=== PATIENT | male | born 1930 | race African-American/Black ===

== ENCOUNTER 2016-10-30 10:04 | Day surgery (SDC) | payer MEDICARE ==
[~2016-10-30 10:04] MED LIST: BISA5TAB64 PO; CALC500T19 PO; COLA100C PO; CORE25TA PO; DIPY75TA PO; DORZSOL EACH EYE; ERGO50000 PO; LATA0.00 EACH EYE; LOVA20TA PO; MINO2.5 PO; NEPHCAP PO; NIFE1TAB85 PO; PROT40TA PO; ST JTAB PO; ULTR50TA PO; [UNRECOGNIZED DRUG - CODE] PO
[2016-10-30 11:55] VITALS: BP 154/69; PULSE 72; RESP 18; RESP 20; TEMP 97.8; O2SAT 100
--- NOTE | 2016-10-30 12:04 | RADRPT ---
EXAM DATE/TIME: 10/30/2016 11:30 [facility] COMPARISON: CHEST SINGLE AP, January 24, 2015, 23:42. INDICATIONS : Right side thoracentesis. MEDICAL HISTORY : blood transfusion SURGICAL HISTORY : None. ENCOUNTER: Initial ACUITY: 1 day PAIN SCORE: 0/10 LOCATION: n/a FINDINGS: A single portable frontal view the chest following right thoracentesis shows residual fluid involving the inferior hemithorax. No pneumothorax. A hydropneumothorax is seen on the left. The pneumothorax component is tiny involving the lateral chest. The effusion is relatively small. Heart is mildly enla rged. Advanced osteoarthritis of the shoulders bilaterally. CONCLUSION: 1. No pneumothorax following right thoracentesis. 2. Hydropneumothorax on the left. 3. Residual right effusion. 4. Cardiomegaly. Nic Brown Jr., MD on October 30, 2016 at 11:59 Board Certified Radiologist. This report was verified electronically.
[2016-10-30 12:15] VITALS: BP 105/64; PULSE 72; RESP 20; O2SAT 100
--- NOTE | 2016-10-30 13:10 | RADRPT ---
EXAM DATE/TIME: 10/30/2016 11:01 [facility] COMPARISON: No previous studies available for comparison. INDICATIONS : Right pleural effusion. Patient reports prior thoracentesis at [facility] that resulted in a pn eumothorax and need for chest tube placement. MEDICAL HISTORY : Hypercholesterolemia. Hypertension. Stroke, Left sided weakness. Dyspnea. GERD. SURGICAL HISTORY : Thoracentesis. Paracentesis. Carotid endarterectomy. Renal stents. Double hernia repair. ENCOUNTER: Initial ACUITY: 1 day PAIN SCORE: 0/10 LOCATION: Right chest FLUID: Total volume of 700 cc of dark yellow fluid was removed. Fluid was discarded. Thoracentesis was therapeutic only. TECHNIQUE: 1. Ultrasound guidance for thoracentesis. 2. Thoracentesis. The risks, benefits, and alternatives to ultrasound guided thoracentesis were explained to the patien t in lay simple terms, including the risk of bleeding and infection. Written and verbal informed con sent was obtained. Appropriate area for thoracentesis was marked under ultrasound guidance with the patient in the uprig ht position. Overlying skin was prepped and draped in the usual sterile fashion and with local anest hetic, a dermatotomy was made with an 11 blade scalpel. A 6 Slovak thoracentesis catheter was placed in the pleural space and fluid was removed. Catheter was then removed and a sterile dressing applie d. There were no immediate complications. The patient tolerated the procedure well and the left the ultrasound suite in stable condition. Chest radiograph is to be obtained. CONCLUSION: Uncomplicated ultrasound guided right thoracentesis. Nic Brown Jr., MD on October 30, 2016 at 13:07 Board Certified Radiologist. This report was verified electronically.
[2016-12-19] MEDS ORDERED: CORE25TA PO (20:22)
[2016-12-19] MEDS ORDERED: MINO2.5T PO (20:22)
[2016-12-19] MEDS ORDERED: ASPI1CAP PO (20:22)
[2016-12-19] MEDS ORDERED: COLA100C PO (20:27)
[2016-12-19] MEDS ORDERED: PROT40TA PO (20:27)
[2016-12-19] MEDS ORDERED: NIFE30TA61 PO (20:27)
[2016-12-19] MEDS ORDERED: BRIM0.2S4 EACH EYE (20:27)
[2016-12-19] MEDS ORDERED: LATA.005%O EACH EYE (20:27)
[2016-12-19] MEDS ORDERED: LACTCAP8 PO (20:27)
[2016-12-19] MEDS ORDERED: B-CO1CAP9 PO (20:27)
[2016-12-19] MEDS ORDERED: TRAM50TA PO (20:27)
[2016-12-19] MEDS ORDERED: LOVA20TA PO (20:27)
== END 2016-10-30 12:25 | disposition home or self-care (01) ==
LOC: HRAD 10:04 → HRIP 10:08 → HRAD 12:25
PROVIDERS: ATTEND Internal Medicine
DX: J90 Pleural effusion, not elsewhere classified (principal); I51.7 Cardiomegaly; I11.9 Hypertensive heart disease without heart failure; N18.6 End stage renal disease; K21.9 Gastro-esophageal reflux disease without esophagitis; Z99.2 Dependence on renal dialysis; Z86.73 Personal history of transient ischemic attack (TIA), and cerebral infarction without residual deficits
CPT/HCPCS: 32555; 71010; C1729

== ENCOUNTER 2016-12-19 18:35 | Inpatient (IN) | payer MEDICARE ==
[~2016-12-19] VITALS: Ht 170.2 cm; Wt 55.5 kg
[2016-12-19 18:35] VITALS: BP 150/88; PULSE 89; RESP 30; TEMP 98.8; O2SAT 95
--- NOTE | 2016-12-19 19:06 | PD ---
HPI Chief Complaint: Respiratory Distress Time Seen by Provider: 18:48 Travel History International Travel<30 days: No Contact w/Intl Traveler<30days: No Traveled to known affect area: No History of Present Illness HPI 86-year-old male complains of trouble breathing. Patient states that the symptoms started last night. Patient has history recurrent pleural effusion status post thoracentesis in the past. Patient is scheduled to have bilateral thoracentesis done by interventional radiologist. Patient denies any headache. Patient denies any chest pain. Patient denies abdominal pain. Patient denies any focal weakness or numbness of extremity. EMS was called. Patient was given nonrebreathing mask on the way to the ED. Patient has history of end- stage renal disease on dialysis Thursday and Thursday. 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 Patient also has history of hypertension, hyperlipidemia, CVA and anemia. PFSH Past Medical History Anemia: Yes Arthritis: Yes Heart Rhythm Problems: No Cancer: No Cardiovascular Problems: No High Cholesterol: Yes Chest Pain: No Congestive Heart Failure: No Cerebrovascular Accident: Yes (X2 CVA, LEFT SIDED WEAKNESS) Diabetes: No Dialysis: Yes (THU,THU,THU) Diminished Hearing: No Endocrine: No Gastrointestinal Disorders: Yes (GERD) GERD: Yes Glaucoma: Yes (only an hour level but not read the second-ANGLE, BOTH EYES) Genitourinary: Yes (HX OF ENLARGED PROSTATE ) Hepatitis: No Hiatal Hernia: No Hypertension: Yes Immune Disorder: No Musculoskeletal: Yes (ARTHRITIS, BACK PROBLEMS) Neurologic: Yes (STROKE X 2, L SIDE HEMIPLEGIA) Psychiatric: No Reproductive: No Respiratory: No Immunizations Current: Yes Renal Failure: Yes Thyroid Disease: No Past Surgical History Abdominal Surgery: Yes (DOUBLE HERNIA REPAIR) AICD: No Body Medical Devices: ISSAC URETERAL STENTS, AV FISTULA L ARM, DIALYSIS CATHETER R CHEST Cardiac Surgery: Yes (CAROTID ENDARTERECTOMY) Ear Surgery: Yes (CATARACT RIGHT EYE) Eye Surgery: Yes (CATARACT RIGHT EYE) Genitourinary Surgery: Yes (BILAT STENTS KIDNEY, TURP) Joint Replacement: No Neurologic Surgery: Yes Pacemaker: No Other Surgery: Yes (PROSTATE TURP, HEMO DIALYSIS PORT TO RU, FISTULA L ARM) Social History Alcohol Use: No (QUIT 2002) Tobacco Use: No (QUIT 40 YEARS AGO) Substance Use: No Allergies-Medications (Allergen,Severity, Reaction): Coded Allergies: *MDRO Multi-Drug Resistant Organism (Verified Adverse Reaction, Unknown, 01/29/15) MRSA PCR Screen positive 01/25/15. Reported Meds & Prescriptions Reported Meds & Active Scripts Active Calcium 500 Mg Tab 1,000 Mg PO DAILY 5 Days Ultram (Tramadol HCl) 50 Mg Tab 50 Mg PO Q4H PRN Aspirin Ec Low Dose (Aspirin) 81 Mg Tab 81 Mg PO DAILY resume 02/05 Coreg 25 mg (Carvedilol) 25 Mg Tab 12.5 Mg PO BID 30 Days Protonix (Pantoprazole Sodium) 40 Mg Tab 40 Mg PO DAILY Reported Novasource Renal (Nutritional Supplements) Renal Liq 1 Can PO BID Procardia Xl (Nifedipine) 30 Mg Tabcr 30 Mg PO BID PRN Colace (Docusate Sodium) 100 Mg Cap 100 Mg PO BID Dipyridamole 75 mg (Dipyridamole) 75 Mg Tab 75 Mg PO BID Bisacodyl 5 Mg Tab 10 Mg PO DAILY PRN Vitamin D / Drisdol 50,000 Units (Ergocalciferol) 50,000 Units Cap 1 Cap PO Q7D TAKES ON THURSDAY Nephrocaps (B-Complex W/ C & Folic Acid) Cap 1 Cap PO DAILY Loniten 2.5 Mg Tab (Minoxidil) 2.5 Mg Tab 2.5 Mg PO DAILY Lovastatin 20 Mg Tab 20 Mg PO HS Latanoprost 0.005 % Jolie 1 Drop EACH EYE HS Cosopt Pf (Dorzolamide Hcl-Timolol Maleat) Jolie 1 Drop EACH EYE BID Review of Systems General / Constitutional: No: Fever Eyes: No: Visual changes HENT: No: Headaches Cardiovascular: No: Chest Pain or Discomfort Respiratory: Positive: Shortness of Breath Gastrointestinal: No: Abdominal Pain Genitourinary: No: Dysuria Musculoskeletal: No: Pain Skin: No Rash Neurologic: No: Weakness Psychiatric: No: Depression Endocrine: No: Polydipsia Hematologic/Lymphatic: No: Easy Bruising Physical Exam Narrative GENERAL: Well-nourished, well-developed patient. SKIN: Focused skin assessment warm/dry. HEAD: Normocephalic. EYES: No scleral icterus. No injection or drainage. NECK: Supple, trachea midline. No JVD or lymphadenopathy. CARDIOVASCULAR: Regular rate and rhythm without murmurs, gallops, or rubs. RESPIRATORY: Patient had decreased breath sound bilaterally especially at the right lung. Few rhonchi at the bases. GASTROINTESTINAL: Abdomen soft, non-tender, nondistended. MUSCULOSKELETAL: No cyanosis, or edema. BACK: Nontender without obvious deformity. No CVA tenderness. Neurologic exam normal. Data Data Last Documented VS Vital Signs Date Time Temp Pulse Resp B/P (MAP) Pulse Ox O2 Delivery O2 Flow Rate FiO2 12/19/16 18:48 30 99 Non-Rebreather 15.00 12/19/16 18:35 98.8 89 150/88 (108) Orders Orders Electrocardiogram (12/19/16 18:50) Complete Blood Count With Diff (12/19/16 18:50) Comprehensive Metabolic Panel (12/19/16 18:50) Creatine Kinase (Cpk) (12/19/16 18:50) Troponin I (12/19/16 18:50) Prothrombin Time / Inr (Pt) (12/19/16 18:50) Act Partial Throm Time (Ptt) (12/19/16 18:50) Blood Culture (12/19/16 18:50) Urinalysis - C+S If Indicated (12/19/16 18:50) Chest, Single Ap (12/19/16 18:50) Iv Access Insert/Monitor (12/19/16 18:50) Ecg Monitoring (12/19/16 18:50) Oximetry (12/19/16 18:50) Lactic Acid (12/19/16 18:50) MDM Medical Decision Making Medical Screen Exam Complete: Yes Emergency Medical Condition: Yes Differential Diagnosis Differential diagnosis including pleural effusion, bronchitis, pneumonia, PE, pneumothorax, CHF. Narrative Course 86-year-old male with shortness of breath. History of pleural effusion. Chun Galvan MD Dec 19, 2016 19:06
--- NOTE | 2016-12-19 19:16 | RADRPT ---
EXAM DATE/TIME: 12/19/2016 19:00 [facility] COMPARISON: CHEST EXPIRATION ONLY, October 30, 2016, 11:30. INDICATIONS : Short of breath. MEDICAL HISTORY : None. SURGICAL HISTORY : None. ENCOUNTER: Initial ACUITY: 1 day PAIN SCORE: 7/10 LOCATION: Bilateral chest FINDINGS: Bilateral pleural effusions are again appreciated minimally increased on the right and stable on the left. On the left the minimal lateral pneumothorax prior study 6 mm in width is now somewhat larger b eing lateral and a long the base CONCLUSION: Slightly enlarged right pleural effusion. Left pleural effusion persists with left lateral and subple ural basilar pneumothorax 2.5 cm in width which is increased in size relative to 30 October 2016. Frank Alonso MD on December 19, 2016 at 19:12 Board Certified Radiologist. This report was verified electronically. maximum width 2.5 cm.
[2016-12-19 19:26] VITALS: BP 119/69; PULSE 78; RESP 20; O2SAT 100
--- NOTE | 2016-12-19 19:32 | PD ---
Data Data Last Documented VS Vital Signs Date Time Temp Pulse Resp B/P (MAP) Pulse Ox O2 Delivery O2 Flow Rate FiO2 12/19/16 19:26 78 20 119/69 (86) 100 Nasal Cannula 5.00 12/19/16 18:35 98.8 Orders Orders Electrocardiogram (12/19/16 18:50) Complete Blood Count With Diff (12/19/16 18:50) Comprehensive Metabolic Panel (12/19/16 18:50) Creatine Kinase (Cpk) (12/19/16 18:50) Troponin I (12/19/16 18:50) Prothrombin Time / Inr (Pt) (12/19/16 18:50) Act Partial Throm Time (Ptt) (12/19/16 18:50) Blood Culture (12/19/16 18:50) Urinalysis - C+S If Indicated (12/19/16 18:50) Chest, Single Ap (12/19/16 18:50) Iv Access Insert/Monitor (12/19/16 18:50) Ecg Monitoring (12/19/16 18:50) Oximetry (12/19/16 18:50) Lactic Acid (12/19/16 18:50) Lidocai-Epi 2%-1:100,000 Inj (Xylocaine- (12/19/16 19:45) Admit Order (Ed Use Only) (12/19/16 ) Chest, Single Ap (12/19/16 ) Labs Laboratory Tests Test 12/19/16 19:10 White Blood Count 5.1 TH/MM3 Red Blood Count 3.36 MIL/MM3 Hemoglobin 11.6 GM/DL Hematocrit 36.1 % Mean Corpuscular Volume 107.5 FL Mean Corpuscular Hemoglobin 34.6 PG Mean Corpuscular Hemoglobin Concent 32.2 % Red Cell Distribution Width 15.2 % Platelet Count 189 TH/MM3 Mean Platelet Volume 9.3 FL Neutrophils (%) (Auto) 51.4 % Lymphocytes (%) (Auto) 35.7 % Monocytes (%) (Auto) 11.1 % Eosinophils (%) (Auto) 1.2 % Basophils (%) (Auto) 0.6 % Neutrophils # (Auto) 2.6 TH/MM3 Lymphocytes # (Auto) 1.8 TH/MM3 Monocytes # (Auto) 0.6 TH/MM3 Eosinophils # (Auto) 0.1 TH/MM3 Basophils # (Auto) 0.0 TH/MM3 CBC Comment DIFF FINAL Differential Comment Prothrombin Time 11.7 SEC Prothromb Time International Ratio 1.1 RATIO Activated Partial Thromboplast Time 28.1 SEC Blood Urea Nitrogen 62 MG/DL Creatinine 7.68 MG/DL Random Glucose 118 MG/DL Total Protein 7.7 GM/DL Albumin 2.8 GM/DL Calcium Level 8.5 MG/DL Alkaline Phosphatase 83 U/L Aspartate Amino Transf (AST/SGOT) 13 U/L Alanine Aminotransferase (ALT/SGPT) 14 U/L Total Bilirubin 0.3 MG/DL Sodium Level 138 MEQ/L Potassium Level 5.4 MEQ/L Chloride Level 103 MEQ/L Carbon Dioxide Level 27.5 MEQ/L Anion Gap 8 MEQ/L Estimat Glomerular Filtration Rate 8 ML/MIN Lactic Acid Level 1.2 mmol/L Total Creatine Kinase 89 U/L Troponin I 0.03 NG/ML MDM Supervised Visit with LANCE: No Narrative Course Patient care assumed from Dr. Galvan at 1900. This is a 86-year-old male with a history of end-stage renal disease and recurrent pneumothorax and pleural effusion. Apparently in September of this year or thereabouts the patient had a pleural effusion and had chest tube placed which was complicated by pneumothorax , patient's states he was scheduled to have an repeat drainage of pleural effusion as an outpatient but because he didn't have a labs they couldn't do it as an outpatient they were told if he got worse to come into the emergency department. He was gradually getting worse and they called 911 today, on scene the patient was satting in the 80s. Dr. Galvan and I have explored the possibility of interventional radiology drainage tonight however there is no availability. I think the patient does need evacuation of pneumothorax which is new on the left. The patient was also discussed with Dr. Oliveira who would like to assist did not perform procedures. He has medicine at bedside, I assisted him with the first pigtail catheter on the left side which did reveal some yellowish fluid as well. Dr. Oliveira would like also drain the pleural effusion on the right side, he drained approximately 600 cc in the emergency department which is complicated by pneumothorax and the pigtail catheter was placed on the right as well. Patient is satting much better after drainage bilaterally. He will go to the intensive care unit for tonight. Discussed with Dr. Oliveira need for pathology on fluid drainage and he agrees. I reviewed the patient's labs and does have some mild hyperkalemia and mild uremia, he is due for dialysis today. He has no EKG changes consistent with hyperkalemia, there is an isolated T-wave enlargement and V3 but probably not related to hyperkalemia. Dr. Oliveira will assume care at this time. Patient to the ICU. Diagnosis Primary Impression: Pneumothorax Qualified Codes: J95.811 - Postprocedural pneumothorax Additional Impression: Pleural effusion Disposition: 01 DISCHARGE HOME Condition: Stable Eliecer Orlando MD Dec 19, 2016 19:32
[2016-12-19 19:38] LABS: AUTOMATED NEUTROPHIL # 2.6 TH/MM3 (1.8-7.7); BASOPHIL % 0.6 % (0.0-2.0); EOSINOPHIL # 0.1 TH/MM3 (0-0.4); EOSINOPHIL % 1.2 % (0.0-4.0); HEMATOCRIT 36.1 % (39.0-51.0); HEMOGLOBIN 11.6 GM/DL (13.0-17.0); LYMPH % 35.7 % (9.0-44.0); LYMPHOCYTE # 1.8 TH/MM3 (1.0-4.8); MEAN CELL VOLUME 107.5 FL (80.0-100.0); MEAN CORPUSCULAR HEMOGLOBIN 34.6 PG (27.0-34.0); MEAN CORPUSCULAR HGB CONC 32.2 % (32.0-36.0); MEAN PLATELET VOLUME 9.3 FL (7.0-11.0); MONO % 11.1 % (0.0-8.0); MONOCYTE # 0.6 TH/MM3 (0-0.9); NEUT % 51.4 % (16.0-70.0); PLATELET COUNT 189 TH/MM3 (150-450); RED BLOOD COUNT 3.36 MIL/MM3 (4.50-5.90); RED CELL DISTRIBUTION WIDTH 15.2 % (11.6-17.2); WHITE BLOOD COUNT 5.1 TH/MM3 (4.0-11.0)
[2016-12-19] MEDS ORDERED: LIDOCAINE 2%/EPINEPHrine 1:100,000 20ML MDV NERV BLOCK ONE ×2 (19:45)
[2016-12-19 19:49] LABS: INTERNATIONAL NORMALIZED RATIO 1.1 RATIO; PROTHROMBIN TIME - PATIENT 11.7 SEC (9.8-11.6)
[2016-12-19] MEDS ORDERED: BISACODYL EC 5 MG TABEC PO PRN ×2 (20:00)
[2016-12-19] MEDS ORDERED: NIFEdipine 30 MG SUSTAINED RELEASE TAB PO PRN ×2 (20:00)
[2016-12-19 20:04] VITALS: BP 129/74; PULSE 81; RESP 18; O2SAT 100
[2016-12-19] MEDS ORDERED: BISACODYL 10 MG SUPP RECTAL PRN ×2 (20:15)
[2016-12-19] MEDS ORDERED: ZOLPIDEM TARTRATE 5 MG TAB PO PRN ×2 (20:15)
[2016-12-19] MEDS ORDERED: LACTULOSE SYRUP 20 GM/30 ML CUP PO PRN ×2 (20:15)
[2016-12-19] MEDS ORDERED: MAGNESIUM HYDROXIDE SUSP 30 ML CUP PO PRN ×2 (20:15)
[2016-12-19] MEDS ORDERED: SENNOSIDES 8.6 MG TAB PO PRN ×2 (20:15)
[2016-12-19] MEDS ORDERED: RESP: ALBUTEROL 2.5 MG/IPRATROPIUM 0.5 MG NEB (PRN) INH ×2 (20:15)
[2016-12-19] MEDS ORDERED: CHLORHEXIDINE GLUCONATE 2 % 1 PACK (2 CLOTHS) TOP PRN ×2 (20:15)
[2016-12-19] MEDS ORDERED: ONDANSETRON HCL 4 MG/2 ML VIAL IV PUSH PRN ×2 (20:15)
[2016-12-19] MEDS ORDERED: MISCELLANEOUS NURSING INFORMATION XX SCH ×2 (20:15)
[2016-12-19] MEDS ORDERED: CORE25TA PO ×2 (20:22)
[2016-12-19] MEDS ORDERED: ASPI1CAP PO ×2 (20:22)
[2016-12-19] MEDS ORDERED: MINO2.5T PO ×2 (20:22)
[2016-12-19] MEDS ORDERED: TRAM50TA PO ×2 (20:27)
[2016-12-19] MEDS ORDERED: COLA100C PO ×2 (20:27)
[2016-12-19] MEDS ORDERED: LACTCAP8 PO ×2 (20:27)
[2016-12-19] MEDS ORDERED: PROT40TA PO ×2 (20:27)
[2016-12-19] MEDS ORDERED: B-CO1CAP9 PO ×2 (20:27)
[2016-12-19] MEDS ORDERED: BRIM0.2S4 EACH EYE ×2 (20:27)
[2016-12-19] MEDS ORDERED: LATA.005%O EACH EYE ×2 (20:27)
[2016-12-19] MEDS ORDERED: LOVA20TA PO ×2 (20:27)
[2016-12-19] MEDS ORDERED: NIFE30TA61 PO ×2 (20:27)
[2016-12-19 20:30] VITALS: BP 141/94; PULSE 78; RESP 20; O2SAT 100
[2016-12-19 20:47] LABS: ALBUMIN 2.8 GM/DL (3.4-5.0); ALKALINE PHOSPHATASE 83 U/L (45-117); ALT (GPT) 14 U/L (12-78); AST (GOT) 13 U/L (15-37); BICARBONATE 27.5 MEQ/L (21.0-32.0); BLOOD UREA NITROGEN 62 MG/DL (7-18); CALCIUM 8.5 MG/DL (8.5-10.1); CHLORIDE 103 MEQ/L (98-107); CREATININE 7.68 MG/DL (0.60-1.30); GLOMERULAR FILTRATION RATE 8 ML/MIN (>89); GLUCOSE,RANDOM 118 MG/DL (74-106); SODIUM (NA) 138 MEQ/L (136-145); TOTAL BILIRUBIN ADULT 0.3 MG/DL (0.2-1.0); TOTAL PROTEIN 7.7 GM/DL (6.4-8.2); TROPONIN I 0.03 NG/ML (0.02-0.05)
--- NOTE | 2016-12-19 20:47 | RADRPT ---
EXAM DATE/TIME: 12/19/2016 20:09 [facility] COMPARISON: CHEST SINGLE AP, December 19, 2016, 19:00. INDICATIONS : Chest tube insertion. MEDICAL HISTORY : None. SURGICAL HISTORY : None. ENCOUNTER: Subsequent ACUITY: 1 day PAIN SCORE: Non-responsive. LOCATION: Left chest FINDINGS: There is placement of a smallbore left chest tube laterally with the left pneumothorax diminished in volume laterally from 2.5 now 3 mm in width and there persists be a subpulmonic component. CONCLUSION: Place a left chest tube with marked diminished volume of left pneumothorax decreased laterally from 2 .5 cm to 3 mm with a persistent subpulmonic component. Remainder chest is stable Frank Alonos MD on December 19, 2016 at 20:44 Board Certified Radiologist. This report was verified electronically.
[2016-12-19 21:00] VITALS: BP 148/69; PULSE 76; RESP 20; O2SAT 100
[2016-12-19] MEDS: DORZOLAMIDE/TIMOLOL OPTH SOLN 10 ML BTL EACH EYE SCH ×2 (21:00)
[2016-12-19] MEDS: PRAVASTATIN SOD 20 MG TAB PO SCH ×2 (21:00)
[2016-12-19] MEDS: DIPYRIDAMOLE 75 MG PO SCH ×2 (21:00)
[2016-12-19] MEDS: LATANOPROST 0.005% OPHT SOLN 2.5 ML BTL EACH EYE SCH ×2 (21:00)
[2016-12-19] MEDS: HEPARIN SODIUM - SQ 10,000 UNITS/ML VIAL SQ SCH ×2 (21:00)
[2016-12-19] MEDS: CARVEDILOL 12.5 MG TAB PO SCH ×2 (21:00)
[2016-12-19] MEDS ORDERED: DOCUSATE SODIUM 100 MG CAP PO SCH ×2 (21:00)
[2016-12-19] MEDS: DOCUSATE SODIUM 50 MG/SENNA 8.6 MG TAB PO SCH ×2 (21:00)
[2016-12-19] MEDS ORDERED: NUTRITIONAL SUPPLEMENTS PO SCH ×2 (21:00)
[2016-12-19] MEDS: SODIUM CHLORIDE 0.9% FLUSH 10 ML FLUSH IV FLUSH SCH ×2 (21:00)
--- NOTE | 2016-12-19 21:21 | RADRPT ---
EXAM DATE/TIME: 12/19/2016 20:49 [facility] COMPARISON: CHEST SINGLE AP, December 19, 2016, 20:09. INDICATIONS : Status post right sided chest tube placement for pleural effusion. MEDICAL HISTORY : None. SURGICAL HISTORY : None. ENCOUNTER: Subsequent ACUITY: 1 day PAIN SCORE: Non-responsive. LOCATION: chest FINDINGS: Left chest tube remains in place with persistent subpulmonic basilar pneumothorax. There apparently h as been a right thoracentesis chest tube is not noted on the right however there is loculated pneumot horax occupying the area of the prior infusion CONCLUSION: Right thoracentesis evacuation of right effusion which now is contain s loculated pneumothorax without tension . Left chest tube remains in place and the lateral component pneumothorax has cleared however there is persistent left basilar subpulmonic pneumothorax unchanged Frank Alonso MD on December 19, 2016 at 21:17 Board Certified Radiologist. This report was verified electronically.
--- NOTE | 2016-12-19 22:05 | RADRPT ---
EXAM DATE/TIME: 12/19/2016 21:30 [facility] COMPARISON: CHEST SINGLE AP, December 19, 2016, 20:49. INDICATIONS : Chest tube insertion right side. MEDICAL HISTORY : None. SURGICAL HISTORY : None. ENCOUNTER: Subsequent ACUITY: 2 days PAIN SCORE: Non-responsive. LOCATION: Right chest FINDINGS: There is a small bore pigtail chest tube in place in the right lung base with a persistent unchanged loculated pneumothorax. Left chest tube remains in place laterally with persistent unchanged loculate d left basilar subpulmonic pneumothorax. CONCLUSION: Placement right basilar small bore pigtail chest tube. Left small bore chest tube remains in place. B ibasilar loculated pneumothoraces are stable and unchanged Frank Alonso MD on December 19, 2016 at 22:02 Board Certified Radiologist. This report was verified electronically.
[2016-12-20] VITALS (14 sets, daily range): BP systolic 126–186; BP diastolic 60–80; PULSE 66–87; RESP 18–28; TEMP 97.2–98.4; O2SAT 99–100
[2016-12-20] MEDS: hydrALAZINE HCL 20 MG/ML VIAL IV PRN ×2 (00:22)
[2016-12-20] MEDS: traMADol HCL 50 MG TAB PO PRN ×4 (01:13→15:50)
--- NOTE | 2016-12-20 01:14 | HHI.HP ---
[facility] Service Critical Care Medicine - service provided December 19, 2016 Primary Care Physician Shobha Gomez MD Admission Diagnosis Pleural Effusion, Pneumothorax, Hypoxic respiratory failure. Diagnosis: Travel History International Travel<30 Days: No Contact w/Intl Traveler <30 Da: No Traveled to Known Affected Are: No History of Present Illness 86-year-old very pleasant male presents complaining of shortness of breath. Patient states that the symptoms started last night. He has history recurrent pleural effusion status post thoracentesis in the past. Patient is scheduled to have bilateral thoracentesis done by interventional radiologist. Patient denies any headache. Patient denies any chest pain. Patient denies abdominal pain. Patient denies any focal weakness or numbness of extremity. 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 Patient also has history of hypertension, hyperlipidemia, CVA and anemia. In the emergency department the chest x-ray revealed large pleural effusion on the right and a large pneumothorax on the left. Emergent chest tubes were placed bilaterally with partial resolution of pneumothorax on the left and drainage of 700 cc of hemorrhagic fluid from the right side however bilateral residual bibasal pneumothoraces. After procedures patient's respiration is significantly improved as well as his oxygenation. Review of Systems Constitutional: COMPLAINS OF: Diaphoretic episodes, DENIES: Fatigue, Fever, Weight gain, Weight loss, Chills, Dizziness, Change in appetite, Night Sweats Endocrine: DENIES: Heat/cold intolerance, Polydipsia, Polyuria, Polyphagia Eyes: DENIES: Blurred vision, Diplopia, Eye inflammation, Eye pain, Vision loss , Photosensitivity, Double Vision Ears, nose, mouth, throat: DENIES: Tinnitus, Hearing loss, Vertigo, Nasal discharge, Oral lesions, Throat pain, Hoarseness, Ear Pain, Running Nose, Epistaxis, Sinus Pain, Toothache, Odynophagia Respiratory: COMPLAINS OF: Shortness of breath, DENIES: Apneas, Cough, Snoring , Wheezing, Hemoptysis, Sputum production Cardiovascular: DENIES: Chest pain, Palpitations, Syncope, Dyspnea on Exertion , PND, Lower Extremity Edema, Orthopnea, Claudication Gastrointestinal: DENIES: Abdominal pain, Black stools, Bloody stools, Constipation, Diarrhea, Nausea, Vomiting, Difficulty Swallowing, Anorexia Genitourinary: DENIES: Sexual dysfunction, Urinary frequency, Urinary incontinence, Urgency, Hematuria, Dysuria, Nocturia, Penile Discharge, Testicular Pain, Testicular Swelling Musculoskeletal: DENIES: Joint pain, Muscle aches, Stiffness, Joint Swelling, Back pain, Neck pain Integumentary: DENIES: Abnormal pigmentation, Nail changes, Pruritus, Rash Hematologic/lymphatic: DENIES: Bruising, Lymphadenopathy Immunologic/allergic: DENIES: Eczema, Urticaria Neurologic: DENIES: Abnormal gait, Headache, Localized weakness, Paresthesias, Seizures, Speech Problems, Tremor, Poor Balance Psychiatric: DENIES: Anxiety, Confusion, Mood changes, Depression, Hallucinations, Agitation, Suicidal Ideation, Homicidal Ideation, Delusions Past Family Social History Allergies: Coded Allergies: *MDRO Multi-Drug Resistant Organism (Verified Adverse Reaction, Unknown, 01/29/15) MRSA PCR Screen positive 01/25/15. Past Medical History ascites,hypertension,hemodiaylsis,crf,old cva,duodenitis Past Surgical History left carotid endarectomy,fistula left arm Reported Medications Reported Meds & Active Scripts Active Reported Probiotic (Lactobacillus Acidophilus) 10 Billion Cell Cap 1 Cap PO DAILY Colace (Docusate Sodium) 100 Mg Capsule 1 Tab PO BID Tramadol (Tramadol HCl) 50 Mg Tab 50 Mg PO Q8H PRN Protonix (Pantoprazole Sodium) 40 Mg Tab 40 Mg PO DAILY PRN Nifedipine ER 24 HR (Nifedipine) 30 Mg Tab 30 Mg PO DAILY PRN Nephrocaps (B-Complex W/ C & Folic Acid) 1 Cap 1 Cap PO DAILY If on dialysis, take after treatment. Xalatan Opth Drops (Latanoprost) 0.005% Drops 1 Drop EACH EYE HS Brimonidine Opth Drops (Brimonidine Tartrate) 0.2% Soln 1 Drop EACH EYE BID Lovastatin 20 Mg Tab 20 Mg PO HS Minoxidil 2.5 Mg Tab 2.5 Mg PO BID PRN Coreg (Carvedilol) 25 Mg Tab 25 Mg PO BID Dipyridamole-Aspirin 200-25 Mg Cap 1 Cap PO BID Active Ordered Medications Current Medications Medications (Trade) Dose Ordered Sig/Bill Route PRN Reason Start Time Stop Time Status Last Admin Dose Admin Bisacodyl (Dulcolax Ec) 10 mg DAILY PRN PO SEVERE CONSTIPATION 12/19/16 20:00 Dipyridamole (Persantine) 75 mg BID PO 12/19/16 21:00 Ergocalciferol (Drisdol) 50,000 units Q7D PO 12/20/16 09:00 Latanoprost (Xalatan 0.005% Opth Soln) 1 drop HS EACH EYE 12/19/16 21:00 Pravastatin Sodium (Pravachol) 20 mg HS PO 12/19/16 21:00 12/19/16 21:00 Minoxidil (Loniten) 2.5 mg DAILY PO 12/20/16 09:00 Nifedipine (Procardia Xl) 30 mg BID PRN PO SBP> OR = 180, DBP> OR = 100 12/19/16 20:00 12/20/16 00:23 Pantoprazole Sodium (Protonix) 40 mg DAILY PO 12/20/16 09:00 Tramadol HCl (Ultram) 50 mg Q4H PRN PO PAIN SCALE 1 TO 10 12/19/16 20:00 Aspirin (Ecotrin Ec) 81 mg DAILY PO 12/20/16 09:00 Vitamin B Complex/ Vit C/Folic Acid (Nephrocaps) 1 cap DAILY PO 12/20/16 09:00 Calcium Carbonate (Oscal) 1,000 mg DAILY PO 12/20/16 09:00 Carvedilol (Coreg) 12.5 mg BID PO 12/19/16 21:00 12/19/16 21:00 Dorzolamide/ Timolol (Cosopt 2-0.5% Opth Soln) 1 drop BID EACH EYE 12/19/16 21:00 Sodium Chloride (NS Flush) 2 ml UNSCH PRN IV FLUSH FLUSH AFTER USING IV ACCESS 12/19/16 20:15 Sodium Chloride (NS Flush) 2 ml BID IV FLUSH 12/19/16 21:00 12/19/16 21:00 Acetaminophen (Tylenol) 650 mg Q6H PRN PO FEVER >101F 12/19/16 20:15 Ondansetron HCl (Zofran Inj) 4 mg Q6H PRN IV PUSH NAUSEA OR VOMITING 12/19/16 20:15 Zolpidem Tartrate (Ambien) 5 mg HS PRN PO INSOMNIA 12/19/16 20:15 Albuterol/ Ipratropium (Duoneb Neb) 1 ampule Q2HR NEB PRN INH WHEEZING 12/19/16 20:15 Heparin Sodium (Porcine) (Heparin Inj) 5,000 units Q12H SQ 12/19/16 21:00 12/19/16 21:00 Miscellaneous Information 1 [id number] XX 12/19/16 20:15 Chlorhexidine Gluconate (Chlorhexidine 2% Cloth) 3 pack Taper DAILY@04 TOP 12/20/16 04:00 12/16/17 03:59 Chlorhexidine Gluconate (Chlorhexidine 2% Cloth) 3 pack UNSCH PRN TOP HYGIENIC CARE 12/19/16 20:15 Senna/Docusate Sodium (Shelby-Colace) 1 tab BID PO 12/19/16 21:00 Magnesium Hydroxide (Milk Of Magnesia Liq) 30 ml Q12H PRN PO Mild constipation 12/19/16 20:15 Sennosides (Senokot) 17.2 mg Q12H PRN PO Moderate constipation 12/19/16 20:15 Bisacodyl (Dulcolax Supp) 10 mg DAILY PRN RECTAL SEVERE CONSITIPATION 12/19/16 20:15 Lactulose (Lactulose Liq) 30 ml DAILY PRN PO SEVERE CONSITIPATION 12/19/16 20:15 Dipyridamole (Persantine) 75 mg BID PO 12/20/16 09:00 Hydralazine HCl (Apresoline Inj) 20 mg Q4H PRN IV SYS BP GREATER THAN 160 MMHG 12/20/16 00:15 12/20/16 00:22 Family History No family history for coronary artery disease or malignancy Social History No alcohol or illicit drug abuse Physical Exam Vital Signs Vital Signs Date Time Temp Pulse Resp B/P (MAP) Pulse Ox O2 Delivery O2 Flow Rate FiO2 12/19/16 22:01 12/19/16 21:00 76 20 148/69 (95) 100 Nasal Cannula 5.00 12/19/16 20:30 78 20 141/94 (110) 100 Nasal Cannula 5.00 12/19/16 20:04 81 18 129/74 (92) 100 Nasal Cannula 5.00 12/19/16 19:26 78 20 119/69 (86) 100 Nasal Cannula 5.00 12/19/16 18:48 30 99 Non-Rebreather 15.00 12/19/16 18:35 98.8 89 30 150/88 (108) 95 Physical Exam GENERAL: Malnourished, cachectic sick but very pleasant gentleman SKIN: Warm and dry. HEAD: Normocephalic. EYES: No scleral icterus. No injection or drainage. NECK: Supple, trachea midline. No JVD or lymphadenopathy. CARDIOVASCULAR: Regular rate and rhythm without murmurs, gallops, or rubs. RESPIRATORY: Breath sounds equal bilaterally. No accessory muscle use. GASTROINTESTINAL: Abdomen soft, non-tender, nondistended. MUSCULOSKELETAL: No cyanosis, or edema. BACK: Nontender without obvious deformity. NEURO EXAM: GCS: M 6 V 5 E 3 Mental Status: The patient is alert and oriented to person, place, and time with normal speech. Reflexes: Biceps, patellar, and Achilles are 2/4 bilaterally. No clonus. Laboratory Laboratory Tests Test 12/19/16 19:10 White Blood Count 5.1 Red Blood Count 3.36 Hemoglobin 11.6 Hematocrit 36.1 Mean Corpuscular Volume 107.5 Mean Corpuscular Hemoglobin 34.6 Mean Corpuscular Hemoglobin Concent 32.2 Red Cell Distribution Width 15.2 Platelet Count 189 Mean Platelet Volume 9.3 Neutrophils (%) (Auto) 51.4 Lymphocytes (%) (Auto) 35.7 Monocytes (%) (Auto) 11.1 Eosinophils (%) (Auto) 1.2 Basophils (%) (Auto) 0.6 Neutrophils # (Auto) 2.6 Lymphocytes # (Auto) 1.8 Monocytes # (Auto) 0.6 Eosinophils # (Auto) 0.1 Basophils # (Auto) 0.0 CBC Comment DIFF FINAL Differential Comment Prothrombin Time 11.7 Prothromb Time International Ratio 1.1 Activated Partial Thromboplast Time 28.1 Blood Urea Nitrogen 62 Creatinine 7.68 Random Glucose 118 Total Protein 7.7 Albumin 2.8 Calcium Level 8.5 Alkaline Phosphatase 83 Aspartate Amino Transf (AST/SGOT) 13 Alanine Aminotransferase (ALT/SGPT) 14 Total Bilirubin 0.3 Sodium Level 138 Potassium Level 5.4 Chloride Level 103 Carbon Dioxide Level 27.5 Anion Gap 8 Estimat Glomerular Filtration Rate 8 Lactic Acid Level 1.2 Total Creatine Kinase 89 Troponin I 0.03 Date/Time Source Procedure Growth Status 12/19/16 19:10 Blood Peripheral Aerobic Blood Culture Pending Received 12/19/16 19:10 Blood Peripheral Anaerobic Blood Culture Pending Received Result Diagram: 12/19/16190912/19/161909 Imaging Last 24 hours Impressions Chest X-Ray 12/19/16 0822 Signed Impressions: Service Date/Time: Monday, December 19, 2016 19:00 - CONCLUSION: Slightly enlarged right pleural effusion. Left pleural effusion persists with left lateral and subpleural basilar pneumothorax 2.5 cm in width which is increased in size relative to 30 October 2016. MD Mercedes Lal VTE Risk Assessment Caprini VTE Risk Assessment: Mod/High Risk (score >= 2) Caprini Risk Assessment Model Point Value = 1 Point Value = 2 Point Value = 3 Point Value = 5 Age 41-60 Minor surgery BMI > 25 kg/m2 Swollen legs Varicose veins or History of unexplained or recurrent spontaneous Oral contraceptives or hormone replacement Sepsis (< 1 month) Serious lung disease, including pneumonia (< 1 month) Abnormal pulmonary function Acute myocardial infarction Congestive heart failure (< 1 month) History of inflammatory bowel disease Medical patient at bed rest Age 61-74 Arthroscopic surgery Major open surgery (> 45 min) Laparoscopic surgery (> 45 min) Malignancy Confined to bed (> 72 hours) Immobilizing plaster cast Central venous access Age >= 75 History of VTE Family history of VTE Factor V Leiden Prothrombin [id number] Lupus anticoagulant Anticardiolipin antibodies Elevated serum homocysteine Heparin-induced thrombocytopenia Other congenital or acquired thrombophilia Stroke (< 1 month) Elective arthroplasty Hip, pelvis, or leg fracture Acute spinal cord injury (< 1 month) Prophylaxis Regimen Total Risk Factor Score Risk Level Prophylaxis Regimen 0-1 Low Early ambulation 2 Moderate Order ONE of the following: *Sequential Compression Device (SCD) *Heparin 5000 units SQ BID 3-4 Higher Order ONE of the following medications: *Heparin 5000 units SQ TID *Enoxaparin/Lovenox 40 mg SQ daily (WT < 150 kg, CrCl > 30 mL/min) *Enoxaparin/Lovenox 30 mg SQ daily (WT < 150 kg, CrCl > 10-29 mL/min) *Enoxaparin/Lovenox 30 mg SQ BID (WT < 150 kg, CrCl > 30 mL/min) AND/OR *Sequential Compression Device (SCD) 5 or more Highest Order ONE of the following medications: *Heparin 5000 units SQ TID (Preferred with Epidurals) *Enoxaparin/Lovenox 40 mg SQ daily (WT < 150 kg, CrCl > 30 mL/min) *Enoxaparin/Lovenox 30 mg SQ daily (WT < 150 kg, CrCl > 10-29 mL/min) *Enoxaparin/Lovenox 30 mg SQ BID (WT < 150 kg, CrCl > 30 mL/min) AND *Sequential Compression Device (SCD) Assessment and Plan Assessment and Plan Assessment: Respiratory failure Pneumothorax Pleural effusion ESRD HTN Macrocytic Anemia Plan - Bilateral chest tube - IR consult for decompression of loculated pneumothorax on the right - Follow-up fluid tenolysis - Pulmonary consult for further management of chest tubes - Nephrology consult for EGD - B12 and folate levels for evaluation of anemia Critical Care: The total critical care time was 35 minutes. Time to perform other separately billable procedures was not included in the critical care time. Noman Oliveira MD Dec 20, 2016 1:14 am
[2016-12-20] MEDS: SODIUM BICARBONATE 8.4% INJ 100 MEQ in DEXTROSE 5% IN WATE 1000ML INJ 1,000 ML IV SCH ×4 (02:09)
[2016-12-20] MEDS ORDERED: SODIUM CHLOR 0.9% 1000 ML INJ 1,000 ML IV ONE ×2 (02:15)
--- NOTE | 2016-12-20 03:50 | PD.PROCEDR ---
Procedure Note Procedure Procedure: CHEST TUBE Indication: Large pneumothorax on the left Performed by: Noman Oliveira A time out procedure was performed Initials Consent obtained JV Correct patient JV Correct procedure JV Correct site JV Correct positioning JV Correct supplies JV Patient was positioned, prepped and draped in usual sterile fashion. ccs 1% Lidocaine was used to anesthetize the area. An incision was made and blunt dissection was performed and curved forceps were used to enter the pleural space. A 10 fr chest tube was placed to 15cm. The tube was secured and taped. A chest xray was ordered to evaluate for placement of the chest tube. A pigtail catheter was placed using the seldinger technique. Initial Fluid Removed: 250 Patient tolerated the procedure well and there were no complications. Noman Oliveira MD Dec 20, 2016 3:50 am
--- NOTE | 2016-12-20 03:51 | PD.PROCEDR ---
Procedure Note Procedure Procedure: CHEST TUBE Indication: Large pleural effusion on the right Performed by: Noman Oliveira A time out procedure was performed Initials Consent obtained JV Correct patient JV Correct procedure JV Correct site JV Correct positioning JV Correct supplies JV Patient was positioned, prepped and draped in usual sterile fashion. ccs 1% Lidocaine was used to anesthetize the area. An incision was made and blunt dissection was performed and curved forceps were used to enter the pleural space. A 10 fr chest tube was placed to 15cm. The tube was secured and taped. A chest xray was ordered to evaluate for placement of the chest tube. A pigtail catheter was placed using the seldinger technique. Initial Fluid Removed: 50 Patient tolerated the procedure well and there were no complications. There is loculated residual basilar right-sided pneumothorax Noman Oliveira MD Dec 20, 2016 3:51 am
[2016-12-20] MEDS: CHLORHEXIDINE GLUCONATE 2 % 1 PACK (2 CLOTHS) TOP SCH ×2 (04:00)
[2016-12-20 04:38] LABS: AUTOMATED NEUTROPHIL # 3.6 TH/MM3 (1.8-7.7); BASOPHIL % 0.3 % (0.0-2.0); EOSINOPHIL % 0.3 % (0.0-4.0); HEMATOCRIT 35.9 % (39.0-51.0); HEMOGLOBIN 11.7 GM/DL (13.0-17.0); LYMPH % 21.4 % (9.0-44.0); LYMPHOCYTE # 1.1 TH/MM3 (1.0-4.8); MEAN CELL VOLUME 107.5 FL (80.0-100.0); MEAN CORPUSCULAR HGB CONC 32.5 % (32.0-36.0); MEAN PLATELET VOLUME 9.7 FL (7.0-11.0); MONO % 8.1 % (0.0-8.0); MONOCYTE # 0.4 TH/MM3 (0-0.9); NEUT % 69.9 % (16.0-70.0); PLATELET COUNT 163 TH/MM3 (150-450); RED BLOOD COUNT 3.34 MIL/MM3 (4.50-5.90); RED CELL DISTRIBUTION WIDTH 15.2 % (11.6-17.2); WHITE BLOOD COUNT 5.1 TH/MM3 (4.0-11.0)
[2016-12-20 05:11] LABS: ALKALINE PHOSPHATASE 88 U/L (45-117); ALT (GPT) 17 U/L (12-78); PHOSPHORUS 3.8 MG/DL (2.5-4.9); TOTAL BILIRUBIN ADULT 0.3 MG/DL (0.2-1.0); TOTAL PROTEIN 7.7 GM/DL (6.4-8.2)
[2016-12-20 05:34] LABS: FOLATE GREATER THAN 20.0 NG/ML (3.1-17.5)
[2016-12-20 05:49] LABS: PLEURAL FLUID LYMPHS 97 %; PLEURAL FLUID MONOS 3 %
[2016-12-20 05:50] LABS: PLEURAL FLUID RBC 8995 /MM3 (0-0); PLEURAL FLUID WBC 281 /MM3 (0-10)
[2016-12-20 05:50] LABS: ALBUMIN 2.7 GM/DL (3.4-5.0); AST (GOT) 15 U/L (15-37); BLOOD UREA NITROGEN 67 MG/DL (7-18); CALCIUM 8.4 MG/DL (8.5-10.1); CHLORIDE 105 MEQ/L (98-107); CREATININE 7.91 MG/DL (0.60-1.30); GLOMERULAR FILTRATION RATE 8 ML/MIN (>89); GLUCOSE,RANDOM 116 MG/DL (74-106); MAGNESIUM 2.4 MG/DL (1.5-2.5); SODIUM (NA) 139 MEQ/L (136-145)
--- NOTE | 2016-12-20 05:58 | RADRPT ---
EXAM DATE/TIME: 12/20/2016 04:48 [facility] COMPARISON: CHEST SINGLE AP, December 19, 2016, 21:30. INDICATIONS : Shortness of breath, followup loculated pneumothoraces.. MEDICAL HISTORY : None. SURGICAL HISTORY : None. ENCOUNTER: Subsequent ACUITY: 2 days PAIN SCORE: Non-responsive. LOCATION: Bilateral chest FINDINGS: A single AP semierect view of the chest was obtained and again demonstrates a small bore right-sided chest tube projected over the right lung base with stable small to moderate loculated thorax. There i s a left-sided chest tube in place as well with the tip projected over the lateral left upper lobe. T here is a sightly smaller loculated left basilar pneumothorax without significant change. The heart s ize is at the upper limits of normal. There is consolidative opacity in the right lung base. The bony thorax is intact with degenerative changes in both shoulders. CONCLUSION: No significant change in the bilateral pneumothoraces. Daniel Cowan MD on December 20, 2016 at 5:55 Board Certified Radiologist. This report was verified electronically.
[2016-12-20 06:56] LABS: TOTAL PROTEIN,PLEURAL FLUID 2.5 GM/DL
--- NOTE | 2016-12-20 08:59 | HHI.PR ---
Subjective Remarks more comfortable. present Objective Vitals nad oriented heart reg lung course bs miguel chest tubes. bloody fluid right ext no edema Vital Signs Date Time Temp Pulse Resp B/P (MAP) Pulse Ox O2 Delivery O2 Flow Rate FiO2 12/20/16 06:00 76 12/20/16 04:00 76 12/20/16 04:00 98.0 76 28 126/60 (82) 100 12/20/16 02:00 66 12/20/16 00:20 100 Nasal Cannula 2.00 12/20/16 00:00 97.8 71 27 186/79 (114) 100 12/20/16 00:00 71 12/19/16 22:01 12/19/16 21:00 76 20 148/69 (95) 100 Nasal Cannula 5.00 12/19/16 20:30 78 20 141/94 (110) 100 Nasal Cannula 5.00 12/19/16 20:04 81 18 129/74 (92) 100 Nasal Cannula 5.00 12/19/16 19:26 78 20 119/69 (86) 100 Nasal Cannula 5.00 12/19/16 18:48 30 99 Non-Rebreather 15.00 12/19/16 18:35 98.8 89 30 150/88 (108) 95 Result Diagram: 12/20/16 0400 12/20/16 0400 A/P Problem List: (1) Pleural effusion ICD Codes: J90 - Pleural effusion, not elsewhere classified Status: Acute Plan: 1. respiratory distress 2. bilateral pleural effusions/bilateral ptx 3. esrd on HD 4. htn 5. hyperkalemmia 6. hx cva. plan chest tubes per pulmonary IR consulted to eval loculated effusion right consulted renal for HD. he missed 12/19 cont home bp medications dvt prophylaxis supportive care. monitor in ICU (2) Pneumothorax ICD Codes: J93.9 - Pneumothorax, unspecified Status: Acute (3) ESRD (end stage renal disease) on dialysis ICD Codes: N18.6 - End stage renal failure on dialysis; Z99.2 - Dependence on renal dialysis Status: Chronic (4) HTN (hypertension) ICD Codes: I10 - Hypertension Status: Chronic (5) CVA (cerebral vascular accident) ICD Codes: I63.9 - Cerebrovascular accident Status: Chronic Problem Qualifiers (1) Pneumothorax: Qualified Codes: J95.811 - Postprocedural pneumothorax Gregg Beck MD Dec 20, 2016 08:59
[2016-12-20] MEDS: HEPARIN SODIUM - SQ 10,000 UNITS/ML VIAL SQ SCH ×4 (09:00→20:56)
[2016-12-20] MEDS: MINOXIDIL 2.5 MG TAB PO SCH ×2 (09:00)
[2016-12-20] MEDS: ASPIRIN EC 81 MG TABEC PO SCH ×2 (09:00)
[2016-12-20] MEDS: ERGOCALCIFEROL (VIT D2) 50,000 UNIT CAP PO SCH ×2 (09:00)
[2016-12-20] MEDS: CARVEDILOL 12.5 MG TAB PO SCH ×4 (09:00→20:56)
[2016-12-20] MEDS: SODIUM CHLORIDE 0.9% FLUSH 10 ML FLUSH IV FLUSH SCH ×4 (09:00→20:58)
[2016-12-20] MEDS ORDERED: PANTOPRAZOLE SOD 40 MG DELAYED RELEASE TAB PO SCH ×2 (09:00)
[2016-12-20] MEDS: CALCIUM CARBONATE 1.25 GM (CA 500 MG) TAB PO SCH ×2 (09:00)
[2016-12-20] MEDS: DIPYRIDAMOLE 75 MG PO SCH ×2 (09:00)
[2016-12-20] MEDS: VITAMIN B CMPLX/VITC/FOLIC AC CAP PO SCH ×2 (09:15)
[2016-12-20] MEDS: DOCUSATE SODIUM 50 MG/SENNA 8.6 MG TAB PO SCH ×4 (09:15→20:57)
[2016-12-20] MEDS ORDERED: SODIUM CHLOR 0.9% 1000 ML INJ 1,000 ML IV PRN ×2 (10:04)
[2016-12-20] MEDS ORDERED: SODIUM CHLOR 0.9% 1000 ML INJ 1,000 ML OTHER PRN ×2 (10:04)
[2016-12-20] MEDS ORDERED: MANNITOL 12.5 GM/50 ML VIAL IV PRN ×2 (10:15)
[2016-12-20] MEDS ORDERED: GELATIN 12 MM/7 MM FOAM TOP PRN ×2 (10:15)
[2016-12-20] MEDS ORDERED: SODIUM CHLORIDE 0.9% FLUSH 10 ML FLUSH IV FLUSH PRN ×2 (10:15)
[2016-12-20] MEDS ORDERED: diphenhydrAMINE HCL 25 MG CAP PO PRN ×2 (10:15)
[2016-12-20] MEDS ORDERED: ACETAMINOPHEN 325 MG TAB PO PRN ×2 (10:15)
[2016-12-20] MEDS ORDERED: GENTAMICIN SULFATE (DIALYSIS USE ONLY) 20 MG/2 ML VIAL OTHER PRN ×2 (10:15)
[2016-12-20] MEDS ORDERED: ONDANSETRON HCL 4 MG/2 ML VIAL IV PUSH PRN ×2 (10:15)
[2016-12-20] MEDS ORDERED: cloNIDine HCL 0.1 MG TAB PO PRN ×2 (10:15)
[2016-12-20] MEDS ORDERED: NITROGLYCERIN 0.4 MG SL 25 TABS/BTL SL PRN ×2 (10:15)
[2016-12-20] MEDS ORDERED: HEPARIN SODIUM - IV 10,000 UNITS/10 ML VIAL PRN ×2 (10:15)
--- NOTE | 2016-12-20 12:28 | PD.CONS ---
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 Patient now presents with increasing shortness of breath noted to have bilateral pleural effusions which appear to be loculated. Patient missed his dialysis session yesterday. Moderate hyperkalemia on presentation. Now status post bilateral pigtail catheter placement left and right pleural cavity. Pneumothorax bilaterally postprocedure. Patient seen during his dialysis session. Appears to be lethargic and nonverbal at this time. Review of Systems ROS Limitations: Clinical Condition, Altered Mental Status Past Family Social History Allergies: Coded Allergies: *MDRO Multi-Drug Resistant Organism (Verified Adverse Reaction, Unknown, 01/29/15) MRSA PCR Screen positive 01/25/15. Past Medical History End-stage renal disease Severe cerebrovascular disease Ischemic heart disease Recurrent ascites Bilateral pleural effusions, loculated. Failure to thrive. Noncompliance with hemodialysis at times despite repeated education and counseling concerning benefits of compliance with dialysis and consequences associated with noncompliance including premature ... Physical Exam Vital Signs Vital Signs Date Time Temp Pulse Resp B/P (MAP) Pulse Ox O2 Delivery O2 Flow Rate FiO2 12/20/16 07:25 99 Nasal Cannula 2.00 12/20/16 06:00 76 12/20/16 04:00 76 12/20/16 04:00 98.0 76 28 126/60 (82) 100 12/20/16 02:00 66 12/20/16 00:20 100 Nasal Cannula 2.00 12/20/16 00:00 97.8 71 27 186/79 (114) 100 12/20/16 00:00 71 12/19/16 22:01 12/19/16 21:00 76 20 148/69 (95) 100 Nasal Cannula 5.00 12/19/16 20:30 78 20 141/94 (110) 100 Nasal Cannula 5.00 12/19/16 20:04 81 18 129/74 (92) 100 Nasal Cannula 5.00 12/19/16 19:26 78 20 119/69 (86) 100 Nasal Cannula 5.00 12/19/16 18:48 30 99 Non-Rebreather 15.00 12/19/16 18:35 98.8 89 30 150/88 (108) 95 Physical Exam GENERAL: Elderly somewhat amazed CTA dated male lying in bed appears to have mild dyspnea. SKIN: Warm and dry. HEAD: Normocephalic. EYES: No scleral icterus. No injection or drainage. NECK: Supple, trachea midline. No JVD or lymphadenopathy. CARDIOVASCULAR: Regular rate and rhythm without murmurs, gallops, or rubs. RESPIRATORY: Breath sounds equal bilaterally. No accessory muscle use. GASTROINTESTINAL: Abdomen soft, non-tender, nondistended. MUSCULOSKELETAL: No cyanosis, 1+ pitting edema of dependent thighs and hips. Wasting of the musculature of all limbs. BACK: Nontender without obvious deformity. No CVA tenderness. Laboratory Laboratory Tests Test 12/19/16 19:10 12/19/16 20:35 12/19/16 22:20 12/20/16 04:00 White Blood Count 5.1 5.1 Red Blood Count 3.36 3.34 Hemoglobin 11.6 11.7 Hematocrit 36.1 35.9 Mean Corpuscular Volume 107.5 107.5 Mean Corpuscular Hemoglobin 34.6 35.0 Mean Corpuscular Hemoglobin Concent 32.2 32.5 Red Cell Distribution Width 15.2 15.2 Platelet Count 189 163 Mean Platelet Volume 9.3 9.7 Neutrophils (%) (Auto) 51.4 69.9 Lymphocytes (%) (Auto) 35.7 21.4 Monocytes (%) (Auto) 11.1 8.1 Eosinophils (%) (Auto) 1.2 0.3 Basophils (%) (Auto) 0.6 0.3 Neutrophils # (Auto) 2.6 3.6 Lymphocytes # (Auto) 1.8 1.1 Monocytes # (Auto) 0.6 0.4 Eosinophils # (Auto) 0.1 0.0 Basophils # (Auto) 0.0 0.0 CBC Comment DIFF FINAL DIFF FINAL Differential Comment Prothrombin Time 11.7 Prothromb Time International Ratio 1.1 Activated Partial Thromboplast Time 28.1 Blood Urea Nitrogen 62 67 Creatinine 7.68 7.91 Random Glucose 118 116 Total Protein 7.7 7.7 Albumin 2.8 2.7 Calcium Level 8.5 8.4 Alkaline Phosphatase 83 88 Aspartate Amino Transf (AST/SGOT) 13 15 Alanine Aminotransferase (ALT/SGPT) 14 17 Total Bilirubin 0.3 0.3 Sodium Level 138 139 Potassium Level 5.4 5.8 Chloride Level 103 105 Carbon Dioxide Level 27.5 27.0 Anion Gap 8 7 Estimat Glomerular Filtration Rate 8 8 Lactic Acid Level 1.2 Total Creatine Kinase 89 Troponin I 0.03 Pleural Fluid pH 8.0 Pleural Fluid WBC 281 Pleural Fluid RBC 8995 Pleural Fluid Lymphocytes 97 Pleural Fluid Monocytes 3 Pleural Fluid Comment Pleural Fluid Total Protein 2.5 Pleural Fluid LDH 118 Pleural Fluid Glucose 75 Nasal Screen MRSA (PCR) MRSA NOT DETECTED Phosphorus Level 3.8 Magnesium Level 2.4 Vitamin B12 Level GREATER THAN 2000 Folate GREATER THAN 20.0 Date/Time Source Procedure Growth Status 12/19/16 19:10 Blood Peripheral Aerobic Blood Culture - Preliminary NO GROWTH IN 1 DAY Resulted 12/19/16 19:10 Blood Peripheral Anaerobic Blood Culture - Preliminary NO GROWTH IN 1 DAY Resulted 12/19/16 20:35 Fluid Pleural Fluid Gram Stain - Final Resulted 12/19/16 20:35 Fluid Pleural Fluid Body Fluid Culture Pending Resulted Result Diagram: 12/20/1639912/20/16399 Assessment and Plan Problem List: (1) ESRD (end stage renal disease) on dialysis ICD Codes: N18.6 - End stage renal failure on dialysis; Z99.2 - Dependence on renal dialysis Status: Chronic Plan: Patient tolerating dialysis presently. AV dialysis fistula appears to be working well. As indicated above unfortunately patient has been occasionally noncompliant with dialysis treatments despite being counseled regarding potential consequences of noncompliance including increased morbidity as well as premature . This has been discussed with his when indicated that her is ill and would like the patient to do more or less what he wishes. Medications should be adjusted for the patient's estimated end stage renal disease if clinically indicated. Gadolinium contraindicated. (2) Hyperkalemia ICD Codes: E87.5 - Hyperkalemia Plan: Will improve with dialysis today. Related to missing dialysis. (3) Failure to thrive in adult ICD Codes: R62.7 - Adult failure to thrive Plan: The patient has severe diffuse atherosclerotic disease as well as as indicated above some noncompliance with dialysis sessions. 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 Patient's quality of life appears to be deteriorating. Palliative care consultation likely appropriate as well as a DNR CODE STATUS. We'll defer to family in this regard however. (4) Non-compliance with renal dialysis ICD Codes: Z91.15 - Patient's noncompliance with renal dialysis Plan: I do not believe that we can improve patient's compliance given previous attempts but will continue education. (5) HTN (hypertension) ICD Codes: I10 - Hypertension Status: Chronic (6) Anemia of renal disease ICD Codes: D63.1 - Anemia in chronic kidney disease Izabela Thompson MD Dec 20, 2016 12:28
--- NOTE | 2016-12-20 15:19 | MB ---
cc: Yaneth MOREL M.D. DATE OF CONSULTATION 12/20/16 HISTORY Mr. Lerner is an 86-year-old black male on chronic hemodialysis who presented to the hospital with shortness of breath and pleural effusions. Looking through his computerized record he has had pleural effusions and ascites for sometime. He has had paracentesis repeatedly and in September of this year had a thoracentesis on the right. Etiology seems to have been felt to be due to chronic fluid retention. On presentation yesterday, however, chest x-rays revealed significant reaccumulation of fluid particularly on the right and a pneumothorax on the left. Chest tubes were placed on both sides and subsequent films reveal inadequate reexpansion with trapped lungs both on the right and the left, greater on the right. On the plain film it does appear there is a significant pleural thickening. The patient has had substantial improvement in his breathing but is obviously left with a complex problem with failure to re-expand the lungs. The patient the patient is currently comfortable. Breathing is improved considerably. No chest pain. Nothing leading up to this to suggest pneumonia such as cough or purulent sputum. There was just gradual progressive increase in dyspnea. 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 He has had an old stroke and history of GI bleeding 2 years ago due to gastritis and duodenitis. He has also had a left carotid endarterectomy. ALLERGIES None listed. CURRENT MEDICATIONS Reviewed in the EMR. PHYSICAL EXAMINATION GENERAL: Elderly, frail-appearing black gentleman. VITAL SIGNS: Afebrile. Blood pressure 140/60, pulse 70, respirations 16-18, currently O2 sat on 2 liters 99%. NECK: Neck veins are flat. Sclerae anicteric. CHEST: Somewhat diminished but otherwise clear. HEART: Soft systolic murmur. ABDOMEN: Distended, probably with ascitic fluid. EXTREMITIES: No significant ankle edema. LABORATORY DATA White count is normal at 5100, BUN is 67, creatinine 7.9. Initial fluid reports very few white cells 281, also very few red cells, predominately lymphocytic white cells and pleural fluid protein is rather low at 2.5. LDH is 118. No available serum LDH for comparison. DISCUSSION Mr. Lerner presents with recurrent pleural effusion and now what appears to be trapped lungs bilaterally. As I said he has had paracentesis over the last year or two and I suspect he has been filtering fluid into the pleural spaces for some time which may have resulted in a chronic inflammatory pleural response and now what appears to be trapped lungs. I will order a CT noncontrast of his chest for better evaluation of the pleural spaces. Further diagnostic and/or therapeutic intervention will depend on results of these studies and his ongoing clinical course. R. MD GIAN Dawkins/DARWIN /2:31 PM /3:05 PM
[2016-12-20] MEDS: DIPYRIDAMOLE 25 MG TAB PO SCH ×4 (15:50→20:57)
[2016-12-20] MEDS: DORZOLAMIDE/TIMOLOL OPTH SOLN 10 ML BTL EACH EYE SCH ×4 (15:50→20:57)
--- NOTE | 2016-12-20 16:46 | RADRPT ---
EXAM DATE/TIME: 12/20/2016 16:26 [facility] COMPARISON: CHEST SINGLE AP, December 20, 2016, 4:48. INDICATIONS : Bilateral pneumothorax. RADIATION DOSE: 3.52 CTDIvol (mGy) MEDICAL HISTORY : Pleural effusion. SURGICAL HISTORY : None. ENCOUNTER: Initial ACUITY: 1 day PAIN SCALE: 5/10 LOCATION: Bilateral chest TECHNIQUE: Volumetric scanning of the chest was performed. Using automated exposure control and adjustment of t he mA and/or kV according to patient size, radiation dose was kept as low as reasonably achievable to obtain optimal diagnostic quality images. DICOM format image data is available electronically for r eview and comparison. Follow-up recommendations for detected pulmonary nodules are based at a minimum on nodule size and pa tient risk factors according to Fleischner Society Guidelines. FINDINGS: Comparison is made with chest x-ray from earlier today. There is a small caliber right chest tube wit h a moderate size right hydropneumothorax. Small caliber left chest tube present with a small left hy dropneumothorax similar to radiograph from earlier today. There is some dependent and basilar consoli dation and atelectasis in both lungs. There is some mucoid material near the agnes. No pneumomediast inum or subcutaneous air identified. Aorta is atherosclerotic without significant aneurysm. No definite adenopathy. No pericardial effusio n. Upper abdomen reveals mild ascites. CONCLUSION: 1. Moderate right and small left hydropneumothorax with small caliber chest tubes present bilaterally , not significant changed from prior chest radiograph. Dependent consolidation and atelectasis of bot h lungs. No pneumomediastinum or subcutaneous air. Germán Vences MD on December 20, 2016 at 16:35 Board Certified Radiologist. This report was verified electronically.
--- NOTE | 2016-12-20 17:21 | EKG ---
Date Performed: 12/19/2016 Time Performed: 18:46:20 PTAGE: 86 years EKG: Sinus rhythm POSSIBLE LEFT ATRIAL ENLARGEMENT BORDERLINE ECG PREVIOUS TRACING : 01/24/2015 23.44 Compared to prior tracing no significant change DOCTOR: Abraham Baugh Interpretating Date/Time 12/20/2016 17:19:44
[2016-12-20] MEDS: PRAVASTATIN SOD 20 MG TAB PO SCH ×2 (20:56)
[2016-12-20] MEDS: LATANOPROST 0.005% OPHT SOLN 2.5 ML BTL EACH EYE SCH ×2 (22:46)
[2016-12-21] VITALS (19 sets, daily range): BP systolic 92–182; BP diastolic 43–81; PULSE 73–102; RESP 18–32; TEMP 96.3–98.7; O2SAT 88–100
[2016-12-21] MEDS: SODIUM BICARBONATE 8.4% INJ 100 MEQ in DEXTROSE 5% IN WATE 1000ML INJ 1,000 ML IV SCH ×4 (03:37)
[2016-12-21] MEDS: CHLORHEXIDINE GLUCONATE 2 % 1 PACK (2 CLOTHS) TOP SCH ×2 (04:00)
--- NOTE | 2016-12-21 04:51 | RADRPT ---
EXAM DATE/TIME: 12/21/2016 04:38 [facility] COMPARISON: CHEST SINGLE AP, December 20, 2016, 4:48. INDICATIONS : Shortness of breath. Followup bilateral pneumothoraces. MEDICAL HISTORY : None. SURGICAL HISTORY : None. ENCOUNTER: Subsequent ACUITY: 3 days PAIN SCORE: 0/10 LOCATION: Bilateral chest FINDINGS: A single AP erect view of the chest was obtained and demonstrates new consolidative opacity in the ri ght upper lobe and right perihilar region. The bilateral chest tubes remain in place with stable biba silar pneumothoraces right greater than left. The heart size remains within normal limits with no med iastinal shift. Degenerative changes again noted in the left glenohumeral joint. CONCLUSION: 1. New consolidative opacity in the right lung most characteristic of pneumonia. 2. Stable appearance of the bibasilar pneumothoraces. Daniel Cowan MD on December 21, 2016 at 4:49 Board Certified Radiologist. This report was verified electronically.
[2016-12-21 05:35] LABS: BICARBONATE 31.2 MEQ/L (21.0-32.0); CREATININE 6.24 MG/DL (0.60-1.30)
[2016-12-21] MEDS ORDERED: ETOMIDATE 40 MG/20 ML VIAL ONE ×2 (07:48)
[2016-12-21] MEDS ORDERED: PROPOFOL 500 MG/50 ML INJ 50 ML ONE ×2 (07:49)
[2016-12-21] MEDS ORDERED: PROPOFOL 1000 MG/100 ML INJ 100 ML IV PRN ×2 (08:00)
[2016-12-21] MEDS ORDERED: GLUCAGON 1 MG/ML VIAL OTHER PRN ×2 (08:15)
[2016-12-21] MEDS ORDERED: Vancomycin Consult Pharmacy 1 EA OTHER SCH ×2 (08:15)
--- NOTE | 2016-12-21 08:38 | HHI.CCPN ---
Subjective Remarks/Hospital Course 86-year-old very pleasant male presents complaining of shortness of breath. Patient states that the symptoms started last night. He has history recurrent pleural effusion status post thoracentesis in the past. Patient is scheduled to have bilateral thoracentesis done by interventional radiologist. Patient denies any headache. Patient denies any chest pain. Patient denies abdominal pain. Patient denies any focal weakness or numbness of extremity. 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 Thompson. Patient also has history of hypertension, hyperlipidemia, CVA and anemia. In the emergency department the chest x-ray revealed large pleural effusion on the right and a large pneumothorax on the left. Emergent chest tubes were placed bilaterally with partial resolution of pneumothorax on the left and drainage of 700 cc of hemorrhagic fluid from the right side however bilateral residual bibasal pneumothoraces. After procedures patient's respiration is significantly improved as well as his oxygenation. 12/21 Patient required increase O2 overnight wa son BIPAP with 100% FIO2. CXR this morning showed consolidative opacity right lung and stable bibasilar pneumothoraces. Due to resp distress and patient was intubated and placed on mechanical ventilation. Objective Vital Signs Date Time Temp Pulse Resp B/P (MAP) Pulse Ox O2 Delivery O2 Flow Rate FiO2 12/21/16 07:29 100 100 12/21/16 03:57 Nasal Cannula 4.00 12/21/16 02:00 81 12/21/16 00:00 98.0 32 140/64 (89) Intake and Output 12/21/16 12/21/16 12/22/16 08:00 16:00 00:00 Intake Total 1000 ml Balance 1000 ml Result Diagram: 12/20/16 0400 12/21/16 0455 Other Results Laboratory Tests Test 12/21/16 04:55 Blood Urea Nitrogen 43 MG/DL Creatinine 6.24 MG/DL Random Glucose 150 MG/DL Calcium Level 9.0 MG/DL Sodium Level 137 MEQ/L Potassium Level 4.8 MEQ/L Chloride Level 99 MEQ/L Carbon Dioxide Level 31.2 MEQ/L Anion Gap 7 MEQ/L Estimat Glomerular Filtration Rate 10 ML/MIN Imaging Last Impressions Chest X-Ray 12/21/16 5076 Signed Impressions: Service Date/Time: Wednesday, December 21, 2016 04:38 - CONCLUSION: 1. New consolidative opacity in the right lung most characteristic of pneumonia. 2. Stable appearance of the bibasilar pneumothoraces. Daniel Cowan MD Chest CT 12/20/16 0000 Signed Impressions: Service Date/Time: Tuesday, December 20, 2016 16:26 - CONCLUSION: 1. Moderate right and small left hydropneumothorax with small caliber chest tubes present bilaterally, not significant changed from prior chest radiograph. Dependent consolidation and atelectasis of both lungs. No pneumomediastinum or subcutaneous air. Germán Vences MD Objective Remarks GENERAL: Patient is 86 yo intubated for resp failure. SKIN: Warm and dry. HEAD: Normocephalic. EYES: No scleral icterus. No injection or drainage. NECK: Supple, trachea midline. No JVD or lymphadenopathy. Orally intubated CARDIOVASCULAR: Regular rate and rhythm without murmurs, gallops, or rubs. + b/ p pig tail catheters in place. RESPIRATORY: Breath sounds equal bilaterally. No accessory muscle use. GASTROINTESTINAL: Abdomen soft, non-tender, nondistended. MUSCULOSKELETAL: No cyanosis, or edema. Neuro: sedated A/P Assessment and Plan 1)VDRF 2)Right sided pneumonia 3)Bibasilar hydroPTX 5)ESRD 6)HTN 7)Macrocytic Anemia Plan Neuro: Place on fentanyl infusion for sedation. Monitor neuro status. Pulm: Continue with vent support keep sat >92% Bronchodilators, ICU vent bundle. Check CXR and ABG post intubation Monitor CT drainage. Consult CTS CV: Monitor HR and BP keep MAP>65mmHg Hold Coreg 12.5 mg BID, on Persantine, Pravachol : Monitor renal function, avoid nephrotoxins HD per renal-Dr. Thompson GI: Place on Protonix 40mg daily for GI prophylaxis Tube feeds- Nepro with goal rate 40ml/hr ID: Start abx ( Vanco, Zosyn, Azithromycin)monitor for signs of infections ( Fever, WBC) Check sputum cx, strep pneumonia and Legionella urinary Ag, Influenza screening r/o influenza Follow up on BC from 12/20. ID eval. Heme: Monitor CBC Endo: Place on SSI with accuchecks GI prophylaxis- Protonix 40mg daily DVT prophylaxis- SCD. Hold Heparin SQ for now CCT 35 mins Aurea Lovell MD Dec 21, 2016 08:38
[2016-12-21] MEDS: ASPIRIN EC 81 MG TABEC PO SCH ×2 (09:00)
[2016-12-21] MEDS: CALCIUM CARBONATE 1.25 GM (CA 500 MG) TAB PO SCH ×2 (09:00)
[2016-12-21] MEDS: INSULIN NovoLIN REGULAR SUPPLEMENTAL SCALE SQ SCH ×8 (09:00→21:00)
[2016-12-21] MEDS: MINOXIDIL 2.5 MG TAB PO SCH ×2 (09:00)
[2016-12-21] MEDS: CARVEDILOL 12.5 MG TAB PO SCH ×2 (09:00)
--- NOTE | 2016-12-21 09:23 | RADRPT ---
EXAM DATE/TIME: 12/21/2016 08:29 [facility] COMPARISON: CHEST SINGLE AP, December 19, 2016, 20:09. CHEST SINGLE AP, December 19, 2016, 20:49. CHEST SINGLE AP , December 19, 2016, 21:30. CT THORAX W/O CONTRAST, December 20, 2016, 16:26. CHEST SINGLE AP, Octobe r 2016, 4:38. INDICATIONS : Intubation. MEDICAL HISTORY : None. SURGICAL HISTORY : None. ENCOUNTER: Initial ACUITY: 1 day PAIN SCORE: Non-responsive. LOCATION: Bilateral chest FINDINGS: There are bilateral pigtail catheters in place. There or moderate pneumothoraces seen at the inferior aspects of the chest bilaterally. These are unchanged from the prior chest x-rays. There is continue d consolidation throughout much of the right lung. The left lung is grossly clear. The heart size is normal. The patient is intubated with the tip of the ET tube 3 cm from the agnes. There is an NG tub e in place with tip directed into the stomach. There is degenerative change of the glenohumeral joint s bilaterally. CONCLUSION: 1. Persistent unchanged bilateral moderate pneumothoraces seen at the bases. Bilateral pigtail cathet ers are in place. 2. Consolidation throughout much of the right lung which appear appears unchanged when compared to th e most recent chest x-ray. Beto Dominique MD on December 21, 2016 at 9:16 Board Certified Radiologist. This report was verified electronically.
[2016-12-21] MEDS: CHLORHEXIDINE 0.12% (ORAL KIT) 15 ML CUP MT SCH ×4 (09:37→21:31)
[2016-12-21] MEDS: fentaNYL DRIP 250 ML IV PRN ×2 (09:38)
[2016-12-21] MEDS: DORZOLAMIDE/TIMOLOL OPTH SOLN 10 ML BTL EACH EYE SCH ×4 (09:43→21:31)
[2016-12-21] MEDS: SODIUM CHLORIDE 0.9% FLUSH 10 ML FLUSH IV FLUSH SCH ×4 (09:44→21:32)
[2016-12-21] MEDS: PANTOPRAZOLE SODIUM 40 MG VIAL IV PUSH SCH ×2 (09:44)
[2016-12-21] MEDS: RESP: ALBUTEROL 2.5 MG/IPRATROPIUM 0.5 MG NEB (SCH) NEB ×6 (09:45→20:28)
[2016-12-21] MEDS: DOCUSATE SODIUM 50 MG/SENNA 8.6 MG TAB PO SCH ×4 (09:46→21:30)
[2016-12-21] MEDS: DIPYRIDAMOLE 25 MG TAB PO SCH ×4 (09:47→21:30)
[2016-12-21] MEDS: VITAMIN B CMPLX/VITC/FOLIC AC CAP PO SCH ×2 (09:47)
[2016-12-21] MEDS: HEPARIN SODIUM - SQ 10,000 UNITS/ML VIAL SQ SCH ×4 (09:48→21:30)
[2016-12-21] MEDS: AZITHROMYCIN INJ 500 MG in SODIUM CHLOR 0.9% 250 ML INJ 250 ML IV SCH ×4 (09:49)
[2016-12-21] MEDS: PIPERACIL-TAZO 2.25 GM PREMIX 50 ML IV SCH ×4 (09:57→16:55)
--- NOTE | 2016-12-21 11:34 | PD.CONS ---
History of Present Illness Service CT Surgery Consult Requested By Dr. Lovell Reason for Consult Bilateral hydropneumothoraces Primary Care Physician Shobha Gomez MD Diagnoses: History of Present Illness 86 y/o male with multiple medical problems including end stage renal disease on hemodialysis presents with a complicated history of ascites and bilateral pleural effusions. He apparently underwent multiple drainage procedures in the past to drain both the ascites and effusions. His last thoracentesis was this past September with 700ml of fluid removed on the right. He was scheduled for repeat bilateral thoracentesis, but developed dyspnea leading to his presentation. He was found to have a new left pneumothorax and was treated with bilateral chest catheter placement resulting in partial left lung re- expansion and drainage of both effusions. Unfortunately, the patient has a small persistent left basilar pneumothorax and a larger right basilar pneumothorax secondary to the lack of lung re-expansion. He further decompensated recently requiring intubation with the development of a new right lung infiltrate. Review of Systems ROS Limitations: Clinical Condition, Intubated Constitutional: COMPLAINS OF: Fatigue, DENIES: Diaphoretic episodes, Fever, Weight gain, Weight loss, Chills, Dizziness, Change in appetite, Night Sweats Endocrine: DENIES: Heat/cold intolerance, Polydipsia, Polyuria, Polyphagia Eyes: DENIES: Blurred vision, Diplopia, Eye inflammation, Eye pain, Vision loss , Photosensitivity, Double Vision Ears, nose, mouth, throat: DENIES: Tinnitus, Hearing loss, Vertigo, Nasal discharge, Oral lesions, Throat pain, Hoarseness, Ear Pain, Running Nose, Epistaxis, Sinus Pain, Toothache, Odynophagia Respiratory: COMPLAINS OF: Cough, Shortness of breath, DENIES: Apneas, Snoring , Wheezing, Hemoptysis, Sputum production Cardiovascular: DENIES: Chest pain, Palpitations, Syncope, Dyspnea on Exertion , PND, Lower Extremity Edema, Orthopnea, Claudication Gastrointestinal: DENIES: Abdominal pain, Black stools, Bloody stools, Constipation, Diarrhea, Nausea, Vomiting, Difficulty Swallowing, Anorexia Musculoskeletal: DENIES: Joint pain, Muscle aches, Stiffness, Joint Swelling, Back pain, Neck pain Integumentary: DENIES: Abnormal pigmentation, Nail changes, Pruritus, Rash Hematologic/lymphatic: DENIES: Bruising, Lymphadenopathy Immunologic/allergic: DENIES: Eczema, Urticaria Neurologic: DENIES: Abnormal gait, Headache, Localized weakness, Paresthesias, Seizures, Speech Problems, Tremor, Poor Balance Psychiatric: DENIES: Anxiety, Confusion, Mood changes, Depression, Hallucinations, Agitation, Suicidal Ideation, Homicidal Ideation, Delusions Past Family Social History Allergies: Coded Allergies: *MDRO Multi-Drug Resistant Organism (Verified Adverse Reaction, Unknown, 01/29/15) MRSA PCR Screen positive 01/25/15. Past Medical History ascites,hypertension,hemodiaylsis,crf,old cva,duodenitis, hyperlipidemia Past Surgical History left carotid endarectomy,fistula left arm Reported Medications Reported Meds & Active Scripts Active Reported Probiotic (Lactobacillus Acidophilus) 10 Billion Cell Cap 1 Cap PO DAILY Colace (Docusate Sodium) 100 Mg Capsule 1 Tab PO BID Tramadol (Tramadol HCl) 50 Mg Tab 50 Mg PO Q8H PRN Protonix (Pantoprazole Sodium) 40 Mg Tab 40 Mg PO DAILY PRN Nifedipine ER 24 HR (Nifedipine) 30 Mg Tab 30 Mg PO DAILY PRN Nephrocaps (B-Complex W/ C & Folic Acid) 1 Cap 1 Cap PO DAILY If on dialysis, take after treatment. Xalatan Opth Drops (Latanoprost) 0.005% Drops 1 Drop EACH EYE HS Brimonidine Opth Drops (Brimonidine Tartrate) 0.2% Soln 1 Drop EACH EYE BID Lovastatin 20 Mg Tab 20 Mg PO HS Minoxidil 2.5 Mg Tab 2.5 Mg PO BID PRN Coreg (Carvedilol) 25 Mg Tab 25 Mg PO BID Dipyridamole-Aspirin 200-25 Mg Cap 1 Cap PO BID Active Ordered Medications Current Medications Medications (Trade) Dose Ordered Sig/Bill Route Start Time Stop Time Status Last Admin (Dulcolax Ec) 10 mg DAILY PRN PO 12/19/16 20:00 (Drisdol) 50,000 units Q7D PO 12/20/16 09:00 (Xalatan 0.005% Opth Soln) 1 drop HS EACH EYE 12/19/16 21:00 12/20/16 22:46 (Pravachol) 20 mg HS PO 12/19/16 21:00 12/20/16 20:56 (Loniten) 2.5 mg DAILY PO 12/20/16 09:00 (Procardia Xl) 30 mg BID PRN PO 12/19/16 20:00 12/20/16 00:23 (Ultram) 50 mg Q4H PRN PO 12/19/16 20:00 12/20/16 15:50 (Ecotrin Ec) 81 mg DAILY PO 12/20/16 09:00 (Nephrocaps) 1 cap DAILY PO 12/20/16 09:00 12/21/16 09:47 (Oscal) 1,000 mg DAILY PO 12/20/16 09:00 12/21/16 09:00 (Coreg) 12.5 mg BID PO 12/19/16 21:00 Future Hold 12/20/16 20:56 (Cosopt 2-0.5% Opth Soln) 1 drop BID EACH EYE 12/19/16 21:00 12/21/16 09:43 (NS Flush) 2 ml UNSCH PRN IV FLUSH 12/19/16 20:15 (NS Flush) 2 ml BID IV FLUSH 12/19/16 21:00 12/21/16 09:44 (Tylenol) 650 mg Q6H PRN PO 12/19/16 20:15 (Zofran Inj) 4 mg Q6H PRN IV PUSH 12/19/16 20:15 (Ambien) 5 mg HS PRN PO 12/19/16 20:15 (Heparin Inj) 5,000 units Q12H SQ 12/19/16 21:00 12/21/16 09:48 Miscellaneous Information 1 Q361D XX 12/19/16 20:15 (Chlorhexidine 2% Cloth) 3 pack Taper DAILY@04 TOP 12/20/16 04:00 12/16/17 03:59 12/20/16 04:00 (Chlorhexidine 2% Cloth) 3 pack UNSCH PRN TOP 12/19/16 20:15 (Shelby-Colace) 1 tab BID PO 12/19/16 21:00 12/21/16 09:46 (Milk Of Magnesia Liq) 30 ml Q12H PRN PO 12/19/16 20:15 (Senokot) 17.2 mg Q12H PRN PO 12/19/16 20:15 (Dulcolax Supp) 10 mg DAILY PRN RECTAL 12/19/16 20:15 (Lactulose Liq) 30 ml DAILY PRN PO 12/19/16 20:15 (Persantine) 75 mg BID PO 12/20/16 09:00 12/21/16 09:47 (Apresoline Inj) 20 mg Q4H PRN IV 12/20/16 00:15 12/20/16 00:22 Sodium Bicarbonate 100 meq/Dextrose 1,100 ml @ 42 mls/hr Q24H IV 12/20/16 01:15 12/21/16 03:37 Sodium Chloride 1,000 ml @ 0 mls/hr Q0M PRN OTHER 12/20/16 10:04 Sodium Chloride 1,000 ml @ 200 mls/hr Q5H PRN IV 12/20/16 10:04 Sodium Chloride 1,000 ml @ 0 mls/hr Q0M PRN OTHER 12/20/16 10:04 (Mannitol Inj) 12.5 gm UNSCH PRN IV 12/20/16 10:15 Albumin Human 100 ml @ 60 mls/hr UNSCH PRN IV 12/20/16 10:15 (NS Flush) 5 ml UNSCH PRN IV FLUSH 12/20/16 10:15 (Heparin Inj) UNSCH PRN .XX 12/20/16 10:15 (Gentamicin (Dialysis) Inj) 20 mg UNSCH PRN OTHER 12/20/16 10:15 (Zofran Inj) 4 mg UNSCH PRN IV PUSH 12/20/16 10:15 (Tylenol) 650 mg UNSCH PRN PO 12/20/16 10:15 (Benadryl) 25 mg UNSCH PRN PO 12/20/16 10:15 (Nitrostat Sl) 0.4 mg UNSCH PRN SL 12/20/16 10:15 (Catapres) 0.1 mg UNSCH PRN PO 12/20/16 10:15 (Epogen Inj) 5,000 units UNSCH PRN IV PUSH 12/20/16 10:15 (Gelfoam 12 Mm/7 Mm Top) 1 foam UNSCH PRN TOP 12/20/16 10:15 (Peridex 0.12% Liq) 15 ml BID@08,20 MT 12/21/16 08:00 12/21/16 09:37 Propofol 100 ml @ 1.62 mls/hr TITRATE PRN IV 12/21/16 08:00 (Duoneb Neb) 1 ampule Q6HR NEB PRN NEB 12/21/16 08:00 (Duoneb Neb) 1 ampule Q6HR NEB NEB 12/21/16 10:00 12/21/16 09:45 (Protonix Inj) 40 mg Q24H IV PUSH 12/21/16 09:00 12/21/16 09:44 (D50w (Vial) Inj) 50 ml UNSCH PRN IV PUSH 12/21/16 08:15 (Glucagon Inj) 1 mg UNSCH PRN OTHER 12/21/16 08:15 (NovoLIN R SUPPLEMENTAL SCALE) 1 Q4H SQ 12/21/16 09:00 Pharmacy Profile Note 0 ml @ 0 mls/hr UNSCH OTHER 12/21/16 08:15 Piperacillin Sod/ Tazobactam Sod 50 ml @ 100 mls/hr Q8H IV 12/21/16 10:00 12/21/16 09:57 Azithromycin 500 mg/Sodium Chloride 250 ml @ 250 mls/hr Q24H IV 12/21/16 09:00 12/21/16 09:49 Fentanyl Citrate 250 ml @ 5 mls/hr TITRATE PRN IV 12/21/16 10:00 12/21/16 09:38 Family History Unremarkable Social History Denies ETOH, tobacco abuse Physical Exam Vital Signs Vital Signs Date Time Temp Pulse Resp B/P (MAP) Pulse Ox O2 Delivery O2 Flow Rate FiO2 12/21/16 10:19 100 80 12/21/16 08:00 99 100 12/21/16 07:29 100 100 12/21/16 06:00 97 100 12/21/16 06:00 93 12/21/16 04:00 97.9 90 32 182/81 (114) 96 12/21/16 04:00 90 12/21/16 03:57 96 Nasal Cannula 4.00 12/21/16 02:00 81 12/21/16 00:00 73 12/21/16 00:00 98.0 73 32 140/64 (89) 99 12/20/16 22:00 74 12/20/16 20:00 80 12/20/16 20:00 97.9 80 24 180/80 (113) 100 12/20/16 18:00 80 12/20/16 16:00 87 12/20/16 16:00 98.4 87 22 157/70 (99) 100 12/20/16 14:00 81 12/20/16 12:00 70 12/20/16 12:00 97.8 70 19 139/64 (89) 100 Physical Exam GENERAL: This is a thin patient, intubated on the ventilator. SKIN: No rashes, ecchymoses or lesions. Cool and dry. HEAD: Atraumatic. Normocephalic. No temporal or scalp tenderness. EYES: Pupils equal round and reactive. Extraocular motions intact. No scleral icterus. No injection or drainage. ENT: Nose without bleeding, purulent drainage or septal hematoma. Throat without erythema, tonsillar hypertrophy or exudate. Uvula midline. Airway patent. NECK: Trachea midline. No JVD or lymphadenopathy. Supple, nontender, no meningeal signs. CARDIOVASCULAR: Regular rate and rhythm without murmurs, gallops, or rubs. RESPIRATORY: Decreased breath sounds bilaterally with crackles on the right. GASTROINTESTINAL: Abdomen soft, non-tender, nondistended. No hepato-splenomegaly , or palpable masses. No guarding. MUSCULOSKELETAL: Extremities without clubbing, cyanosis, or edema. No joint tenderness, effusion, or edema noted. No calf tenderness. Negative Homans sign bilaterally. NEUROLOGICAL: sedated. Cranial nerves II through XII grossly intact. . Laboratory Laboratory Tests Test 12/21/16 04:55 12/21/16 10:33 Blood Urea Nitrogen 43 Creatinine 6.24 Random Glucose 150 Calcium Level 9.0 Sodium Level 137 Potassium Level 4.8 Chloride Level 99 Carbon Dioxide Level 31.2 Anion Gap 7 Estimat Glomerular Filtration Rate 10 Blood Gas Puncture Site RT BRACHIAL Blood Gas Patient Temperature 98.6 Blood Gas HCO3 30 Blood Gas Base Excess 4.2 Blood Gas Oxygen Saturation 97 Arterial Blood pH 7.32 Arterial Blood Partial Pressure CO2 60 Arterial Blood Partial Pressure O2 227 Arterial Blood Oxygen Content 13.7 Arterial Blood Carboxyhemoglobin 1.2 Arterial Blood Methemoglobin 1.4 Blood Gas Hemoglobin 9.7 Oxygen Delivery Device VENTILATOR Blood Gas Ventilator Setting Blood Gas Inspired Oxygen 80 Date/Time Source Procedure Growth Status 12/19/16 19:10 Blood Peripheral Aerobic Blood Culture - Preliminary NO GROWTH IN 2 DAYS Resulted 12/19/16 19:10 Blood Peripheral Anaerobic Blood Culture - Preliminary NO GROWTH IN 2 DAYS Resulted 12/19/16 20:35 Fluid Pleural Fluid Gram Stain - Final Resulted 12/19/16 20:35 Fluid Pleural Fluid Body Fluid Culture Pending Resulted 12/21/16 10:24 Sputum Endotracheal Gram Stain Pending Received 12/21/16 10:24 Sputum Endotracheal Sputum Culture Pending Received Result Diagram: 12/20/16 0400 12/21/16 0455 Imaging Last Impressions Chest X-Ray 12/21/16 0432 Signed Impressions: Service Date/Time: Wednesday, December 21, 2016 04:38 - CONCLUSION: 1. New consolidative opacity in the right lung most characteristic of pneumonia. 2. Stable appearance of the bibasilar pneumothoraces. Daniel Cowan MD Chest CT 12/20/16 0000 Signed Impressions: Service Date/Time: Tuesday, December 20, 2016 16:26 - CONCLUSION: 1. Moderate right and small left hydropneumothorax with small caliber chest tubes present bilaterally, not significant changed from prior chest radiograph. Dependent consolidation and atelectasis of both lungs. No pneumomediastinum or subcutaneous air. Germán Vences MD Course As above, patient has decompensated and is now intubated. Assessment and Plan Problem List: (1) Loculated pleural effusion ICD Codes: J90 - Pleural effusion, not elsewhere classified Status: Chronic (2) Pneumonia ICD Codes: J18.9 - Pneumonia, unspecified organism Status: Acute (3) Pneumothorax ICD Codes: J93.9 - Pneumothorax, unspecified Status: Chronic Assessment and Plan Unfortunate 86y/o male presents with chronic loculated pleural effusions with the right being worse, left spontaneous pneumothorax which responded to chest catheter insertion, and pneumonia on the right. He is currently intubated. The patient is a poor operative candidate and would require thoracotomy and formal decortication with no assurance that the right lower lobe would re- expand due to the chronicity of this process. I discussed this with his and she also has concerns as to whether or not he should undergo this procedure. Prior to admission, he was tolerating the effusions with exertional dyspnea and decompensated with the left PTX and right sided pneumonia. Will follow. Discussed Condition With spouse Problem Qualifiers (1) Pneumonia: Qualified Codes: J18.9 - Pneumonia, unspecified organism (2) Pneumothorax: Qualified Codes: J93.81 - Chronic pneumothorax Elmira Jara MD Dec 21, 2016 11:34
[2016-12-21] MEDS ORDERED: VANCOMYCIN 1,000 MG/NS 250 ML IV ONE ×4 (12:00)
[2016-12-21] MEDS ORDERED: TERBUTALINE INJ 1 MG/ML AMP SQ PRN ×2 (12:45)
[2016-12-21] MEDS ORDERED: SODIUM CHLORID 0.9% 500 ML INJ 500 ML IV ONE ×2 (12:45)
[2016-12-21] MEDS: PHENYLEPHRINE INJ 40 MG in DEXTROSE 5% IN WATE 500 ML INJ 496 ML IV PRN ×12 (13:00→23:47)
[2016-12-21] MEDS: VASOPRESSIN 40 U/D5W 100 ML Shock/septic shock, do NOT titrate until taper off IV SCH ×4 (13:00)
[2016-12-21] MEDS: NOREPINEPHRINE 4 MG/D5W 250 ML IV PRN ×2 (13:00)
[2016-12-21] MEDS ORDERED: VASOPRESSIN INJ 40 UNITS in DEXTROSE 5% IN WATER 100ML INJ 98 ML IV SCH ×4 (13:00)
[2016-12-21] MEDS: HYDROCORTISONE SOD SUCCINATE 100 MG VIAL IV PUSH SCH ×4 (13:00→21:30)
--- NOTE | 2016-12-21 13:00 | RADRPT ---
EXAM DATE/TIME: 12/21/2016 12:26 [place] COMPARISON: CHEST SINGLE AP, December 21, 2016, 8:29. INDICATIONS : Respiratory failure. MEDICAL HISTORY : None. SURGICAL HISTORY : None. ENCOUNTER: Subsequent ACUITY: 2 days PAIN SCORE: Non-responsive. LOCATION: Bilateral chest FINDINGS: A single portable frontal view of the chest performed. The only interval change from the prior study earlier today has been no retraction of the right thoracostomy tube. A small caliber chest tube has p ulled back but still is just within the hemithorax. The left thoracostomy tube remains in the lateral left hemithorax. Subpulmonic pneumothoraces persist. Diffuse consolidation of the right lung is agai n seen and unchanged. No effusions. Mild cardiomegaly. Tip of the endotracheal tube 5 cm cephalad to the agnes. Nasogastric tube noted. CONCLUSION: 1. The only interval change has been retraction of the right thoracostomy tube which is just now bare ly within the hemithorax. 2. Bilateral subpulmonic pneumothoraces despite chest tubes. This would suggest lack of elasticity of the lungs. 3. Persistent consolidation of the right lung. 4. Cardiomegaly. Nic Brown Jr., MD on December 21, 2016 at 12:55 Board Certified Radiologist. This report was verified electronically.
--- NOTE | 2016-12-21 14:21 | PD.CONS ---
History of Present Illness Service Infectious Disease Consult Requested By Dr Lovell Reason for Consult Evaluate patient with [facility]NA Primary Care Physician Shobha Gomez MD Diagnoses: History of Present Illness Patient seen and examined. Records reviewed. Patient is an 86-year-old male, initially presented to the hospital on December 19, for a scheduled bilateral thoracenteses. He has had problem with recurrent pleural effusion, as well as ascites, and has had multiple procedures done to drain the fluid. He was scheduled to have thoracentesis on October 19, but he went into respiratory distress, and ended up getting admitted. He was found to have a pneumothorax on the left and a large pleural effusion on the right. He had placement of bilateral chest tube, but there was only partial reexpansion of the lungs. There was no mention that he was having any cough or congestion, or fever or chills. This morning he had progressive respiratory distress, and required intubation. He is afebrile. He is on the vent. He is also hypotensive, and requiring 3 pressors. He is on levo fed, Forrest-Synephrine, and vasopressin. Cardiothoracic surgery has been consulted to evaluate the patient due to nonreactive expansion of the lung. Patient has end-stage renal disease, and gets hemodialysis. He had hemodialysis yesterday. Infectious disease consultation has been requested to evaluate the patient for possible pneumonia and shock. Review of Systems ROS Limitations: Clinical Condition, Intubated Past Family Social History Allergies: Coded Allergies: *MDRO Multi-Drug Resistant Organism (Verified Adverse Reaction, Unknown, 01/29/15) MRSA PCR Screen positive 01/25/15. Past Medical History ESRD on HD Ascites Hypertension CVA Duodenitis Past Surgical History Left carotid endarectomy Fistula left arm Multiple thoracentesis and paracentesis Reported Medications I attest that I obtained, updated or reviewed the home and current medications. Reported Meds & Active Scripts Active Reported Probiotic (Lactobacillus Acidophilus) 10 Billion Cell Cap 1 Cap PO DAILY Colace (Docusate Sodium) 100 Mg Capsule 1 Tab PO BID Tramadol (Tramadol HCl) 50 Mg Tab 50 Mg PO Q8H PRN Protonix (Pantoprazole Sodium) 40 Mg Tab 40 Mg PO DAILY PRN Nifedipine ER 24 HR (Nifedipine) 30 Mg Tab 30 Mg PO DAILY PRN Nephrocaps (B-Complex W/ C & Folic Acid) 1 Cap 1 Cap PO DAILY If on dialysis, take after treatment. Xalatan Opth Drops (Latanoprost) 0.005% Drops 1 Drop EACH EYE HS Brimonidine Opth Drops (Brimonidine Tartrate) 0.2% Soln 1 Drop EACH EYE BID Lovastatin 20 Mg Tab 20 Mg PO HS Minoxidil 2.5 Mg Tab 2.5 Mg PO BID PRN Coreg (Carvedilol) 25 Mg Tab 25 Mg PO BID Dipyridamole-Aspirin 200-25 Mg Cap 1 Cap PO BID Active Ordered Medications Current Medications Medications (Trade) Dose Ordered Sig/Bill Route Start Time Stop Time Status Last Admin (Dulcolax Ec) 10 mg DAILY PRN PO 12/19/16 20:00 (Drisdol) 50,000 units Q7D PO 12/20/16 09:00 (Xalatan 0.005% Opth Soln) 1 drop HS EACH EYE 12/19/16 21:00 12/20/16 22:46 (Pravachol) 20 mg HS PO 12/19/16 21:00 12/20/16 20:56 (Loniten) 2.5 mg DAILY PO 12/20/16 09:00 (Procardia Xl) 30 mg BID PRN PO 12/19/16 20:00 12/20/16 00:23 (Ultram) 50 mg Q4H PRN PO 12/19/16 20:00 12/20/16 15:50 (Ecotrin Ec) 81 mg DAILY PO 12/20/16 09:00 (Nephrocaps) 1 cap DAILY PO 12/20/16 09:00 12/21/16 09:47 (Oscal) 1,000 mg DAILY PO 12/20/16 09:00 12/21/16 09:00 (Coreg) 12.5 mg BID PO 12/19/16 21:00 Future Hold 12/20/16 20:56 (Cosopt 2-0.5% Opth Soln) 1 drop BID EACH EYE 12/19/16 21:00 12/21/16 09:43 (NS Flush) 2 ml UNSCH PRN IV FLUSH 12/19/16 20:15 (NS Flush) 2 ml BID IV FLUSH 12/19/16 21:00 12/21/16 09:44 (Tylenol) 650 mg Q6H PRN PO 12/19/16 20:15 (Zofran Inj) 4 mg Q6H PRN IV PUSH 12/19/16 20:15 (Ambien) 5 mg HS PRN PO 12/19/16 20:15 (Heparin Inj) 5,000 units Q12H SQ 12/19/16 21:00 12/21/16 09:48 Miscellaneous Information 1 Q361D XX 12/19/16 20:15 (Chlorhexidine 2% Cloth) 3 pack Taper DAILY@04 TOP 12/20/16 04:00 12/16/17 03:59 12/20/16 04:00 (Chlorhexidine 2% Cloth) 3 pack UNSCH PRN TOP 12/19/16 20:15 (Shelby-Colace) 1 tab BID PO 12/19/16 21:00 12/21/16 09:46 (Milk Of Magnesia Liq) 30 ml Q12H PRN PO 12/19/16 20:15 (Senokot) 17.2 mg Q12H PRN PO 12/19/16 20:15 (Dulcolax Supp) 10 mg DAILY PRN RECTAL 12/19/16 20:15 (Lactulose Liq) 30 ml DAILY PRN PO 12/19/16 20:15 (Persantine) 75 mg BID PO 12/20/16 09:00 12/21/16 09:47 (Apresoline Inj) 20 mg Q4H PRN IV 12/20/16 00:15 12/20/16 00:22 Sodium Bicarbonate 100 meq/Dextrose 1,100 ml @ 42 mls/hr Q24H IV 12/20/16 01:15 12/21/16 03:37 Sodium Chloride 1,000 ml @ 0 mls/hr Q0M PRN OTHER 12/20/16 10:04 Sodium Chloride 1,000 ml @ 200 mls/hr Q5H PRN IV 12/20/16 10:04 Sodium Chloride 1,000 ml @ 0 mls/hr Q0M PRN OTHER 12/20/16 10:04 (Mannitol Inj) 12.5 gm UNSCH PRN IV 12/20/16 10:15 Albumin Human 100 ml @ 60 mls/hr UNSCH PRN IV 12/20/16 10:15 (NS Flush) 5 ml UNSCH PRN IV FLUSH 12/20/16 10:15 (Heparin Inj) UNSCH PRN .XX 12/20/16 10:15 (Gentamicin (Dialysis) Inj) 20 mg UNSCH PRN OTHER 12/20/16 10:15 (Zofran Inj) 4 mg UNSCH PRN IV PUSH 12/20/16 10:15 (Tylenol) 650 mg UNSCH PRN PO 12/20/16 10:15 (Benadryl) 25 mg UNSCH PRN PO 12/20/16 10:15 (Nitrostat Sl) 0.4 mg UNSCH PRN SL 12/20/16 10:15 (Catapres) 0.1 mg UNSCH PRN PO 12/20/16 10:15 (Epogen Inj) 5,000 units UNSCH PRN IV PUSH 12/20/16 10:15 (Gelfoam 12 Mm/7 Mm Top) 1 foam UNSCH PRN TOP 12/20/16 10:15 (Peridex 0.12% Liq) 15 ml BID@08,20 MT 12/21/16 08:00 12/21/16 09:37 Propofol 100 ml @ 1.62 mls/hr TITRATE PRN IV 12/21/16 08:00 (Duoneb Neb) 1 ampule Q6HR NEB PRN NEB 12/21/16 08:00 (Duoneb Neb) 1 ampule Q6HR NEB NEB 12/21/16 10:00 12/21/16 09:45 (Protonix Inj) 40 mg Q24H IV PUSH 12/21/16 09:00 12/21/16 09:44 (D50w (Vial) Inj) 50 ml UNSCH PRN IV PUSH 12/21/16 08:15 (Glucagon Inj) 1 mg UNSCH PRN OTHER 12/21/16 08:15 (NovoLIN R SUPPLEMENTAL SCALE) 1 Q4H SQ 12/21/16 09:00 Pharmacy Profile Note 0 ml @ 0 mls/hr UNSCH OTHER 12/21/16 08:15 Piperacillin Sod/ Tazobactam Sod 50 ml @ 100 mls/hr Q8H IV 12/21/16 10:00 12/21/16 09:57 Azithromycin 500 mg/Sodium Chloride 250 ml @ 250 mls/hr Q24H IV 12/21/16 09:00 12/21/16 09:49 Fentanyl Citrate 250 ml @ 5 mls/hr TITRATE PRN IV 12/21/16 10:00 12/21/16 09:38 (SoluCORTEF INJ) 100 mg Q8H IV PUSH 12/21/16 13:00 Vasopressin 40 units/Dextrose 100 ml @ 1.5 mls/hr Q24H IV 12/21/16 13:00 Sodium Chloride 500 ml @ 500 mls/hr BOLUS ONCE IV 12/21/16 12:45 12/21/16 13:44 Phenylephrine HCl 40 mg/Dextrose 500 ml @ 30 mls/hr TITRATE PRN IV 12/21/16 12:45 (Brethine Inj) 1 mg UNSCH PRN SQ 12/21/16 12:45 Family History Noncontributory Social History No smoking No alcohol abuse No illicit drug Physical Exam Vital Signs Vital Signs Date Time Temp Pulse Resp B/P (MAP) Pulse Ox O2 Delivery O2 Flow Rate FiO2 12/21/16 12:59 90 50 12/21/16 10:19 100 80 12/21/16 08:00 99 100 12/21/16 07:29 100 100 12/21/16 06:00 97 100 12/21/16 06:00 93 12/21/16 04:00 97.9 90 32 182/81 (114) 96 12/21/16 04:00 90 12/21/16 03:57 96 Nasal Cannula 4.00 12/21/16 02:00 81 12/21/16 00:00 73 12/21/16 00:00 98.0 73 32 140/64 (89) 99 12/20/16 22:00 74 12/20/16 20:00 80 12/20/16 20:00 97.9 80 24 180/80 (113) 100 12/20/16 18:00 80 12/20/16 16:00 87 12/20/16 16:00 98.4 87 22 157/70 (99) 100 12/20/16 14:00 81 Physical Exam GENERAL: Patient is a thin, well-developed male, intubated, not in respiratory distress. Not on sedation, received sedation for intubation SKIN: Warm and dry. No generalized rash, no ecchymoses and no evidence of embolic lesions. HEAD: Atraumatic. Normocephalic. No temporal wasting, or tenderness. EYES: Pale conjunctiva. No petechia or hemorrhage. Pupils equal, round and reactive to light. No scleral icterus. No injection or drainage. EARS, NOSE AND THROAT: Nose without bleeding or purulent nasal discharge. ET in mouth NECK: Trachea midline. Supple and not tender, no meningeal signs CARDIOVASCULAR: Regular rate and rhythm. No murmurs, rubs or gallops heard RESPIRATORY: Decreased BS on R, R CT in place with serosanguineous fluid. Has pleural rub on L, L CT with more of serous fluid. ABDOMEN: Distended abdomen, bowel sounds present and hypoactive. No reaction to deep palpation. EXTREMITIES: No clubbing, cyanosis, or edema. No joint effusion. Warm. HD access L arm looks ok NEUROLOGICAL: Got sedation for intubation. No Babinski. PSYCHIATRIC: Unable to assess LINE: Has PIV. Jailene R radial just placed. Lines with no evidence of infection Laboratory Laboratory Tests Test 12/21/16 04:55 12/21/16 10:33 12/21/16 12:33 12/21/16 13:38 Blood Urea Nitrogen 43 Creatinine 6.24 Random Glucose 150 Calcium Level 9.0 Sodium Level 137 Potassium Level 4.8 Chloride Level 99 Carbon Dioxide Level 31.2 Anion Gap 7 Estimat Glomerular Filtration Rate 10 Blood Gas Puncture Site RT BRACHIAL JAILENE Blood Gas Patient Temperature 98.6 98.6 Blood Gas HCO3 30 27 Blood Gas Base Excess 4.2 -0.4 Blood Gas Oxygen Saturation 97 81 Arterial Blood pH 7.32 7.20 Arterial Blood Partial Pressure CO2 60 71 Arterial Blood Partial Pressure O2 227 60 Arterial Blood Oxygen Content 13.7 10.4 Arterial Blood Carboxyhemoglobin 1.2 1.0 Arterial Blood Methemoglobin 1.4 1.3 Blood Gas Hemoglobin 9.7 9.1 Oxygen Delivery Device VENTILATOR VENTILATOR Blood Gas Ventilator Setting SEE COMMENTS Blood Gas Inspired Oxygen 80 50 Date/Time Source Procedure Growth Status 12/19/16 19:10 Blood Peripheral Aerobic Blood Culture - Preliminary NO GROWTH IN 2 DAYS Resulted 12/19/16 19:10 Blood Peripheral Anaerobic Blood Culture - Preliminary NO GROWTH IN 2 DAYS Resulted 12/19/16 20:35 Fluid Pleural Fluid Gram Stain - Final Resulted 12/19/16 20:35 Fluid Pleural Fluid Body Fluid Culture Pending Resulted 12/21/16 10:24 Sputum Endotracheal Gram Stain - Final Resulted 12/21/16 10:24 Sputum Endotracheal Sputum Culture Pending Resulted Result Diagram: 12/20/16 0400 12/21/16 0455 Imaging RADIOLOGY STUDIES/FILMS REVIEWED Chest X-Ray 12/21/16 0432 Signed Impressions: Service Date/Time: Wednesday, December 21, 2016 04:38 - CONCLUSION: 1. New consolidative opacity in the right lung most characteristic of pneumonia. 2. Stable appearance of the bibasilar pneumothoraces. Daniel Cowan MD Chest CT 12/20/16 0000 Signed Impressions: Service Date/Time: Tuesday, December 20, 2016 16:26 - CONCLUSION: 1. Moderate right and small left hydropneumothorax with small caliber chest tubes present bilaterally, not significant changed from prior chest radiograph. Dependent consolidation and atelectasis of both lungs. No pneumomediastinum or subcutaneous air. Germán Vences MD Assessment and Plan Assessment and Plan IMPRESSION Recurrent pleural effusion, and ascites Respiratory failure, ?PNA Shock, on pressors ESRD on HD RECOMMENDATION Follow C/S Agree with current empiric Abx: Vanco and Vikramn CTS evaluating patient for options on Rx of his recurrent effusions On pressors for hypotension Monitor progress I will make further recommendation on Abx once work-up completed and depending on his course I will follow along with you Thank you for this consultation Discussed Condition With D/W RN Paula Mayes MD Dec 21, 2016 14:21
[2016-12-21] MEDS ORDERED: LIDOCAINE HCL 1% 50 ML VIAL ONE ×2 (14:29)
--- NOTE | 2016-12-21 15:30 | PD.PROCEDR ---
Central Line Procedure REASON FOR PROCEDURE Central venous access PROCEDURE PERFORMED Central line placement: Right femoral central line CONSENT Informed consent for procedure was obtained. The risks and benefits of the procedure were discussed to include but limited to bleeding, clot formation, infection, and even . ANESTHESIA Local injection of 1% Lidocaine DESCRIPTION OF THE PROCEDURE The patient was placed in supine, mild Trendelenburg position. The area was exposed and cleansed with ChloraPrep, times two. Large sterile drape was used to cover the patient, with the site exposed, under sterile conditions including cap, face mask, sterile gown, and sterile gloves. On single attempt, the introducer needle was inserted with negative pressure in syringe and venous flash was obtained. The guide wire was then advanced without any restriction and the needle was removed. The dilator was used without any complications. Using Seldinger technique the catheter was advanced over the guide wire to a depth of 20 centimeters. The guide wire was removed. All ports were aspirated with dark venous blood return and flushed easily with sterile saline. All ports were capped. Antibiotic disc was placed around central line at puncture site. The central line was secured to the skin with two interrupted 2.0 silk sutures. The area was bandaged with sterile see-through central line bandage. COMPLICATIONS: No apparent complications ESTIMATED BLOOD LOSS: Less than 1 cc. Aurea Lovell MD Dec 21, 2016 15:30
[2016-12-21 16:12] LABS: HEMATOCRIT 27.8 % (39.0-51.0); HEMOGLOBIN 8.8 GM/DL (13.0-17.0); MEAN CELL VOLUME 109.7 FL (80.0-100.0); MEAN CORPUSCULAR HEMOGLOBIN 34.6 PG (27.0-34.0); MEAN CORPUSCULAR HGB CONC 31.5 % (32.0-36.0); PLATELET COUNT 137 TH/MM3 (150-450); RED BLOOD COUNT 2.54 MIL/MM3 (4.50-5.90); RED CELL DISTRIBUTION WIDTH 15.2 % (11.6-17.2); WHITE BLOOD COUNT 1.6 TH/MM3 (4.0-11.0)
[2016-12-21 17:25] LABS: BANDS 2 % (0-6); LYMPHOCYTES 57 % (9-44); METAMYELOCYTES 4 % (0-1); MONOCYTES 4 % (0-8); NEUTROPHIL # MANUAL DIFF 0.6 TH/MM3 (1.8-7.7); POLYS (SEG NEUTROPHILS) 33 % (16-70)
[2016-12-21] MEDS: PRAVASTATIN SOD 20 MG TAB PO SCH ×2 (21:31)
[2016-12-21] MEDS: LATANOPROST 0.005% OPHT SOLN 2.5 ML BTL EACH EYE SCH ×2 (21:31)
[2016-12-21] MEDS ORDERED: NOREPINEPHRINE 4 MG/4 ML AMP IV ONE ×2 (21:33)
[2016-12-21] MEDS ORDERED: CALCIUM CHLORIDE 10% SOLN 1 GRAM/10 ML SYR IV ONE ×2 (21:33)
[2016-12-21] MEDS ORDERED: EPINEPHrine HCL (1:10,000) 1 MG/10 ML SYRINGE IV ONE ×2 (21:33)
[2016-12-21] MEDS ORDERED: SODIUM BICARBONATE 8.4% INJ 50 MEQ/50 ML SYR IV ONE ×2 (21:33)
[2016-12-21] MEDS ORDERED: EPINEPHrine HCL (1:1000) 30 MG/30 ML VIAL IV ONE ×2 (21:33)
[2016-12-22] VITALS (22 sets, daily range): BP systolic 120–162; BP diastolic 36–76; PULSE 68–83; RESP 7–26; TEMP 97.7–98.6; O2SAT 93–100
[2016-12-22] MEDS: INSULIN NovoLIN REGULAR SUPPLEMENTAL SCALE SQ SCH ×12 (01:00→21:00)
[2016-12-22] MEDS: NOREPINEPHRINE 4 MG/D5W 250 ML IV PRN ×6 (03:00→22:10)
[2016-12-22] MEDS: PIPERACIL-TAZO 2.25 GM PREMIX 50 ML IV SCH ×6 (03:34→17:39)
[2016-12-22] MEDS: VASOPRESSIN 40 U/D5W 100 ML Shock/septic shock, do NOT titrate until taper off IV SCH ×8 (03:36→22:11)
[2016-12-22] MEDS: RESP: ALBUTEROL 2.5 MG/IPRATROPIUM 0.5 MG NEB (SCH) NEB ×8 (03:44→21:33)
[2016-12-22] MEDS: CHLORHEXIDINE GLUCONATE 2 % 1 PACK (2 CLOTHS) TOP SCH ×2 (04:00)
[2016-12-22] MEDS: HYDROCORTISONE SOD SUCCINATE 100 MG VIAL IV PUSH SCH ×6 (05:39→21:24)
[2016-12-22 06:08] LABS: AUTOMATED NEUTROPHIL # 2.7 TH/MM3 (1.8-7.7); BASOPHIL % 0.1 % (0.0-2.0); EOSINOPHIL % 0.2 % (0.0-4.0); HEMATOCRIT 25.4 % (39.0-51.0); HEMOGLOBIN 8.2 GM/DL (13.0-17.0); LYMPH % 23.2 % (9.0-44.0); LYMPHOCYTE # 0.9 TH/MM3 (1.0-4.8); MEAN CELL VOLUME 108.7 FL (80.0-100.0); MEAN CORPUSCULAR HGB CONC 32.2 % (32.0-36.0); MEAN PLATELET VOLUME 9.8 FL (7.0-11.0); MONOCYTE # 0.3 TH/MM3 (0-0.9); NEUT % 68.5 % (16.0-70.0); PLATELET COUNT 112 TH/MM3 (150-450); RED BLOOD COUNT 2.34 MIL/MM3 (4.50-5.90); RED CELL DISTRIBUTION WIDTH 15.1 % (11.6-17.2); WHITE BLOOD COUNT 3.9 TH/MM3 (4.0-11.0)
[2016-12-22 06:38] LABS: BICARBONATE 23.9 MEQ/L (21.0-32.0); CALCIUM 8.3 MG/DL (8.5-10.1); CREATININE 6.97 MG/DL (0.60-1.30)
[2016-12-22 06:41] LABS: RANDOM VANCOMYCIN 11.8 COMMENT
[2016-12-22] MEDS: PHENYLEPHRINE INJ 40 MG in DEXTROSE 5% IN WATE 500 ML INJ 496 ML IV PRN ×12 (06:59→19:46)
[2016-12-22 07:44] LABS: BANDS 42 % (0-6); LYMPHOCYTES 23 % (9-44); METAMYELOCYTES 3 % (0-1); MONOCYTES 4 % (0-8); MYELOCYTES 1 % (0-0); NEUTROPHIL # MANUAL DIFF 2.8 TH/MM3 (1.8-7.7); POLYS (SEG NEUTROPHILS) 27 % (16-70)
--- NOTE | 2016-12-22 08:51 | HHI.IDPN ---
Subjective Subjective Remarks Patient is an 86-year-old male, initially presented to the hospital on December 19, for a scheduled bilateral thoracenteses. He has had problem with recurrent pleural effusion, as well as ascites, and has had multiple procedures done to drain the fluid. He was scheduled to have thoracentesis on October 19, but he went into respiratory distress, and ended up getting admitted. He was found to have a pneumothorax on the left and a large pleural effusion on the right. He had placement of bilateral chest tube, but there was only partial reexpansion of the lungs. There was no mention that he was having any cough or congestion, or fever or chills. This morning he had progressive respiratory distress, and required intubation. He is afebrile. He is on the vent. He is also hypotensive, and requiring 3 pressors. He is on levo fed, Forrest-Synephrine, and vasopressin. Cardiothoracic surgery has been consulted to evaluate the patient due to nonreactive expansion of the lung. Patient has end-stage renal disease, and gets hemodialysis. He had hemodialysis yesterday. Infectious disease consultation has been requested to evaluate the patient for possible pneumonia and shock. Notes reviewed Temps ok On pressors Sedated on the vent Looks dyspneic Antibiotics Vancomycin IV Zithromax IV Zosyn IV I attest that I obtained, updated or reviewed the home and current medications. Current Medications Medications (Trade) Dose Ordered Sig/Bill Route Start Time Stop Time Status Last Admin (Dulcolax Ec) 10 mg DAILY PRN PO 12/19/16 20:00 (Drisdol) 50,000 units Q7D PO 12/20/16 09:00 (Xalatan 0.005% Opth Soln) 1 drop HS EACH EYE 12/19/16 21:00 12/21/16 21:31 (Pravachol) 20 mg HS PO 12/19/16 21:00 12/21/16 21:31 (Loniten) 2.5 mg DAILY PO 12/20/16 09:00 (Procardia Xl) 30 mg BID PRN PO 12/19/16 20:00 12/20/16 00:23 (Ultram) 50 mg Q4H PRN PO 12/19/16 20:00 12/20/16 15:50 (Ecotrin Ec) 81 mg DAILY PO 12/20/16 09:00 (Nephrocaps) 1 cap DAILY PO 12/20/16 09:00 12/21/16 09:47 (Oscal) 1,000 mg DAILY PO 12/20/16 09:00 12/21/16 09:00 (Coreg) 12.5 mg BID PO 12/19/16 21:00 Future Hold 12/20/16 20:56 (Cosopt 2-0.5% Opth Soln) 1 drop BID EACH EYE 12/19/16 21:00 12/21/16 21:31 (NS Flush) 2 ml UNSCH PRN IV FLUSH 12/19/16 20:15 (NS Flush) 2 ml BID IV FLUSH 12/19/16 21:00 12/21/16 21:32 (Tylenol) 650 mg Q6H PRN PO 12/19/16 20:15 (Zofran Inj) 4 mg Q6H PRN IV PUSH 12/19/16 20:15 (Ambien) 5 mg HS PRN PO 12/19/16 20:15 (Heparin Inj) 5,000 units Q12H SQ 12/19/16 21:00 12/21/16 21:30 Miscellaneous Information 1 Q361D XX 12/19/16 20:15 (Chlorhexidine 2% Cloth) 3 pack Taper DAILY@04 TOP 12/20/16 04:00 12/16/17 03:59 12/22/16 04:00 (Chlorhexidine 2% Cloth) 3 pack UNSCH PRN TOP 12/19/16 20:15 (Shelby-Colace) 1 tab BID PO 12/19/16 21:00 12/21/16 21:30 (Milk Of Magnesia Liq) 30 ml Q12H PRN PO 12/19/16 20:15 (Senokot) 17.2 mg Q12H PRN PO 12/19/16 20:15 (Dulcolax Supp) 10 mg DAILY PRN RECTAL 12/19/16 20:15 (Lactulose Liq) 30 ml DAILY PRN PO 12/19/16 20:15 (Persantine) 75 mg BID PO 12/20/16 09:00 12/21/16 21:30 (Apresoline Inj) 20 mg Q4H PRN IV 12/20/16 00:15 12/20/16 00:22 Sodium Chloride 1,000 ml @ 0 mls/hr Q0M PRN OTHER 12/20/16 10:04 Sodium Chloride 1,000 ml @ 200 mls/hr Q5H PRN IV 12/20/16 10:04 Sodium Chloride 1,000 ml @ 0 mls/hr Q0M PRN OTHER 12/20/16 10:04 (Mannitol Inj) 12.5 gm UNSCH PRN IV 12/20/16 10:15 Albumin Human 100 ml @ 60 mls/hr UNSCH PRN IV 12/20/16 10:15 (NS Flush) 5 ml UNSCH PRN IV FLUSH 12/20/16 10:15 (Heparin Inj) UNSCH PRN .XX 12/20/16 10:15 (Gentamicin (Dialysis) Inj) 20 mg UNSCH PRN OTHER 12/20/16 10:15 (Zofran Inj) 4 mg UNSCH PRN IV PUSH 12/20/16 10:15 (Tylenol) 650 mg UNSCH PRN PO 12/20/16 10:15 (Benadryl) 25 mg UNSCH PRN PO 12/20/16 10:15 (Nitrostat Sl) 0.4 mg UNSCH PRN SL 12/20/16 10:15 (Catapres) 0.1 mg UNSCH PRN PO 12/20/16 10:15 (Epogen Inj) 5,000 units UNSCH PRN IV PUSH 12/20/16 10:15 (Gelfoam 12 Mm/7 Mm Top) 1 foam UNSCH PRN TOP 12/20/16 10:15 (Peridex 0.12% Liq) 15 ml BID@08,20 MT 12/21/16 08:00 12/21/16 21:31 Propofol 100 ml @ 1.62 mls/hr TITRATE PRN IV 12/21/16 08:00 (Duoneb Neb) 1 ampule Q6HR NEB PRN NEB 12/21/16 08:00 (Duoneb Neb) 1 ampule Q6HR NEB NEB 12/21/16 10:00 12/22/16 07:40 (Protonix Inj) 40 mg Q24H IV PUSH 12/21/16 09:00 12/21/16 09:44 (D50w (Vial) Inj) 50 ml UNSCH PRN IV PUSH 12/21/16 08:15 (Glucagon Inj) 1 mg UNSCH PRN OTHER 12/21/16 08:15 (NovoLIN R SUPPLEMENTAL SCALE) 1 Q4H SQ 12/21/16 09:00 Pharmacy Profile Note 0 ml @ 0 mls/hr UNSCH OTHER 12/21/16 08:15 Piperacillin Sod/ Tazobactam Sod 50 ml @ 100 mls/hr Q8H IV 12/21/16 10:00 12/22/16 03:34 Azithromycin 500 mg/Sodium Chloride 250 ml @ 250 mls/hr Q24H IV 12/21/16 09:00 12/21/16 09:49 Fentanyl Citrate 250 ml @ 5 mls/hr TITRATE PRN IV 12/21/16 10:00 12/21/16 09:38 (SoluCORTEF INJ) 100 mg Q8H IV PUSH 12/21/16 13:00 12/22/16 05:39 Phenylephrine HCl 40 mg/Dextrose 500 ml @ 30 mls/hr TITRATE PRN IV 12/21/16 12:45 12/22/16 06:59 (Brethine Inj) 1 mg UNSCH PRN SQ 12/21/16 12:45 Norepinephrine Bitartrate 250 ml @ 7.5 mls/hr TITRATE PRN IV 12/21/16 18:30 12/22/16 03:00 Vasopressin 40 units/Dextrose 100 ml @ 6 mls/hr [id number] IV 12/21/16 18:30 12/22/16 03:36 Lines A line Past Medical History ESRD on HD Ascites Hypertension CVA Duodenitis Past Surgical History Left carotid endarectomy Fistula left arm Multiple thoracentesis and paracentesis Allergies: Coded Allergies: *MDRO Multi-Drug Resistant Organism (Verified Adverse Reaction, Unknown, 01/29/15) MRSA PCR Screen positive 01/25/15. Objective . Vital Signs Date Time Temp Pulse Resp B/P (MAP) Pulse Ox O2 Delivery O2 Flow Rate FiO2 12/22/16 07:41 99 50 12/22/16 06:59 72 148/51 12/22/16 06:00 72 12/22/16 04:00 50 12/22/16 04:00 98.4 75 24 151/52 (85) 93 12/22/16 04:00 75 12/22/16 03:46 99 50 12/22/16 03:36 76 150/48 12/22/16 03:35 74 145/53 12/22/16 03:22 74 143/55 12/22/16 03:00 74 154/52 12/22/16 02:21 75 164/52 12/22/16 02:00 76 12/22/16 00:36 77 165/54 12/22/16 00:22 100 50 12/22/16 00:00 98.1 76 24 120/76 (91) 100 130/47 (74) 12/22/16 00:00 76 12/22/16 00:00 50 12/21/16 23:47 76 134/53 12/21/16 23:46 75 144/49 12/21/16 22:58 80 155/50 12/21/16 22:00 80 12/21/16 20:31 96 50 12/21/16 20:00 50 12/21/16 20:00 96.3 79 24 144/48 (80) 97 12/21/16 20:00 79 12/21/16 19:00 79 120/43 12/21/16 19:00 79 120/43 12/21/16 19:00 79 120/43 12/21/16 19:00 79 120/43 12/21/16 19:00 79 120/43 12/21/16 19:00 79 120/43 12/21/16 18:00 50 12/21/16 18:00 76 12/21/16 17:52 78 137/45 12/21/16 16:17 97 50 12/21/16 16:00 97.3 74 24 112/43 (66) 97 12/21/16 16:00 74 12/21/16 14:00 85 12/21/16 13:56 88 60 12/21/16 13:00 92 77/46 12/21/16 13:00 93 77/46 12/21/16 13:00 93 77/46 12/21/16 13:00 92 77/46 12/21/16 12:59 90 50 12/21/16 12:00 97 12/21/16 12:00 98.7 97 18 92/48 (63) 97 12/21/16 10:19 100 80 12/21/16 10:00 102 . Laboratory Tests Test 12/21/16 15:38 12/22/16 05:54 White Blood Count 1.6 TH/MM3 3.9 TH/MM3 Red Blood Count 2.54 MIL/MM3 2.34 MIL/MM3 Hemoglobin 8.8 GM/DL 8.2 GM/DL Hematocrit 27.8 % 25.4 % Mean Corpuscular Volume 109.7 FL 108.7 FL Mean Corpuscular Hemoglobin 34.6 PG 35.0 PG Mean Corpuscular Hemoglobin Concent 31.5 % 32.2 % Red Cell Distribution Width 15.2 % 15.1 % Platelet Count 137 TH/MM3 112 TH/MM3 Mean Platelet Volume 9.0 FL 9.8 FL CBC Comment AUTO DIFF AUTO DIFF Differential Total Cells Counted 100 100 Neutrophils % (Manual) 33 % 27 % Band Neutrophils % 2 % 42 % Lymphocytes % 57 % 23 % Monocytes % 4 % 4 % Neutrophils # (Manual) 0.6 TH/MM3 2.8 TH/MM3 Metamyelocytes 4 % 3 % Differential Comment FINAL DIFF MANUAL FINAL DIFF MANUAL Neutrophils (%) (Auto) 68.5 % Lymphocytes (%) (Auto) 23.2 % Monocytes (%) (Auto) 8.0 % Eosinophils (%) (Auto) 0.2 % Basophils (%) (Auto) 0.1 % Neutrophils # (Auto) 2.7 TH/MM3 Lymphocytes # (Auto) 0.9 TH/MM3 Monocytes # (Auto) 0.3 TH/MM3 Eosinophils # (Auto) 0.0 TH/MM3 Basophils # (Auto) 0.0 TH/MM3 Myelocytes 1 % Platelet Estimate LOW Platelet Morphology Comment NORMAL Laboratory Tests Test 12/21/16 04:55 12/22/16 05:54 Blood Urea Nitrogen 43 MG/DL 53 MG/DL Creatinine 6.24 MG/DL 6.97 MG/DL Random Glucose 150 MG/DL 114 MG/DL Calcium Level 9.0 MG/DL 8.3 MG/DL Sodium Level 137 MEQ/L 131 MEQ/L Potassium Level 4.8 MEQ/L 5.6 MEQ/L Chloride Level 99 MEQ/L 92 MEQ/L Carbon Dioxide Level 31.2 MEQ/L 23.9 MEQ/L Anion Gap 7 MEQ/L 15 MEQ/L Estimat Glomerular Filtration Rate 10 ML/MIN 9 ML/MIN Microbiology Date/Time Source Procedure Growth Status 12/19/16 19:10 Blood Peripheral Aerobic Blood Culture - Preliminary NO GROWTH IN 2 DAYS Resulted 12/19/16 19:10 Blood Peripheral Anaerobic Blood Culture - Preliminary NO GROWTH IN 2 DAYS Resulted 12/19/16 19:10 Blood Peripheral Aerobic Blood Culture - Preliminary NO GROWTH IN 2 DAYS Resulted 12/19/16 19:10 Blood Peripheral Anaerobic Blood Culture - Preliminary NO GROWTH IN 2 DAYS Resulted 12/19/16 20:35 Fluid Pleural Fluid Gram Stain - Final Resulted 12/19/16 20:35 Fluid Pleural Fluid Body Fluid Culture - Preliminary NO GROWTH IN 24 HOURS. Resulted 12/21/16 10:24 Sputum Endotracheal Gram Stain - Final Resulted 12/21/16 10:24 Sputum Endotracheal Sputum Culture Pending Resulted Imaging Last Impressions Chest X-Ray 12/21/16 0432 Signed Impressions: Service Date/Time: Wednesday, December 21, 2016 04:38 - CONCLUSION: 1. New consolidative opacity in the right lung most characteristic of pneumonia. 2. Stable appearance of the bibasilar pneumothoraces. Daniel Cowan MD Chest CT 12/20/16 0000 Signed Impressions: Service Date/Time: Tuesday, December 20, 2016 16:26 - CONCLUSION: 1. Moderate right and small left hydropneumothorax with small caliber chest tubes present bilaterally, not significant changed from prior chest radiograph. Dependent consolidation and atelectasis of both lungs. No pneumomediastinum or subcutaneous air. Germán Vences MD Physical Exam GENERAL: Patient is a thin, well-developed male, intubated, looks dyspneic on the vent SKIN: Warm and dry. No generalized rash, no ecchymoses and no evidence of embolic lesions. HEAD: Atraumatic. Normocephalic. No temporal wasting, or tenderness. EYES: Pale conjunctiva. No petechia or hemorrhage. Pupils equal, round and reactive to light. No scleral icterus. No injection or drainage. EARS, NOSE AND THROAT: Nose without bleeding or purulent nasal discharge. ET in mouth NECK: Trachea midline. Supple and not tender, no meningeal signs CARDIOVASCULAR: Regular rate and rhythm. No murmurs, rubs or gallops heard RESPIRATORY: Decreased BS on R, R CT in place with serosanguineous fluid. Better aeration on L, CT in place. ABDOMEN: Distended abdomen, bowel sounds present and hypoactive. No reaction to deep palpation. EXTREMITIES: No clubbing, cyanosis, or edema. No joint effusion. Warm. HD access L arm looks ok NEUROLOGICAL: Not responding PSYCHIATRIC: Unable to assess LINE: Has groin central line and [place] R radial. Lines with no evidence of infection Assessment & Plan Remarks IMPRESSION Recurrent pleural effusion, and ascites Respiratory failure, ?PNA Shock, on pressors ESRD on HD RECOMMENDATION Follow C/S and adjust Abx Agree with current empiric Abx: Terrence and Reinaldo CTS evaluating patient for options on Rx of his recurrent effusions On pressors for hypotension Monitor progress Paula Mayes MD Dec 22, 2016 08:51
[2016-12-22] MEDS: DIPYRIDAMOLE 25 MG TAB PO SCH ×4 (09:00→21:23)
[2016-12-22] MEDS: ASPIRIN EC 81 MG TABEC PO SCH ×2 (09:00)
[2016-12-22] MEDS: CALCIUM CARBONATE 1.25 GM (CA 500 MG) TAB PO SCH ×2 (09:00)
[2016-12-22] MEDS: MINOXIDIL 2.5 MG TAB PO SCH ×2 (09:00)
[2016-12-22] MEDS: AZITHROMYCIN INJ 500 MG in SODIUM CHLOR 0.9% 250 ML INJ 250 ML IV SCH ×4 (09:00)
[2016-12-22] MEDS: VITAMIN B CMPLX/VITC/FOLIC AC CAP PO SCH ×2 (09:00)
--- NOTE | 2016-12-22 09:31 | HHI.CCPN ---
Subjective Remarks/Hospital Course 86-year-old very pleasant male presents complaining of shortness of breath. Patient states that the symptoms started last night. He has history recurrent pleural effusion status post thoracentesis in the past. Patient is scheduled to have bilateral thoracentesis done by interventional radiologist. Patient denies any headache. Patient denies any chest pain. Patient denies abdominal pain. Patient denies any focal weakness or numbness of extremity. 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 Patient also has history of hypertension, hyperlipidemia, CVA and anemia. In the emergency department the chest x-ray revealed large pleural effusion on the right and a large pneumothorax on the left. Emergent chest tubes were placed bilaterally with partial resolution of pneumothorax on the left and drainage of 700 cc of hemorrhagic fluid from the right side however bilateral residual bibasal pneumothoraces. After procedures patient's respiration is significantly improved as well as his oxygenation. 12/21 Patient required increase O2 overnight wa son BIPAP with 100% FIO2. CXR this morning showed consolidative opacity right lung and stable bibasilar pneumothoraces. Due to resp distress and patient was intubated and placed on mechanical ventilation. 12/22 Patient is intubated and sedated with Fentanyl drip. On Neosyn 100 mics, Levophed 9 mics and vasopressin. Afebrile. Objective Vital Signs Date Time Temp Pulse Resp B/P (MAP) Pulse Ox O2 Delivery O2 Flow Rate FiO2 12/22/16 07:41 99 50 12/22/16 06:59 72 148/51 12/22/16 04:00 98.4 24 12/21/16 03:57 Nasal Cannula 4.00 Intake and Output 12/22/16 12/22/16 12/23/16 08:00 16:00 00:00 Intake Total 700 ml Output Total 160 ml Balance 540 ml Result Diagram: 12/22/16 0554 12/22/16 0554 Other Results Laboratory Tests Test 12/21/16 10:33 12/21/16 13:38 12/21/16 15:38 12/21/16 16:07 Blood Gas Puncture Site RT BRACHIAL JAILENE ART LINE Blood Gas Patient Temperature 98.6 98.6 98.6 Blood Gas HCO3 30 mmol/L 27 mmol/L 21 mmol/L Blood Gas Base Excess 4.2 mmol/L -0.4 mmol/L -4.5 mmol/L Blood Gas Oxygen Saturation 97 % 81 % 93 % Arterial Blood pH 7.32 7.20 7.31 Arterial Blood Partial Pressure CO2 60 mmHg 71 mmHg 42 mmHg Arterial Blood Partial Pressure O2 227 mmHg 60 mmHg 84 mmHg Arterial Blood Oxygen Content 13.7 Vol % 10.4 Vol % 10.7 Vol % Arterial Blood Carboxyhemoglobin 1.2 % 1.0 % 1.1 % Arterial Blood Methemoglobin 1.4 % 1.3 % 1.2 % Blood Gas Hemoglobin 9.7 G/DL 9.1 G/DL 8.1 G/DL Oxygen Delivery Device VENTILATOR VENTILATOR VENTILATOR Blood Gas Ventilator Setting SEE COMMENTS Blood Gas Inspired Oxygen 80 % 50 % 50 % White Blood Count 1.6 TH/MM3 Red Blood Count 2.54 MIL/MM3 Hemoglobin 8.8 GM/DL Hematocrit 27.8 % Mean Corpuscular Volume 109.7 FL Mean Corpuscular Hemoglobin 34.6 PG Mean Corpuscular Hemoglobin Concent 31.5 % Red Cell Distribution Width 15.2 % Platelet Count 137 TH/MM3 Mean Platelet Volume 9.0 FL CBC Comment AUTO DIFF Differential Total Cells Counted 100 Neutrophils % (Manual) 33 % Band Neutrophils % 2 % Lymphocytes % 57 % Monocytes % 4 % Neutrophils # (Manual) 0.6 TH/MM3 Metamyelocytes 4 % Differential Comment FINAL DIFF MANUAL Test 12/22/16 05:54 White Blood Count 3.9 TH/MM3 Red Blood Count 2.34 MIL/MM3 Hemoglobin 8.2 GM/DL Hematocrit 25.4 % Mean Corpuscular Volume 108.7 FL Mean Corpuscular Hemoglobin 35.0 PG Mean Corpuscular Hemoglobin Concent 32.2 % Red Cell Distribution Width 15.1 % Platelet Count 112 TH/MM3 Mean Platelet Volume 9.8 FL Neutrophils (%) (Auto) 68.5 % Lymphocytes (%) (Auto) 23.2 % Monocytes (%) (Auto) 8.0 % Eosinophils (%) (Auto) 0.2 % Basophils (%) (Auto) 0.1 % Neutrophils # (Auto) 2.7 TH/MM3 Lymphocytes # (Auto) 0.9 TH/MM3 Monocytes # (Auto) 0.3 TH/MM3 Eosinophils # (Auto) 0.0 TH/MM3 Basophils # (Auto) 0.0 TH/MM3 CBC Comment AUTO DIFF Differential Total Cells Counted 100 Neutrophils % (Manual) 27 % Band Neutrophils % 42 % Lymphocytes % 23 % Monocytes % 4 % Neutrophils # (Manual) 2.8 TH/MM3 Metamyelocytes 3 % Myelocytes 1 % Differential Comment FINAL DIFF MANUAL Platelet Estimate LOW Platelet Morphology Comment NORMAL Blood Urea Nitrogen 53 MG/DL Creatinine 6.97 MG/DL Random Glucose 114 MG/DL Calcium Level 8.3 MG/DL Sodium Level 131 MEQ/L Potassium Level 5.6 MEQ/L Chloride Level 92 MEQ/L Carbon Dioxide Level 23.9 MEQ/L Anion Gap 15 MEQ/L Estimat Glomerular Filtration Rate 9 ML/MIN Random Vancomycin Level 11.8 COMMENT Imaging Last Impressions Chest X-Ray 12/21/16 0432 Signed Impressions: Service Date/Time: Wednesday, December 21, 2016 04:38 - CONCLUSION: 1. New consolidative opacity in the right lung most characteristic of pneumonia. 2. Stable appearance of the bibasilar pneumothoraces. Daniel Cowan MD Chest CT 12/20/16 0000 Signed Impressions: Service Date/Time: Tuesday, December 20, 2016 16:26 - CONCLUSION: 1. Moderate right and small left hydropneumothorax with small caliber chest tubes present bilaterally, not significant changed from prior chest radiograph. Dependent consolidation and atelectasis of both lungs. No pneumomediastinum or subcutaneous air. Germán Vences MD Objective Remarks GENERAL: Patient is 86 yo intubated and sedated SKIN: Warm and dry. HEAD: Normocephalic. EYES: No scleral icterus. No injection or drainage. NECK: Supple, trachea midline. No JVD or lymphadenopathy. Orally intubated CARDIOVASCULAR: Regular rate and rhythm without murmurs, gallops, or rubs. + b/ p pig tail catheters in place. RESPIRATORY: Breath sounds equal bilaterally. No accessory muscle use. GASTROINTESTINAL: Abdomen soft, non-tender, nondistended. MUSCULOSKELETAL: No cyanosis, or edema. Neuro: sedated A/P Assessment and Plan 1)VDRF 2)Right sided pneumonia 3)Bibasilar hydroPTX 5)ESRD 6)HTN 7)Macrocytic Anemia Plan Neuro: On fentanyl infusion for sedation. Monitor neuro status. Daily sedation vacation when appropriate Pulm: Continue with vent support keep sat >92% Bronchodilators, ICU vent bundle. Check ABG Monitor CT drainage. CTS is following- Dr. Jara, patient is poor operative candidate. CV: Monitor HR and BP keep MAP>65mmHg Wean off pressors ( On Levophed, Neosyn, Vasopressin) On stress dose steroids- HC 100mg Q8 Check Lactic aid. : Monitor renal function, avoid nephrotoxins HD per renal-Dr. Thompson. For HD today. GI: On Protonix 40mg daily for GI prophylaxis Tube feeds- Nepro with goal rate 40ml/hr. Place on bowel regimen Colace, Senna Check KUB abdomen. ID: Continue abx per ID ( Vanco, Zosyn, Azithromycin)monitor for signs of infections ( Fever, WBC) Follow up on sputum cx, BC, fluid cx from 12/19:NGTD Heme: Monitor CBC Endo: SSI with accuchecks GI prophylaxis- Protonix 40mg daily DVT prophylaxis- SCD. Heparin SQ Palliative care eval CCT 35 mins Aurea Lovell MD Dec 22, 2016 09:31
[2016-12-22] MEDS: PANTOPRAZOLE SODIUM 40 MG VIAL IV PUSH SCH ×2 (09:36)
[2016-12-22] MEDS: HEPARIN SODIUM - SQ 10,000 UNITS/ML VIAL SQ SCH ×4 (09:37→21:24)
[2016-12-22] MEDS: DOCUSATE SODIUM 50 MG/SENNA 8.6 MG TAB PO SCH ×4 (09:39→21:23)
[2016-12-22] MEDS: CHLORHEXIDINE 0.12% (ORAL KIT) 15 ML CUP MT SCH ×4 (09:54→21:25)
[2016-12-22] MEDS: DORZOLAMIDE/TIMOLOL OPTH SOLN 10 ML BTL EACH EYE SCH ×4 (09:56→21:00)
[2016-12-22] MEDS: SODIUM CHLORIDE 0.9% FLUSH 10 ML FLUSH IV FLUSH SCH ×4 (09:57→21:25)
[2016-12-22] MEDS ORDERED: VANCOMYCIN INJ 1,000 MG in SODIUM CHLOR 0.9% 250 ML INJ 250 ML IV ONE ×4 (10:00)
--- NOTE | 2016-12-22 10:19 | RADRPT ---
EXAM DATE/TIME: 12/22/2016 09:42 [facility] COMPARISON: CHEST SINGLE AP, December 21, 2016, 12:26. ABDOMEN KUB ONLY, February 01, 2015, 4:15. INDICATIONS : Evaluate for ileus. MEDICAL HISTORY : None. SURGICAL HISTORY : None. ENCOUNTER: Initial ACUITY: 1 day PAIN SCORE: Non-responsive. LOCATION: Abdomen. FINDINGS: There is gas seen in loops of small and large bowel. There is one loop of small bowel in the low hyp ogastric region which measures up to 5.6 cm; this is disproportionately dilated with respect to the o ther loops of small bowel. Moderate amount of stool seen in the rectum. Right femoral catheter tip projects at the L5 level. Gastric tube tip projects within the stomach. Bilateral lower chest pneum othoraces partially included in the upper [id number] exam, similar to prior chest x-ray.. CONCLUSION: There is one loop of small bowel in the midline hypogastric region which is dilated out of proportion to the other loops of small bowel and the colon. This is nonspecific and could represent a localize d ileus or an early small bowel obstruction. Nic Cha MD on December 22, 2016 at 10:14 Board Certified Radiologist. This report was verified electronically.
--- NOTE | 2016-12-22 10:25 | PD.CONS ---
Consult Service Palliative Care . Consult Requested By Dr. Oliveira . Primary Care Physician Shobha Gomez MD . Reason for Consultation a. To assist with evaluation and management of symptoms including: pain; dyspnea; encephalopathy b. To assist medical decision maker(s) with: better understanding of current medical conditions; weighing benefits/burdens of medical treatment options; making medical treatment decisions. . HPI History of Present Illness Mr. Lerner is an 86-year-old male well-known to the palliative care service from prior admissions in April and in July 2014. Patient has a known history of stroke with left-sided hemiparesis; peripheral vascular disease; hyperlipidemia; end-stage renal disease on hemodialysis; hypertension; recurrent pleural effusions; and ascites requiring multiple paracenteses; who presented to the emergency department on 12/19/2016 complaining of shortness of breath which had begun the previous night. The patient has required thoracentesis in the past. Around September of this year he had a pleural effusion requiring chest tube placement; this was complicated by pneumothorax. The patient was apparently already scheduled to have repeat drainage of the pleural effusion as an outpatient but apparently it was delayed because he did not have laboratory work done ahead of time. Patient and his were instructed to present to the emergency department if he began getting worse. Apparently, he was saturating in the 80s when EMS arrived. He denied chest pain , abdominal pain, headache, focal weakness or numbness of extremity. The patient was placed on a nonrebreathing mask on the way to the emergency department. Initial vital signs in the emergency department were as follows: Temperature 98.8; pulse 89; respiratory rate 30; blood pressure 150/88; pulse oximetry 95% on a nonrebreather mask. Physical examination by the emergency astronomy department chair noted the following: Patient appeared well-nourished and well-developed. There were decreased breath sounds bilaterally especially at the right lung. There were a few rhonchi audible at the bases. Remainder of the physical examination was unremarkable. Initial diagnostic studies revealed the following: * CBC showed WBC 5.1; hemoglobin 11.6; platelet count 189 * Coagulation profile showed PT 11.7; INR 1.1; PTT 28.1 * Chemistry profile showed sodium 138; potassium 5.4; chloride 103; CO2 27.5; BUN 62; creatinine 7.68; glucose 118; calcium 8.5; GFR 8 * Cardiac serology showed total CK 89; troponin 0.03 * Liver function testing showed total bilirubin 0.3; AST 13; ALT 14; phosphatase 83; total protein 7.7; albumin 2.8 * Chest x-ray showed slightly enlarged right pleural effusion; left pleural effusion persists with left lateral and subpleural basilar pneumothorax which is increased in size relative to 10/30/16 * Electrocardiogram showed a sinus rhythm. There is possible left atrial enlargement. The patient had pleural catheters placed bilaterally in the emergency department to address both the left sided pneumothorax and the right sided pleural effusion. A small amount of yellowish fluid was removed on the left side. Proximally 600 cc was removed from the right side. The patient's breathing improved significantly after the procedure. Critical care was consulted. The patient was admitted to the medical intensive care unit. Pulmonology was consulted to help manage the chest tubes. Nephrology was consulted for the patient's end-stage renal disease. Unfortunately, in spite of the bilateral chest tubes the patient continued to have a small persistent left basilar pneumothorax and a larger right basilar pneumothorax secondary to the lack of lung reexpansion. He decompensated further while in the ICU and required intubation with mechanical ventilation and developed into right lung infiltrate. He became hemodynamically unstable and has required pressor support. Infectious disease and cardiothoracic surgery were both consulted. Dr. Jara, with cardio thoracic surgery indicated, "The patient is a poor operative candidate and would require thoracotomy and formal decortication with no assurance that the right lower lobe would re-expand due to the chronicity of this process. I discussed this with his and she also has concerns as to whether or not he should undergo this procedure." Cultures to date have been negative -- the patient is on IV antibioitcs under the direction of ID. At time of my visit, patient remains on mechanical ventilation. He is sedated with fentanyl. He is requiring [address] is under way. Spoke in person with both Dr. Scar Rodriguez and Dr. ARPIT Sheehan. Both feel the patient is on a progressive downhill course and will unlikely survive the hospitalization. Dr. Rodriguez describes the pulmonary problem alone as being one that cannot be improved. Both feel that compassionate withdrawal of life support would make sense at this time. . Function/Cognitive Trajectory reports that the patient would be quite fatigued after his Thu/Thu/Thursday dialysis. However, he would go to physical therapy on and . At home he was able to walk small distances with a walker. Over the past months, he became too weak to make it to the bathroom every time to move his bowels and was often using adult briefs for this purpose. He had lost about 60 lbs since his strokes in 2012, but weight recently had been stable other than the weight shifts from dialysis. The patient has needed help with dressing since the time of his strokes. An home health aide comes in a few times a week to assist him with bathing. He normally feeds himself. denies any cognitive changes. . . Review of Systems ROS Limitations: Clinical Condition (Pt is currently intubated/sedated and on mechanical venitilation. He is unable to provide his own ROS. ROS taken as well as possible from medical records and available family. ) Constitutional: COMPLAINS OF: Fatigue, DENIES: Diaphoretic episodes, Fever, Weight gain, Weight loss, Generalized weakness Endocrine: DENIES: Heat/cold intolerance, Polydipsia, Polyuria, Polyphagia Eyes: DENIES: Diplopia, Eye pain, Vision loss, Double Vision Ears, nose, mouth, throat: DENIES: Tinnitus, Hearing loss, Vertigo, Throat pain , Hoarseness Respiratory: COMPLAINS OF: Cough, Shortness of breath, DENIES: Apneas, Snoring , Wheezing, Hemoptysis Cardiovascular: DENIES: Chest pain, Palpitations, Syncope Gastrointestinal: COMPLAINS OF: Dyspepsia or heartburn, DENIES: Black stools, Bloody stools, Constipation, Diarrhea, Nausea, Vomiting Genitourinary: DENIES: Urinary frequency, Urinary incontinence, Hematuria, Dysuria Musculoskeletal: COMPLAINS OF: Joint pain, Back pain, DENIES: Neck pain Hematologic/Lymphatics: DENIES: Lymphadenopathy Neurologic: COMPLAINS OF: Localized weakness (Left sided weakness from prior strokes), DENIES: Headache, Paresthesias, Seizures, Tremor Psychiatric: DENIES: Anxiety, Depression, Hallucinations Past Family Social History Coded Allergies: *MDRO Multi-Drug Resistant Organism (Verified Adverse Reaction, Unknown, 01/29/15) MRSA PCR Screen positive 01/25/15. Past Medical History Severe hypertension Renal artery stenosis status post bilateral angioplasty/stenting End-stage renal disease on hemodialysis (now on a Thursday/Thursday/Thursday/ schedule) Hyperlipidemia History of CVA 2 with residual left hemiparesis History of H pylori GERD History of GI bleeding due to gastritis and duodenitis History of ascites with abnormally appearing liver on recent imaging studies Osteoarthritis particularly impacting the back BPH status post TURP . Past Surgical History Right carotid endarterectomy Cataracts TURP Bilateral renal artery angioplasty/stenting Hemodialysis port to right upper chest Left arm av fistula placement Double hernia repair Multiple Paracenteses since April 2014 . Reported Medications Prehospitalization medications included the following: Ultram (Tramadol HCl) 50 Mg Tab 50 Mg PO Q4H PRN Aspirin Ec Low Dose (Aspirin) 81 Mg Tab 81 Mg PO DAILY Coreg 25 mg (Carvedilol) 25 Mg Tab 12.5 Mg PO BID 30 Days Protonix (Pantoprazole Sodium) 40 Mg Tab 40 Mg PO DAILY Novasource Renal (Nutritional Supplements) Renal Liq 1 Can PO BID Procardia Xl (Nifedipine) 30 Mg Tabcr 30 Mg PO BID PRN Colace (Docusate Sodium) 100 Mg Cap 100 Mg PO BID Dipyridamole 75 mg (Dipyridamole) 75 Mg Tab 75 Mg PO BID Bisacodyl 5 Mg Tab 10 Mg PO DAILY PRN Vitamin D / Drisdol 50,000 Units (Ergocalciferol) 50,000 Units Cap 1 Cap PO Q7D TAKES ON THURSDAY Nephrocaps (B-Complex W/ C & Folic Acid) Cap 1 Cap PO DAILY Loniten 2.5 Mg Tab (Minoxidil) 2.5 Mg Tab 2.5 Mg PO DAILY Lovastatin 20 Mg Tab 20 Mg PO HS Latanoprost 0.005 % Jolie 1 Drop EACH EYE HS Cosopt Pf (Dorzolamide Hcl-Timolol Maleat) Jolie 1 Drop EACH EYE BID . Current Medications Medications (Trade) Dose Ordered Sig/Bill Route Start Time Stop Time Status Last Admin (Dulcolax Ec) 10 mg DAILY PRN PO 12/19/16 20:00 (Drisdol) 50,000 units Q7D PO 12/20/16 09:00 (Xalatan 0.005% Opth Soln) 1 drop HS EACH EYE 12/19/16 21:00 12/21/16 21:31 (Pravachol) 20 mg HS PO 12/19/16 21:00 12/21/16 21:31 (Loniten) 2.5 mg DAILY PO 12/20/16 09:00 (Procardia Xl) 30 mg BID PRN PO 12/19/16 20:00 12/20/16 00:23 (Ultram) 50 mg Q4H PRN PO 12/19/16 20:00 12/20/16 15:50 (Ecotrin Ec) 81 mg DAILY PO 12/20/16 09:00 (Nephrocaps) 1 cap DAILY PO 12/20/16 09:00 12/21/16 09:47 (Oscal) 1,000 mg DAILY PO 12/20/16 09:00 12/21/16 09:00 (Coreg) 12.5 mg BID PO 12/19/16 21:00 Future Hold 12/20/16 20:56 (Cosopt 2-0.5% Opth Soln) 1 drop BID EACH EYE 12/19/16 21:00 12/21/16 21:31 (NS Flush) 2 ml UNSCH PRN IV FLUSH 12/19/16 20:15 (NS Flush) 2 ml BID IV FLUSH 12/19/16 21:00 12/21/16 21:32 (Tylenol) 650 mg Q6H PRN PO 12/19/16 20:15 (Zofran Inj) 4 mg Q6H PRN IV PUSH 12/19/16 20:15 (Ambien) 5 mg HS PRN PO 12/19/16 20:15 (Heparin Inj) 5,000 units Q12H SQ 12/19/16 21:00 12/21/16 21:30 Miscellaneous Information 1 Q361D XX 12/19/16 20:15 (Chlorhexidine 2% Cloth) 3 pack Taper DAILY@04 TOP 12/20/16 04:00 12/16/17 03:59 12/22/16 04:00 (Chlorhexidine 2% Cloth) 3 pack UNSCH PRN TOP 12/19/16 20:15 (Shelby-Colace) 1 tab BID PO 12/19/16 21:00 12/21/16 21:30 (Milk Of Magnesia Liq) 30 ml Q12H PRN PO 12/19/16 20:15 (Senokot) 17.2 mg Q12H PRN PO 12/19/16 20:15 (Dulcolax Supp) 10 mg DAILY PRN RECTAL 12/19/16 20:15 (Lactulose Liq) 30 ml DAILY PRN PO 12/19/16 20:15 (Persantine) 75 mg BID PO 12/20/16 09:00 12/21/16 21:30 (Apresoline Inj) 20 mg Q4H PRN IV 12/20/16 00:15 12/20/16 00:22 Sodium Chloride 1,000 ml @ 0 mls/hr Q0M PRN OTHER 12/20/16 10:04 Sodium Chloride 1,000 ml @ 200 mls/hr Q5H PRN IV 12/20/16 10:04 Sodium Chloride 1,000 ml @ 0 mls/hr Q0M PRN OTHER 12/20/16 10:04 (Mannitol Inj) 12.5 gm UNSCH PRN IV 12/20/16 10:15 Albumin Human 100 ml @ 60 mls/hr UNSCH PRN IV 12/20/16 10:15 (NS Flush) 5 ml UNSCH PRN IV FLUSH 12/20/16 10:15 (Heparin Inj) UNSCH PRN .XX 12/20/16 10:15 (Gentamicin (Dialysis) Inj) 20 mg UNSCH PRN OTHER 12/20/16 10:15 (Zofran Inj) 4 mg UNSCH PRN IV PUSH 12/20/16 10:15 (Tylenol) 650 mg UNSCH PRN PO 12/20/16 10:15 (Benadryl) 25 mg UNSCH PRN PO 12/20/16 10:15 (Nitrostat Sl) 0.4 mg UNSCH PRN SL 12/20/16 10:15 (Catapres) 0.1 mg UNSCH PRN PO 12/20/16 10:15 (Epogen Inj) 5,000 units UNSCH PRN IV PUSH 12/20/16 10:15 (Gelfoam 12 Mm/7 Mm Top) 1 foam UNSCH PRN TOP 12/20/16 10:15 (Peridex 0.12% Liq) 15 ml BID@08,20 MT 12/21/16 08:00 12/21/16 21:31 Propofol 100 ml @ 1.62 mls/hr TITRATE PRN IV 12/21/16 08:00 (Duoneb Neb) 1 ampule Q6HR NEB PRN NEB 12/21/16 08:00 (Duoneb Neb) 1 ampule Q6HR NEB NEB 12/21/16 10:00 12/22/16 07:40 (Protonix Inj) 40 mg Q24H IV PUSH 12/21/16 09:00 12/21/16 09:44 (D50w (Vial) Inj) 50 ml UNSCH PRN IV PUSH 12/21/16 08:15 (Glucagon Inj) 1 mg UNSCH PRN OTHER 12/21/16 08:15 (NovoLIN R SUPPLEMENTAL SCALE) 1 Q4H SQ 12/21/16 09:00 Pharmacy Profile Note 0 ml @ 0 mls/hr UNSCH OTHER 12/21/16 08:15 Piperacillin Sod/ Tazobactam Sod 50 ml @ 100 mls/hr Q8H IV 12/21/16 10:00 12/22/16 03:34 Azithromycin 500 mg/Sodium Chloride 250 ml @ 250 mls/hr Q24H IV 12/21/16 09:00 12/21/16 09:49 Fentanyl Citrate 250 ml @ 5 mls/hr TITRATE PRN IV 12/21/16 10:00 12/21/16 09:38 (SoluCORTEF INJ) 100 mg Q8H IV PUSH 12/21/16 13:00 12/22/16 05:39 Phenylephrine HCl 40 mg/Dextrose 500 ml @ 30 mls/hr TITRATE PRN IV 12/21/16 12:45 12/22/16 06:59 (Brethine Inj) 1 mg UNSCH PRN SQ 12/21/16 12:45 Norepinephrine Bitartrate 250 ml @ 7.5 mls/hr TITRATE PRN IV 12/21/16 18:30 12/22/16 03:00 Vasopressin 40 units/Dextrose 100 ml @ 6 mls/hr [id number] IV 12/21/16 18:30 12/22/16 03:36 Vancomycin HCl 1000 mg/Sodium Chloride 250 ml @ 250 mls/hr ONCE ONCE IV 12/22/16 10:00 12/22/16 10:59 (Colace Liq) 100 mg Q12HR PO 12/22/16 09:15 UNV (Senna Liq) 8.8 mg DAILY PO 12/22/16 09:15 UNV Family History Family history of liver disease, mother from unknown cancer possibly, Father had problems with his stomach though he is uncertain as to what his diagnosis was . Substance Use Tobacco: Quit over 40 years ago Alcohol: Quit 2002 Prescription med abuse: No Illicit Drugs: No known history of abuse . Psychosocial History [employer] . He is retired from the [employer]. He has been 3 times and has been to current for 30+ years. He has a total of 13 children: 8 biological children and 5 stepchildren. One of his sons is mentally challenged. That son had been living with patient and until the , herself, had back surgery and a stroke. This son has been in a long-term locally since 2014. is primary caregiver but pt goes to dialysis 3 x/week and goes to PT/OT 2 X / week. A home health aide comes to the house twice a week to help with bathing him. . Spiritual/Cultural Factors Hindu -- per patient has "made peace with God." . Durable Power of Digital Press Operator: Copy in medical record Date completed: DPOA for health care completed 10/05/2012 . Health Care Surrogate(s): Pio Lerner is designated as the health care DPOA. . Documented care wishes: No written documentation of health care preferences/wishes/goals. . Today's verbally stated goals: Patient is sedated, intubated, mechanically ventilated and is unable to express is own health care goals/wishes/preferences. . Family/friends goals: tells me that the patient has "made peace with God." However, she feels he is the one who asked to be placed on life support. She feels in fairness to him, she owes him one more resuscitation attempt before changing code status to NO CODE. . Ethical and Legal Issues Patient is incapacitated to make his own health care decisions. There is no reasonable probability at this point that he will be able to recover such capacity. . Physical Exam Vital Signs Date Time Temp Pulse Resp B/P (MAP) Pulse Ox O2 Delivery O2 Flow Rate FiO2 12/22/16 09:18 73 106/39 12/22/16 07:41 99 50 12/22/16 06:59 72 148/51 12/22/16 06:00 72 12/22/16 04:00 50 12/22/16 04:00 98.4 75 24 151/52 (85) 93 12/22/16 04:00 75 12/22/16 03:46 99 50 12/22/16 03:36 76 150/48 12/22/16 03:35 74 145/53 12/22/16 03:22 74 143/55 12/22/16 03:00 74 154/52 12/22/16 02:21 75 164/52 12/22/16 02:00 76 12/22/16 00:36 77 165/54 12/22/16 00:22 100 50 12/22/16 00:00 98.1 76 24 120/76 (91) 100 130/47 (74) 12/22/16 00:00 76 12/22/16 00:00 50 12/21/16 23:47 76 134/53 12/21/16 23:46 75 144/49 12/21/16 22:58 80 155/50 12/21/16 22:00 80 12/21/16 20:31 96 50 12/21/16 20:00 50 12/21/16 20:00 96.3 79 24 144/48 (80) 97 12/21/16 20:00 79 12/21/16 19:00 79 120/43 12/21/16 19:00 79 120/43 12/21/16 19:00 79 120/43 12/21/16 19:00 79 120/43 12/21/16 19:00 79 120/43 12/21/16 19:00 79 120/43 12/21/16 18:00 50 12/21/16 18:00 76 12/21/16 17:52 78 137/45 12/21/16 16:17 97 50 12/21/16 16:00 97.3 74 24 112/43 (66) 97 12/21/16 16:00 74 12/21/16 14:00 85 12/21/16 13:56 88 60 12/21/16 13:00 92 77/46 12/21/16 13:00 93 77/46 12/21/16 13:00 93 77/46 12/21/16 13:00 92 77/46 12/21/16 12:59 90 50 12/21/16 12:00 97 12/21/16 12:00 98.7 97 18 92/48 (63) 97 12/21/16 10:19 100 80 12/21/16 10:00 102 . Exam CONSTITUTIONAL/GENERAL: This is a thin, frail appearing male, sedated, intubated , mechanically ventilated in the MICU. TUBES/LINES/DRAINS: ET tube ; OG tube; dialysis fistula LUE; bilateral soft wrist restraints; bilateral chest catheters; peripheral IV; arterial line right radial artery; right femoral central line. SKIN: No jaundice, rashes. No wounds seen anteriorly. Right buttock skin tear. Skin temperature appropriate. Not diaphoretic. HEAD: Atraumatic. Normocephalic. EYES: Pupils equal and round and reactive. Unable to evaluate EOMs. No scleral icterus. No injection or drainage. Fundi not examined. ENT: Unable to evaluate hearing. Nose without bleeding or purulent drainage. Throat without visible erythema, exudates, masses, or lesions though difficult to assess due to intubations. NECK: Trachea midline. Supple, nontender. No palpable thyroid enlargement or nodularity. CARDIOVASCULAR: Regular rate and rhythm without murmurs, gallops, or rubs. No JVD. Peripheral pulses symmetric. RESPIRATORY/CHEST: Symmetric, unlabored respirations. Breath sounds diminished at both bases. Slightly better air movement on left. No wheezes. GASTROINTESTINAL: Abdomen distended, moderately firm. No hepato-splenomegaly, or palpable masses. No guarding. Bowel sounds hypoactive. GENITOURINARY: Without palpable bladder distension. NL circumcised penis. No scrotal edema noted. MUSCULOSKELETAL: Extremities without clubbing, cyanosis, or edema. No joint tenderness or effusion noted. No mottling. LYMPHATICS: No palpable cervical or supraclavicular adenopathy. NEUROLOGICAL: Sedated. Does not withdraw to noxious stimuli. PSYCHIATRIC: Unable to assess due to level of responsiveness . Diagnostic Tests Laboratory Laboratory Tests Test 12/19/16 19:10 12/19/16 20:35 12/19/16 22:20 12/20/16 04:00 White Blood Count 5.1 TH/MM3 (4.0-11.0) 5.1 TH/MM3 (4.0-11.0) Red Blood Count 3.36 MIL/MM3 (4.50-5.90) 3.34 MIL/MM3 (4.50-5.90) Hemoglobin 11.6 GM/DL (13.0-17.0) 11.7 GM/DL (13.0-17.0) Hematocrit 36.1 % (39.0-51.0) 35.9 % (39.0-51.0) Mean Corpuscular Volume 107.5 FL (80.0-100.0) 107.5 FL (80.0-100.0) Mean Corpuscular Hemoglobin 34.6 PG (27.0-34.0) 35.0 PG (27.0-34.0) Mean Corpuscular Hemoglobin Concent 32.2 % (32.0-36.0) 32.5 % (32.0-36.0) Red Cell Distribution Width 15.2 % (11.6-17.2) 15.2 % (11.6-17.2) Platelet Count 189 TH/MM3 (150-450) 163 TH/MM3 (150-450) Mean Platelet Volume 9.3 FL (7.0-11.0) 9.7 FL (7.0-11.0) Neutrophils (%) (Auto) 51.4 % (16.0-70.0) 69.9 % (16.0-70.0) Lymphocytes (%) (Auto) 35.7 % (9.0-44.0) 21.4 % (9.0-44.0) Monocytes (%) (Auto) 11.1 % (0.0-8.0) 8.1 % (0.0-8.0) Eosinophils (%) (Auto) 1.2 % (0.0-4.0) 0.3 % (0.0-4.0) Basophils (%) (Auto) 0.6 % (0.0-2.0) 0.3 % (0.0-2.0) Neutrophils # (Auto) 2.6 TH/MM3 (1.8-7.7) 3.6 TH/MM3 (1.8-7.7) Lymphocytes # (Auto) 1.8 TH/MM3 (1.0-4.8) 1.1 TH/MM3 (1.0-4.8) Monocytes # (Auto) 0.6 TH/MM3 (0-0.9) 0.4 TH/MM3 (0-0.9) Eosinophils # (Auto) 0.1 TH/MM3 (0-0.4) 0.0 TH/MM3 (0-0.4) Basophils # (Auto) 0.0 TH/MM3 (0-0.2) 0.0 TH/MM3 (0-0.2) CBC Comment DIFF FINAL DIFF FINAL Differential Comment Prothrombin Time 11.7 SEC (9.8-11.6) Prothromb Time International Ratio 1.1 RATIO Activated Partial Thromboplast Time 28.1 SEC (24.3-30.1) Blood Urea Nitrogen 62 MG/DL (7-18) 67 MG/DL (7-18) Creatinine 7.68 MG/DL (0.60-1.30) 7.91 MG/DL (0.60-1.30) Random Glucose 118 MG/DL (74-106) 116 MG/DL (74-106) Total Protein 7.7 GM/DL (6.4-8.2) 7.7 GM/DL (6.4-8.2) Albumin 2.8 GM/DL (3.4-5.0) 2.7 GM/DL (3.4-5.0) Calcium Level 8.5 MG/DL (8.5-10.1) 8.4 MG/DL (8.5-10.1) Alkaline Phosphatase 83 U/L (45-117) 88 U/L (45-117) Aspartate Amino Transf (AST/SGOT) 13 U/L (15-37) 15 U/L (15-37) Alanine Aminotransferase (ALT/SGPT) 14 U/L (12-78) 17 U/L (12-78) Total Bilirubin 0.3 MG/DL (0.2-1.0) 0.3 MG/DL (0.2-1.0) Sodium Level 138 MEQ/L (136-145) 139 MEQ/L (136-145) Potassium Level 5.4 MEQ/L (3.5-5.1) 5.8 MEQ/L (3.5-5.1) Chloride Level 103 MEQ/L (98-107) 105 MEQ/L (98-107) Carbon Dioxide Level 27.5 MEQ/L (21.0-32.0) 27.0 MEQ/L (21.0-32.0) Anion Gap 8 MEQ/L (5-15) 7 MEQ/L (5-15) Estimat Glomerular Filtration Rate 8 ML/MIN (>89) 8 ML/MIN (>89) Lactic Acid Level 1.2 mmol/L (0.4-2.0) Total Creatine Kinase 89 U/L (39-308) Troponin I 0.03 NG/ML (0.02-0.05) Pleural Fluid pH 8.0 Pleural Fluid WBC 281 /MM3 (0-10) Pleural Fluid RBC 8995 /MM3 (0-0) Pleural Fluid Lymphocytes 97 % Pleural Fluid Monocytes 3 % Pleural Fluid Comment Pleural Fluid Total Protein 2.5 GM/DL Pleural Fluid LDH 118 U/L Pleural Fluid Glucose 75 MG/DL Nasal Screen MRSA (PCR) MRSA NOT DETECTED (NOT Phosphorus Level 3.8 MG/DL (2.5-4.9) Magnesium Level 2.4 MG/DL (1.5-2.5) Vitamin B12 Level GREATER THAN 2000 PG/ML Folate GREATER THAN 20.0 NG/ML Test 12/21/16 04:55 12/21/16 10:33 12/21/16 13:38 12/21/16 15:38 Blood Urea Nitrogen 43 MG/DL (7-18) Creatinine 6.24 MG/DL (0.60-1.30) Random Glucose 150 MG/DL (74-106) Calcium Level 9.0 MG/DL (8.5-10.1) Sodium Level 137 MEQ/L (136-145) Potassium Level 4.8 MEQ/L (3.5-5.1) Chloride Level 99 MEQ/L (98-107) Carbon Dioxide Level 31.2 MEQ/L (21.0-32.0) Anion Gap 7 MEQ/L (5-15) Estimat Glomerular Filtration Rate 10 ML/MIN (>89) Blood Gas Puncture Site RT BRACHIAL JAILENE Blood Gas Patient Temperature 98.6 98.6 Blood Gas HCO3 30 mmol/L (22-26) 27 mmol/L (22-26) Blood Gas Base Excess 4.2 mmol/L (-2-2) -0.4 mmol/L (-2-2) Blood Gas Oxygen Saturation 97 % (90-100) 81 % (90-100) Arterial Blood pH 7.32 (7.380-7.420) 7.20 (7.380-7.420) Arterial Blood Partial Pressure CO2 60 mmHg (38-42) 71 mmHg (38-42) Arterial Blood Partial Pressure O2 227 mmHg (61-120) 60 mmHg (61-120) Arterial Blood Oxygen Content 13.7 Vol % (12.0-20.0) 10.4 Vol % (12.0-20.0) Arterial Blood Carboxyhemoglobin 1.2 % (0-4) 1.0 % (0-4) Arterial Blood Methemoglobin 1.4 % (0-2) 1.3 % (0-2) Blood Gas Hemoglobin 9.7 G/DL (12.0-16.0) 9.1 G/DL (12.0-16.0) Oxygen Delivery Device VENTILATOR VENTILATOR Blood Gas Ventilator Setting SEE COMMENTS Blood Gas Inspired Oxygen 80 % 50 % White Blood Count 1.6 TH/MM3 (4.0-11.0) Red Blood Count 2.54 MIL/MM3 (4.50-5.90) Hemoglobin 8.8 GM/DL (13.0-17.0) Hematocrit 27.8 % (39.0-51.0) Mean Corpuscular Volume 109.7 FL (80.0-100.0) Mean Corpuscular Hemoglobin 34.6 PG (27.0-34.0) Mean Corpuscular Hemoglobin Concent 31.5 % (32.0-36.0) Red Cell Distribution Width 15.2 % (11.6-17.2) Platelet Count 137 TH/MM3 (150-450) Mean Platelet Volume 9.0 FL (7.0-11.0) CBC Comment AUTO DIFF Differential Total Cells Counted 100 Neutrophils % (Manual) 33 % (16-70) Band Neutrophils % 2 % (0-6) Lymphocytes % 57 % (9-44) Monocytes % 4 % (0-8) Neutrophils # (Manual) 0.6 TH/MM3 (1.8-7.7) Metamyelocytes 4 % (0-1) Differential Comment FINAL DIFF MANUAL Test 12/21/16 16:07 12/22/16 05:54 12/22/16 09:26 12/22/16 09:30 Blood Gas Puncture Site ART LINE ART LINE Blood Gas Patient Temperature 98.6 98.6 Blood Gas HCO3 21 mmol/L (22-26) 20 mmol/L (22-26) Blood Gas Base Excess -4.5 mmol/L (-2-2) -6.6 mmol/L (-2-2) Blood Gas Oxygen Saturation 93 % (90-100) 96 % (90-100) Arterial Blood pH 7.31 (7.380-7.420) 7.24 (7.380-7.420) Arterial Blood Partial Pressure CO2 42 mmHg (38-42) 48 mmHg (38-42) Arterial Blood Partial Pressure O2 84 mmHg (61-120) 153 mmHg (61-120) Arterial Blood Oxygen Content 10.7 Vol % (12.0-20.0) 10.8 Vol % (12.0-20.0) Arterial Blood Carboxyhemoglobin 1.1 % (0-4) 1.2 % (0-4) Arterial Blood Methemoglobin 1.2 % (0-2) 1.5 % (0-2) Blood Gas Hemoglobin 8.1 G/DL (12.0-16.0) 7.8 G/DL (12.0-16.0) Oxygen Delivery Device VENTILATOR VENTILATOR Blood Gas Ventilator Setting 24/450/1.0/+10 Blood Gas Inspired Oxygen 50 % 50 % White Blood Count 3.9 TH/MM3 (4.0-11.0) Red Blood Count 2.34 MIL/MM3 (4.50-5.90) Hemoglobin 8.2 GM/DL (13.0-17.0) Hematocrit 25.4 % (39.0-51.0) Mean Corpuscular Volume 108.7 FL (80.0-100.0) Mean Corpuscular Hemoglobin 35.0 PG (27.0-34.0) Mean Corpuscular Hemoglobin Concent 32.2 % (32.0-36.0) Red Cell Distribution Width 15.1 % (11.6-17.2) Platelet Count 112 TH/MM3 (150-450) Mean Platelet Volume 9.8 FL (7.0-11.0) Neutrophils (%) (Auto) 68.5 % (16.0-70.0) Lymphocytes (%) (Auto) 23.2 % (9.0-44.0) Monocytes (%) (Auto) 8.0 % (0.0-8.0) Eosinophils (%) (Auto) 0.2 % (0.0-4.0) Basophils (%) (Auto) 0.1 % (0.0-2.0) Neutrophils # (Auto) 2.7 TH/MM3 (1.8-7.7) Lymphocytes # (Auto) 0.9 TH/MM3 (1.0-4.8) Monocytes # (Auto) 0.3 TH/MM3 (0-0.9) Eosinophils # (Auto) 0.0 TH/MM3 (0-0.4) Basophils # (Auto) 0.0 TH/MM3 (0-0.2) CBC Comment AUTO DIFF Differential Total Cells Counted 100 Neutrophils % (Manual) 27 % (16-70) Band Neutrophils % 42 % (0-6) Lymphocytes % 23 % (9-44) Monocytes % 4 % (0-8) Neutrophils # (Manual) 2.8 TH/MM3 (1.8-7.7) Metamyelocytes 3 % (0-1) Myelocytes 1 % (0-0) Differential Comment FINAL DIFF MANUAL Platelet Estimate LOW (NORMAL) Platelet Morphology Comment NORMAL (NORMAL) Blood Urea Nitrogen 53 MG/DL (7-18) Creatinine 6.97 MG/DL (0.60-1.30) Random Glucose 114 MG/DL (74-106) Calcium Level 8.3 MG/DL (8.5-10.1) Sodium Level 131 MEQ/L (136-145) Potassium Level 5.6 MEQ/L (3.5-5.1) Chloride Level 92 MEQ/L (98-107) Carbon Dioxide Level 23.9 MEQ/L (21.0-32.0) Anion Gap 15 MEQ/L (5-15) Estimat Glomerular Filtration Rate 9 ML/MIN (>89) Random Vancomycin Level 11.8 COMMENT . Result Diagram: 12/22/16 0554 12/22/16 0554 Microbiology Microbiology Date/Time Source Procedure Growth Status 12/19/16 19:10 Blood Peripheral Aerobic Blood Culture - Preliminary NO GROWTH IN 2 DAYS Resulted 12/19/16 19:10 Blood Peripheral Anaerobic Blood Culture - Preliminary NO GROWTH IN 2 DAYS Resulted 12/19/16 19:10 Blood Peripheral Aerobic Blood Culture - Preliminary NO GROWTH IN 2 DAYS Resulted 12/19/16 19:10 Blood Peripheral Anaerobic Blood Culture - Preliminary NO GROWTH IN 2 DAYS Resulted 12/19/16 20:35 Fluid Pleural Fluid Gram Stain - Final Resulted 12/19/16 20:35 Fluid Pleural Fluid Body Fluid Culture - Preliminary NO GROWTH IN 48 HOURS. Resulted 12/21/16 10:24 Sputum Endotracheal Gram Stain - Final Resulted 12/21/16 10:24 Sputum Endotracheal Sputum Culture Pending Resulted . Imaging Last Impressions Abdomen X-Ray 12/22/16 0000 Signed Impressions: Service Date/Time: Thursday, December 22, 2016 09:42 - CONCLUSION: There is one loop of small bowel in the midline hypogastric region which is dilated out of proportion to the other loops of small bowel and the colon. This is nonspecific and could represent a localized ileus or an early small bowel obstruction. Nic Cha MD Chest X-Ray 12/21/16 0432 Signed Impressions: Service Date/Time: Wednesday, December 21, 2016 04:38 - CONCLUSION: 1. New consolidative opacity in the right lung most characteristic of pneumonia. 2. Stable appearance of the bibasilar pneumothoraces. Daniel Cowan MD Chest CT 12/20/16 0000 Signed Impressions: Service Date/Time: Tuesday, December 20, 2016 16:26 - CONCLUSION: 1. Moderate right and small left hydropneumothorax with small caliber chest tubes present bilaterally, not significant changed from prior chest radiograph. Dependent consolidation and atelectasis of both lungs. No pneumomediastinum or subcutaneous air. Germán Vences MD . Procedures * Biltateral chest tube placement * Intubation/mechanical ventilation . Patient/Family Conference Present at Family Conference: Pio Lerner (spouse and DPOA for health care) . Family Conference Time (mins): 35 Family Conference Location: [facility] Issues Discussed: * Palliative care role, purpose, approach * Additional medical, psychosocial, and spiritual history * Patients general health, functional status, and cognitive changes in the months leading up to the current hospitalization * Famly understanding of the current medical problems * Family understanding of prognosis * Patients goals of care as best understood from conversations and/or values * Current medical treatment options and benefits/burdens of those options * Likely scenarios comparing ongoing aggressive care with a transition to comfort measures only * Questions answered to the best of my ability * Palliative care contact information provided . Assessment and Plan Disease Oriented Problem List: (1) Loculated pleural effusion Comment: Pulmonology and cardi-thoracic surgery do not feel there is a workable solution to this problem given the patient's overall functional capacity. . (2) Pneumothorax (3) ESRD (end stage renal disease) on dialysis Comment: Normally on dialysis M, W, F. . (4) Peripheral vascular disease (5) Anemia (6) Stroke Comment: Had two strokes in 2013. Now with significant left sided weakness. . (7) Osteoarthritis (8) Hypertension (9) Glaucoma Symptom Scale: (1) Pain 0-10 Scale: Unable to quantify (2) Dyspnea 0-10 Scale: Unable to quantify Comment: Dyspnea due to pneumothorax and recurrent pleural effusions. Now being managed on vent. . (3) Encephalopathy 0-10 Scale: Unable to quantify Comment: Patient continues on sedation. Will need to evaluate clinically off sedation to see if there is any significant cognitive loss. . Pertinent Non-Medical Issues Psychosocial: Supported by of over 30 years. Patient has 8 biological childern and 5 step-children. Spiritual: Hindu Legal: DPOA for health care scanned into EMR. Ethical issues impacting care: Patient is incapacitated and is not likely to regain capacity. . Important Contacts * Pio Lerner (spouse; DPOA for [facility]) [phone] . 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 Cardiothoracic surgery does not believe patient could tolerate the procedure necessary to repair this. In addition to his kidney disease and incurable lung disease, patient now has hemodynamic instability requiring pressors. Critical care and pulmonology feel he has an end stage condition. In my clinical opinion, patient has an overall end stage condition. I don't believe there is a reasonable probability of patient regaining capacity. Patient would be an appropriate hospice candidate at such time that his health care surrogate decides to forego further aggressive care and treansition to comfort care. . Code Status: Full Code Plan == Code Status: FULL CODE. (who is the DPOA for [facility]) feels obligated to allow one more attempted resuscitation. She feels the patient opted to go on life support on his own. She understands his dire circumstances and poor prognosis and risks of preforming CPR on him in his fragile position. == Decision making: Patient is incapacitated to make his own health care decisions. At this point, probability of the patient being able to regain capacity to make his own health care decisions is remote. While incapacitated, his Pio Lerner, is the [facility] DPOA. == Goals of medical treatment: knows he may be dying now and doesn't want to prolong suffering.. However, she also knows that the patient opted on his own to get ventilatory support and she wants to know that she is following his wishes. For that reason, she feels she owes him one more resuscitation attempt if needed. Therefore, we will continue with aggressive care. == Symptoms * Pain: Has history of back pain and arthritis pain with use of PRN tramadol at home. Other sources of pain now include prolonged bedbound status; orotracheal and orogastric intubations; restraints; vascular access lines; etc. Currently has orders for a fentanyl drip and for tramadol. No further recommendations at this time. * Dyspnea: Dyspnea is secondary to his chronic / recurrent pleural effusions and pneumothoraces. Currently managed by chest tubes and ventilator. Opiates would help for treating dyspnea if needed. Currently has orders for a fentanyl drip and for tramadol. No further recommendations at this time. * Encephalopathy: Unclear at this time to what extent patient is minimally responsive due to sedation vs to underlying illness. Can re-evaluate when stable enough for a "sedation vacation." == Palliative care contact information provided to spouse == Palliative care will continue to follow to assist with symptom management and to further clarify goals of medical treatment as the clinical course evolves. . Time Spent Total Floor Time (mins): 80 (Total floor time included chart review, patient exam, discussion with Dr. Scar Rodriguez and [facility], collaboration with primary nurse, above referenced conference with ; and documentation. ) Face to Face Time (mins): 10 >50% Counseling/Coord of Care: Yes Thank you for the opportunity to participate in the care of Mr. Lerner. . . Attestation To help prompt me to consider important information that might be impacting today's encounter and assessment, information from prior notes written by myself or my colleagues may have been "brought forward" into today's note. My signature on this note, however, is an attestation that I personally performed the exam, history, and/or decision-making noted today, and, unless otherwise indicated, the interactions with patient, family, and staff as well as the review of records all occurred today. I also attest that the listed assessment and stated plan reflect my best clinical judgment today based on the combination of historical information, prior notes, and today's exam/ interactions. When time spent is documented, it refers only to time spent today by the signer, or if indicated, combined time spent today by collaborating physician/nurse practitioner. . . Jesus Freitas MD Dec 22, 2016 10:25
--- NOTE | 2016-12-22 11:19 | HHI.NPPN ---
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 Patient now presents with increasing shortness of breath noted to have bilateral pleural effusions which appear to be loculated. Patient missed his dialysis session yesterday. Moderate hyperkalemia on presentation. Now status post bilateral pigtail catheter placement left and right pleural cavity. Pneumothorax bilaterally postprocedure. Patient seen during his dialysis session. Appears to be lethargic and nonverbal at this time. Interval History Pt currently on ventilator support. Now also on pressors being tapered up unfortunately. (Emily Lunsford) Review of Systems General General Remarks Unable to obtain d/t clinical status (Emily Lunsford) Objective Data Data 12/22/16 12/23/16 19:00 07:00 Intake Total 624 ml Balance 624 ml IV Total 624 ml Vital Signs Date Time Temp Pulse Resp B/P (MAP) Pulse Ox O2 Delivery O2 Flow Rate FiO2 12/22/16 11:03 98 40 12/22/16 10:39 113/40 12/22/16 10:39 113/40 12/22/16 10:30 40 12/22/16 10:27 75 116/43 12/22/16 10:00 71 12/22/16 09:18 73 106/39 12/22/16 08:00 50 12/22/16 08:00 97.8 71 24 139/48 (78) 96 12/22/16 08:00 71 12/22/16 07:41 99 50 12/22/16 06:59 72 148/51 12/22/16 06:00 72 12/22/16 04:00 50 12/22/16 04:00 98.4 75 24 151/52 (85) 93 12/22/16 04:00 75 12/22/16 03:46 99 50 12/22/16 03:36 76 150/48 12/22/16 03:35 74 145/53 12/22/16 03:22 74 143/55 12/22/16 03:00 74 154/52 12/22/16 02:21 75 164/52 12/22/16 02:00 76 12/22/16 00:36 77 165/54 10/23/17 00:22 100 50 12/22/16 00:00 98.1 76 24 120/76 (91) 100 130/47 (74) 12/22/16 00:00 76 12/22/16 00:00 50 12/21/16 23:47 76 134/53 12/21/16 23:46 75 144/49 12/21/16 22:58 80 155/50 12/21/16 22:00 80 12/21/16 20:31 96 50 12/21/16 20:00 50 12/21/16 20:00 96.3 79 24 144/48 (80) 97 12/21/16 20:00 79 12/21/16 19:00 79 120/43 12/21/16 19:00 79 120/43 12/21/16 19:00 79 120/43 12/21/16 19:00 79 120/43 12/21/16 19:00 79 120/43 12/21/16 19:00 79 120/43 12/21/16 18:00 50 12/21/16 18:00 76 12/21/16 17:52 78 137/45 12/21/16 16:17 97 50 12/21/16 16:00 97.3 74 24 112/43 (66) 97 12/21/16 16:00 74 12/21/16 14:00 85 12/21/16 13:56 88 60 12/21/16 13:00 92 77/46 12/21/16 13:00 93 77/46 12/21/16 13:00 93 77/46 12/21/16 13:00 92 77/46 12/21/16 12:59 90 50 12/21/16 12:00 97 12/21/16 12:00 98.7 97 18 92/48 (63) 97 (Emily Lunsford) -: 12/22/16 0554 12/22/16 0554 Imaging Last Impressions Abdomen X-Ray 12/22/16 0000 Signed Impressions: Service Date/Time: Thursday, December 22, 2016 09:42 - CONCLUSION: There is one loop of small bowel in the midline hypogastric region which is dilated out of proportion to the other loops of small bowel and the colon. This is nonspecific and could represent a localized ileus or an early small bowel obstruction. Nic Cha MD Chest X-Ray 12/21/16 0432 Signed Impressions: Service Date/Time: Wednesday, December 21, 2016 04:38 - CONCLUSION: 1. New consolidative opacity in the right lung most characteristic of pneumonia. 2. Stable appearance of the bibasilar pneumothoraces. Daniel Cowan MD Chest CT 12/20/16 0000 Signed Impressions: Service Date/Time: Tuesday, December 20, 2016 16:26 - CONCLUSION: 1. Moderate right and small left hydropneumothorax with small caliber chest tubes present bilaterally, not significant changed from prior chest radiograph. Dependent consolidation and atelectasis of both lungs. No pneumomediastinum or subcutaneous air. Germán Vences MD Medication Review Current Medications Medications (Trade) Dose Ordered Sig/Bill Route Start Time Stop Time Status Last Admin (Dulcolax Ec) 10 mg DAILY PRN PO 12/19/16 20:00 (Drisdol) 50,000 units Q7D PO 12/20/16 09:00 (Xalatan 0.005% Opth Soln) 1 drop HS EACH EYE 12/19/16 21:00 12/21/16 21:31 (Pravachol) 20 mg HS PO 12/19/16 21:00 12/21/16 21:31 (Loniten) 2.5 mg DAILY PO 12/20/16 09:00 (Procardia Xl) 30 mg BID PRN PO 12/19/16 20:00 12/20/16 00:23 (Ultram) 50 mg Q4H PRN PO 12/19/16 20:00 12/20/16 15:50 (Ecotrin Ec) 81 mg DAILY PO 12/20/16 09:00 (Nephrocaps) 1 cap DAILY PO 12/20/16 09:00 12/21/16 09:47 (Oscal) 1,000 mg DAILY PO 12/20/16 09:00 12/21/16 09:00 (Coreg) 12.5 mg BID PO 12/19/16 21:00 Future Hold 12/20/16 20:56 (Cosopt 2-0.5% Opth Soln) 1 drop BID EACH EYE 12/19/16 21:00 12/22/16 09:56 (NS Flush) 2 ml UNSCH PRN IV FLUSH 12/19/16 20:15 (NS Flush) 2 ml BID IV FLUSH 12/19/16 21:00 12/22/16 09:57 (Tylenol) 650 mg Q6H PRN PO 12/19/16 20:15 (Zofran Inj) 4 mg Q6H PRN IV PUSH 12/19/16 20:15 (Ambien) 5 mg HS PRN PO 12/19/16 20:15 (Heparin Inj) 5,000 units Q12H SQ 12/19/16 21:00 12/22/16 09:37 Miscellaneous Information 1 Q361D XX 12/19/16 20:15 (Chlorhexidine 2% Cloth) 3 pack Taper DAILY@04 TOP 12/20/16 04:00 12/16/17 03:59 12/22/16 04:00 (Chlorhexidine 2% Cloth) 3 pack UNSCH PRN TOP 12/19/16 20:15 (Shelby-Colace) 1 tab BID PO 12/19/16 21:00 12/22/16 09:39 (Milk Of Magnesia Liq) 30 ml Q12H PRN PO 12/19/16 20:15 (Senokot) 17.2 mg Q12H PRN PO 12/19/16 20:15 12/22/16 09:39 (Dulcolax Supp) 10 mg DAILY PRN RECTAL 12/19/16 20:15 (Lactulose Liq) 30 ml DAILY PRN PO 12/19/16 20:15 12/22/16 09:37 (Persantine) 75 mg BID PO 12/20/16 09:00 12/21/16 21:30 (Apresoline Inj) 20 mg Q4H PRN IV 12/20/16 00:15 12/20/16 00:22 Sodium Chloride 1,000 ml @ 0 mls/hr Q0M PRN OTHER 12/20/16 10:04 Sodium Chloride 1,000 ml @ 200 mls/hr Q5H PRN IV 12/20/16 10:04 Sodium Chloride 1,000 ml @ 0 mls/hr Q0M PRN OTHER 12/20/16 10:04 (Mannitol Inj) 12.5 gm UNSCH PRN IV 12/20/16 10:15 Albumin Human 100 ml @ 60 mls/hr UNSCH PRN IV 12/20/16 10:15 (NS Flush) 5 ml UNSCH PRN IV FLUSH 12/20/16 10:15 (Heparin Inj) UNSCH PRN .XX 12/20/16 10:15 (Gentamicin (Dialysis) Inj) 20 mg UNSCH PRN OTHER 12/20/16 10:15 (Zofran Inj) 4 mg UNSCH PRN IV PUSH 12/20/16 10:15 (Tylenol) 650 mg UNSCH PRN PO 12/20/16 10:15 (Benadryl) 25 mg UNSCH PRN PO 12/20/16 10:15 (Nitrostat Sl) 0.4 mg UNSCH PRN SL 12/20/16 10:15 (Catapres) 0.1 mg UNSCH PRN PO 12/20/16 10:15 (Epogen Inj) 5,000 units UNSCH PRN IV PUSH 12/20/16 10:15 (Gelfoam 12 Mm/7 Mm Top) 1 foam UNSCH PRN TOP 12/20/16 10:15 (Peridex 0.12% Liq) 15 ml BID@08,20 MT 12/21/16 08:00 12/22/16 09:54 Propofol 100 ml @ 1.62 mls/hr TITRATE PRN IV 12/21/16 08:00 (Duoneb Neb) 1 ampule Q6HR NEB PRN NEB 12/21/16 08:00 (Duoneb Neb) 1 ampule Q6HR NEB NEB 12/21/16 10:00 12/22/16 07:40 (Protonix Inj) 40 mg Q24H IV PUSH 12/21/16 09:00 12/22/16 09:36 (D50w (Vial) Inj) 50 ml UNSCH PRN IV PUSH 12/21/16 08:15 (Glucagon Inj) 1 mg UNSCH PRN OTHER 12/21/16 08:15 (NovoLIN R SUPPLEMENTAL SCALE) 1 Q4H SQ 12/21/16 09:00 Pharmacy Profile Note 0 ml @ 0 mls/hr UNSCH OTHER 12/21/16 08:15 Piperacillin Sod/ Tazobactam Sod 50 ml @ 100 mls/hr Q8H IV 12/21/16 10:00 12/22/16 09:59 Azithromycin 500 mg/Sodium Chloride 250 ml @ 250 mls/hr Q24H IV 12/21/16 09:00 12/22/16 09:00 Fentanyl Citrate 250 ml @ 5 mls/hr TITRATE PRN IV 12/21/16 10:00 12/21/16 09:38 (SoluCORTEF INJ) 100 mg Q8H IV PUSH 12/21/16 13:00 12/22/16 05:39 Phenylephrine HCl 40 mg/Dextrose 500 ml @ 30 mls/hr TITRATE PRN IV 12/21/16 12:45 12/22/16 06:59 (Brethine Inj) 1 mg UNSCH PRN SQ 12/21/16 12:45 Norepinephrine Bitartrate 250 ml @ 7.5 mls/hr TITRATE PRN IV 12/21/16 18:30 12/22/16 10:27 Vasopressin 40 units/Dextrose 100 ml @ 6 mls/hr [id number] IV 12/21/16 18:30 12/22/16 03:36 (Colace Liq) 100 mg Q12HR PO 12/22/16 09:15 (Senna Liq) 8.8 mg DAILY PO 12/22/16 09:15 (Emily Lunsford) Physical Exam General Appearance: Malnourished (Emily Lunsford) Pulmonary Resp Exam: No Distress, Diminished Breath Sounds Resp Remarks bilat chest tubes present draining serosanguineous fluid (Emily Lunsford) Cardiology CV Exam: Regular, Normal Sinus Rhythm (Emily Lunsford) Gastrointestinal/Abdomen GI Exam: Soft (Emily Lunsford) Integumentary Skin Exam: Warm (Emily Lunsford) Extremeties Extremities Exam: No Edema (Emily Lunsford) Neurologic Neuro Exam: Sedated (Emily Lunsford) VTE Prophylaxis Device: SCDs (Emily Lunsford) Assessment/Plan Problem List: (1) ESRD (end stage renal disease) on dialysis ICD Codes: N18.6 - End stage renal failure on dialysis; Z99.2 - Dependence on renal dialysis Status: Chronic Plan: Pt seen during HD UF at 1L Will keep on MWF schedule As indicated above unfortunately patient has been occasionally noncompliant with dialysis treatments despite being counseled regarding potential consequences of noncompliance including increased morbidity as well as premature . This has been discussed with his when indicated that her is ill and would like the patient to do more or less what he wishes. Medications should be adjusted for the patient's estimated end stage renal disease if clinically indicated. Gadolinium contraindicated. (2) Hyperkalemia ICD Codes: E87.5 - Hyperkalemia Plan: Will improve with dialysis today. (3) Failure to thrive in adult ICD Codes: R62.7 - Adult failure to thrive Plan: Palliative has been consulted Unfortunately appears to be deteriorating and is now on multiple pressors with intubation. (4) Non-compliance with renal dialysis ICD Codes: Z91.15 - Patient's noncompliance with renal dialysis Plan: I do not believe that we can improve patient's compliance given previous attempts but will continue education. (5) HTN (hypertension) ICD Codes: I10 - Hypertension Status: Chronic Plan: By hx. Hypotensive currently on inotropic support (6) Anemia of renal disease ICD Codes: D63.1 - Anemia in chronic kidney disease (Emily Lunsford) Plan The exam, history, and the medical decision-making described in the above note were completed with the assistance of the LEON. I reviewed and agree with the findings presented. (Izabela Thompson MD) Eimly Lunsford Dec 22, 2016 11:19 Izabela Thompson MD Dec 24, 2016 15:45
[2016-12-22] MEDS ORDERED: VANCOMYCIN 1,000 MG/NS 250 ML IV ONE ×4 (13:00)
[2016-12-22] MEDS: EPOETIN ALFA 10,000 UNITS/ML VIAL IV PUSH PRN ×2 (13:24)
[2016-12-22] MEDS: LATANOPROST 0.005% OPHT SOLN 2.5 ML BTL EACH EYE SCH ×2 (21:23)
[2016-12-22] MEDS: PRAVASTATIN SOD 20 MG TAB PO SCH ×2 (21:24)
[2016-12-22] MEDS: DOCUSATE SODIUM 100 MG/10 ML UDC PO SCH ×2 (21:24)
[2016-12-23] VITALS (21 sets, daily range): BP systolic 121–177; BP diastolic 33–49; PULSE 64–76; RESP 22–29; TEMP 97.7–99.4; O2SAT 96–100
[2016-12-23] MEDS: INSULIN NovoLIN REGULAR SUPPLEMENTAL SCALE SQ SCH ×12 (01:00→22:55)
[2016-12-23] MEDS: PIPERACIL-TAZO 2.25 GM PREMIX 50 ML IV SCH ×6 (01:47→17:20)
[2016-12-23] MEDS: PHENYLEPHRINE INJ 40 MG in DEXTROSE 5% IN WATE 500 ML INJ 496 ML IV PRN ×12 (02:40→17:27)
[2016-12-23] MEDS: RESP: ALBUTEROL 2.5 MG/IPRATROPIUM 0.5 MG NEB (SCH) NEB ×8 (03:55→21:12)
[2016-12-23] MEDS: CHLORHEXIDINE GLUCONATE 2 % 1 PACK (2 CLOTHS) TOP SCH ×2 (04:00)
[2016-12-23] MEDS: HYDROCORTISONE SOD SUCCINATE 100 MG VIAL IV PUSH SCH ×6 (04:05→22:30)
[2016-12-23 04:36] LABS: AUTOMATED NEUTROPHIL # 3.5 TH/MM3 (1.8-7.7); BASOPHIL % 0.1 % (0.0-2.0); EOSINOPHIL # 0.1 TH/MM3 (0-0.4); EOSINOPHIL % 1.9 % (0.0-4.0); HEMATOCRIT 22.1 % (39.0-51.0); HEMOGLOBIN 7.4 GM/DL (13.0-17.0); LYMPH % 12.7 % (9.0-44.0); LYMPHOCYTE # 0.5 TH/MM3 (1.0-4.8); MEAN CELL VOLUME 105.5 FL (80.0-100.0); MEAN CORPUSCULAR HEMOGLOBIN 35.2 PG (27.0-34.0); MEAN CORPUSCULAR HGB CONC 33.4 % (32.0-36.0); MEAN PLATELET VOLUME 10.6 FL (7.0-11.0); MONO % 4.9 % (0.0-8.0); MONOCYTE # 0.2 TH/MM3 (0-0.9); NEUT % 80.4 % (16.0-70.0); PLATELET COUNT 90 TH/MM3 (150-450); RED BLOOD COUNT 2.09 MIL/MM3 (4.50-5.90); RED CELL DISTRIBUTION WIDTH 14.8 % (11.6-17.2); WHITE BLOOD COUNT 4.3 TH/MM3 (4.0-11.0)
[2016-12-23 05:10] LABS: BICARBONATE 25.2 MEQ/L (21.0-32.0); CALCIUM 7.1 MG/DL (8.5-10.1); CREATININE 4.79 MG/DL (0.60-1.30)
[2016-12-23 05:26] LABS: CALCIUM-PROTEIN CORRECTED 7.8 MG/DL (8.5-10.1); TOTAL PROTEIN 5.7 GM/DL (6.4-8.2)
[2016-12-23] MEDS: CHLORHEXIDINE 0.12% (ORAL KIT) 15 ML CUP MT SCH ×4 (08:00→22:30)
[2016-12-23] MEDS: DOCUSATE SODIUM 50 MG/SENNA 8.6 MG TAB PO SCH ×4 (09:00→21:00)
[2016-12-23] MEDS: DORZOLAMIDE/TIMOLOL OPTH SOLN 10 ML BTL EACH EYE SCH ×4 (09:00→22:31)
[2016-12-23] MEDS: CALCIUM CARBONATE 1.25 GM (CA 500 MG) TAB PO SCH ×2 (09:00)
[2016-12-23] MEDS: AZITHROMYCIN INJ 500 MG in SODIUM CHLOR 0.9% 250 ML INJ 250 ML IV SCH ×4 (09:00)
[2016-12-23] MEDS: SENNOSIDES SYRUP 8.8 MG/5 ML CUP PO SCH ×2 (09:27)
[2016-12-23] MEDS: DOCUSATE SODIUM 100 MG/10 ML UDC PO SCH ×4 (09:27→21:00)
[2016-12-23] MEDS: ASPIRIN EC 81 MG TABEC PO SCH ×2 (09:28)
[2016-12-23] MEDS: MINOXIDIL 2.5 MG TAB PO SCH ×2 (09:28)
[2016-12-23] MEDS: VITAMIN B CMPLX/VITC/FOLIC AC CAP PO SCH ×2 (09:28)
[2016-12-23] MEDS: SODIUM CHLORIDE 0.9% FLUSH 10 ML FLUSH IV FLUSH SCH ×4 (09:29→22:30)
[2016-12-23] MEDS: DIPYRIDAMOLE 25 MG TAB PO SCH ×4 (09:29→22:30)
[2016-12-23] MEDS: HEPARIN SODIUM - SQ 10,000 UNITS/ML VIAL SQ SCH ×4 (09:30→22:32)
[2016-12-23] MEDS: PANTOPRAZOLE SODIUM 40 MG VIAL IV PUSH SCH ×2 (09:31)
[2016-12-23] MEDS: fentaNYL DRIP 250 ML IV PRN ×2 (09:35)
--- NOTE | 2016-12-23 10:16 | HHI.CCPN ---
Subjective Remarks/Hospital Course 86-year-old very pleasant male presents complaining of shortness of breath. Patient states that the symptoms started last night. He has history recurrent pleural effusion status post thoracentesis in the past. Patient is scheduled to have bilateral thoracentesis done by interventional radiologist. Patient denies any headache. Patient denies any chest pain. Patient denies abdominal pain. Patient denies any focal weakness or numbness of extremity. 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 Patient also has history of hypertension, hyperlipidemia, CVA and anemia. In the emergency department the chest x-ray revealed large pleural effusion on the right and a large pneumothorax on the left. Emergent chest tubes were placed bilaterally with partial resolution of pneumothorax on the left and drainage of 700 cc of hemorrhagic fluid from the right side however bilateral residual bibasal pneumothoraces. After procedures patient's respiration is significantly improved as well as his oxygenation. 12/21 Patient required increase O2 overnight wa son BIPAP with 100% FIO2. CXR this morning showed consolidative opacity right lung and stable bibasilar pneumothoraces. Due to resp distress and patient was intubated and placed on mechanical ventilation. 12/22 Patient is intubated and sedated with Fentanyl drip. On Neosyn 100 mics, Levophed 9 mics and vasopressin. Afebrile. 12/23 Patient remains intubated and sedated. On multiple pressors ( Levophed 4 mics, Neosyn 106 mics, Vasopressin).s/p HD yesterday with removal 700ml. Objective Vital Signs Date Time Temp Pulse Resp B/P (MAP) Pulse Ox O2 Delivery O2 Flow Rate FiO2 12/23/16 09:42 161/43 12/23/16 09:34 67 12/23/16 08:51 99 35 12/23/16 04:00 99.4 29 12/21/16 03:57 Nasal Cannula 4.00 Intake and Output 12/23/16 12/23/16 12/24/16 08:00 16:00 00:00 Intake Total 650 ml 717 ml Output Total 310 ml Balance 340 ml 717 ml Result Diagram: 12/23/168 12/23/16407 Other Results Laboratory Tests Test 12/22/16 18:05 12/23/16 04:08 Lactic Acid Level 5.9 mmol/L White Blood Count 4.3 TH/MM3 Red Blood Count 2.09 MIL/MM3 Hemoglobin 7.4 GM/DL Hematocrit 22.1 % Mean Corpuscular Volume 105.5 FL Mean Corpuscular Hemoglobin 35.2 PG Mean Corpuscular Hemoglobin Concent 33.4 % Red Cell Distribution Width 14.8 % Platelet Count 90 TH/MM3 Mean Platelet Volume 10.6 FL Neutrophils (%) (Auto) 80.4 % Lymphocytes (%) (Auto) 12.7 % Monocytes (%) (Auto) 4.9 % Eosinophils (%) (Auto) 1.9 % Basophils (%) (Auto) 0.1 % Neutrophils # (Auto) 3.5 TH/MM3 Lymphocytes # (Auto) 0.5 TH/MM3 Monocytes # (Auto) 0.2 TH/MM3 Eosinophils # (Auto) 0.1 TH/MM3 Basophils # (Auto) 0.0 TH/MM3 CBC Comment AUTO DIFF Differential Comment AUTO DIFF CONFIRMED Platelet Estimate LOW Platelet Morphology Comment ENLARGED Blood Urea Nitrogen 39 MG/DL Creatinine 4.79 MG/DL Random Glucose 116 MG/DL Total Protein 5.7 GM/DL Calcium Level 7.1 MG/DL Sodium Level 130 MEQ/L Potassium Level 4.7 MEQ/L Chloride Level 93 MEQ/L Carbon Dioxide Level 25.2 MEQ/L Anion Gap 12 MEQ/L Estimat Glomerular Filtration Rate 14 ML/MIN Protein Corrected Calcium 7.8 MG/DL Imaging Last Impressions Abdomen X-Ray 12/22/16 0000 Signed Impressions: Service Date/Time: Thursday, December 22, 2016 09:42 - CONCLUSION: There is one loop of small bowel in the midline hypogastric region which is dilated out of proportion to the other loops of small bowel and the colon. This is nonspecific and could represent a localized ileus or an early small bowel obstruction. Nic Cha MD Chest X-Ray 12/21/16 0432 Signed Impressions: Service Date/Time: Wednesday, December 21, 2016 04:38 - CONCLUSION: 1. New consolidative opacity in the right lung most characteristic of pneumonia. 2. Stable appearance of the bibasilar pneumothoraces. Daniel Cowan MD Chest CT 12/20/16 0000 Signed Impressions: Service Date/Time: Tuesday, December 20, 2016 16:26 - CONCLUSION: 1. Moderate right and small left hydropneumothorax with small caliber chest tubes present bilaterally, not significant changed from prior chest radiograph. Dependent consolidation and atelectasis of both lungs. No pneumomediastinum or subcutaneous air. Germán Vences MD Objective Remarks GENERAL: Patient is 86 yo intubated and sedated SKIN: Warm and dry. HEAD: Normocephalic. EYES: No scleral icterus. No injection or drainage. NECK: Supple, trachea midline. No JVD or lymphadenopathy. Orally intubated CARDIOVASCULAR: Regular rate and rhythm without murmurs, gallops, or rubs. + b/ p pig tail catheters in place. RESPIRATORY: Breath sounds equal bilaterally. No accessory muscle use. GASTROINTESTINAL: Abdomen soft, non-tender, nondistended. MUSCULOSKELETAL: No cyanosis, or edema. Neuro: sedated A/P Assessment and Plan 1)VDRF 2)Right sided pneumonia 3)Bibasilar hydroPTX 5)ESRD 6)HTN 7)Macrocytic Anemia Plan Neuro: On fentanyl infusion for sedation. Monitor neuro status. Daily sedation vacation when appropriate Pulm: Continue with vent support keep sat >92% Bronchodilators, ICU vent bundle. Check ABG/ CXR today Monitor CT drainage. CTS is following- Dr. Jara, patient is poor operative candidate. CV: Monitor HR and BP keep MAP>65mmHg Wean off pressors ( On Levophed, Neosyn, Vasopressin) On stress dose steroids- HC 100mg Q8 Check Lactic aid. : Monitor renal function, avoid nephrotoxins HD per renal-Dr. Thompson. s/p HD 12/22 with removal 700ml GI: On Protonix 40mg daily for GI prophylaxis on bowel regimen Colace, Senna KUB abdomen: 12/22: Localized ileus vs early SBO. Will repeat KUB today. OGT to LIWS ID: Continue abx per ID ( Vanco, Zosyn, Azithromycin)monitor for signs of infections ( Fever, WBC) sputum cx 12/21: GNR, BC, fluid cx from 12/19:NGTD Heme: Monitor CBC Endo: SSI with accuchecks GI prophylaxis- Protonix 40mg daily DVT prophylaxis- SCD. Heparin SQ Palliative care is following Patient is critcally ill with resp failure, pneumonia, septic shock on multiple pressors, ESRD on HD. Discussed with patient's and updated her on his condition. CCT 35 mins Aurea Lovell MD Dec 23, 2016 10:16
--- NOTE | 2016-12-23 11:29 | RADRPT ---
EXAM DATE/TIME: 12/23/2016 10:22 [facility] COMPARISON: CHEST SINGLE AP, December 21, 2016, 12:26. INDICATIONS : Respiratory distress. MEDICAL HISTORY : Hypertension. Stroke. Renal insufficiency. SURGICAL HISTORY : None. ENCOUNTER: Subsequent ACUITY: 3 days PAIN SCORE: Non-responsive. LOCATION: Bilateral chest FINDINGS: A single portable frontal view the chest shows some change. Bilateral subpulmonic pneumothoraces dorie in despite bilateral chest tubes. The right chest tube is just within the hemithorax. Consolidation w ithin the right lung has shown some improvement. Left lung is clear. Heart is normal in size. No effu sions. Endotracheal tube tip is 4 cm cephalad to the agnes. Nasogastric tube tip just past the GE ju nction. CONCLUSION: 1. Some improvement in the consolidation of the right lung particularly involving the upper lobe. 2. Bilateral subpulmonic pneumothoraces are stable. Nic Brown Jr., MD on December 23, 2016 at 11:23 Board Certified Radiologist. This report was verified electronically.
--- NOTE | 2016-12-23 11:32 | RADRPT ---
EXAM DATE/TIME: 12/23/2016 10:28 [facility] COMPARISON: ABDOMEN KUB ONLY, December 22, 2016, 9:42. INDICATIONS : Evaluate for Ileus. MEDICAL HISTORY : Hypertension. Renal insufficiency. Stroke. SURGICAL HISTORY : None. ENCOUNTER: Subsequent ACUITY: 3 days PAIN SCORE: Non-responsive. LOCATION: Abdomen. FINDINGS: 2 portable supine views of the abdomen shows some reduction in the gas distention of the small bowel relative to the prior study. Gas and stool is noted within the colon which is normal in caliber. Naso gastric tube tip is just past the GE junction. Right sided groin central line. CONCLUSION: Some improvement in the distention of the small bowel compared to the prior study. Nic Brown Jr., MD on December 23, 2016 at 11:28 Board Certified Radiologist. This report was verified electronically.
--- NOTE | 2016-12-23 11:32 | RADRPT ---
EXAM DATE/TIME: 12/23/2016 10:28 [facility] COMPARISON: ABDOMEN KUB ONLY, December 22, 2016, 9:42. INDICATIONS : Evaluate for Ileus. MEDICAL HISTORY : Hypertension. Renal insufficiency. Stroke. SURGICAL HISTORY : None. ENCOUNTER: Subsequent ACUITY: 3 days PAIN SCORE: Non-responsive. LOCATION: Abdomen. FINDINGS: 2 portable supine views of the abdomen shows some reduction in the gas distention of the small bowel relative to the prior study. Gas and stool is noted within the colon which is normal in caliber. Naso gastric tube tip is just past the GE junction. Right sided groin central line. CONCLUSION: Some improvement in the distention of the small bowel compared to the prior study. Nic rBown Jr., MD on December 23, 2016 at 11:28 Board Certified Radiologist. This report was verified electronically.
--- NOTE | 2016-12-23 11:44 | HHI.NPPN ---
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 Patient now presents with increasing shortness of breath noted to have bilateral pleural effusions which appear to be loculated. Patient missed his dialysis session yesterday. Moderate hyperkalemia on presentation. Now status post bilateral pigtail catheter placement left and right pleural cavity. Pneumothorax bilaterally postprocedure. Patient seen during his dialysis session. Appears to be lethargic and nonverbal at this time. Interval History Patient intubated on 3 pressors unresponsive to questions. Review of Systems General General Remarks Unable to obtain d/t clinical status Objective Data Data 12/23/16 12/24/16 19:00 07:00 Intake Total 717 ml Balance 717 ml IV Total 717 ml Vital Signs Date Time Temp Pulse Resp B/P (MAP) Pulse Ox O2 Delivery O2 Flow Rate FiO2 12/23/16 10:00 76 12/23/16 10:00 76 26 138/42 (74) 98 12/23/16 09:42 161/43 12/23/16 09:34 67 162/44 12/23/16 09:00 65 26 177/49 (91) 100 12/23/16 08:51 99 35 12/23/16 08:00 73 26 135/41 (72) 100 12/23/16 08:00 65 12/23/16 08:00 35 12/23/16 07:00 69 26 137/41 (73) 100 12/23/16 06:00 35 12/23/16 06:00 71 12/23/16 06:00 71 138/41 12/23/16 04:14 100 35 12/23/16 04:00 99.4 69 29 135/38 (70) 100 12/23/16 04:00 40 12/23/16 04:00 69 12/23/16 02:40 69 109/34 12/23/16 02:40 69 111/34 12/23/16 02:00 69 12/23/16 00:00 40 12/23/16 00:00 97.7 71 22 139/38 (71) 100 12/23/16 00:00 71 12/22/16 23:46 99 40 12/22/16 22:11 74 148/42 12/22/16 22:10 75 144/39 12/22/16 22:00 72 12/22/16 21:27 97 40 12/22/16 20:00 98.6 68 26 132/36 (68) 100 Automatic Cuff 12/22/16 20:00 40 12/22/16 20:00 68 12/22/16 19:46 76 146/40 12/22/16 18:00 69 12/22/16 16:19 75 131/36 12/22/16 16:19 75 131/36 12/22/16 16:04 98 40 12/22/16 16:00 40 12/22/16 16:00 98.0 76 7 140/39 (72) 97 12/22/16 16:00 76 12/22/16 15:00 76 11 130/38 (68) 98 12/22/16 14:00 83 17 158/50 (86) 94 12/22/16 14:00 83 12/22/16 13:40 78 158/43 12/22/16 13:40 78 158/43 12/22/16 13:00 76 24 162/42 (82) 98 12/22/16 13:00 76 162/42 12/22/16 13:00 162/42 12/22/16 12:51 160/40 12/22/16 12:00 79 12/22/16 12:00 97.7 79 26 150/41 (77) 99 12/22/16 12:00 40 -: 12/23/16 0408 12/23/16 0408 Physical Exam General Appearance: Malnourished Pulmonary Resp Exam: No Distress, Diminished Breath Sounds Cardiology CV Exam: Regular, Normal Sinus Rhythm Gastrointestinal/Abdomen GI Exam: Soft Integumentary Skin Exam: Warm Extremeties Extremities Exam: No Edema Neurologic Neuro Exam: Sedated VTE Prophylaxis Device: SCDs Assessment/Plan Problem List: (1) ESRD (end stage renal disease) on dialysis ICD Codes: N18.6 - End stage renal failure on dialysis; Z99.2 - Dependence on renal dialysis Status: Chronic Plan: Patient still with shock syndrome. History of failure to thrive. I believe that even if the patient were to survive this acute illnesses quality- of-life and life expectancy would be poor. DNR CODE STATUS and hospice consideration would be appropriate. I discussed the patient's condition with his in the hallway. I will continue dialytic support as long as family wishes and the patient is able to tolerate same. Medications should be adjusted for the patient's estimated end stage renal disease if clinically indicated. Gadolinium contraindicated. (2) Hyperkalemia ICD Codes: E87.5 - Hyperkalemia Plan: Will improve with dialysis today. (3) Failure to thrive in adult ICD Codes: R62.7 - Adult failure to thrive Plan: Palliative has been consulted Unfortunately appears to be deteriorating and is now on multiple pressors with intubation. (4) Non-compliance with renal dialysis ICD Codes: Z91.15 - Patient's noncompliance with renal dialysis Plan: I do not believe that we can improve patient's compliance given previous attempts but will continue education. (5) HTN (hypertension) ICD Codes: I10 - Hypertension Status: Chronic Plan: By hx. Hypotensive currently on inotropic support (6) Anemia of renal disease ICD Codes: D63.1 - Anemia in chronic kidney disease Izabela Thompson MD Dec 23, 2016 11:44
[2016-12-23] MEDS: NOREPINEPHRINE 4 MG/D5W 250 ML IV PRN ×2 (11:56)
--- NOTE | 2016-12-23 13:29 | RADRPT ---
EXAM DATE/TIME: 12/23/2016 12:24 [facility] COMPARISON: CHEST SINGLE AP, December 23, 2016, 10:22. INDICATIONS : Short of breath, respiratory failure, VDRL MEDICAL HISTORY : Renal insufficiency. Hypertension Stroke. SURGICAL HISTORY : None. ENCOUNTER: Subsequent ACUITY: 3 days PAIN SCORE: Non-responsive. LOCATION: Bilateral chest FINDINGS: 2 portable frontal views of the chest show interval removal of the right thoracostomy tube from the s ubpulmonic space. A subpulmonic pneumothorax remains on the right side. This is unchanged. A left tho racostomy tube remains on the left. The subpulmonic pneumothorax on the left is unchanged. The area o f consolidation within the collapsed right lower lobe is stable. The consolidation within the right u pper lobe is largely resolved. Tiny bilateral pleural effusions. Mild cardiomegaly. Tip of the endotr acheal tube 5 cm from the agnes. Tip of the NG tube just past the GE junction. 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 CONCLUSION: 1. The right thoracostomy tube has been removed. 2. Remaining left thoracostomy tube. 3. Unchanged subpulmonic pneumothoraces bilaterally. 4. Tiny effusions. 5. Cardiomegaly. Nic Brown Jr., MD on December 23, 2016 at 13:23 Board Certified Radiologist. This report was verified electronically.
[2016-12-23] MEDS ORDERED: LIDOCAINE HCL 1% 50 ML VIAL ONE ×4 (14:11→20:11)
--- NOTE | 2016-12-23 14:17 | HHI.IDPN ---
Subjective Subjective Remarks Patient is an 86-year-old male, initially presented to the hospital on December 19, for a scheduled bilateral thoracenteses. He has had problem with recurrent pleural effusion, as well as ascites, and has had multiple procedures done to drain the fluid. He was scheduled to have thoracentesis on October 19, but he went into respiratory distress, and ended up getting admitted. He was found to have a pneumothorax on the left and a large pleural effusion on the right. He had placement of bilateral chest tube, but there was only partial reexpansion of the lungs. There was no mention that he was having any cough or congestion, or fever or chills. This morning he had progressive respiratory distress, and required intubation. He is afebrile. He is on the vent. He is also hypotensive, and requiring 3 pressors. He is on levo fed, Forrest-Synephrine, and vasopressin. Cardiothoracic surgery has been consulted to evaluate the patient due to nonreactive expansion of the lung. Patient has end-stage renal disease, and gets hemodialysis. He had hemodialysis yesterday. Infectious disease consultation has been requested to evaluate the patient for possible pneumonia and shock. Notes reviewed D/W RN Temps ok On pressors, dose being decreased To get new CT R Looks comfortable on the vent Antibiotics Vancomycin IV Zithromax IV Zosyn IV I attest that I obtained, updated or reviewed the home and current medications. Current Medications Medications (Trade) Dose Ordered Sig/Bill Route Start Time Stop Time Status Last Admin (Dulcolax Ec) 10 mg DAILY PRN PO 12/19/16 20:00 (Drisdol) 50,000 units Q7D PO 12/20/16 09:00 (Xalatan 0.005% Opth Soln) 1 drop HS EACH EYE 12/19/16 21:00 12/22/16 21:23 (Pravachol) 20 mg HS PO 12/19/16 21:00 12/22/16 21:24 (Loniten) 2.5 mg DAILY PO 12/20/16 09:00 12/23/16 09:28 (Procardia Xl) 30 mg BID PRN PO 12/19/16 20:00 12/20/16 00:23 (Ultram) 50 mg Q4H PRN PO 12/19/16 20:00 12/20/16 15:50 (Ecotrin Ec) 81 mg DAILY PO 12/20/16 09:00 12/23/16 09:28 (Nephrocaps) 1 cap DAILY PO 12/20/16 09:00 12/23/16 09:28 (Oscal) 1,000 mg DAILY PO 12/20/16 09:00 12/23/16 09:00 (Coreg) 12.5 mg BID PO 12/19/16 21:00 Future Hold 12/20/16 20:56 (Cosopt 2-0.5% Opth Soln) 1 drop BID EACH EYE 12/19/16 21:00 12/23/16 09:00 (NS Flush) 2 ml UNSCH PRN IV FLUSH 12/19/16 20:15 (NS Flush) 2 ml BID IV FLUSH 12/19/16 21:00 12/23/16 09:29 (Tylenol) 650 mg Q6H PRN PO 12/19/16 20:15 (Zofran Inj) 4 mg Q6H PRN IV PUSH 12/19/16 20:15 (Ambien) 5 mg HS PRN PO 12/19/16 20:15 (Heparin Inj) 5,000 units Q12H SQ 12/19/16 21:00 12/23/16 09:30 Miscellaneous Information 1 Q361D XX 12/19/16 20:15 (Chlorhexidine 2% Cloth) 3 pack Taper DAILY@04 TOP 12/20/16 04:00 12/16/17 03:59 12/23/16 04:00 (Chlorhexidine 2% Cloth) 3 pack UNSCH PRN TOP 12/19/16 20:15 (Shelby-Colace) 1 tab BID PO 12/19/16 21:00 12/22/16 21:23 (Milk Of Magnesia Liq) 30 ml Q12H PRN PO 12/19/16 20:15 (Senokot) 17.2 mg Q12H PRN PO 12/19/16 20:15 12/22/16 09:39 (Dulcolax Supp) 10 mg DAILY PRN RECTAL 12/19/16 20:15 (Lactulose Liq) 30 ml DAILY PRN PO 12/19/16 20:15 12/22/16 09:37 (Persantine) 75 mg BID PO 12/20/16 09:00 12/23/16 09:29 (Apresoline Inj) 20 mg Q4H PRN IV 12/20/16 00:15 12/20/16 00:22 Sodium Chloride 1,000 ml @ 0 mls/hr Q0M PRN OTHER 12/20/16 10:04 Sodium Chloride 1,000 ml @ 200 mls/hr Q5H PRN IV 12/20/16 10:04 Sodium Chloride 1,000 ml @ 0 mls/hr Q0M PRN OTHER 12/20/16 10:04 (Mannitol Inj) 12.5 gm UNSCH PRN IV 12/20/16 10:15 Albumin Human 100 ml @ 60 mls/hr UNSCH PRN IV 12/20/16 10:15 (NS Flush) 5 ml UNSCH PRN IV FLUSH 12/20/16 10:15 (Heparin Inj) UNSCH PRN .XX 12/20/16 10:15 (Gentamicin (Dialysis) Inj) 20 mg UNSCH PRN OTHER 12/20/16 10:15 (Zofran Inj) 4 mg UNSCH PRN IV PUSH 12/20/16 10:15 (Tylenol) 650 mg UNSCH PRN PO 12/20/16 10:15 (Benadryl) 25 mg UNSCH PRN PO 12/20/16 10:15 (Nitrostat Sl) 0.4 mg UNSCH PRN SL 12/20/16 10:15 (Catapres) 0.1 mg UNSCH PRN PO 12/20/16 10:15 (Epogen Inj) 5,000 units UNSCH PRN IV PUSH 12/20/16 10:15 12/22/16 13:24 (Gelfoam 12 Mm/7 Mm Top) 1 foam UNSCH PRN TOP 12/20/16 10:15 (Peridex 0.12% Liq) 15 ml BID@08,20 MT 12/21/16 08:00 12/23/16 08:00 Propofol 100 ml @ 1.62 mls/hr TITRATE PRN IV 12/21/16 08:00 (Duoneb Neb) 1 ampule Q6HR NEB PRN NEB 12/21/16 08:00 (Duoneb Neb) 1 ampule Q6HR NEB NEB 12/21/16 10:00 12/23/16 08:28 (Protonix Inj) 40 mg Q24H IV PUSH 12/21/16 09:00 12/23/16 09:31 (D50w (Vial) Inj) 50 ml UNSCH PRN IV PUSH 12/21/16 08:15 (Glucagon Inj) 1 mg UNSCH PRN OTHER 12/21/16 08:15 (NovoLIN R SUPPLEMENTAL SCALE) 1 Q4H SQ 12/21/16 09:00 Pharmacy Profile Note 0 ml @ 0 mls/hr UNSCH OTHER 12/21/16 08:15 Piperacillin Sod/ Tazobactam Sod 50 ml @ 100 mls/hr Q8H IV 12/21/16 10:00 12/23/16 09:32 Azithromycin 500 mg/Sodium Chloride 250 ml @ 250 mls/hr Q24H IV 12/21/16 09:00 12/23/16 09:00 Fentanyl Citrate 250 ml @ 5 mls/hr TITRATE PRN IV 12/21/16 10:00 12/23/16 09:35 (SoluCORTEF INJ) 100 mg Q8H IV PUSH 12/21/16 13:00 12/23/16 04:05 Phenylephrine HCl 40 mg/Dextrose 500 ml @ 30 mls/hr TITRATE PRN IV 12/21/16 12:45 12/23/16 09:34 (Brethine Inj) 1 mg UNSCH PRN SQ 12/21/16 12:45 Norepinephrine Bitartrate 250 ml @ 7.5 mls/hr TITRATE PRN IV 12/21/16 18:30 12/23/16 11:56 Vasopressin 40 units/Dextrose 100 ml @ 6 mls/hr [id number] IV 12/21/16 18:30 12/22/16 22:11 (Colace Liq) 100 mg Q12HR PO 12/22/16 09:15 12/23/16 09:27 (Senna Liq) 8.8 mg DAILY PO 12/22/16 09:15 12/23/16 09:27 Lines A line Past Medical History ESRD on HD Ascites Hypertension CVA Duodenitis Past Surgical History Left carotid endarectomy Fistula left arm Multiple thoracentesis and paracentesis Allergies: Coded Allergies: *MDRO Multi-Drug Resistant Organism (Verified Adverse Reaction, Unknown, 01/29/15) MRSA PCR Screen positive 01/25/15. Objective . Vital Signs Date Time Temp Pulse Resp B/P (MAP) Pulse Ox O2 Delivery O2 Flow Rate FiO2 12/23/16 12:05 96 35 12/23/16 11:56 134/40 12/23/16 10:00 76 12/23/16 10:00 76 26 138/42 (74) 98 12/23/16 09:42 161/43 12/23/16 09:34 67 162/44 12/23/16 09:00 65 26 177/49 (91) 100 12/23/16 08:51 99 35 12/23/16 08:00 73 26 135/41 (72) 100 12/23/16 08:00 65 12/23/16 08:00 35 12/23/16 07:00 69 26 137/41 (73) 100 12/23/16 06:00 35 12/23/16 06:00 71 12/23/16 06:00 71 138/41 12/23/16 04:14 100 35 12/23/16 04:00 99.4 69 29 135/38 (70) 100 12/23/16 04:00 40 12/23/16 04:00 69 12/23/16 02:40 69 109/34 12/23/16 02:40 69 111/34 12/23/16 02:00 69 12/23/16 00:00 40 12/23/16 00:00 97.7 71 22 139/38 (71) 100 12/23/16 00:00 71 12/22/16 23:46 99 40 12/22/16 22:11 74 148/42 12/22/16 22:10 75 144/39 12/22/16 22:00 72 12/22/16 21:27 97 40 12/22/16 20:00 98.6 68 26 132/36 (68) 100 Automatic Cuff 12/22/16 20:00 40 12/22/16 20:00 68 12/22/16 19:46 76 146/40 12/22/16 18:00 69 12/22/16 16:19 75 131/36 12/22/16 16:19 75 131/36 12/22/16 16:04 98 40 12/22/16 16:00 40 12/22/16 16:00 98.0 76 7 140/39 (72) 97 12/22/16 16:00 76 12/22/16 15:00 76 11 130/38 (68) 98 12/23/16 12/23/16 12/24/16 15:00 23:00 07:00 Intake Total 931 ml Balance 931 ml IV Total 931 ml . Laboratory Tests Test 12/21/16 15:38 12/22/16 05:54 12/23/16 04:08 White Blood Count 1.6 TH/MM3 3.9 TH/MM3 4.3 TH/MM3 Red Blood Count 2.54 MIL/MM3 2.34 MIL/MM3 2.09 MIL/MM3 Hemoglobin 8.8 GM/DL 8.2 GM/DL 7.4 GM/DL Hematocrit 27.8 % 25.4 % 22.1 % Mean Corpuscular Volume 109.7 FL 108.7 FL 105.5 FL Mean Corpuscular Hemoglobin 34.6 PG 35.0 PG 35.2 PG Mean Corpuscular Hemoglobin Concent 31.5 % 32.2 % 33.4 % Red Cell Distribution Width 15.2 % 15.1 % 14.8 % Platelet Count 137 TH/MM3 112 TH/MM3 90 TH/MM3 Mean Platelet Volume 9.0 FL 9.8 FL 10.6 FL CBC Comment AUTO DIFF AUTO DIFF AUTO DIFF Differential Total Cells Counted 100 100 Neutrophils % (Manual) 33 % 27 % Band Neutrophils % 2 % 42 % Lymphocytes % 57 % 23 % Monocytes % 4 % 4 % Neutrophils # (Manual) 0.6 TH/MM3 2.8 TH/MM3 Metamyelocytes 4 % 3 % Differential Comment FINAL DIFF MANUAL FINAL DIFF MANUAL AUTO DIFF CONFIRMED Neutrophils (%) (Auto) 68.5 % 80.4 % Lymphocytes (%) (Auto) 23.2 % 12.7 % Monocytes (%) (Auto) 8.0 % 4.9 % Eosinophils (%) (Auto) 0.2 % 1.9 % Basophils (%) (Auto) 0.1 % 0.1 % Neutrophils # (Auto) 2.7 TH/MM3 3.5 TH/MM3 Lymphocytes # (Auto) 0.9 TH/MM3 0.5 TH/MM3 Monocytes # (Auto) 0.3 TH/MM3 0.2 TH/MM3 Eosinophils # (Auto) 0.0 TH/MM3 0.1 TH/MM3 Basophils # (Auto) 0.0 TH/MM3 0.0 TH/MM3 Myelocytes 1 % Platelet Estimate LOW LOW Platelet Morphology Comment NORMAL ENLARGED Laboratory Tests Test 12/22/16 05:54 12/22/16 09:30 12/22/16 18:05 12/23/16 04:08 Blood Urea Nitrogen 53 MG/DL 39 MG/DL Creatinine 6.97 MG/DL 4.79 MG/DL Random Glucose 114 MG/DL 116 MG/DL Calcium Level 8.3 MG/DL 7.1 MG/DL Sodium Level 131 MEQ/L 130 MEQ/L Potassium Level 5.6 MEQ/L 4.7 MEQ/L Chloride Level 92 MEQ/L 93 MEQ/L Carbon Dioxide Level 23.9 MEQ/L 25.2 MEQ/L Anion Gap 15 MEQ/L 12 MEQ/L Estimat Glomerular Filtration Rate 9 ML/MIN 14 ML/MIN Lactic Acid Level 6.8 mmol/L 5.9 mmol/L Total Protein 5.7 GM/DL Protein Corrected Calcium 7.8 MG/DL Test 12/23/16 10:25 Lactic Acid Level 4.1 mmol/L Microbiology Date/Time Source Procedure Growth Status 12/21/16 10:24 Sputum Endotracheal Gram Stain - Final Complete 12/21/16 10:24 Sputum Culture - Final Klebsiella Pneumoniae Complete Imaging Last 48 hours Impressions Chest X-Ray 12/23/16 0000 Signed Impressions: Service Date/Time: Friday, December 23, 2016 12:24 - CONCLUSION: 1. The right thoracostomy tube has been removed. 2. Remaining left thoracostomy tube. 3. Unchanged subpulmonic pneumothoraces bilaterally. 4. Tiny effusions. 5. Cardiomegaly. Nic Brown Jr., MD Chest X-Ray 12/23/16 0000 Signed Impressions: Service Date/Time: Friday, December 23, 2016 10:22 - CONCLUSION: 1. Some improvement in the consolidation of the right lung particularly involving the upper lobe. 2. Bilateral subpulmonic pneumothoraces are stable. Nic Brown Jr., MD Abdomen X-Ray 12/23/16 0000 Signed Impressions: Service Date/Time: Friday, December 23, 2016 10:28 - CONCLUSION: Some improvement in the distention of the small bowel compared to the prior study. Nic Brown Jr., MD Abdomen X-Ray 12/22/16 0000 Signed Impressions: Service Date/Time: Thursday, December 22, 2016 09:42 - CONCLUSION: There is one loop of small bowel in the midline hypogastric region which is dilated out of proportion to the other loops of small bowel and the colon. This is nonspecific and could represent a localized ileus or an early small bowel obstruction. Nic Cha MD Last Impressions Chest X-Ray 12/21/16 0432 Signed Impressions: Service Date/Time: Wednesday, December 21, 2016 04:38 - CONCLUSION: 1. New consolidative opacity in the right lung most characteristic of pneumonia. 2. Stable appearance of the bibasilar pneumothoraces. Daniel Cowan MD Chest CT 12/20/16 0000 Signed Impressions: Service Date/Time: Tuesday, December 20, 2016 16:26 - CONCLUSION: 1. Moderate right and small left hydropneumothorax with small caliber chest tubes present bilaterally, not significant changed from prior chest radiograph. Dependent consolidation and atelectasis of both lungs. No pneumomediastinum or subcutaneous air. Germán Vences MD Physical Exam GENERAL: Patient is a thin, well-developed male, eyes open, no following, no focusing SKIN: Warm and dry. No generalized rash, no ecchymoses and no evidence of embolic lesions. HEAD: Atraumatic. Normocephalic. No temporal wasting, or tenderness. EYES: Pale conjunctiva. No petechia or hemorrhage. Pupils equal, round and reactive to light. No scleral icterus. No injection or drainage. EARS, NOSE AND THROAT: Nose without bleeding or purulent nasal discharge. ET in mouth NECK: Trachea midline. Supple and not tender, no meningeal signs CARDIOVASCULAR: Regular rate and rhythm. No murmurs, rubs or gallops heard RESPIRATORY: Decreased BS on R, R CT in place with serosanguineous fluid. Better aeration on L, CT in place. Subcut emphysema on R chest ABDOMEN: Distended abdomen, bowel sounds present and hypoactive. No reaction to deep palpation. EXTREMITIES: No clubbing, cyanosis, or edema. No joint effusion. Warm. HD access L arm looks ok NEUROLOGICAL: Not responding PSYCHIATRIC: Unable to assess LINE: Lines with no evidence of infection Assessment & Plan Remarks IMPRESSION Recurrent pleural effusion, and ascites Respiratory failure Klebsiella PNA Shock, on pressors ESRD on HD RECOMMENDATION Will not give any further Vanco Continue Zosyn Also on Zithromax Wean pressors as tolerated - On pressors for hypotension CTS evaluating patient for options on Rx of his recurrent effusions Monitor progress D/W Dr Lovell ([facility]) D/W Paula Morse MD Dec 23, 2016 14:16
--- NOTE | 2016-12-23 15:38 | RADRPT ---
EXAM DATE/TIME: 12/23/2016 15:15 [place] COMPARISON: CHEST SINGLE AP, December 23, 2016, 12:24. INDICATIONS : Post chest tube placement on right side MEDICAL HISTORY : Renal insufficiency. Stroke. Hypertension. pneumothorax, VDRF SURGICAL HISTORY : chest tubes ENCOUNTER: Subsequent ACUITY: 3 days PAIN SCORE: Non-responsive. LOCATION: Right chest FINDINGS: A single portable frontal view the chest shows reinsertion of a small caliber chest tube involve the subpulmonic area the right chest. Subpulmonic pneumothorax remains. Subcutaneous air tracks over the right lateral chest. A left thoracostomy tube is noted. Subpulmonic pneumothorax is stable and not si de. Heart is mildly enlarged. A tiny right effusion. Consolidation within the collapsed right lower l obe is stable. Tip of endotracheal tube is 4 cm in the agnes. Nasogastric tube courses off the infer ior margin of the film. CONCLUSION: 1. Interval placement of a subpulmonic chest tube on the right which is in good position. Subpulmonic pneumothorax remains. 2. Unchanged left thoracostomy tube with unchanged left subpulmonic pneumothorax. Nic Brown Jr., MD on December 23, 2016 at 15:32 Board Certified Radiologist. This report was verified electronically.
[2016-12-23] MEDS: VASOPRESSIN 40 U/D5W 100 ML Shock/septic shock, do NOT titrate until taper off IV SCH ×4 (16:29)
[2016-12-23] MEDS: DEXTROSE 50% IN WATER 50 ML VIAL(D50) IV PUSH PRN ×2 (17:25→22:56)
--- NOTE | 2016-12-23 17:58 | HHI.HCPN ---
Reason for visit a. To assist with evaluation and management of symptoms including: pain; dyspnea; encephalopathy b. To assist medical decision maker(s) with: better understanding of current medical conditions; weighing benefits/burdens of medical treatment options; making medical treatment decisions. . Subjective/Interval History No significant change overnight. Patient remains intubated, mechanically ventilated, sedated, and pressor dependent in the MICU. The left sided chest tube apparently came out and has now been replaced. 02 needs have declined from 40% to 35%. Because of hemodynamic instability there was no sedation vacation today. Patient is down to 100 mcg/hr of fentanyl, however. Nursing pain level scores are "0." is at bedside and remained overnight. . Family/friend interactions Spoke with again at bedside. She once again asserts that she wants ongoing aggressive care to see if he is able to improve. However, she only wants one attempt at chest compressions and shock. She doesn't want to put him through that more than once. clearly understands how critically ill he is and that he could easily during this hospitalization. . . Advance Directives Durable Power of Cutter Helper: Copy in medical record Advance Directive Specifics Date completed: DPOA for health care completed 10/05/2012 . Health Care Surrogate(s): Pio Lerner is designated as the health care DPOA. . Documented care wishes: No written documentation of health care preferences/wishes/goals. . Objective Vital Signs Date Time Temp Pulse Resp B/P (MAP) Pulse Ox O2 Delivery O2 Flow Rate FiO2 12/23/16 17:27 68 139/37 12/23/16 16:33 96 35 12/23/16 16:29 67 134/33 12/23/16 16:00 74 12/23/16 16:00 35 12/23/16 16:00 98.8 74 26 158/37 (77) 12/23/16 15:00 70 26 145/33 (70) 12/23/16 14:00 70 12/23/16 14:00 70 26 141/42 (75) 12/23/16 13:00 65 26 134/40 (71) 12/23/16 12:05 96 35 12/23/16 12:00 67 26 140/43 (75) 12/23/16 12:00 67 12/23/16 12:00 35 12/23/16 11:56 134/40 12/23/16 10:00 76 12/23/16 10:00 76 26 138/42 (74) 98 12/23/16 09:42 161/43 12/23/16 09:34 67 162/44 12/23/16 09:00 65 26 177/49 (91) 100 12/23/16 08:51 99 35 12/23/16 08:00 73 26 135/41 (72) 100 12/23/16 08:00 65 12/23/16 08:00 35 12/23/16 07:00 69 26 137/41 (73) 100 12/23/16 06:00 35 12/23/16 06:00 71 12/23/16 06:00 71 138/41 12/23/16 04:14 100 35 12/23/16 04:00 99.4 69 29 135/38 (70) 100 12/23/16 04:00 40 12/23/16 04:00 69 12/23/16 02:40 69 109/34 12/23/16 02:40 69 111/34 12/23/16 02:00 69 12/23/16 00:00 40 12/23/16 00:00 97.7 71 22 139/38 (71) 100 12/23/16 00:00 71 12/22/16 23:46 99 40 12/22/16 22:11 74 148/42 12/22/16 22:10 75 144/39 12/22/16 22:00 72 12/22/16 21:27 97 40 12/22/16 20:00 98.6 68 26 132/36 (68) 100 Automatic Cuff 12/22/16 20:00 40 12/22/16 20:00 68 12/22/16 19:46 76 146/40 12/22/16 18:00 69 Intake & Output 12/23/16 12/23/16 07:00 19:00 Intake Total 1500 ml 1553 ml Output Total 310 ml Balance 1190 ml 1553 ml IV Total 1400 ml 1553 ml Tube Irrigant 100 ml Gastric Drainage Total 200 ml Chest Tube Drainage Total 110 ml . Physical Exam CONSTITUTIONAL/GENERAL: This is a thin, frail appearing male, sedated, intubated , mechanically ventilated in the MICU. TUBES/LINES/DRAINS: ET tube ; OG tube; dialysis fistula LUE; bilateral soft wrist restraints; bilateral chest catheters; peripheral IV; arterial line right radial artery; right femoral central line. SKIN: No jaundice, rashes. No wounds seen anteriorly. Skin temperature appropriate. Not diaphoretic. EYES: Pupils equal and round. Unable to evaluate EOMs. No scleral icterus. No injection or drainage. Fundi not examined. ENT: Unable to evaluate hearing. Nose without bleeding or purulent drainage. Throat without visible erythema, exudates, masses, or lesions though difficult to assess due to intubations. NECK: Trachea midline. CARDIOVASCULAR: Regular rate and rhythm without murmurs, gallops, or rubs. No JVD. Peripheral pulses symmetric. RESPIRATORY/CHEST: Symmetric, unlabored respirations. Breath sounds diminished at both bases. No wheezes. GASTROINTESTINAL: Abdomen distended, moderately firm. No hepato-splenomegaly, or palpable masses. No guarding. Bowel sounds hypoactive. GENITOURINARY: Without palpable bladder distension. MUSCULOSKELETAL: Extremities without clubbing, cyanosis, or edema. No joint tenderness or effusion noted. No mottling. LYMPHATICS: Not examined NEUROLOGICAL: Sedated. Withdraws to noxious stimuli PSYCHIATRIC: Unable to assess due to level of responsiveness . Diagnostic Tests Laboratory Laboratory Tests Test 12/21/16 04:55 12/21/16 10:33 12/21/16 13:38 12/21/16 15:38 Blood Urea Nitrogen 43 MG/DL (7-18) Creatinine 6.24 MG/DL (0.60-1.30) Random Glucose 150 MG/DL (74-106) Calcium Level 9.0 MG/DL (8.5-10.1) Sodium Level 137 MEQ/L (136-145) Potassium Level 4.8 MEQ/L (3.5-5.1) Chloride Level 99 MEQ/L (98-107) Carbon Dioxide Level 31.2 MEQ/L (21.0-32.0) Anion Gap 7 MEQ/L (5-15) Estimat Glomerular Filtration Rate 10 ML/MIN (>89) Blood Gas Puncture Site RT BRACHIAL JAILENE Blood Gas Patient Temperature 98.6 98.6 Blood Gas HCO3 30 mmol/L (22-26) 27 mmol/L (22-26) Blood Gas Base Excess 4.2 mmol/L (-2-2) -0.4 mmol/L (-2-2) Blood Gas Oxygen Saturation 97 % (90-100) 81 % (90-100) Arterial Blood pH 7.32 (7.380-7.420) 7.20 (7.380-7.420) Arterial Blood Partial Pressure CO2 60 mmHg (38-42) 71 mmHg (38-42) Arterial Blood Partial Pressure O2 227 mmHg (61-120) 60 mmHg (61-120) Arterial Blood Oxygen Content 13.7 Vol % (12.0-20.0) 10.4 Vol % (12.0-20.0) Arterial Blood Carboxyhemoglobin 1.2 % (0-4) 1.0 % (0-4) Arterial Blood Methemoglobin 1.4 % (0-2) 1.3 % (0-2) Blood Gas Hemoglobin 9.7 G/DL (12.0-16.0) 9.1 G/DL (12.0-16.0) Oxygen Delivery Device VENTILATOR VENTILATOR Blood Gas Ventilator Setting SEE COMMENTS Blood Gas Inspired Oxygen 80 % 50 % White Blood Count 1.6 TH/MM3 (4.0-11.0) Red Blood Count 2.54 MIL/MM3 (4.50-5.90) Hemoglobin 8.8 GM/DL (13.0-17.0) Hematocrit 27.8 % (39.0-51.0) Mean Corpuscular Volume 109.7 FL (80.0-100.0) Mean Corpuscular Hemoglobin 34.6 PG (27.0-34.0) Mean Corpuscular Hemoglobin Concent 31.5 % (32.0-36.0) Red Cell Distribution Width 15.2 % (11.6-17.2) Platelet Count 137 TH/MM3 (150-450) Mean Platelet Volume 9.0 FL (7.0-11.0) CBC Comment AUTO DIFF Differential Total Cells Counted 100 Neutrophils % (Manual) 33 % (16-70) Band Neutrophils % 2 % (0-6) Lymphocytes % 57 % (9-44) Monocytes % 4 % (0-8) Neutrophils # (Manual) 0.6 TH/MM3 (1.8-7.7) Metamyelocytes 4 % (0-1) Differential Comment FINAL DIFF MANUAL Test 12/21/16 16:07 12/22/16 05:54 12/22/16 09:26 12/22/16 09:30 Blood Gas Puncture Site ART LINE ART LINE Blood Gas Patient Temperature 98.6 98.6 Blood Gas HCO3 21 mmol/L (22-26) 20 mmol/L (22-26) Blood Gas Base Excess -4.5 mmol/L (-2-2) -6.6 mmol/L (-2-2) Blood Gas Oxygen Saturation 93 % (90-100) 96 % (90-100) Arterial Blood pH 7.31 (7.380-7.420) 7.24 (7.380-7.420) Arterial Blood Partial Pressure CO2 42 mmHg (38-42) 48 mmHg (38-42) Arterial Blood Partial Pressure O2 84 mmHg (61-120) 153 mmHg (61-120) Arterial Blood Oxygen Content 10.7 Vol % (12.0-20.0) 10.8 Vol % (12.0-20.0) Arterial Blood Carboxyhemoglobin 1.1 % (0-4) 1.2 % (0-4) Arterial Blood Methemoglobin 1.2 % (0-2) 1.5 % (0-2) Blood Gas Hemoglobin 8.1 G/DL (12.0-16.0) 7.8 G/DL (12.0-16.0) Oxygen Delivery Device VENTILATOR VENTILATOR Blood Gas Ventilator Setting 24/450/1.0/+10 Blood Gas Inspired Oxygen 50 % 50 % White Blood Count 3.9 TH/MM3 (4.0-11.0) Red Blood Count 2.34 MIL/MM3 (4.50-5.90) Hemoglobin 8.2 GM/DL (13.0-17.0) Hematocrit 25.4 % (39.0-51.0) Mean Corpuscular Volume 108.7 FL (80.0-100.0) Mean Corpuscular Hemoglobin 35.0 PG (27.0-34.0) Mean Corpuscular Hemoglobin Concent 32.2 % (32.0-36.0) Red Cell Distribution Width 15.1 % (11.6-17.2) Platelet Count 112 TH/MM3 (150-450) Mean Platelet Volume 9.8 FL (7.0-11.0) Neutrophils (%) (Auto) 68.5 % (16.0-70.0) Lymphocytes (%) (Auto) 23.2 % (9.0-44.0) Monocytes (%) (Auto) 8.0 % (0.0-8.0) Eosinophils (%) (Auto) 0.2 % (0.0-4.0) Basophils (%) (Auto) 0.1 % (0.0-2.0) Neutrophils # (Auto) 2.7 TH/MM3 (1.8-7.7) Lymphocytes # (Auto) 0.9 TH/MM3 (1.0-4.8) Monocytes # (Auto) 0.3 TH/MM3 (0-0.9) Eosinophils # (Auto) 0.0 TH/MM3 (0-0.4) Basophils # (Auto) 0.0 TH/MM3 (0-0.2) CBC Comment AUTO DIFF Differential Total Cells Counted 100 Neutrophils % (Manual) 27 % (16-70) Band Neutrophils % 42 % (0-6) Lymphocytes % 23 % (9-44) Monocytes % 4 % (0-8) Neutrophils # (Manual) 2.8 TH/MM3 (1.8-7.7) Metamyelocytes 3 % (0-1) Myelocytes 1 % (0-0) Differential Comment FINAL DIFF MANUAL Platelet Estimate LOW (NORMAL) Platelet Morphology Comment NORMAL (NORMAL) Blood Urea Nitrogen 53 MG/DL (7-18) Creatinine 6.97 MG/DL (0.60-1.30) Random Glucose 114 MG/DL (74-106) Calcium Level 8.3 MG/DL (8.5-10.1) Sodium Level 131 MEQ/L (136-145) Potassium Level 5.6 MEQ/L (3.5-5.1) Chloride Level 92 MEQ/L (98-107) Carbon Dioxide Level 23.9 MEQ/L (21.0-32.0) Anion Gap 15 MEQ/L (5-15) Estimat Glomerular Filtration Rate 9 ML/MIN (>89) Random Vancomycin Level 11.8 COMMENT Lactic Acid Level 6.8 mmol/L (0.4-2.0) Test 12/22/16 18:05 12/23/16 04:08 12/23/16 10:25 12/23/16 10:55 Lactic Acid Level 5.9 mmol/L (0.4-2.0) 4.1 mmol/L (0.4-2.0) White Blood Count 4.3 TH/MM3 (4.0-11.0) Red Blood Count 2.09 MIL/MM3 (4.50-5.90) Hemoglobin 7.4 GM/DL (13.0-17.0) Hematocrit 22.1 % (39.0-51.0) Mean Corpuscular Volume 105.5 FL (80.0-100.0) Mean Corpuscular Hemoglobin 35.2 PG (27.0-34.0) Mean Corpuscular Hemoglobin Concent 33.4 % (32.0-36.0) Red Cell Distribution Width 14.8 % (11.6-17.2) Platelet Count 90 TH/MM3 (150-450) Mean Platelet Volume 10.6 FL (7.0-11.0) Neutrophils (%) (Auto) 80.4 % (16.0-70.0) Lymphocytes (%) (Auto) 12.7 % (9.0-44.0) Monocytes (%) (Auto) 4.9 % (0.0-8.0) Eosinophils (%) (Auto) 1.9 % (0.0-4.0) Basophils (%) (Auto) 0.1 % (0.0-2.0) Neutrophils # (Auto) 3.5 TH/MM3 (1.8-7.7) Lymphocytes # (Auto) 0.5 TH/MM3 (1.0-4.8) Monocytes # (Auto) 0.2 TH/MM3 (0-0.9) Eosinophils # (Auto) 0.1 TH/MM3 (0-0.4) Basophils # (Auto) 0.0 TH/MM3 (0-0.2) CBC Comment AUTO DIFF Differential Comment AUTO DIFF CONFIRMED Platelet Estimate LOW (NORMAL) Platelet Morphology Comment ENLARGED (NORMAL) Blood Urea Nitrogen 39 MG/DL (7-18) Creatinine 4.79 MG/DL (0.60-1.30) Random Glucose 116 MG/DL (74-106) Total Protein 5.7 GM/DL (6.4-8.2) Calcium Level 7.1 MG/DL (8.5-10.1) Sodium Level 130 MEQ/L (136-145) Potassium Level 4.7 MEQ/L (3.5-5.1) Chloride Level 93 MEQ/L (98-107) Carbon Dioxide Level 25.2 MEQ/L (21.0-32.0) Anion Gap 12 MEQ/L (5-15) Estimat Glomerular Filtration Rate 14 ML/MIN (>89) Protein Corrected Calcium 7.8 MG/DL (8.5-10.1) Blood Gas Puncture Site ART LINE Blood Gas Patient Temperature 98.6 Blood Gas HCO3 23 mmol/L (22-26) Blood Gas Base Excess -2.0 mmol/L (-2-2) Blood Gas Oxygen Saturation 96 % (90-100) Arterial Blood pH 7.33 (7.380-7.420) Arterial Blood Partial Pressure CO2 44 mmHg (38-42) Arterial Blood Partial Pressure O2 125 mmHg (61-120) Arterial Blood Oxygen Content 11.6 Vol % (12.0-20.0) Arterial Blood Carboxyhemoglobin 1.3 % (0-4) Arterial Blood Methemoglobin 1.2 % (0-2) Blood Gas Hemoglobin 8.4 G/DL (12.0-16.0) Oxygen Delivery Device VENTILATOR Blood Gas Ventilator Setting SEE COMMENTS Blood Gas Inspired Oxygen 35 % Test 12/23/16 15:45 12/23/16 16:25 Blood Gas Puncture Site ART LINE Blood Gas Patient Temperature 98.6 Blood Gas HCO3 22 mmol/L (22-26) Blood Gas Base Excess -3.7 mmol/L (-2-2) Blood Gas Oxygen Saturation 96 % (90-100) Arterial Blood pH 7.31 (7.380-7.420) Arterial Blood Partial Pressure CO2 45 mmHg (38-42) Arterial Blood Partial Pressure O2 134 mmHg (61-120) Arterial Blood Oxygen Content 10.3 Vol % (12.0-20.0) Arterial Blood Carboxyhemoglobin 1.2 % (0-4) Arterial Blood Methemoglobin 1.3 % (0-2) Blood Gas Hemoglobin 7.4 G/DL (12.0-16.0) Oxygen Delivery Device VENTILATOR Blood Gas Ventilator Setting PC/AC RATE 26 Blood Gas Inspired Oxygen 35 % Lactic Acid Level 3.8 mmol/L (0.4-2.0) . Result Diagram: 12/23/16 0408 12/23/16 0408 Microbiology Microbiology Date/Time Source Procedure Growth Status 12/21/16 10:24 Sputum Endotracheal Gram Stain - Final Complete 12/21/16 10:24 Sputum Culture - Final Klebsiella Pneumoniae Complete . Imaging Last Impressions Chest X-Ray 12/23/16 0000 Signed Impressions: Service Date/Time: Friday, December 23, 2016 15:15 - CONCLUSION: 1. Interval placement of a subpulmonic chest tube on the right which is in good position. Subpulmonic pneumothorax remains. 2. Unchanged left thoracostomy tube with unchanged left subpulmonic pneumothorax. Nic Brown Jr., MD Abdomen X-Ray 12/23/16 0000 Signed Impressions: Service Date/Time: Friday, December 23, 2016 10:28 - CONCLUSION: Some improvement in the distention of the small bowel compared to the prior study. Nic Brown Jr., MD Chest CT 12/20/16 0000 Signed Impressions: Service Date/Time: Tuesday, December 20, 2016 16:26 - CONCLUSION: 1. Moderate right and small left hydropneumothorax with small caliber chest tubes present bilaterally, not significant changed from prior chest radiograph. Dependent consolidation and atelectasis of both lungs. No pneumomediastinum or subcutaneous air. Germán Vences MD . Procedures * Biltateral chest tube placement * Intubation/mechanical ventilation . Assessment and Plan Disease Oriented Problem List: (1) Loculated pleural effusion Comment: Pulmonology and cardi-thoracic surgery do not feel there is a workable solution to this problem given the patient's overall functional capacity. . (2) Pneumothorax (3) ESRD (end stage renal disease) on dialysis Comment: Normally on dialysis M, W, F. . (4) Peripheral vascular disease (5) Anemia (6) Stroke Comment: Had two strokes in 2012. Now with significant left sided weakness. . (7) Osteoarthritis (8) Hypertension (9) Glaucoma Symptom Scale: (1) Pain 0-10 Scale: Unable to quantify Comment: Has history of back pain and arthritis pain with use of PRN tramadol at home. Other sources of pain now include prolonged bedbound status; orotracheal and orogastric intubations; restraints; vascular access lines; etc. Patient is unable to locate, quantify, qualify pain. Currently has orders for a fentanyl drip and for tramadol. . (2) Dyspnea 0-10 Scale: Unable to quantify Comment: Dyspnea due to pneumothorax and recurrent pleural effusions. Now being managed on vent. . (3) Encephalopathy 0-10 Scale: Unable to quantify Comment: Patient continues on sedation. Will need to evaluate clinically off sedation to see if there is any significant cognitive loss. . Pertinent Non-Medical Issues Psychosocial: Supported by of over 30 years. Patient has 8 biological children and 5 step-children. Spiritual: Quaker Legal: DPOA for [facility] scanned into EMR. Ethical issues impacting care: Patient is incapacitated and is not likely to regain capacity. . Important Contacts * Pio Lerner (spouse; DPOA for [facility]) [phone] . 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 Cardiothoracic surgery does not believe patient could tolerate the procedure necessary to repair this. In addition to his kidney disease and incurable lung disease, patient now has hemodynamic instability requiring pressors. Critical care and pulmonology feel he has an end stage condition. In my clinical opinion, patient has an overall end stage condition. I don't believe there is a reasonable probability of patient regaining capacity. Patient would be an appropriate hospice candidate at such time that his health care surrogate decides to forego further aggressive care and treansition to comfort care. . Code Status: Full Code Plan == Code Status: FULL CODE. (who is the DPOA for [facility]) feels obligated to allow one more attempted resuscitation. She feels the patient opted to go on life support on his own. She understands his dire circumstances and poor prognosis and risks of preforming CPR on him in his fragile position. == Decision making: Patient is incapacitated to make his own health care decisions. At this point, probability of the patient being able to regain capacity to make his own health care decisions is remote. While incapacitated, his Pio Lerner, is the [facility] DPOA. == Goals of medical treatment: knows he may be dying now and doesn't want to prolong suffering.. However, she also knows that the patient opted on his own to get ventilatory support and she wants to know that she is following his wishes. For that reason, she feels she owes him one more resuscitation attempt if needed. Therefore, we will continue with aggressive care. == Symptoms * Pain: Has history of back pain and arthritis pain with use of PRN tramadol at home. Other sources of pain now include prolonged bedbound status; orotracheal and orogastric intubations; restraints; vascular access lines; etc. Currently has orders for a fentanyl drip and for tramadol. No further recommendations at this time. * Dyspnea: Dyspnea is secondary to his chronic / recurrent pleural effusions and pneumothoraces. Currently managed by chest tubes and ventilator. Opiates would help for treating dyspnea if needed. Currently has orders for a fentanyl drip and for tramadol. No further recommendations at this time. * Encephalopathy: Unclear at this time to what extent patient is minimally responsive due to sedation vs to underlying illness. Can re-evaluate when stable enough for a "sedation vacation." == Palliative care contact information provided to spouse == Palliative care will continue to follow to assist with symptom management and to further clarify goals of medical treatment as the clinical course evolves. . Jesus Freitas MD Dec 23, 2016 17:58
--- NOTE | 2016-12-23 20:41 | RADRPT ---
EXAM DATE/TIME: 12/23/2016 19:57 [facility] COMPARISON: CHEST SINGLE AP, December 23, 2016, 15:15. INDICATIONS : Shortness of breath. MEDICAL HISTORY : Renal insufficiency. Stroke. Hypertension. pneumothorax, VDRF SURGICAL HISTORY : Bilateral chest tubes ENCOUNTER: Subsequent ACUITY: 3 days PAIN SCORE: Non-responsive. LOCATION: Bilateral chest FINDINGS: There are pneumothoraces bilaterally not significantly changed and there is a pigtail chest tube on t he left side, however previously seen right lower chest chest tube is no longer seen. There appears t o be less consolidation in the right midlung and in the hazy opacity right upper lobe have not change d. Mild left lung base atelectasis and/or infiltrate is seen. ET tube, and NG tube have not changed. CONCLUSION: The right chest tube is not visualized possibly withdrawn and the size of the pneumothoraces bilatera lly have not significantly changed. There appears to be less consolidation right lung base otherwise not significantly changed. Candy Galo MD on December 23, 2016 at 20:37 Board Certified Radiologist. This report was verified electronically.
--- NOTE | 2016-12-23 21:14 | RADRPT ---
EXAM DATE/TIME: 12/23/2016 20:44 [facility] COMPARISON: CHEST SINGLE AP, December 23, 2016, 19:57. INDICATIONS : Post right chest tube placement. MEDICAL HISTORY : Renal insufficiency. Stroke. Hypertension. pneumothorax, VDRF SURGICAL HISTORY : Bilateral chest tubes ENCOUNTER: Subsequent ACUITY: 3 days PAIN SCORE: Non-responsive. LOCATION: Right chest FINDINGS: Right chest tube has been placed. Bilateral pneumothorax and not changed. opacification of right uppe r lung, right lower lung and partially left lung base have not changed. ET tube, and NG tube have not changed. CONCLUSION: Placement of right chest tube and otherwise no change in bilateral pneumothoraces. Candy Galo MD on December 23, 2016 at 21:12 Board Certified Radiologist. This report was verified electronically.
[2016-12-23] MEDS: PRAVASTATIN SOD 20 MG TAB PO SCH ×2 (22:29)
[2016-12-23] MEDS: LATANOPROST 0.005% OPHT SOLN 2.5 ML BTL EACH EYE SCH ×2 (22:31)
[2016-12-24] VITALS (21 sets, daily range): BP systolic 127–177; BP diastolic 31–43; PULSE 61–94; RESP 18–28; TEMP 97.7–99.2; O2SAT 91–100
[2016-12-24] MEDS: PHENYLEPHRINE INJ 40 MG in DEXTROSE 5% IN WATE 500 ML INJ 496 ML IV PRN ×20 (00:49→22:01)
[2016-12-24] MEDS: PIPERACIL-TAZO 2.25 GM PREMIX 50 ML IV SCH ×6 (00:49→17:21)
[2016-12-24] MEDS: INSULIN NovoLIN REGULAR SUPPLEMENTAL SCALE SQ SCH ×12 (01:00→21:00)
[2016-12-24] MEDS: NOREPINEPHRINE 4 MG/D5W 250 ML IV PRN ×6 (02:13→20:10)
[2016-12-24] MEDS: CHLORHEXIDINE GLUCONATE 2 % 1 PACK (2 CLOTHS) TOP SCH ×2 (03:25)
[2016-12-24] MEDS: RESP: ALBUTEROL 2.5 MG/IPRATROPIUM 0.5 MG NEB (SCH) NEB ×8 (03:29→19:31)
[2016-12-24] MEDS: HYDROCORTISONE SOD SUCCINATE 100 MG VIAL IV PUSH SCH ×6 (05:44→22:01)
[2016-12-24 05:50] LABS: AUTOMATED NEUTROPHIL # 3.5 TH/MM3 (1.8-7.7); BASOPHIL % 0.2 % (0.0-2.0); EOSINOPHIL # 0.1 TH/MM3 (0-0.4); EOSINOPHIL % 2.1 % (0.0-4.0); LYMPH % 11.8 % (9.0-44.0); LYMPHOCYTE # 0.5 TH/MM3 (1.0-4.8); MEAN CELL VOLUME 102.4 FL (80.0-100.0); MEAN CORPUSCULAR HEMOGLOBIN 35.4 PG (27.0-34.0); MEAN CORPUSCULAR HGB CONC 34.6 % (32.0-36.0); MEAN PLATELET VOLUME 11.2 FL (7.0-11.0); MONO % 4.9 % (0.0-8.0); MONOCYTE # 0.2 TH/MM3 (0-0.9); PLATELET COUNT 80 TH/MM3 (150-450); RED CELL DISTRIBUTION WIDTH 14.7 % (11.6-17.2); WHITE BLOOD COUNT 4.4 TH/MM3 (4.0-11.0)
[2016-12-24 06:16] LABS: HEMOGLOBIN 6.7 GM/DL (13.0-17.0)
[2016-12-24 06:17] LABS: HEMATOCRIT 19.5 % (39.0-51.0)
[2016-12-24 06:35] LABS: CALCIUM 6.8 MG/DL (8.5-10.1); CREATININE 5.42 MG/DL (0.60-1.30); RANDOM VANCOMYCIN 10.9 COMMENT
[2016-12-24 07:19] LABS: CALCIUM-PROTEIN CORRECTED 7.5 MG/DL (8.5-10.1); TOTAL PROTEIN 5.7 GM/DL (6.4-8.2)
[2016-12-24] MEDS: DOCUSATE SODIUM 100 MG/10 ML UDC PO SCH ×4 (08:02→22:01)
[2016-12-24] MEDS: SENNOSIDES SYRUP 8.8 MG/5 ML CUP PO SCH ×2 (08:02)
[2016-12-24] MEDS: DOCUSATE SODIUM 50 MG/SENNA 8.6 MG TAB PO SCH ×4 (08:02→22:02)
[2016-12-24] MEDS: ASPIRIN EC 81 MG TABEC PO SCH ×2 (08:02)
[2016-12-24] MEDS: DIPYRIDAMOLE 25 MG TAB PO SCH ×4 (08:19→22:02)
[2016-12-24] MEDS: CALCIUM CARBONATE 1.25 GM (CA 500 MG) TAB PO SCH ×2 (08:19)
[2016-12-24] MEDS: MINOXIDIL 2.5 MG TAB PO SCH ×2 (08:19)
[2016-12-24] MEDS: ERGOCALCIFEROL (VIT D2) 50,000 UNIT CAP PO SCH ×2 (08:20)
[2016-12-24] MEDS: VITAMIN B CMPLX/VITC/FOLIC AC CAP PO SCH ×2 (08:20)
[2016-12-24] MEDS: PANTOPRAZOLE SODIUM 40 MG VIAL IV PUSH SCH ×2 (08:21)
[2016-12-24] MEDS: SODIUM CHLORIDE 0.9% FLUSH 10 ML FLUSH IV FLUSH SCH ×4 (08:21→22:02)
[2016-12-24] MEDS: DORZOLAMIDE/TIMOLOL OPTH SOLN 10 ML BTL EACH EYE SCH ×4 (08:22→22:03)
[2016-12-24] MEDS: CHLORHEXIDINE 0.12% (ORAL KIT) 15 ML CUP MT SCH ×4 (08:22→22:04)
[2016-12-24] MEDS: VASOPRESSIN 40 U/D5W 100 ML Shock/septic shock, do NOT titrate until taper off IV SCH ×4 (08:23)
[2016-12-24] MEDS: HEPARIN SODIUM - SQ 10,000 UNITS/ML VIAL SQ SCH ×6 (08:24→22:02)
--- NOTE | 2016-12-24 08:40 | HHI.CCPN ---
Subjective Remarks/Hospital Course 86-year-old very pleasant male presents complaining of shortness of breath. Patient states that the symptoms started last night. He has history recurrent pleural effusion status post thoracentesis in the past. Patient is scheduled to have bilateral thoracentesis done by interventional radiologist. Patient denies any headache. Patient denies any chest pain. Patient denies abdominal pain. Patient denies any focal weakness or numbness of extremity. Patient's director market intelligence Dr. Thompson. Patient also has history of hypertension, hyperlipidemia, CVA and anemia. In the emergency department the chest x-ray revealed large pleural effusion on the right and a large pneumothorax on the left. Emergent chest tubes were placed bilaterally with partial resolution of pneumothorax on the left and drainage of 700 cc of hemorrhagic fluid from the right side however bilateral residual bibasal pneumothoraces. After procedures patient's respiration is significantly improved as well as his oxygenation. 12/21 Patient required increase O2 overnight wa son BIPAP with 100% FIO2. CXR this morning showed consolidative opacity right lung and stable bibasilar pneumothoraces. Due to resp distress and patient was intubated and placed on mechanical ventilation. 12/22 Patient is intubated and sedated with Fentanyl drip. On Neosyn 100 mics, Levophed 9 mics and vasopressin. Afebrile. 12/23 Patient remains intubated and sedated. On multiple pressors ( Levophed 4 mics, Neosyn 106 mics, Vasopressin).s/p HD yesterday with removal 700ml. 12/24 Patient remains intubated and sedated. On Levophed 6 mics, Neosyn 130 mics , vasopressin 0.04. ![address] was placed yesterday on right side for right subpulmonic PTX however it was dislodged last night and 20FR CT was placed. Objective Vital Signs Date Time Temp Pulse Resp B/P (MAP) Pulse Ox O2 Delivery O2 Flow Rate FiO2 12/24/16 08:23 61 168/36 12/24/16 07:34 94 35 12/24/16 04:00 99.2 26 12/21/16 03:57 Nasal Cannula 4.00 Intake and Output 12/24/16 12/24/16 12/25/16 08:00 16:00 00:00 Intake Total 1450 ml Output Total 100 ml Balance 1350 ml Result Diagram: 12/24/16 0433 12/24/16 0433 Other Results Laboratory Tests Test 12/23/16 10:25 12/23/16 10:55 12/23/16 15:45 12/23/16 16:25 Lactic Acid Level 4.1 mmol/L 3.8 mmol/L Blood Gas Puncture Site ART LINE ART LINE Blood Gas Patient Temperature 98.6 98.6 Blood Gas HCO3 23 mmol/L 22 mmol/L Blood Gas Base Excess -2.0 mmol/L -3.7 mmol/L Blood Gas Oxygen Saturation 96 % 96 % Arterial Blood pH 7.33 7.31 Arterial Blood Partial Pressure CO2 44 mmHg 45 mmHg Arterial Blood Partial Pressure O2 125 mmHg 134 mmHg Arterial Blood Oxygen Content 11.6 Vol % 10.3 Vol % Arterial Blood Carboxyhemoglobin 1.3 % 1.2 % Arterial Blood Methemoglobin 1.2 % 1.3 % Blood Gas Hemoglobin 8.4 G/DL 7.4 G/DL Oxygen Delivery Device VENTILATOR VENTILATOR Blood Gas Ventilator Setting SEE COMMENTS PC/AC RATE 26 Blood Gas Inspired Oxygen 35 % 35 % Test 12/24/16 04:33 White Blood Count 4.4 TH/MM3 Red Blood Count 1.90 MIL/MM3 Hemoglobin 6.7 GM/DL Hematocrit 19.5 % Mean Corpuscular Volume 102.4 FL Mean Corpuscular Hemoglobin 35.4 PG Mean Corpuscular Hemoglobin Concent 34.6 % Red Cell Distribution Width 14.7 % Platelet Count 80 TH/MM3 Mean Platelet Volume 11.2 FL Neutrophils (%) (Auto) 81.0 % Lymphocytes (%) (Auto) 11.8 % Monocytes (%) (Auto) 4.9 % Eosinophils (%) (Auto) 2.1 % Basophils (%) (Auto) 0.2 % Neutrophils # (Auto) 3.5 TH/MM3 Lymphocytes # (Auto) 0.5 TH/MM3 Monocytes # (Auto) 0.2 TH/MM3 Eosinophils # (Auto) 0.1 TH/MM3 Basophils # (Auto) 0.0 TH/MM3 CBC Comment AUTO DIFF Blood Urea Nitrogen 50 MG/DL Creatinine 5.42 MG/DL Random Glucose 140 MG/DL Total Protein 5.7 GM/DL Calcium Level 6.8 MG/DL Sodium Level 122 MEQ/L Potassium Level 4.7 MEQ/L Chloride Level 86 MEQ/L Carbon Dioxide Level 23.0 MEQ/L Anion Gap 13 MEQ/L Estimat Glomerular Filtration Rate 12 ML/MIN Protein Corrected Calcium 7.5 MG/DL Random Vancomycin Level 10.9 COMMENT Imaging Last Impressions Chest X-Ray 12/23/161999 Signed Impressions: Service Date/Time: Friday, December 23, 2016 19:57 - CONCLUSION: The right chest tube is not visualized possibly withdrawn and the size of the pneumothoraces bilaterally have not significantly changed. There appears to be less consolidation right lung base otherwise not significantly changed. Candy Galo MD Abdomen X-Ray 12/23/16 0000 Signed Impressions: Service Date/Time: Friday, December 23, 2016 10:28 - CONCLUSION: Some improvement in the distention of the small bowel compared to the prior study. Nic Brown Jr., MD Chest CT 12/20/16 0000 Signed Impressions: Service Date/Time: Tuesday, December 20, 2016 16:26 - CONCLUSION: 1. Moderate right and small left hydropneumothorax with small caliber chest tubes present bilaterally, not significant changed from prior chest radiograph. Dependent consolidation and atelectasis of both lungs. No pneumomediastinum or subcutaneous air. Germán Vences MD Objective Remarks GENERAL: Patient is 86 yo intubated and sedated SKIN: Warm and dry. HEAD: Normocephalic. EYES: No scleral icterus. No injection or drainage. NECK: Supple, trachea midline. No JVD or lymphadenopathy. Orally intubated CARDIOVASCULAR: Regular rate and rhythm without murmurs, gallops, or rubs. + b/ p pig tail catheters in place. RESPIRATORY: Breath sounds equal bilaterally. No accessory muscle use. GASTROINTESTINAL: Abdomen soft, non-tender, nondistended. MUSCULOSKELETAL: No cyanosis, or edema. Neuro: sedated A/P Assessment and Plan 1)VDRF 2)Right sided pneumonia 3)Bibasilar hydroPTX 5)ESRD 6)HTN 7)Macrocytic Anemia Plan Neuro: On fentanyl infusion for sedation. Monitor neuro status. Daily sedation vacation when appropriate Pulm: Continue with vent support keep sat >92% Bronchodilators, ICU vent bundle. Check CXR Monitor CT drainage. CTS is following- Dr. Jaar, patient is poor operative candidate. CV: Monitor HR and BP keep MAP>65mmHg Wean off pressors ( On Levophed, Neosyn, Vasopressin) On stress dose steroids- HC 100mg Q8 Lactic aid is trending down 3.8 yesterday : Monitor renal function, avoid nephrotoxins HD per renal-Dr. Thompson. s/p HD 12/22 with removal 700ml GI: On Protonix 40mg daily for GI prophylaxis Start tube feeds- trickle feeds with Nepro@20,l/hr on bowel regimen Colace, Senna KUB abdomen 12/23: Some improvement in the distention of the small bowel compared to the prior study. KUB abdomen: 12/22: Localized ileus vs early SBO. Will repeat KUB today. OGT to LIWS ID: Continue abx per ID ( Zosyn, Azithromycin)monitor for signs of infections ( Fever, WBC) sputum cx 12/21: Kleb pneumonia BC, fluid cx from 12/19:NGTD Heme: Monitor CBC, transfuse 2units PRBC Endo: SSI with accuchecks GI prophylaxis- Protonix 40mg daily DVT prophylaxis- SCD. Heparin SQ Palliative care is following Patient is critcally ill with resp failure, pneumonia, septic shock on multiple pressors, ESRD on HD. Discussed with patient's and updated her on his condition. CCT 35 mins Aurea Lovell MD Dec 24, 2016 08:40
[2016-12-24 08:52] LABS: MEAN CELL VOLUME 103.5 FL (80.0-100.0); MEAN CORPUSCULAR HEMOGLOBIN 34.7 PG (27.0-34.0); MEAN CORPUSCULAR HGB CONC 33.5 % (32.0-36.0); MEAN PLATELET VOLUME 10.8 FL (7.0-11.0); PLATELET COUNT 85 TH/MM3 (150-450); RED BLOOD COUNT 1.98 MIL/MM3 (4.50-5.90); RED CELL DISTRIBUTION WIDTH 15.2 % (11.6-17.2); WHITE BLOOD COUNT 4.3 TH/MM3 (4.0-11.0)
--- NOTE | 2016-12-24 08:59 | RADRPT ---
EXAM DATE/TIME: 12/24/2016 08:06 [facility] COMPARISON: CHEST SINGLE AP, December 23, 2016, 20:44. INDICATIONS : Evaluate chest tubes. Respiratory failure. MEDICAL HISTORY : Renal insufficiency. Stroke. Hypertension. pneumothorax, VDRF SURGICAL HISTORY : Chest tube ENCOUNTER: Subsequent ACUITY: 4 - 6 days PAIN SCORE: Non-responsive. LOCATION: Bilateral chest FINDINGS: There has been no significant interval change when compared to the prior study. Bilateral subpulmonic pneumothoraces persist. Bilateral chest tubes. A tiny right effusion. Heart is normal in size. Tip o f the endotracheal tube 3 cm cephalad to the agnes. Nasogastric tube courses off the anterior margin of the film. Bilateral osteoarthritis of the shoulders. CONCLUSION: 1. Unchanged bilateral subpulmonic pneumothoraces despite chest tubes. Nic Brown Jr., MD on December 24, 2016 at 8:56 Board Certified Radiologist. This report was verified electronically.
[2016-12-24 09:06] LABS: CREATININE 5.49 MG/DL (0.60-1.30)
[2016-12-24] MEDS: AZITHROMYCIN INJ 500 MG in SODIUM CHLOR 0.9% 250 ML INJ 250 ML IV SCH ×4 (09:09)
[2016-12-24 09:23] LABS: CALCIUM-PROTEIN CORRECTED 7.7 MG/DL (8.5-10.1); HEMOGLOBIN 6.9 GM/DL (13.0-17.0); TOTAL PROTEIN 5.8 GM/DL (6.4-8.2)
[2016-12-24 09:24] LABS: HEMATOCRIT 20.5 % (39.0-51.0)
[2016-12-24 09:25] LABS: NUCLEATED RED BLOOD CELL 1 (0-0); POLYS (SEG NEUTROPHILS) 44 % (16-70)
[2016-12-24 09:26] LABS: BANDS 16 % (0-6); CORRECTED NUCLEATED RBC 1 /100 WBC (0-0); LYMPHOCYTES 13 % (9-44); METAMYELOCYTES 14 % (0-1); MONOCYTES 13 % (0-8); NEUTROPHIL # MANUAL DIFF 3.3 TH/MM3 (1.8-7.7)
[2016-12-24 09:29] LABS: ACANTHOCYTES OCC (NORMAL); OVALOCYTES 1+ (NORMAL)
--- NOTE | 2016-12-24 09:34 | HHI.NPPN ---
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 Patient now presents with increasing shortness of breath noted to have bilateral pleural effusions which appear to be loculated. Patient missed his dialysis session yesterday. Moderate hyperkalemia on presentation. Now status post bilateral pigtail catheter placement left and right pleural cavity. Pneumothorax bilaterally postprocedure. Patient seen during his dialysis session. Appears to be lethargic and nonverbal at this time. Interval History Patient remains intubated, unresponsive critically ill on multiple inotropic agents. Review of Systems General General Remarks Unable to obtain d/t clinical status Objective Data Data Vital Signs Date Time Temp Pulse Resp B/P (MAP) Pulse Ox O2 Delivery O2 Flow Rate FiO2 12/24/16 08:23 61 168/36 12/24/16 07:34 94 35 12/24/16 06:24 62 153/35 12/24/16 06:00 62 12/24/16 04:02 100 35 12/24/16 04:00 64 12/24/16 04:00 35 12/24/16 04:00 99.2 63 26 149/41 (77) 100 12/24/16 03:30 63 160/42 12/24/16 02:13 63 133/37 12/24/16 02:00 66 12/24/16 00:49 68 134/38 12/24/16 00:45 66 123/35 12/24/16 00:10 96 35 12/24/16 00:00 72 12/24/16 00:00 35 12/24/16 00:00 98.2 72 26 127/38 (67) 91 12/23/16 23:50 72 132/38 12/23/16 23:45 73 133/38 12/23/16 23:40 74 136/39 12/23/16 23:40 74 136/39 12/23/16 23:35 73 139/38 12/23/16 23:30 73 145/39 12/23/16 23:20 74 165/39 12/23/16 23:20 74 165/39 12/23/16 23:10 74 165/40 12/23/16 23:00 74 163/43 12/23/16 22:50 68 150/38 12/23/16 22:00 70 12/23/16 21:07 97 35 12/23/16 20:00 35 12/23/16 20:00 64 12/23/16 20:00 98.0 64 26 121/33 (62) 100 12/23/16 19:30 66 127/34 12/23/16 19:20 68 122/31 12/23/16 19:10 70 135/35 12/23/16 18:07 75 12/23/16 17:27 68 139/37 12/23/16 16:33 96 35 12/23/16 16:29 67 134/33 12/23/16 16:00 74 12/23/16 16:00 35 12/23/16 16:00 98.8 74 26 158/37 (77) 12/23/16 15:00 70 26 145/33 (70) 12/23/16 14:00 70 12/23/16 14:00 70 26 141/42 (75) 12/23/16 13:00 65 26 134/40 (71) 12/23/16 12:05 96 35 12/23/16 12:00 67 26 140/43 (75) 12/23/16 12:00 67 12/23/16 12:00 35 12/23/16 11:56 134/40 12/23/16 10:00 76 12/23/16 10:00 76 26 138/42 (74) 98 12/23/16 09:42 161/43 -: 12/24/16 0800 12/24/16 0800 Physical Exam General Appearance: Malnourished Pulmonary Resp Exam: No Distress, Diminished Breath Sounds Cardiology CV Exam: Regular, Normal Sinus Rhythm Gastrointestinal/Abdomen GI Exam: Soft Integumentary Skin Exam: Warm Extremeties Extremities Exam: No Edema Neurologic Neuro Exam: Sedated VTE Prophylaxis Device: SCDs Assessment/Plan Problem List: (1) ESRD (end stage renal disease) on dialysis ICD Codes: N18.6 - End stage renal failure on dialysis; Z99.2 - Dependence on renal dialysis Status: Chronic Plan: Again still with shock syndrome. History of failure to thrive. She was commended for the care that she has provided the over the last several years however I indicated to her that his prognosis at this point in time is bleak in my opinion. Consideration should be given to a DNR CODE STATUS as well as hospice care for patient comfort. Await opinion from palliative care and other consultants. We'll continue dialytic support as long as family wishes but we may have to give discontinue dialysis if patient becomes to hemodynamically unstable to tolerate same. We'll defer decision for transfusion to primary physician. Medications should be adjusted for the patient's estimated end stage renal disease if clinically indicated. Gadolinium contraindicated. (2) Hyperkalemia ICD Codes: E87.5 - Hyperkalemia Plan: Will improve with dialysis today. (3) Failure to thrive in adult ICD Codes: R62.7 - Adult failure to thrive Plan: Palliative has been consulted Unfortunately appears to be deteriorating and is now on multiple pressors with intubation. (4) Non-compliance with renal dialysis ICD Codes: Z91.15 - Patient's noncompliance with renal dialysis Plan: I do not believe that we can improve patient's compliance given previous attempts but will continue education. (5) HTN (hypertension) ICD Codes: I10 - Hypertension Status: Chronic Plan: By hx. Hypotensive currently on inotropic support (6) Anemia of renal disease ICD Codes: D63.1 - Anemia in chronic kidney disease Izabela Thompson MD Dec 24, 2016 09:34
[2016-12-24 09:39] LABS: BANDS 18 % (0-6); CORRECTED NUCLEATED RBC 3 /100 WBC (0-0); LYMPHOCYTES 10 % (9-44); METAMYELOCYTES 17 % (0-1); MONOCYTES 12 % (0-8); NEUTROPHIL # MANUAL DIFF 3.4 TH/MM3 (1.8-7.7); NUCLEATED RED BLOOD CELL 3 (0-0); POLYS (SEG NEUTROPHILS) 43 % (16-70)
[2016-12-24 09:41] LABS: ACANTHOCYTES OCC (NORMAL); BURR CELLS 1+ (NORMAL)
[2016-12-24 09:42] LABS: OVALOCYTES 1+ (NORMAL)
[2016-12-24 09:49] LABS: AMYLASE BODY FLUID 45 U/L; AMYLASE BODY FLUID TYPE PLEURAL
[2016-12-24] MEDS: fentaNYL DRIP 250 ML IV PRN ×2 (10:04)
--- NOTE | 2016-12-24 11:07 | HHI.IDPN ---
Subjective Subjective Remarks Patient is an 86-year-old male, initially presented to the hospital on December 19, for a scheduled bilateral thoracenteses. He has had problem with recurrent pleural effusion, as well as ascites, and has had multiple procedures done to drain the fluid. He was scheduled to have thoracentesis on October 19, but he went into respiratory distress, and ended up getting admitted. He was found to have a pneumothorax on the left and a large pleural effusion on the right. He had placement of bilateral chest tube, but there was only partial reexpansion of the lungs. There was no mention that he was having any cough or congestion, or fever or chills. This morning he had progressive respiratory distress, and required intubation. He is afebrile. He is on the vent. He is also hypotensive, and requiring 3 pressors. He is on levo fed, Forrest-Synephrine, and vasopressin. Cardiothoracic surgery has been consulted to evaluate the patient due to nonreactive expansion of the lung. Patient has end-stage renal disease, and gets hemodialysis. He had hemodialysis yesterday. Infectious disease consultation has been requested to evaluate the patient for possible pneumonia and shock. Notes reviewed D/W RN Garry miranda Remains on pressors On the vent Antibiotics Zithromax IV Zosyn IV I attest that I obtained, updated or reviewed the home and current medications. Current Medications Medications (Trade) Dose Ordered Sig/Bill Route Start Time Stop Time Status Last Admin (Dulcolax Ec) 10 mg DAILY PRN PO 12/19/16 20:00 (Drisdol) 50,000 units Q7D PO 12/20/16 09:00 12/24/16 08:20 (Xalatan 0.005% Opth Soln) 1 drop HS EACH EYE 12/19/16 21:00 12/23/16 22:31 (Pravachol) 20 mg HS PO 12/19/16 21:00 12/23/16 22:29 (Loniten) 2.5 mg DAILY PO 12/20/16 09:00 12/24/16 08:19 (Procardia Xl) 30 mg BID PRN PO 12/19/16 20:00 12/20/16 00:23 (Ultram) 50 mg Q4H PRN PO 12/19/16 20:00 12/20/16 15:50 (Ecotrin Ec) 81 mg DAILY PO 12/20/16 09:00 12/23/16 09:28 (Nephrocaps) 1 cap DAILY PO 12/20/16 09:00 12/24/16 08:20 (Oscal) 1,000 mg DAILY PO 12/20/16 09:00 12/24/16 08:19 (Coreg) 12.5 mg BID PO 12/19/16 21:00 Future Hold 12/20/16 20:56 (Cosopt 2-0.5% Opth Soln) 1 drop BID EACH EYE 12/19/16 21:00 12/24/16 08:22 (NS Flush) 2 ml UNSCH PRN IV FLUSH 12/19/16 20:15 (NS Flush) 2 ml BID IV FLUSH 12/19/16 21:00 12/24/16 08:21 (Tylenol) 650 mg Q6H PRN PO 12/19/16 20:15 (Zofran Inj) 4 mg Q6H PRN IV PUSH 12/19/16 20:15 (Ambien) 5 mg HS PRN PO 12/19/16 20:15 (Heparin Inj) 5,000 units Q12H SQ 12/19/16 21:00 12/23/16 22:32 Miscellaneous Information 1 Q361D XX 12/19/16 20:15 (Chlorhexidine 2% Cloth) 3 pack Taper DAILY@04 TOP 12/20/16 04:00 12/16/17 03:59 12/24/16 03:25 (Chlorhexidine 2% Cloth) 3 pack UNSCH PRN TOP 12/19/16 20:15 (Shelby-Colace) 1 tab BID PO 12/19/16 21:00 12/22/16 21:23 (Milk Of Magnesia Liq) 30 ml Q12H PRN PO 12/19/16 20:15 (Senokot) 17.2 mg Q12H PRN PO 12/19/16 20:15 12/22/16 09:39 (Dulcolax Supp) 10 mg DAILY PRN RECTAL 12/19/16 20:15 (Lactulose Liq) 30 ml DAILY PRN PO 12/19/16 20:15 12/22/16 09:37 (Persantine) 75 mg BID PO 12/20/16 09:00 12/24/16 08:19 (Apresoline Inj) 20 mg Q4H PRN IV 12/20/16 00:15 12/20/16 00:22 Sodium Chloride 1,000 ml @ 0 mls/hr Q0M PRN OTHER 12/20/16 10:04 Sodium Chloride 1,000 ml @ 200 mls/hr Q5H PRN IV 12/20/16 10:04 Sodium Chloride 1,000 ml @ 0 mls/hr Q0M PRN OTHER 12/20/16 10:04 (Mannitol Inj) 12.5 gm UNSCH PRN IV 12/20/16 10:15 Albumin Human 100 ml @ 60 mls/hr UNSCH PRN IV 12/20/16 10:15 (NS Flush) 5 ml UNSCH PRN IV FLUSH 12/20/16 10:15 (Heparin Inj) UNSCH PRN .XX 12/20/16 10:15 (Gentamicin (Dialysis) Inj) 20 mg UNSCH PRN OTHER 12/20/16 10:15 (Zofran Inj) 4 mg UNSCH PRN IV PUSH 12/20/16 10:15 (Tylenol) 650 mg UNSCH PRN PO 12/20/16 10:15 (Benadryl) 25 mg UNSCH PRN PO 12/20/16 10:15 (Nitrostat Sl) 0.4 mg UNSCH PRN SL 12/20/16 10:15 (Catapres) 0.1 mg UNSCH PRN PO 12/20/16 10:15 (Epogen Inj) 5,000 units UNSCH PRN IV PUSH 12/20/16 10:15 12/22/16 13:24 (Gelfoam 12 Mm/7 Mm Top) 1 foam UNSCH PRN TOP 12/20/16 10:15 (Peridex 0.12% Liq) 15 ml BID@08,20 MT 12/21/16 08:00 12/24/16 08:22 Propofol 100 ml @ 1.62 mls/hr TITRATE PRN IV 12/21/16 08:00 (Duoneb Neb) 1 ampule Q6HR NEB PRN NEB 12/21/16 08:00 (Duoneb Neb) 1 ampule Q6HR NEB NEB 12/21/16 10:00 12/24/16 07:33 (Protonix Inj) 40 mg Q24H IV PUSH 12/21/16 09:00 12/24/16 08:21 (D50w (Vial) Inj) 50 ml UNSCH PRN IV PUSH 12/21/16 08:15 12/23/16 22:56 (Glucagon Inj) 1 mg UNSCH PRN OTHER 12/21/16 08:15 (NovoLIN R SUPPLEMENTAL SCALE) 1 Q4H SQ 12/21/16 09:00 Piperacillin Sod/ Tazobactam Sod 50 ml @ 100 mls/hr Q8H IV 12/21/16 10:00 12/24/16 10:04 Azithromycin 500 mg/Sodium Chloride 250 ml @ 250 mls/hr Q24H IV 12/21/16 09:00 12/24/16 09:09 Fentanyl Citrate 250 ml @ 5 mls/hr TITRATE PRN IV 12/21/16 10:00 12/24/16 10:04 (SoluCORTEF INJ) 100 mg Q8H IV PUSH 12/21/16 13:00 12/24/16 05:44 Phenylephrine HCl 40 mg/Dextrose 500 ml @ 30 mls/hr TITRATE PRN IV 12/21/16 12:45 12/24/16 10:04 (Brethine Inj) 1 mg UNSCH PRN SQ 12/21/16 12:45 Norepinephrine Bitartrate 250 ml @ 7.5 mls/hr TITRATE PRN IV 12/21/16 18:30 12/24/16 10:04 Vasopressin 40 units/Dextrose 100 ml @ 6 mls/hr [id number] IV 12/21/16 18:30 12/24/16 08:23 (Colace Liq) 100 mg Q12HR PO 12/22/16 09:15 12/23/16 09:27 (Senna Liq) 8.8 mg DAILY PO 12/22/16 09:15 12/23/16 09:27 Lines A line Past Medical History ESRD on HD Ascites Hypertension CVA Duodenitis Past Surgical History Left carotid endarectomy Fistula left arm Multiple thoracentesis and paracentesis Allergies: Coded Allergies: *MDRO Multi-Drug Resistant Organism (Verified Adverse Reaction, Unknown, 01/29/15) MRSA PCR Screen positive 01/25/15. Objective . Vital Signs Date Time Temp Pulse Resp B/P (MAP) Pulse Ox O2 Delivery O2 Flow Rate FiO2 12/24/16 10:43 98.1 62 26 155/37 97 12/24/16 10:14 65 113/32 12/24/16 10:14 65 113/32 12/24/16 10:04 64 115/35 12/24/16 10:04 64 115/35 12/24/16 08:23 61 168/36 12/24/16 07:34 94 35 12/24/16 06:24 62 153/35 12/24/16 06:00 62 12/24/16 04:02 100 35 12/24/16 04:00 64 12/24/16 04:00 35 12/24/16 04:00 99.2 63 26 149/41 (77) 100 12/24/16 03:30 63 160/42 12/24/16 02:13 63 133/37 12/24/16 02:00 66 12/24/16 00:49 68 134/38 12/24/16 00:45 66 123/35 12/24/16 00:10 96 35 12/24/16 00:00 72 12/24/16 00:00 35 12/24/16 00:00 98.2 72 26 127/38 (67) 91 12/23/16 23:50 72 132/38 12/23/16 23:45 73 133/38 12/23/16 23:40 74 136/39 12/23/16 23:40 74 136/39 12/23/16 23:35 73 139/38 12/23/16 23:30 73 145/39 12/23/16 23:20 74 165/39 12/23/16 23:20 74 165/39 12/23/16 23:10 74 165/40 12/23/16 23:00 74 163/43 12/23/16 22:50 68 150/38 12/23/16 22:00 70 12/23/16 21:07 97 35 12/23/16 20:00 35 12/23/16 20:00 64 12/23/16 20:00 98.0 64 26 121/33 (62) 100 12/23/16 19:30 66 127/34 12/23/16 19:20 68 122/31 12/23/16 19:10 70 135/35 12/23/16 18:07 75 12/23/16 17:27 68 139/37 12/23/16 16:33 96 35 12/23/16 16:29 67 134/33 12/23/16 16:00 74 12/23/16 16:00 35 12/23/16 16:00 98.8 74 26 158/37 (77) 12/23/16 15:00 70 26 145/33 (70) 12/23/16 14:00 70 12/23/16 14:00 70 26 141/42 (75) 12/23/16 13:00 65 26 134/40 (71) 12/23/16 12:05 96 35 12/23/16 12:00 67 26 140/43 (75) 12/23/16 12:00 67 12/23/16 12:00 35 12/23/16 11:56 134/40 . Laboratory Tests Test 12/23/16 04:08 12/24/16 04:33 12/24/16 08:00 White Blood Count 4.3 TH/MM3 4.4 TH/MM3 4.3 TH/MM3 Red Blood Count 2.09 MIL/MM3 1.90 MIL/MM3 1.98 MIL/MM3 Hemoglobin 7.4 GM/DL 6.7 GM/DL 6.9 GM/DL Hematocrit 22.1 % 19.5 % 20.5 % Mean Corpuscular Volume 105.5 FL 102.4 FL 103.5 FL Mean Corpuscular Hemoglobin 35.2 PG 35.4 PG 34.7 PG Mean Corpuscular Hemoglobin Concent 33.4 % 34.6 % 33.5 % Red Cell Distribution Width 14.8 % 14.7 % 15.2 % Platelet Count 90 TH/MM3 80 TH/MM3 85 TH/MM3 Mean Platelet Volume 10.6 FL 11.2 FL 10.8 FL Neutrophils (%) (Auto) 80.4 % 81.0 % Lymphocytes (%) (Auto) 12.7 % 11.8 % Monocytes (%) (Auto) 4.9 % 4.9 % Eosinophils (%) (Auto) 1.9 % 2.1 % Basophils (%) (Auto) 0.1 % 0.2 % Neutrophils # (Auto) 3.5 TH/MM3 3.5 TH/MM3 Lymphocytes # (Auto) 0.5 TH/MM3 0.5 TH/MM3 Monocytes # (Auto) 0.2 TH/MM3 0.2 TH/MM3 Eosinophils # (Auto) 0.1 TH/MM3 0.1 TH/MM3 Basophils # (Auto) 0.0 TH/MM3 0.0 TH/MM3 CBC Comment AUTO DIFF AUTO DIFF AUTO DIFF Differential Comment AUTO DIFF CONFIRMED FINAL DIFF MANUAL FINAL DIFF MANUAL Platelet Estimate LOW LOW LOW Platelet Morphology Comment ENLARGED ENLARGED ENLARGED Differential Total Cells Counted 100 100 Neutrophils % (Manual) 44 % 43 % Band Neutrophils % 16 % 18 % Lymphocytes % 13 % 10 % Monocytes % 13 % 12 % Neutrophils # (Manual) 3.3 TH/MM3 3.4 TH/MM3 Metamyelocytes 14 % 17 % Nucleated Red Blood Cells 1 /100 WBC 3 /100 WBC Ovalocytes 1+ 1+ Acanthocytes OCC OCC [place] Cells 1+ Laboratory Tests Test 12/22/16 18:05 12/23/16 04:08 12/23/16 10:25 12/23/16 16:25 Lactic Acid Level 5.9 mmol/L 4.1 mmol/L 3.8 mmol/L Blood Urea Nitrogen 39 MG/DL Creatinine 4.79 MG/DL Random Glucose 116 MG/DL Total Protein 5.7 GM/DL Calcium Level 7.1 MG/DL Sodium Level 130 MEQ/L Potassium Level 4.7 MEQ/L Chloride Level 93 MEQ/L Carbon Dioxide Level 25.2 MEQ/L Anion Gap 12 MEQ/L Estimat Glomerular Filtration Rate 14 ML/MIN Protein Corrected Calcium 7.8 MG/DL Test 12/24/16 04:33 12/24/16 08:00 12/24/16 08:55 Blood Urea Nitrogen 50 MG/DL 52 MG/DL Creatinine 5.42 MG/DL 5.49 MG/DL Random Glucose 140 MG/DL 155 MG/DL Total Protein 5.7 GM/DL 5.8 GM/DL Calcium Level 6.8 MG/DL 7.0 MG/DL Sodium Level 122 MEQ/L 121 MEQ/L Potassium Level 4.7 MEQ/L 4.7 MEQ/L Chloride Level 86 MEQ/L 84 MEQ/L Carbon Dioxide Level 23.0 MEQ/L 23.0 MEQ/L Anion Gap 13 MEQ/L 14 MEQ/L Estimat Glomerular Filtration Rate 12 ML/MIN 12 ML/MIN Protein Corrected Calcium 7.5 MG/DL 7.7 MG/DL Lactic Acid Level 3.4 mmol/L Imaging Last 48 hours Impressions Chest X-Ray 12/23/16 0000 Signed Impressions: Service Date/Time: Friday, December 23, 2016 12:24 - CONCLUSION: 1. The right thoracostomy tube has been removed. 2. Remaining left thoracostomy tube. 3. Unchanged subpulmonic pneumothoraces bilaterally. 4. Tiny effusions. 5. Cardiomegaly. Nic Brown Jr., MD Chest X-Ray 12/23/16 Signed Impressions: Service Date/Time: Friday, December 23, 2016 10:22 - CONCLUSION: 1. Some improvement in the consolidation of the right lung particularly involving the upper lobe. 2. Bilateral subpulmonic pneumothoraces are stable. Nic Brown Jr., MD Abdomen X-Ray 12/23/16 Signed Impressions: Service Date/Time: Friday, December 23, 2016 10:28 - CONCLUSION: Some improvement in the distention of the small bowel compared to the prior study. Nic Brown Jr., MD Abdomen X-Ray 12/22/16 Signed Impressions: Service Date/Time: Thursday, December 22, 2016 09:42 - CONCLUSION: There is one loop of small bowel in the midline hypogastric region which is dilated out of proportion to the other loops of small bowel and the colon. This is nonspecific and could represent a localized ileus or an early small bowel obstruction. Nic Cha MD Last Impressions Chest X-Ray 12/21/16 0432 Signed Impressions: Service Date/Time: Wednesday, December 21, 2016 04:38 - CONCLUSION: 1. New consolidative opacity in the right lung most characteristic of pneumonia. 2. Stable appearance of the bibasilar pneumothoraces. Daniel Cowan MD Chest CT 12/20/16 Signed Impressions: Service Date/Time: Tuesday, December 20, 2016 16:26 - CONCLUSION: 1. Moderate right and small left hydropneumothorax with small caliber chest tubes present bilaterally, not significant changed from prior chest radiograph. Dependent consolidation and atelectasis of both lungs. No pneumomediastinum or subcutaneous air. Germán Vences MD Physical Exam GENERAL: Patient is a thin, well-developed male, eyes open, not following, no focusing SKIN: Warm and dry. No generalized rash, no ecchymoses and no evidence of embolic lesions. HEAD: Atraumatic. Normocephalic. No temporal wasting, or tenderness. EYES: Pale conjunctiva. No petechia or hemorrhage. Pupils equal, round and reactive to light. No scleral icterus. No injection or drainage. EARS, NOSE AND THROAT: Nose without bleeding or purulent nasal discharge. ET in mouth NECK: Trachea midline. Supple and not tender, no meningeal signs CARDIOVASCULAR: Regular rate and rhythm. No murmurs, rubs or gallops heard RESPIRATORY: Decreased BS both bases. King CT in pace. ABDOMEN: Distended abdomen, seems more distended, bowel sounds present and hypoactive. No reaction to deep palpation. EXTREMITIES: No clubbing, cyanosis, or edema. No joint effusion. Warm. HD access L arm looks ok NEUROLOGICAL: Not responding PSYCHIATRIC: Unable to assess LINE: Lines with no evidence of infection Assessment & Plan Remarks IMPRESSION Recurrent pleural effusion, and ascites Respiratory failure Klebsiella PNA Shock, on pressors ESRD on HD Abdominal distension, ileus RECOMMENDATION Continue Zosyn Also on Zithromax Wean pressors as tolerated - On pressors for hypotension Monitor progress Follow garry Cantrell/W Paula Morse MD Dec 24, 2016 11:07
--- NOTE | 2016-12-24 14:43 | HHI.CCPN ---
Subjective Remarks/Hospital Course 86-year-old very pleasant male presents complaining of shortness of breath. Patient states that the symptoms started last night. He has history recurrent pleural effusion status post thoracentesis in the past. Patient is scheduled to have bilateral thoracentesis done by interventional radiologist. Patient denies any headache. Patient denies any chest pain. Patient denies abdominal pain. Patient denies any focal weakness or numbness of extremity. 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 Patient also has history of hypertension, hyperlipidemia, CVA and anemia. In the emergency department the chest x-ray revealed large pleural effusion on the right and a large pneumothorax on the left. Emergent chest tubes were placed bilaterally with partial resolution of pneumothorax on the left and drainage of 700 cc of hemorrhagic fluid from the right side however bilateral residual bibasal pneumothoraces. After procedures patient's respiration is significantly improved as well as his oxygenation. 12/21 Patient required increase O2 overnight wa son BIPAP with 100% FIO2. CXR this morning showed consolidative opacity right lung and stable bibasilar pneumothoraces. Due to resp distress and patient was intubated and placed on mechanical ventilation. 12/22 Patient is intubated and sedated with Fentanyl drip. On Neosyn 100 mics, Levophed 9 mics and vasopressin. Afebrile. 12/23 Patient remains intubated and sedated. On multiple pressors ( Levophed 4 mics, Neosyn 106 mics, Vasopressin).s/p HD yesterday with removal 700ml. 12/24 Patient remains intubated and sedated. On Levophed 6 mics, Neosyn 130 mics , vasopressin 0.04. ![address] was placed yesterday on right side for right subpulmonic PTX however it was dislodged last night and 20FR CT was placed. Objective Vital Signs Date Time Temp Pulse Resp B/P (MAP) Pulse Ox O2 Delivery O2 Flow Rate FiO2 12/24/16 14:00 94 12/24/16 13:45 98.1 26 177/38 98 12/24/16 12:00 35 12/21/16 03:57 Nasal Cannula 4.00 Intake and Output 12/24/16 12/24/16 12/25/16 08:00 16:00 00:00 Intake Total 1450 ml 450 ml Output Total 100 ml Balance 1350 ml 450 ml Result Diagram: 12/24/16 0800 12/24/16 0800 Other Results Laboratory Tests Test 12/23/16 15:45 Blood Gas Puncture Site ART LINE Blood Gas Patient Temperature 98.6 Blood Gas HCO3 22 mmol/L (22-26) Blood Gas Base Excess -3.7 mmol/L (-2-2) Blood Gas Oxygen Saturation 96 % (90-100) Arterial Blood pH 7.31 (7.380-7.420) Arterial Blood Partial Pressure CO2 45 mmHg (38-42) Arterial Blood Partial Pressure O2 134 mmHg (61-120) Arterial Blood Oxygen Content 10.3 Vol % (12.0-20.0) Arterial Blood Carboxyhemoglobin 1.2 % (0-4) Arterial Blood Methemoglobin 1.3 % (0-2) Blood Gas Hemoglobin 7.4 G/DL (12.0-16.0) Oxygen Delivery Device VENTILATOR Blood Gas Ventilator Setting PC/AC RATE 26 Blood Gas Inspired Oxygen 35 % Imaging Last Impressions Chest X-Ray 12/23/161999 Signed Impressions: Service Date/Time: Friday, December 23, 2016 19:57 - CONCLUSION: The right chest tube is not visualized possibly withdrawn and the size of the pneumothoraces bilaterally have not significantly changed. There appears to be less consolidation right lung base otherwise not significantly changed. K. Emerson Galo MD Abdomen X-Ray 12/23/16 0000 Signed Impressions: Service Date/Time: Friday, December 23, 2016 10:28 - CONCLUSION: Some improvement in the distention of the small bowel compared to the prior study. Nic Brown Jr., MD Chest CT 12/20/16 0000 Signed Impressions: Service Date/Time: Tuesday, December 20, 2016 16:26 - CONCLUSION: 1. Moderate right and small left hydropneumothorax with small caliber chest tubes present bilaterally, not significant changed from prior chest radiograph. Dependent consolidation and atelectasis of both lungs. No pneumomediastinum or subcutaneous air. Germán Vences MD Objective Remarks GENERAL: Patient is 86 yo intubated and sedated SKIN: Warm and dry. HEAD: Normocephalic. EYES: No scleral icterus. No injection or drainage. NECK: Supple, trachea midline. No JVD or lymphadenopathy. Orally intubated CARDIOVASCULAR: Regular rate and rhythm without murmurs, gallops, or rubs. Right CT 20FR on right and Left pigtail cathter on left. RESPIRATORY: Breath sounds equal bilaterally. No accessory muscle use. GASTROINTESTINAL: Firm, distended, hypoactive BS MUSCULOSKELETAL: No cyanosis, or edema. Neuro: sedated A/P Assessment and Plan 1)VDRF 2)Right sided pneumonia 3)Bibasilar hydroPTX 5)ESRD 6)HTN 7)Macrocytic Anemia Plan Neuro: On fentanyl infusion for sedation. Monitor neuro status. Daily sedation vacation when appropriate Pulm: Continue with vent support keep sat >92% Bronchodilators, ICU vent bundle. Check CXR Monitor CT drainage. CTS is following- Dr. Jara, patient is poor operative candidate. CV: Monitor HR and BP keep MAP>65mmHg Wean off pressors ( On Levophed, Neosyn, Vasopressin) On stress dose steroids- HC 100mg Q8 Lactic aid is trending down 3.8 yesterday : Monitor renal function, avoid nephrotoxins HD per renal-Dr. Thompson. s/p HD 12/22 with removal 700ml GI: On Protonix 40mg daily for GI prophylaxis Start tube feeds- trickle feeds with Nepro@20,l/hr on bowel regimen Colace, Senna KUB abdomen 12/23: Some improvement in the distention of the small bowel compared to the prior study. KUB abdomen: 12/22: Localized ileus vs early SBO. Will repeat KUB today. OGT to LIWS ID: Continue abx per ID ( Zosyn, Azithromycin)monitor for signs of infections ( Fever, WBC) sputum cx 12/21: Kleb pneumonia BC, fluid cx from 12/19:NGTD Heme: Monitor CBC, transfuse 2units PRBC Endo: SSI with accuchecks GI prophylaxis- Protonix 40mg daily DVT prophylaxis- SCD. Heparin SQ Palliative care is following Patient is critically ill with resp failure, pneumonia, septic shock on multiple pressors, anemia now requiring blood transfusion and ESRD on HD. Discussed with patient's and updated her on his condition. CCT 35 mins Aurea Lovell MD Dec 24, 2016 14:43
[2016-12-24] MEDS: EPOETIN ALFA 10,000 UNITS/ML VIAL IV PUSH PRN ×2 (17:32)
[2016-12-24 17:33] LABS: HEMATOCRIT 33.3 % (39.0-51.0); HEMOGLOBIN 11.6 GM/DL (13.0-17.0)
--- NOTE | 2016-12-24 18:59 | HHI.HCPN ---
Reason for visit a. To assist with evaluation and management of symptoms including: pain; dyspnea; encephalopathy b. To assist medical decision maker(s) with: better understanding of current medical conditions; weighing benefits/burdens of medical treatment options; making medical treatment decisions. . Subjective/Interval History Patient remains critically ill sedated, intubated, mechanically ventilated, minimally responsive in the MICU. Still requiring pressor support. Received hemodialysis today. CXR showing no improvement in pneumothoraces in spite of chest tubes. Hg fell to 6.7 this AM -- has received two units of PRBCs. Abdomen remains firm and distended -- because of hemodynamic instability we have been unable to send him for imaging. at bedside. Case discussed at length with Dr. Lovell in person. . . Family/friend interactions Met with for 20 minutes at bedside. We reviewed current status. has spoken today with nephrology and pulmonology. clearly understands that patient will likely during this hospitalization. She understands that his pneumothoraces are not re-expanding, that he is not a candidate to surgically correct these , and that therefore getting the patient off the vent may be impossible. She understands that he appears to be bleeding and that we don't know where from. 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 She understands she is the health are surrogate and can make decisions on her own. She tells me she would like to make him "no code" at this point. HOWEVER -- she also tells me that the patient has 8 children and 5 step children. She is the stepmother and in the past the children have been very angry with her. She feels if she would make him "no code" they would be furious that she did not try and fight hard enough to keep him alive. For these reasons, she is unable, at this time to change his code status. She clearly understands the trauma he will go through if "coded." Advance Directives Durable Power of General Manager Farm: Copy in medical record Advance Directive Specifics Date completed: DPOA for health care completed 10/05/2012 . Health Care Surrogate(s): Pio Lerner is designated as the health care DPOA. . Documented care wishes: No written documentation of health care preferences/wishes/goals. . Objective Vital Signs Date Time Temp Pulse Resp B/P (MAP) Pulse Ox O2 Delivery O2 Flow Rate FiO2 12/24/16 18:00 74 12/24/16 17:21 76 193/49 12/24/16 17:21 76 193/49 12/24/16 16:26 72 140/33 12/24/16 16:00 94 12/24/16 16:00 98.3 72 18 140/35 (70) 94 12/24/16 16:00 35 12/24/16 14:50 92 35 12/24/16 14:00 98.3 72 26 143/31 99 12/24/16 14:00 94 12/24/16 13:45 98.1 63 26 177/38 98 12/24/16 12:00 35 12/24/16 12:00 98.1 64 26 164/35 (78) 95 12/24/16 12:00 64 12/24/16 12:00 64 164/35 12/24/16 12:00 64 164/35 12/24/16 11:45 63 177/37 12/24/16 11:30 63 170/35 12/24/16 11:23 92 35 12/24/16 11:08 97.7 62 26 167/34 12/24/16 11:00 62 164/37 12/24/16 10:43 98.1 62 26 155/37 97 12/24/16 10:14 65 113/32 12/24/16 10:14 65 113/32 12/24/16 10:04 64 115/35 12/24/16 10:04 64 115/35 12/24/16 10:00 65 12/24/16 08:23 61 168/36 12/24/16 08:00 61 12/24/16 08:00 35 12/24/16 08:00 99.2 61 26 170/36 (80) 100 12/24/16 07:34 94 35 12/24/16 06:24 62 153/35 12/24/16 06:00 62 12/24/16 04:02 100 35 12/24/16 04:00 64 12/24/16 04:00 35 12/24/16 04:00 99.2 63 26 149/41 (77) 100 12/24/16 03:30 63 160/42 12/24/16 02:13 63 133/37 12/24/16 02:00 66 12/24/16 00:49 68 134/38 12/24/16 00:45 66 123/35 12/24/16 00:10 96 35 12/24/16 00:00 72 12/24/16 00:00 35 12/24/16 00:00 98.2 72 26 127/38 (67) 91 12/23/16 23:50 72 132/38 12/23/16 23:45 73 133/38 12/23/16 23:40 74 136/39 12/23/16 23:40 74 136/39 12/23/16 23:35 73 139/38 12/23/16 23:30 73 145/39 12/23/16 23:20 74 165/39 12/23/16 23:20 74 165/39 12/23/16 23:10 74 165/40 12/23/16 23:00 74 163/43 12/23/16 22:50 68 150/38 12/23/16 22:00 70 12/23/16 21:07 97 35 12/23/16 20:00 35 12/23/16 20:00 64 12/23/16 20:00 98.0 64 26 121/33 (62) 100 12/23/16 19:30 66 127/34 12/23/16 19:20 68 122/31 12/23/16 19:10 70 135/35 Intake & Output 12/24/16 12/24/16 07:00 19:00 Intake Total 1450 ml 2750 ml Output Total 100 ml 3910 ml Balance 1350 ml -1160 ml IV Total 1300 ml 1030 ml Packed Cells 1600 ml Tube Irrigant 150 ml 120 ml Output Urine Total 0 ml Gastric Drainage Total 0 ml 400 ml Chest Tube Drainage Total 100 ml 10 ml Hemodialysis 3500 ml # Bowel Movements 0 Physical Exam CONSTITUTIONAL/GENERAL: This is a thin, frail appearing male, sedated, intubated , mechanically ventilated in the MICU. TUBES/LINES/DRAINS: ET tube ; OG tube; dialysis fistula LUE; bilateral soft wrist restraints; bilateral chest catheters; peripheral IV; arterial line right radial artery; right femoral central line. SKIN: No jaundice, rashes. No wounds seen anteriorly. Skin temperature appropriate. Not diaphoretic. EYES: Pupils equal and round. Unable to evaluate EOMs. No scleral icterus. No injection or drainage. Fundi not examined. ENT: Unable to evaluate hearing. Nose without bleeding or purulent drainage. Throat without visible erythema, exudates, masses, or lesions though difficult to assess due to intubations. NECK: Trachea midline. CARDIOVASCULAR: Regular rate and rhythm without murmurs, gallops, or rubs. No JVD. Peripheral pulses symmetric. RESPIRATORY/CHEST: Symmetric, unlabored respirations. Breath sounds diminished at both bases. No wheezes. GASTROINTESTINAL: Abdomen distended, moderately firm. No hepato-splenomegaly, or palpable masses. No guarding. Bowel sounds hypoactive. GENITOURINARY: Without palpable bladder distension. MUSCULOSKELETAL: Extremities without clubbing, cyanosis, or edema. No joint tenderness or effusion noted. No mottling. LYMPHATICS: Not examined NEUROLOGICAL: Sedated. Withdraws to noxious stimuli PSYCHIATRIC: Unable to assess due to level of responsiveness . Diagnostic Tests Laboratory Laboratory Tests Test 12/22/16 05:54 12/22/16 09:26 12/22/16 09:30 12/22/16 18:05 White Blood Count 3.9 TH/MM3 (4.0-11.0) Red Blood Count 2.34 MIL/MM3 (4.50-5.90) Hemoglobin 8.2 GM/DL (13.0-17.0) Hematocrit 25.4 % (39.0-51.0) Mean Corpuscular Volume 108.7 FL (80.0-100.0) Mean Corpuscular Hemoglobin 35.0 PG (27.0-34.0) Mean Corpuscular Hemoglobin Concent 32.2 % (32.0-36.0) Red Cell Distribution Width 15.1 % (11.6-17.2) Platelet Count 112 TH/MM3 (150-450) Mean Platelet Volume 9.8 FL (7.0-11.0) Neutrophils (%) (Auto) 68.5 % (16.0-70.0) Lymphocytes (%) (Auto) 23.2 % (9.0-44.0) Monocytes (%) (Auto) 8.0 % (0.0-8.0) Eosinophils (%) (Auto) 0.2 % (0.0-4.0) Basophils (%) (Auto) 0.1 % (0.0-2.0) Neutrophils # (Auto) 2.7 TH/MM3 (1.8-7.7) Lymphocytes # (Auto) 0.9 TH/MM3 (1.0-4.8) Monocytes # (Auto) 0.3 TH/MM3 (0-0.9) Eosinophils # (Auto) 0.0 TH/MM3 (0-0.4) Basophils # (Auto) 0.0 TH/MM3 (0-0.2) CBC Comment AUTO DIFF Differential Total Cells Counted 100 Neutrophils % (Manual) 27 % (16-70) Band Neutrophils % 42 % (0-6) Lymphocytes % 23 % (9-44) Monocytes % 4 % (0-8) Neutrophils # (Manual) 2.8 TH/MM3 (1.8-7.7) Metamyelocytes 3 % (0-1) Myelocytes 1 % (0-0) Differential Comment FINAL DIFF MANUAL Platelet Estimate LOW (NORMAL) Platelet Morphology Comment NORMAL (NORMAL) Blood Urea Nitrogen 53 MG/DL (7-18) Creatinine 6.97 MG/DL (0.60-1.30) Random Glucose 114 MG/DL (74-106) Calcium Level 8.3 MG/DL (8.5-10.1) Sodium Level 131 MEQ/L (136-145) Potassium Level 5.6 MEQ/L (3.5-5.1) Chloride Level 92 MEQ/L (98-107) Carbon Dioxide Level 23.9 MEQ/L (21.0-32.0) Anion Gap 15 MEQ/L (5-15) Estimat Glomerular Filtration Rate 9 ML/MIN (>89) Random Vancomycin Level 11.8 COMMENT Blood Gas Puncture Site ART LINE Blood Gas Patient Temperature 98.6 Blood Gas HCO3 20 mmol/L (22-26) Blood Gas Base Excess -6.6 mmol/L (-2-2) Blood Gas Oxygen Saturation 96 % (90-100) Arterial Blood pH 7.24 (7.380-7.420) Arterial Blood Partial Pressure CO2 48 mmHg (38-42) Arterial Blood Partial Pressure O2 153 mmHg (61-120) Arterial Blood Oxygen Content 10.8 Vol % (12.0-20.0) Arterial Blood Carboxyhemoglobin 1.2 % (0-4) Arterial Blood Methemoglobin 1.5 % (0-2) Blood Gas Hemoglobin 7.8 G/DL (12.0-16.0) Oxygen Delivery Device VENTILATOR Blood Gas Ventilator Setting 24/450/1.0/+10 Blood Gas Inspired Oxygen 50 % Lactic Acid Level 6.8 mmol/L (0.4-2.0) 5.9 mmol/L (0.4-2.0) Test 12/23/16 04:08 12/23/16 10:25 12/23/16 10:55 12/23/16 15:45 White Blood Count 4.3 TH/MM3 (4.0-11.0) Red Blood Count 2.09 MIL/MM3 (4.50-5.90) Hemoglobin 7.4 GM/DL (13.0-17.0) Hematocrit 22.1 % (39.0-51.0) Mean Corpuscular Volume 105.5 FL (80.0-100.0) Mean Corpuscular Hemoglobin 35.2 PG (27.0-34.0) Mean Corpuscular Hemoglobin Concent 33.4 % (32.0-36.0) Red Cell Distribution Width 14.8 % (11.6-17.2) Platelet Count 90 TH/MM3 (150-450) Mean Platelet Volume 10.6 FL (7.0-11.0) Neutrophils (%) (Auto) 80.4 % (16.0-70.0) Lymphocytes (%) (Auto) 12.7 % (9.0-44.0) Monocytes (%) (Auto) 4.9 % (0.0-8.0) Eosinophils (%) (Auto) 1.9 % (0.0-4.0) Basophils (%) (Auto) 0.1 % (0.0-2.0) Neutrophils # (Auto) 3.5 TH/MM3 (1.8-7.7) Lymphocytes # (Auto) 0.5 TH/MM3 (1.0-4.8) Monocytes # (Auto) 0.2 TH/MM3 (0-0.9) Eosinophils # (Auto) 0.1 TH/MM3 (0-0.4) Basophils # (Auto) 0.0 TH/MM3 (0-0.2) CBC Comment AUTO DIFF Differential Comment AUTO DIFF CONFIRMED Platelet Estimate LOW (NORMAL) Platelet Morphology Comment ENLARGED (NORMAL) Blood Urea Nitrogen 39 MG/DL (7-18) Creatinine 4.79 MG/DL (0.60-1.30) Random Glucose 116 MG/DL (74-106) Total Protein 5.7 GM/DL (6.4-8.2) Calcium Level 7.1 MG/DL (8.5-10.1) Sodium Level 130 MEQ/L (136-145) Potassium Level 4.7 MEQ/L (3.5-5.1) Chloride Level 93 MEQ/L (98-107) Carbon Dioxide Level 25.2 MEQ/L (21.0-32.0) Anion Gap 12 MEQ/L (5-15) Estimat Glomerular Filtration Rate 14 ML/MIN (>89) Protein Corrected Calcium 7.8 MG/DL (8.5-10.1) Lactic Acid Level 4.1 mmol/L (0.4-2.0) Blood Gas Puncture Site ART LINE ART LINE Blood Gas Patient Temperature 98.6 98.6 Blood Gas HCO3 23 mmol/L (22-26) 22 mmol/L (22-26) Blood Gas Base Excess -2.0 mmol/L (-2-2) -3.7 mmol/L (-2-2) Blood Gas Oxygen Saturation 96 % (90-100) 96 % (90-100) Arterial Blood pH 7.33 (7.380-7.420) 7.31 (7.380-7.420) Arterial Blood Partial Pressure CO2 44 mmHg (38-42) 45 mmHg (38-42) Arterial Blood Partial Pressure O2 125 mmHg (61-120) 134 mmHg (61-120) Arterial Blood Oxygen Content 11.6 Vol % (12.0-20.0) 10.3 Vol % (12.0-20.0) Arterial Blood Carboxyhemoglobin 1.3 % (0-4) 1.2 % (0-4) Arterial Blood Methemoglobin 1.2 % (0-2) 1.3 % (0-2) Blood Gas Hemoglobin 8.4 G/DL (12.0-16.0) 7.4 G/DL (12.0-16.0) Oxygen Delivery Device VENTILATOR VENTILATOR Blood Gas Ventilator Setting SEE COMMENTS PC/AC RATE 26 Blood Gas Inspired Oxygen 35 % 35 % Test 12/23/16 16:25 12/24/16 04:33 12/24/16 08:00 12/24/16 08:55 Lactic Acid Level 3.8 mmol/L (0.4-2.0) 3.4 mmol/L (0.4-2.0) White Blood Count 4.4 TH/MM3 (4.0-11.0) 4.3 TH/MM3 (4.0-11.0) Red Blood Count 1.90 MIL/MM3 (4.50-5.90) 1.98 MIL/MM3 (4.50-5.90) Hemoglobin 6.7 GM/DL (13.0-17.0) 6.9 GM/DL (13.0-17.0) Hematocrit 19.5 % (39.0-51.0) 20.5 % (39.0-51.0) Mean Corpuscular Volume 102.4 FL (80.0-100.0) 103.5 FL (80.0-100.0) Mean Corpuscular Hemoglobin 35.4 PG (27.0-34.0) 34.7 PG (27.0-34.0) Mean Corpuscular Hemoglobin Concent 34.6 % (32.0-36.0) 33.5 % (32.0-36.0) Red Cell Distribution Width 14.7 % (11.6-17.2) 15.2 % (11.6-17.2) Platelet Count 80 TH/MM3 (150-450) 85 TH/MM3 (150-450) Mean Platelet Volume 11.2 FL (7.0-11.0) 10.8 FL (7.0-11.0) Neutrophils (%) (Auto) 81.0 % (16.0-70.0) Lymphocytes (%) (Auto) 11.8 % (9.0-44.0) Monocytes (%) (Auto) 4.9 % (0.0-8.0) Eosinophils (%) (Auto) 2.1 % (0.0-4.0) Basophils (%) (Auto) 0.2 % (0.0-2.0) Neutrophils # (Auto) 3.5 TH/MM3 (1.8-7.7) Lymphocytes # (Auto) 0.5 TH/MM3 (1.0-4.8) Monocytes # (Auto) 0.2 TH/MM3 (0-0.9) Eosinophils # (Auto) 0.1 TH/MM3 (0-0.4) Basophils # (Auto) 0.0 TH/MM3 (0-0.2) CBC Comment AUTO DIFF AUTO DIFF Differential Total Cells Counted 100 100 Neutrophils % (Manual) 44 % (16-70) 43 % (16-70) Band Neutrophils % 16 % (0-6) 18 % (0-6) Lymphocytes % 13 % (9-44) 10 % (9-44) Monocytes % 13 % (0-8) 12 % (0-8) Neutrophils # (Manual) 3.3 TH/MM3 (1.8-7.7) 3.4 TH/MM3 (1.8-7.7) Metamyelocytes 14 % (0-1) 17 % (0-1) Nucleated Red Blood Cells 1 /100 WBC (0-0) 3 /100 WBC (0-0) Differential Comment FINAL DIFF MANUAL FINAL DIFF MANUAL Platelet Estimate LOW (NORMAL) LOW (NORMAL) Platelet Morphology Comment ENLARGED (NORMAL) ENLARGED (NORMAL) Ovalocytes 1+ (NORMAL) 1+ (NORMAL) Acanthocytes OCC (NORMAL) OCC (NORMAL) Blood Urea Nitrogen 50 MG/DL (7-18) 52 MG/DL (7-18) Creatinine 5.42 MG/DL (0.60-1.30) 5.49 MG/DL (0.60-1.30) Random Glucose 140 MG/DL (74-106) 155 MG/DL (74-106) Total Protein 5.7 GM/DL (6.4-8.2) 5.8 GM/DL (6.4-8.2) Calcium Level 6.8 MG/DL (8.5-10.1) 7.0 MG/DL (8.5-10.1) Sodium Level 122 MEQ/L (136-145) 121 MEQ/L (136-145) Potassium Level 4.7 MEQ/L (3.5-5.1) 4.7 MEQ/L (3.5-5.1) Chloride Level 86 MEQ/L (98-107) 84 MEQ/L (98-107) Carbon Dioxide Level 23.0 MEQ/L (21.0-32.0) 23.0 MEQ/L (21.0-32.0) Anion Gap 13 MEQ/L (5-15) 14 MEQ/L (5-15) Estimat Glomerular Filtration Rate 12 ML/MIN (>89) 12 ML/MIN (>89) Protein Corrected Calcium 7.5 MG/DL (8.5-10.1) 7.7 MG/DL (8.5-10.1) Random Vancomycin Level 10.9 COMMENT [place] Cells 1+ (NORMAL) Test 12/24/16 17:10 Hemoglobin 11.6 GM/DL (13.0-17.0) Hematocrit 33.3 % (39.0-51.0) Result Diagram: 12/24/16 1710 12/24/16 0800 Procedures * Biltateral chest tube placement * Intubation/mechanical ventilation . Assessment and Plan Disease Oriented Problem List: (1) Loculated pleural effusion Comment: Pulmonology and cardi-thoracic surgery do not feel there is a workable solution to this problem given the patient's overall functional capacity. . (2) Pneumothorax (3) ESRD (end stage renal disease) on dialysis Comment: Normally on dialysis M, W, F. . (4) Peripheral vascular disease (5) Anemia (6) Stroke Comment: Had two strokes in 2012. Now with significant left sided weakness. . (7) Osteoarthritis (8) Hypertension (9) Glaucoma Symptom Scale: (1) Pain 0-10 Scale: Unable to quantify Comment: Has history of back pain and arthritis pain with use of PRN tramadol at home. Other sources of pain now include prolonged bedbound status; orotracheal and orogastric intubations; restraints; vascular access lines; etc. Patient is unable to locate, quantify, qualify pain. Currently has orders for a fentanyl drip and for tramadol. . (2) Dyspnea 0-10 Scale: Unable to quantify Comment: Dyspnea due to pneumothorax and recurrent pleural effusions. Now being managed on vent. . (3) Encephalopathy 0-10 Scale: Unable to quantify Comment: Patient continues on sedation. Will need to evaluate clinically off sedation to see if there is any significant cognitive loss. . Pertinent Non-Medical Issues Psychosocial: Supported by of over 30 years. Patient has 8 biological children and 5 step-children. Spiritual: Buddhist Legal: DPOA for health care scanned into EMR. Ethical issues impacting care: Patient is incapacitated and is not likely to regain capacity. . Important Contacts * Pio Lerner (spouse; DPOA for health care) [phone] . 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 Cardiothoracic surgery does not believe patient could tolerate the procedure necessary to repair this. In addition to his kidney disease and incurable lung disease, patient now has hemodynamic instability requiring pressors. Critical care and pulmonology feel he has an end stage condition. In my clinical opinion, patient has an overall end stage condition. I don't believe there is a reasonable probability of patient regaining capacity. Patient would be an appropriate hospice candidate at such time that his health care surrogate decides to forego further aggressive care and treansition to comfort care. . Code Status: Full Code Plan == Code Status: FULL CODE. (who is the DPOA for [facility]) feels obligated to allow one more attempted resuscitation. She feels the patient opted to go on life support on his own. She understands his dire circumstances and poor prognosis and risks of preforming CPR on him in his fragile position. == Decision making: Patient is incapacitated to make his own health care decisions. At this point, probability of the patient being able to regain capacity to make his own health care decisions is remote. While incapacitated, his Pio Lerner, is the [facility] DPOA. == Goals of medical treatment: has spoken 12/24 with nephrology and pulmonology. clearly understands that patient will likely during this hospitalization. She understands that his pneumothoraces are not re-expanding, that he is not a candidate to surgically correct these , and that therefore getting the patient off the vent may be impossible. She understands that he appears to be bleeding and that we don't know where from. She understands that [facility] pressor use may be causing lack of blood flow to some organs. She understands she is the health are surrogate and can make decisions on her own. She tells me she would like to make him "no code" at this point. HOWEVER -- she also tells me that the patient has 8 children and 5 step children. She is the stepmother and in the past the children have been very angry with her. She feels if she would make him "no code" they would be furious that she did not try and fight hard enough to keep him alive. For these reasons, she is unable, at this time to change his code status. She clearly understands the trauma he will go through if "coded." == Symptoms * Pain: Has history of back pain and arthritis pain with use of PRN tramadol at home. Other sources of pain now include prolonged bedbound status; orotracheal and orogastric intubations; restraints; vascular access lines; etc. He has abdominal distension of unkwown etiology (ascites? ischemic bowel?) - - unclear if this might be causing abdominal pain. Currently has orders for a fentanyl drip and for tramadol. No further recommendations at this time. * Dyspnea: Dyspnea is secondary to his chronic / recurrent pleural effusions and pneumothoraces. Currently managed by chest tubes and ventilator. Opiates would help for treating dyspnea if needed. Currently has orders for a fentanyl drip and for tramadol. No further recommendations at this time. * Encephalopathy: Unclear at this time to what extent patient is minimally responsive due to sedation vs to underlying illness. Can re-evaluate when stable enough for a "sedation vacation." == Offered to speak with children and stepchildren by phone or in person if feels that would help. She will let me know. == Palliative care will continue to follow to assist with symptom management and to further clarify goals of medical treatment as the clinical course evolves. . Time Spent Total Floor Time (mins): 40 (Total time included chart review, patient exam, discussion on floor with Dr. Lovell, collaboration with primary nurse and above referenced bedside conference with . ) Face to Face Time (mins): 25 >50% Counseling/Coord of Care: Yes Attestation To help prompt me to consider important information that might be impacting today's encounter and assessment, information from prior notes written by myself or my colleagues may have been "brought forward" into today's note. My signature on this note, however, is an attestation that I personally performed the exam, history, and/or decision-making noted today, and, unless otherwise indicated, the interactions with patient, family, and staff as well as the review of records all occurred today. I also attest that the listed assessment and stated plan reflect my best clinical judgment today based on the combination of historical information, prior notes, and today's exam/ interactions. When time spent is documented, it refers only to time spent today by the signer, or if indicated, combined time spent today by collaborating physician/nurse practitioner. . Jesus Freitas MD Dec 24, 2016 18:59
[2016-12-24] MEDS: LATANOPROST 0.005% OPHT SOLN 2.5 ML BTL EACH EYE SCH ×2 (21:00)
[2016-12-24] MEDS: PRAVASTATIN SOD 20 MG TAB PO SCH ×2 (22:02)
[2016-12-24] MEDS: SODIUM CHLORIDE 0.9% FLUSH 10 ML FLUSH IV FLUSH PRN ×2 (22:02)
[2016-12-25] VITALS (24 sets, daily range): BP systolic 104–175; BP diastolic 41–59; PULSE 62–75; RESP 18–29; TEMP 97.4–99.4; O2SAT 58–100
[2016-12-25] MEDS: INSULIN NovoLIN REGULAR SUPPLEMENTAL SCALE SQ SCH ×12 (01:00→21:00)
[2016-12-25] MEDS: RESP: ALBUTEROL 2.5 MG/IPRATROPIUM 0.5 MG NEB (SCH) NEB ×4 (02:57→09:58)
[2016-12-25] MEDS: CHLORHEXIDINE GLUCONATE 2 % 1 PACK (2 CLOTHS) TOP SCH ×2 (03:56)
[2016-12-25] MEDS: PHENYLEPHRINE INJ 40 MG in DEXTROSE 5% IN WATE 500 ML INJ 496 ML IV PRN ×12 (03:56→16:49)
[2016-12-25] MEDS: PIPERACIL-TAZO 2.25 GM PREMIX 50 ML IV SCH ×6 (03:57→17:22)
[2016-12-25] MEDS: VASOPRESSIN 40 U/D5W 100 ML Shock/septic shock, do NOT titrate until taper off IV SCH ×8 (03:57→22:30)
[2016-12-25 06:09] LABS: AUTOMATED NEUTROPHIL # 4.8 TH/MM3 (1.8-7.7); BASOPHIL % 0.3 % (0.0-2.0); EOSINOPHIL # 0.1 TH/MM3 (0-0.4); EOSINOPHIL % 1.4 % (0.0-4.0); HEMATOCRIT 28.9 % (39.0-51.0); HEMOGLOBIN 10.3 GM/DL (13.0-17.0); LYMPH % 5.6 % (9.0-44.0); LYMPHOCYTE # 0.3 TH/MM3 (1.0-4.8); MEAN CELL VOLUME 94.1 FL (80.0-100.0); MEAN CORPUSCULAR HEMOGLOBIN 33.6 PG (27.0-34.0); MEAN CORPUSCULAR HGB CONC 35.7 % (32.0-36.0); MEAN PLATELET VOLUME 10.9 FL (7.0-11.0); MONO % 4.3 % (0.0-8.0); MONOCYTE # 0.2 TH/MM3 (0-0.9); NEUT % 88.4 % (16.0-70.0); PLATELET COUNT 60 TH/MM3 (150-450); RED BLOOD COUNT 3.07 MIL/MM3 (4.50-5.90); RED CELL DISTRIBUTION WIDTH 18.3 % (11.6-17.2); WHITE BLOOD COUNT 5.5 TH/MM3 (4.0-11.0)
[2016-12-25] MEDS: HYDROCORTISONE SOD SUCCINATE 100 MG VIAL IV PUSH SCH ×6 (06:09→21:08)
[2016-12-25 06:29] LABS: BICARBONATE 25.3 MEQ/L (21.0-32.0); CALCIUM 7.5 MG/DL (8.5-10.1); CREATININE 3.98 MG/DL (0.60-1.30)
[2016-12-25 07:35] LABS: BANDS 27 % (0-6); CORRECTED NUCLEATED RBC 3 /100 WBC (0-0); LYMPHOCYTES 7 % (9-44); METAMYELOCYTES 1 % (0-1); MONOCYTES 9 % (0-8); NEUTROPHIL # MANUAL DIFF 4.6 TH/MM3 (1.8-7.7); NUCLEATED RED BLOOD CELL 3 (0-0); POLYS (SEG NEUTROPHILS) 56 % (16-70)
[2016-12-25 07:43] LABS: BURR CELLS 1+ (NORMAL); TARGET CELLS 1+ (NORMAL); TOXIC GRANULATION 1+ (NORMAL)
[2016-12-25] MEDS: DOCUSATE SODIUM 50 MG/SENNA 8.6 MG TAB PO SCH ×4 (09:00→21:08)
[2016-12-25] MEDS: SENNOSIDES SYRUP 8.8 MG/5 ML CUP PO SCH ×2 (09:00)
[2016-12-25] MEDS: DOCUSATE SODIUM 100 MG/10 ML UDC PO SCH ×4 (09:20→21:08)
[2016-12-25] MEDS: AZITHROMYCIN INJ 500 MG in SODIUM CHLOR 0.9% 250 ML INJ 250 ML IV SCH ×4 (09:21)
[2016-12-25] MEDS: ASPIRIN EC 81 MG TABEC PO SCH ×2 (09:22)
[2016-12-25] MEDS: HEPARIN SODIUM - SQ 10,000 UNITS/ML VIAL SQ SCH ×4 (09:22→21:08)
[2016-12-25] MEDS: MINOXIDIL 2.5 MG TAB PO SCH ×2 (09:22)
[2016-12-25] MEDS: DIPYRIDAMOLE 25 MG TAB PO SCH ×4 (09:22→21:08)
[2016-12-25] MEDS: PANTOPRAZOLE SODIUM 40 MG VIAL IV PUSH SCH ×2 (09:22)
[2016-12-25] MEDS: CALCIUM CARBONATE 1.25 GM (CA 500 MG) TAB PO SCH ×2 (09:22)
[2016-12-25] MEDS: VITAMIN B CMPLX/VITC/FOLIC AC CAP PO SCH ×2 (09:22)
[2016-12-25] MEDS: SODIUM CHLORIDE 0.9% FLUSH 10 ML FLUSH IV FLUSH SCH ×4 (09:23→21:08)
[2016-12-25] MEDS: DORZOLAMIDE/TIMOLOL OPTH SOLN 10 ML BTL EACH EYE SCH ×4 (09:23→21:08)
[2016-12-25] MEDS: CHLORHEXIDINE 0.12% (ORAL KIT) 15 ML CUP MT SCH ×4 (09:23→21:08)
--- NOTE | 2016-12-25 09:28 | HHI.CCPN ---
Subjective Remarks/Hospital Course 86-year-old very pleasant male presents complaining of shortness of breath. Patient states that the symptoms started last night. He has history recurrent pleural effusion status post thoracentesis in the past. Patient is scheduled to have bilateral thoracentesis done by interventional radiologist. Patient denies any headache. Patient denies any chest pain. Patient denies abdominal pain. Patient denies any focal weakness or numbness of extremity. 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 Patient also has history of hypertension, hyperlipidemia, CVA and anemia. In the emergency department the chest x-ray revealed large pleural effusion on the right and a large pneumothorax on the left. Emergent chest tubes were placed bilaterally with partial resolution of pneumothorax on the left and drainage of 700 cc of hemorrhagic fluid from the right side however bilateral residual bibasal pneumothoraces. After procedures patient's respiration is significantly improved as well as his oxygenation. 12/21 Patient required increase O2 overnight wa son BIPAP with 100% FIO2. CXR this morning showed consolidative opacity right lung and stable bibasilar pneumothoraces. Due to resp distress and patient was intubated and placed on mechanical ventilation. 12/22 Patient is intubated and sedated with Fentanyl drip. On Neosyn 100 mics, Levophed 9 mics and vasopressin. Afebrile. 12/23 Patient remains intubated and sedated. On multiple pressors ( Levophed 4 mics, Neosyn 106 mics, Vasopressin).s/p HD yesterday with removal 700ml. 12/24 Patient remains intubated and sedated. On Levophed 6 mics, Neosyn 130 mics , vasopressin 0.04. [address] was placed yesterday on right side for right subpulmonic PTX however it was dislodged last night and 20FR CT was placed. 12/25 Patient remains intubated and sedated. s/p HD yesterday with removal 3.5L and transfusion 2units PRBC. Remains on Neosyn, Levophed down 2 mics, off Vasopressin. Objective Vital Signs Date Time Temp Pulse Resp B/P (MAP) Pulse Ox O2 Delivery O2 Flow Rate FiO2 12/25/16 07:44 100 35 12/25/16 06:00 65 12/25/16 06:00 26 138/44 (75) 12/25/16 04:00 98.7 Intake and Output 10/26/17 10/26/17 10/27/17 08:00 16:00 00:00 Intake Total 610 ml Output Total 95 ml Balance 515 ml Result Diagram: 12/25/16 0445 12/25/16 0445 Other Results Laboratory Tests Test 12/24/16 17:10 12/25/16 04:45 Hemoglobin 11.6 GM/DL 10.3 GM/DL Hematocrit 33.3 % 28.9 % White Blood Count 5.5 TH/MM3 Red Blood Count 3.07 MIL/MM3 Mean Corpuscular Volume 94.1 FL Mean Corpuscular Hemoglobin 33.6 PG Mean Corpuscular Hemoglobin Concent 35.7 % Red Cell Distribution Width 18.3 % Platelet Count 60 TH/MM3 Mean Platelet Volume 10.9 FL Neutrophils (%) (Auto) 88.4 % Lymphocytes (%) (Auto) 5.6 % Monocytes (%) (Auto) 4.3 % Eosinophils (%) (Auto) 1.4 % Basophils (%) (Auto) 0.3 % Neutrophils # (Auto) 4.8 TH/MM3 Lymphocytes # (Auto) 0.3 TH/MM3 Monocytes # (Auto) 0.2 TH/MM3 Eosinophils # (Auto) 0.1 TH/MM3 Basophils # (Auto) 0.0 TH/MM3 CBC Comment AUTO DIFF Differential Total Cells Counted 100 Neutrophils % (Manual) 56 % Band Neutrophils % 27 % Lymphocytes % 7 % Monocytes % 9 % Neutrophils # (Manual) 4.6 TH/MM3 Metamyelocytes 1 % Nucleated Red Blood Cells 3 /100 WBC Differential Comment FINAL DIFF MANUAL Toxic Granulation 1+ Platelet Estimate LOW Platelet Morphology Comment ENLARGED Target Cells 1+ Joss Cells 1+ Blood Urea Nitrogen 33 MG/DL Creatinine 3.98 MG/DL Random Glucose 126 MG/DL Calcium Level 7.5 MG/DL Sodium Level 127 MEQ/L Potassium Level 3.7 MEQ/L Chloride Level 89 MEQ/L Carbon Dioxide Level 25.3 MEQ/L Anion Gap 13 MEQ/L Estimat Glomerular Filtration Rate 17 ML/MIN Imaging Last Impressions Chest X-Ray 12/24/16 0000 Signed Impressions: Service Date/Time: Saturday, December 24, 2016 08:06 - CONCLUSION: 1. Unchanged bilateral subpulmonic pneumothoraces despite chest tubes. Nic Brown Jr., MD Abdomen X-Ray 12/23/16 0000 Signed Impressions: Service Date/Time: Friday, December 23, 2016 10:28 - CONCLUSION: Some improvement in the distention of the small bowel compared to the prior study. Nic Brown Jr., MD Chest CT 12/20/16 0000 Signed Impressions: Service Date/Time: Tuesday, December 20, 2016 16:26 - CONCLUSION: 1. Moderate right and small left hydropneumothorax with small caliber chest tubes present bilaterally, not significant changed from prior chest radiograph. Dependent consolidation and atelectasis of both lungs. No pneumomediastinum or subcutaneous air. Germán Vences MD Objective Remarks GENERAL: Patient is 86 yo intubated and sedated SKIN: Warm and dry. HEAD: Normocephalic. EYES: No scleral icterus. No injection or drainage. NECK: Supple, trachea midline. No JVD or lymphadenopathy. Orally intubated CARDIOVASCULAR: Regular rate and rhythm without murmurs, gallops, or rubs. Right CT 20FR on right and Left pigtail cathter on left. RESPIRATORY: Breath sounds equal bilaterally. No accessory muscle use. GASTROINTESTINAL: Firm, distended, hypoactive BS MUSCULOSKELETAL: No cyanosis, or edema. Neuro: sedated A/P Assessment and Plan 1)VDRF 2)Right sided pneumonia 3)Bibasilar hydroPTX 5)ESRD 6)HTN 7)Macrocytic Anemia Plan Neuro: On fentanyl infusion for sedation. Monitor neuro status. Daily sedation vacation when appropriate Pulm: Continue with vent support keep sat >92% Bronchodilators, ICU vent bundle. Monitor CT drainage. CTS is following- Dr. Jara, patient is poor operative candidate. CV: Monitor HR and BP keep MAP>65mmHg Wean off pressors ( On Levophed, Neosyn) On stress dose steroids- HC 100mg Q8 Lactic aid is trending down 3.4 yesterday : Monitor renal function, avoid nephrotoxins s/p HD yesterday with removal 3.5L GI: On Protonix 40mg daily for GI prophylaxis OGT to LIWS on bowel regimen Colace, Senna KUB abdomen 12/23: Some improvement in the distention of the small bowel compared to the prior study. KUB abdomen: 12/22: Localized ileus vs early SBO. Will repeat KUB today. OGT to LIWS ID: Continue abx per ID ( Zosyn, Azithromycin)monitor for signs of infections ( Fever, WBC) sputum cx 12/21: Kleb pneumonia BC, fluid cx from 12/19:NGTD Heme: Monitor CBC, transfuse 2units PRBC Endo: SSI with accuchecks GI prophylaxis- Protonix 40mg daily DVT prophylaxis- SCD. Heparin SQ Palliative care is following Patient is critically ill with resp failure, pneumonia, septic shock on multiple pressors, anemia requiring blood transfusion and ESRD on HD. Discussed with patient's and updated her on his condition. CCT 35 mins Aurea Lovell MD Dec 25, 2016 09:28
[2016-12-25] MEDS ORDERED: PHENYLEPHRINE HCL 10 MG/ML VIAL ONE ×2 (10:07)
[2016-12-25] MEDS: NOREPINEPHRINE 4 MG/D5W 250 ML IV PRN ×2 (10:20)
--- NOTE | 2016-12-25 10:39 | HHI.HCPN ---
Reason for visit a. To assist with evaluation and management of symptoms including: pain; dyspnea; encephalopathy b. To assist medical decision maker(s) with: better understanding of current medical conditions; weighing benefits/burdens of medical treatment options; making medical treatment decisions. . Subjective/Interval History Able to slowly down-titrate pressor support (Off vasopressin, still on Levophed and Neosyn) . Nurse reports she tried to decrease Levophed further and BP fell dramatically. Feet now feeling cool and mottled. Skin tears noted on buttocks and on edematous scrotum. Otherwise no significant change. Patient remains critically ill sedated, intubated, mechanically ventilated, minimally responsive in the MICU. 3.5 L was removed during hemodialysis on . Afebrile. Hg post transfusion went to 11.6, but 10.3 this AM. Platelets now down to 60. Remains hyponatremic. CXR from 12/24 showed no improvement in pneumothoraces in spite of chest tubes. at bedside. Expresses her concern about the scrotal edema and skin tears on scrotum and on buttocks. . Family/friend interactions Spoke withe at bedside for 15 minutes. 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 We spoke about poor prognosis again which she understands. She is very concerned about skin breakdown and scrotal edema. Discussed these concerns with primary nurse and will order a wound care consult. still feels unable to ask for no code status or consider compassionate withdrawal of life support because of her position as the step mother. Although she has the authority to do so as health care surrogate, she feels this would further erode family relationships which the patient would not want. . . Advance Directives Durable Power of Financial Services Officer: Copy in medical record Advance Directive Specifics Date completed: DPOA for health care completed 10/05/2012 . Health Care Surrogate(s): Pio Lerner is designated as the health care DPOA. . Documented care wishes: No written documentation of health care preferences/wishes/goals. . Objective Vital Signs Date Time Temp Pulse Resp B/P (MAP) Pulse Ox O2 Delivery O2 Flow Rate FiO2 12/25/16 10:20 64 152/51 12/25/16 10:20 64 152/50 12/25/16 09:58 100 35 12/25/16 07:44 100 35 12/25/16 06:00 65 12/25/16 06:00 65 26 138/44 (75) 100 12/25/16 04:06 100 35 12/25/16 04:00 67 12/25/16 04:00 98.7 67 26 143/44 (77) 100 12/25/16 04:00 35 12/25/16 03:56 67 115/40 12/25/16 02:00 64 12/25/16 02:00 64 26 164/51 (88) 100 12/25/16 00:05 100 35 12/25/16 00:00 35 12/25/16 00:00 67 12/25/16 00:00 99.3 67 26 133/43 (73) 100 12/24/16 22:01 66 151/36 12/24/16 22:00 66 12/24/16 22:00 66 26 147/42 (77) 100 12/24/16 20:29 99 35 12/24/16 20:10 66 139/39 12/24/16 20:00 69 12/24/16 20:00 98.8 69 28 161/43 (82) 99 12/24/16 20:00 35 12/24/16 18:30 74 143/32 12/24/16 18:00 74 12/24/16 17:21 76 193/49 12/24/16 17:21 76 193/49 12/24/16 16:26 72 140/33 12/24/16 16:00 94 12/24/16 16:00 98.3 72 18 140/35 (70) 94 12/24/16 16:00 35 12/24/16 14:50 92 35 12/24/16 14:00 98.3 72 26 143/31 99 12/24/16 14:00 94 12/24/16 13:45 98.1 63 26 177/38 98 12/24/16 12:00 35 12/24/16 12:00 98.1 64 26 164/35 (78) 95 12/24/16 12:00 64 12/24/16 12:00 64 164/35 12/24/16 12:00 64 164/35 12/24/16 11:45 63 177/37 12/24/16 11:30 63 170/35 12/24/16 11:23 92 35 12/24/16 11:08 97.7 62 26 167/34 12/24/16 11:00 62 164/37 12/24/16 10:43 98.1 62 26 155/37 97 Intake & Output 12/25/16 12/25/16 07:00 19:00 Intake Total 1350 ml Output Total 95 ml Balance 1255 ml IV Total 1290 ml Tube Irrigant 60 ml Output Urine Total 0 ml Gastric Drainage Total 50 ml Chest Tube Drainage Total 45 ml # Bowel Movements 1 . Physical Exam CONSTITUTIONAL/GENERAL: This is a thin, frail appearing male, sedated, intubated , mechanically ventilated in the MICU. TUBES/LINES/DRAINS: ET tube ; OG tube; dialysis fistula LUE; bilateral soft wrist restraints; bilateral chest catheters; peripheral IV; arterial line right radial artery; right femoral central line. SKIN: No jaundice, rashes. Skin tears on edematous scrotum. Buttock skin tear not evaluated. Skin temperature appropriate except for feet which are cool and mottled. EYES: Eyes open but he does not track. Pupils equal and round. Unable to evaluate EOMs. No scleral icterus. No injection or drainage. Fundi not examined. ENT: Unable to evaluate hearing. Nose without bleeding or purulent drainage. Throat without visible erythema, exudates, masses, or lesions though difficult to assess due to intubations. NECK: Trachea midline. CARDIOVASCULAR: Regular rate and rhythm without murmurs, gallops, or rubs. No JVD. RESPIRATORY/CHEST: Symmetric, unlabored respirations. Breath sounds diminished at both bases. No wheezes. GASTROINTESTINAL: Abdomen distended and very firm. No hepato-splenomegaly, or palpable masses. No guarding. Bowel sounds hypoactive. GENITOURINARY: Without palpable bladder distension. Prominent scrotal edema. MUSCULOSKELETAL: Extremities without clubbing, cyanosis. Feet are cool and mottled. LYMPHATICS: Not examined NEUROLOGICAL: Sedated. No spontaneous movements noted. Unable to follow commands. PSYCHIATRIC: Unable to assess due to level of responsiveness . Diagnostic Tests Laboratory Laboratory Tests Test 12/22/16 18:05 12/23/16 04:08 12/23/16 10:25 12/23/16 10:55 Lactic Acid Level 5.9 mmol/L (0.4-2.0) 4.1 mmol/L (0.4-2.0) White Blood Count 4.3 TH/MM3 (4.0-11.0) Red Blood Count 2.09 MIL/MM3 (4.50-5.90) Hemoglobin 7.4 GM/DL (13.0-17.0) Hematocrit 22.1 % (39.0-51.0) Mean Corpuscular Volume 105.5 FL (80.0-100.0) Mean Corpuscular Hemoglobin 35.2 PG (27.0-34.0) Mean Corpuscular Hemoglobin Concent 33.4 % (32.0-36.0) Red Cell Distribution Width 14.8 % (11.6-17.2) Platelet Count 90 TH/MM3 (150-450) Mean Platelet Volume 10.6 FL (7.0-11.0) Neutrophils (%) (Auto) 80.4 % (16.0-70.0) Lymphocytes (%) (Auto) 12.7 % (9.0-44.0) Monocytes (%) (Auto) 4.9 % (0.0-8.0) Eosinophils (%) (Auto) 1.9 % (0.0-4.0) Basophils (%) (Auto) 0.1 % (0.0-2.0) Neutrophils # (Auto) 3.5 TH/MM3 (1.8-7.7) Lymphocytes # (Auto) 0.5 TH/MM3 (1.0-4.8) Monocytes # (Auto) 0.2 TH/MM3 (0-0.9) Eosinophils # (Auto) 0.1 TH/MM3 (0-0.4) Basophils # (Auto) 0.0 TH/MM3 (0-0.2) CBC Comment AUTO DIFF Differential Comment AUTO DIFF CONFIRMED Platelet Estimate LOW (NORMAL) Platelet Morphology Comment ENLARGED (NORMAL) Blood Urea Nitrogen 39 MG/DL (7-18) Creatinine 4.79 MG/DL (0.60-1.30) Random Glucose 116 MG/DL (74-106) Total Protein 5.7 GM/DL (6.4-8.2) Calcium Level 7.1 MG/DL (8.5-10.1) Sodium Level 130 MEQ/L (136-145) Potassium Level 4.7 MEQ/L (3.5-5.1) Chloride Level 93 MEQ/L (98-107) Carbon Dioxide Level 25.2 MEQ/L (21.0-32.0) Anion Gap 12 MEQ/L (5-15) Estimat Glomerular Filtration Rate 14 ML/MIN (>89) Protein Corrected Calcium 7.8 MG/DL (8.5-10.1) Blood Gas Puncture Site ART LINE Blood Gas Patient Temperature 98.6 Blood Gas HCO3 23 mmol/L (22-26) Blood Gas Base Excess -2.0 mmol/L (-2-2) Blood Gas Oxygen Saturation 96 % (90-100) Arterial Blood pH 7.33 (7.380-7.420) Arterial Blood Partial Pressure CO2 44 mmHg (38-42) Arterial Blood Partial Pressure O2 125 mmHg (61-120) Arterial Blood Oxygen Content 11.6 Vol % (12.0-20.0) Arterial Blood Carboxyhemoglobin 1.3 % (0-4) Arterial Blood Methemoglobin 1.2 % (0-2) Blood Gas Hemoglobin 8.4 G/DL (12.0-16.0) Oxygen Delivery Device VENTILATOR Blood Gas Ventilator Setting SEE COMMENTS Blood Gas Inspired Oxygen 35 % Test 12/23/16 15:45 12/23/16 16:25 12/24/16 04:33 12/24/16 08:00 Blood Gas Puncture Site ART LINE Blood Gas Patient Temperature 98.6 Blood Gas HCO3 22 mmol/L (22-26) Blood Gas Base Excess -3.7 mmol/L (-2-2) Blood Gas Oxygen Saturation 96 % (90-100) Arterial Blood pH 7.31 (7.380-7.420) Arterial Blood Partial Pressure CO2 45 mmHg (38-42) Arterial Blood Partial Pressure O2 134 mmHg (61-120) Arterial Blood Oxygen Content 10.3 Vol % (12.0-20.0) Arterial Blood Carboxyhemoglobin 1.2 % (0-4) Arterial Blood Methemoglobin 1.3 % (0-2) Blood Gas Hemoglobin 7.4 G/DL (12.0-16.0) Oxygen Delivery Device VENTILATOR Blood Gas Ventilator Setting PC/AC RATE 26 Blood Gas Inspired Oxygen 35 % Lactic Acid Level 3.8 mmol/L (0.4-2.0) White Blood Count 4.4 TH/MM3 (4.0-11.0) 4.3 TH/MM3 (4.0-11.0) Red Blood Count 1.90 MIL/MM3 (4.50-5.90) 1.98 MIL/MM3 (4.50-5.90) Hemoglobin 6.7 GM/DL (13.0-17.0) 6.9 GM/DL (13.0-17.0) Hematocrit 19.5 % (39.0-51.0) 20.5 % (39.0-51.0) Mean Corpuscular Volume 102.4 FL (80.0-100.0) 103.5 FL (80.0-100.0) Mean Corpuscular Hemoglobin 35.4 PG (27.0-34.0) 34.7 PG (27.0-34.0) Mean Corpuscular Hemoglobin Concent 34.6 % (32.0-36.0) 33.5 % (32.0-36.0) Red Cell Distribution Width 14.7 % (11.6-17.2) 15.2 % (11.6-17.2) Platelet Count 80 TH/MM3 (150-450) 85 TH/MM3 (150-450) Mean Platelet Volume 11.2 FL (7.0-11.0) 10.8 FL (7.0-11.0) Neutrophils (%) (Auto) 81.0 % (16.0-70.0) Lymphocytes (%) (Auto) 11.8 % (9.0-44.0) Monocytes (%) (Auto) 4.9 % (0.0-8.0) Eosinophils (%) (Auto) 2.1 % (0.0-4.0) Basophils (%) (Auto) 0.2 % (0.0-2.0) Neutrophils # (Auto) 3.5 TH/MM3 (1.8-7.7) Lymphocytes # (Auto) 0.5 TH/MM3 (1.0-4.8) Monocytes # (Auto) 0.2 TH/MM3 (0-0.9) Eosinophils # (Auto) 0.1 TH/MM3 (0-0.4) Basophils # (Auto) 0.0 TH/MM3 (0-0.2) CBC Comment AUTO DIFF AUTO DIFF Differential Total Cells Counted 100 100 Neutrophils % (Manual) 44 % (16-70) 43 % (16-70) Band Neutrophils % 16 % (0-6) 18 % (0-6) Lymphocytes % 13 % (9-44) 10 % (9-44) Monocytes % 13 % (0-8) 12 % (0-8) Neutrophils # (Manual) 3.3 TH/MM3 (1.8-7.7) 3.4 TH/MM3 (1.8-7.7) Metamyelocytes 14 % (0-1) 17 % (0-1) Nucleated Red Blood Cells 1 /100 WBC (0-0) 3 /100 WBC (0-0) Differential Comment FINAL DIFF MANUAL FINAL DIFF MANUAL Platelet Estimate LOW (NORMAL) LOW (NORMAL) Platelet Morphology Comment ENLARGED (NORMAL) ENLARGED (NORMAL) Ovalocytes 1+ (NORMAL) 1+ (NORMAL) Acanthocytes OCC (NORMAL) OCC (NORMAL) Blood Urea Nitrogen 50 MG/DL (7-18) 52 MG/DL (7-18) Creatinine 5.42 MG/DL (0.60-1.30) 5.49 MG/DL (0.60-1.30) Random Glucose 140 MG/DL (74-106) 155 MG/DL (74-106) Total Protein 5.7 GM/DL (6.4-8.2) 5.8 GM/DL (6.4-8.2) Calcium Level 6.8 MG/DL (8.5-10.1) 7.0 MG/DL (8.5-10.1) Sodium Level 122 MEQ/L (136-145) 121 MEQ/L (136-145) Potassium Level 4.7 MEQ/L (3.5-5.1) 4.7 MEQ/L (3.5-5.1) Chloride Level 86 MEQ/L (98-107) 84 MEQ/L (98-107) Carbon Dioxide Level 23.0 MEQ/L (21.0-32.0) 23.0 MEQ/L (21.0-32.0) Anion Gap 13 MEQ/L (5-15) 14 MEQ/L (5-15) Estimat Glomerular Filtration Rate 12 ML/MIN (>89) 12 ML/MIN (>89) Protein Corrected Calcium 7.5 MG/DL (8.5-10.1) 7.7 MG/DL (8.5-10.1) Random Vancomycin Level 10.9 COMMENT [place] Cells 1+ (NORMAL) Test 12/24/16 08:55 12/24/16 17:10 12/25/16 04:45 Lactic Acid Level 3.4 mmol/L (0.4-2.0) Hemoglobin 11.6 GM/DL (13.0-17.0) 10.3 GM/DL (13.0-17.0) Hematocrit 33.3 % (39.0-51.0) 28.9 % (39.0-51.0) White Blood Count 5.5 TH/MM3 (4.0-11.0) Red Blood Count 3.07 MIL/MM3 (4.50-5.90) Mean Corpuscular Volume 94.1 FL (80.0-100.0) Mean Corpuscular Hemoglobin 33.6 PG (27.0-34.0) Mean Corpuscular Hemoglobin Concent 35.7 % (32.0-36.0) Red Cell Distribution Width 18.3 % (11.6-17.2) Platelet Count 60 TH/MM3 (150-450) Mean Platelet Volume 10.9 FL (7.0-11.0) Neutrophils (%) (Auto) 88.4 % (16.0-70.0) Lymphocytes (%) (Auto) 5.6 % (9.0-44.0) Monocytes (%) (Auto) 4.3 % (0.0-8.0) Eosinophils (%) (Auto) 1.4 % (0.0-4.0) Basophils (%) (Auto) 0.3 % (0.0-2.0) Neutrophils # (Auto) 4.8 TH/MM3 (1.8-7.7) Lymphocytes # (Auto) 0.3 TH/MM3 (1.0-4.8) Monocytes # (Auto) 0.2 TH/MM3 (0-0.9) Eosinophils # (Auto) 0.1 TH/MM3 (0-0.4) Basophils # (Auto) 0.0 TH/MM3 (0-0.2) CBC Comment AUTO DIFF Differential Total Cells Counted 100 Neutrophils % (Manual) 56 % (16-70) Band Neutrophils % 27 % (0-6) Lymphocytes % 7 % (9-44) Monocytes % 9 % (0-8) Neutrophils # (Manual) 4.6 TH/MM3 (1.8-7.7) Metamyelocytes 1 % (0-1) Nucleated Red Blood Cells 3 /100 WBC (0-0) Differential Comment FINAL DIFF MANUAL Toxic Granulation 1+ (NORMAL) Platelet Estimate LOW (NORMAL) Platelet Morphology Comment ENLARGED (NORMAL) Target Cells 1+ (NORMAL) Joss Cells 1+ (NORMAL) Blood Urea Nitrogen 33 MG/DL (7-18) Creatinine 3.98 MG/DL (0.60-1.30) Random Glucose 126 MG/DL (74-106) Calcium Level 7.5 MG/DL (8.5-10.1) Sodium Level 127 MEQ/L (136-145) Potassium Level 3.7 MEQ/L (3.5-5.1) Chloride Level 89 MEQ/L (98-107) Carbon Dioxide Level 25.3 MEQ/L (21.0-32.0) Anion Gap 13 MEQ/L (5-15) Estimat Glomerular Filtration Rate 17 ML/MIN (>89) . Result Diagram: 12/25/16 0445 12/25/16 0445 Microbiology Microbiology Date/Time Source Procedure Growth Status 12/19/16 19:10 Blood Peripheral Aerobic Blood Culture - Final NO GROWTH IN 5 DAYS Complete 12/19/16 19:10 Blood Peripheral Anaerobic Blood Culture - Final NO GROWTH IN 5 DAYS Complete 12/19/16 20:35 Fluid Pleural Fluid Gram Stain - Final Complete 12/19/16 20:35 Fluid Pleural Fluid Body Fluid Culture - Final NO GROWTH IN 72 HRS.--AEROBICALLY OR ... Complete 12/21/16 10:24 Sputum Endotracheal Gram Stain - Final Complete 12/21/16 10:24 Sputum Culture - Final Klebsiella Pneumoniae Complete . Imaging Last Impressions Chest X-Ray 12/24/16 0000 Signed Impressions: Service Date/Time: Saturday, December 24, 2016 08:06 - CONCLUSION: 1. Unchanged bilateral subpulmonic pneumothoraces despite chest tubes. Nic Brown Jr., MD Abdomen X-Ray 12/23/16 0000 Signed Impressions: Service Date/Time: Friday, December 23, 2016 10:28 - CONCLUSION: Some improvement in the distention of the small bowel compared to the prior study. Nic Brown Jr., MD Chest CT 12/20/16 0000 Signed Impressions: Service Date/Time: Tuesday, December 20, 2016 16:26 - CONCLUSION: 1. Moderate right and small left hydropneumothorax with small caliber chest tubes present bilaterally, not significant changed from prior chest radiograph. Dependent consolidation and atelectasis of both lungs. No pneumomediastinum or subcutaneous air. Germán Vences MD . Procedures * Biltateral chest tube placement * Intubation/mechanical ventilation . Assessment and Plan Disease Oriented Problem List: (1) Loculated pleural effusion Comment: Pulmonology and cardi-thoracic surgery do not feel there is a workable solution to this problem given the patient's overall functional capacity. . (2) Pneumothorax Comment: Lungs unable to re-expand in spite of chest tubes.. As chest tubes are not working and he is not a candidate for surgery, this will likely be a chronic problem making it very hard to wean patient from went and if vent weaning is possible there is a very high likelihood or recurrence/worsening of problem. . (3) ESRD (end stage renal disease) on dialysis Comment: Normally on dialysis M, W, F. . (4) Peripheral vascular disease (5) Anemia Comment: Probably multi-factorial. On top of anemia from his renal disease, he may have acute blood loss anemia from uncertain source. Has received 2 units of PRBCs. . (6) Stroke Comment: Had two strokes in 2013. Now with significant left sided weakness. . (7) Osteoarthritis (8) Hypertension Comment: Now HYPOTENSIVE requiring pressor support. . (9) Glaucoma Symptom Scale: (1) Pain 0-10 Scale: Unable to quantify Comment: Has history of back pain and arthritis pain with use of PRN tramadol at home. Other sources of pain now include prolonged bedbound status; orotracheal and orogastric intubations; restraints; vascular access lines; etc. Patient is unable to locate, quantify, qualify pain. Currently has orders for a fentanyl drip and for tramadol. . (2) Dyspnea 0-10 Scale: Unable to quantify Comment: Dyspnea due to pneumothorax and recurrent pleural effusions. Now being managed on vent. . (3) Encephalopathy 0-10 Scale: Unable to quantify Comment: Patient continues on sedation. Will need to evaluate clinically off sedation to see if there is any significant cognitive loss. . Pertinent Non-Medical Issues Psychosocial: Supported by of over 30 years. Patient has 8 biological children and 5 step-children. Spiritual: Jewish Legal: DPOA for health care scanned into EMR. Ethical issues impacting care: Patient is incapacitated and is not likely to regain capacity. . Important Contacts * Pio Lerner (spouse; DPOA for [facility]) [phone] . 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 Cardiothoracic surgery does not believe patient could tolerate the procedure necessary to repair this. In addition to his kidney disease and incurable lung disease, patient now has hemodynamic instability requiring pressors. Critical care and pulmonology feel he has an end stage condition. In my clinical opinion, patient has an overall end stage condition. I don't believe there is a reasonable probability of patient regaining capacity. Patient would be an appropriate hospice candidate at such time that his health care surrogate decides to forego further aggressive care and transition to comfort care. . Code Status: Full Code Plan == Code Status: FULL CODE. (who is the DPOA for [facility]) feels obligated to allow one more attempted resuscitation. She feels the patient opted to go on life support on his own. She understands his dire circumstances and poor prognosis and risks of preforming CPR on him in his fragile position. She is also reluctant to change code status or consider compassionate withdrawal of life support because of the expected anger coming from the patient 's children. == Decision making: Patient is incapacitated to make his own health care decisions. At this point, probability of the patient being able to regain capacity to make his own health care decisions is remote. While incapacitated, his Pio Lerner, is the [facility] DPOA. == Goals of medical treatment: has spoken 12/24 with nephrology and pulmonology. clearly understands that patient will likely during this hospitalization. She understands that his pneumothoraces are not re-expanding, that he is not a candidate to surgically correct these , and that therefore getting the patient off the vent may be impossible. She understands that he appears to be bleeding and that we don't know where from. She understands that care home pressor use may be causing lack of blood flow to some organs and to extremities. She understands she is the health are surrogate and can make decisions on her own. She tells me she would like to make him "no code" at this point. HOWEVER -- she also tells me that the patient has 8 children and 5 step children. She is the stepmother and in the past the children have been very angry with her. She feels if she would make him "no code" they would be furious that she did not try and fight hard enough to keep him alive. For these reasons, she is unable, at this time to change his code status. She clearly understands the trauma he will go through if "coded." == Symptoms * Pain: Has history of back pain and arthritis pain with use of PRN tramadol at home. Other sources of pain now include prolonged bedbound status; orotracheal and orogastric intubations; restraints; vascular access lines; etc. He has abdominal distension of unkwown etiology (ascites? ischemic bowel?) - - unclear if this might be causing abdominal pain. Currently has orders for a fentanyl drip and for tramadol. No further recommendations at this time. * Dyspnea: Dyspnea is secondary to his chronic / recurrent pleural effusions and pneumothoraces. Currently managed by chest tubes and ventilator. Opiates would help for treating dyspnea if needed. Currently has orders for a fentanyl drip and for tramadol. No further recommendations at this time. * Encephalopathy: Unclear at this time to what extent patient is minimally responsive due to sedation vs to underlying illness. Can re-evaluate when stable enough for a "sedation vacation." == Skin tears on buttocks and edematous scrotum: Dialysis will be the main method of taking off excess fluid which is also challenging because of hypotension. Will order wound care consult as is understandably concerned about the skin breakdown. Skin breakdown probably exacerbated by pressors which are most likely further reducing blood flow to skin. == Cool / mottled feet: This is probably a pressor effect as well. Patient is at risk of ischemic injury to extremities. == Offered to speak with children and stepchildren by phone or in person if feels that would help. She will let me know. == Palliative care will continue to follow to assist with symptom management and to further clarify goals of medical treatment as the clinical course evolves. . Attestation To help prompt me to consider important information that might be impacting today's encounter and assessment, information from prior notes written by myself or my colleagues may have been "brought forward" into today's note. My signature on this note, however, is an attestation that I personally performed the exam, history, and/or decision-making noted today, and, unless otherwise indicated, the interactions with patient, family, and staff as well as the review of records all occurred today. I also attest that the listed assessment and stated plan reflect my best clinical judgment today based on the combination of historical information, prior notes, and today's exam/ interactions. When time spent is documented, it refers only to time spent today by the signer, or if indicated, combined time spent today by collaborating physician/nurse practitioner. . Jesus Freitas MD Dec 25, 2016 10:39
--- NOTE | 2016-12-25 12:07 | HHI.IDPN ---
Subjective Subjective Remarks Patient is an 86-year-old male, initially presented to the hospital on December 19, for a scheduled bilateral thoracenteses. He has had problem with recurrent pleural effusion, as well as ascites, and has had multiple procedures done to drain the fluid. He was scheduled to have thoracentesis on October 19, but he went into respiratory distress, and ended up getting admitted. He was found to have a pneumothorax on the left and a large pleural effusion on the right. He had placement of bilateral chest tube, but there was only partial reexpansion of the lungs. There was no mention that he was having any cough or congestion, or fever or chills. This morning he had progressive respiratory distress, and required intubation. He is afebrile. He is on the vent. He is also hypotensive, and requiring 3 pressors. He is on levo fed, Forrest-Synephrine, and vasopressin. Cardiothoracic surgery has been consulted to evaluate the patient due to nonreactive expansion of the lung. Patient has end-stage renal disease, and gets hemodialysis. He had hemodialysis yesterday. Infectious disease consultation has been requested to evaluate the patient for possible pneumonia and shock. Notes reviewed D/W RN Garry ok Remains on pressors, down to 2, on levophed and forrest, off vasopressin On the vent Antibiotics Zithromax IV Zosyn IV I attest that I obtained, updated or reviewed the home and current medications. Current Medications Medications (Trade) Dose Ordered Sig/Bill Route Start Time Stop Time Status Last Admin (Dulcolax Ec) 10 mg DAILY PRN PO 12/19/16 20:00 (Drisdol) 50,000 units Q7D PO 12/20/16 09:00 12/24/16 08:20 (Xalatan 0.005% Opth Soln) 1 drop HS EACH EYE 12/19/16 21:00 12/24/16 21:00 (Pravachol) 20 mg HS PO 12/19/16 21:00 12/24/16 22:02 (Loniten) 2.5 mg DAILY PO 12/20/16 09:00 12/25/16 09:22 (Procardia Xl) 30 mg BID PRN PO 12/19/16 20:00 12/20/16 00:23 (Ultram) 50 mg Q4H PRN PO 12/19/16 20:00 12/20/16 15:50 (Ecotrin Ec) 81 mg DAILY PO 12/20/16 09:00 12/25/16 09:22 (Nephrocaps) 1 cap DAILY PO 12/20/16 09:00 12/25/16 09:22 (Oscal) 1,000 mg DAILY PO 12/20/16 09:00 12/25/16 09:22 (Coreg) 12.5 mg BID PO 12/19/16 21:00 Future Hold 12/20/16 20:56 (Cosopt 2-0.5% Opth Soln) 1 drop BID EACH EYE 12/19/16 21:00 12/25/16 09:23 (NS Flush) 2 ml UNSCH PRN IV FLUSH 12/19/16 20:15 12/24/16 22:02 (NS Flush) 2 ml BID IV FLUSH 12/19/16 21:00 12/25/16 09:23 (Tylenol) 650 mg Q6H PRN PO 12/19/16 20:15 (Zofran Inj) 4 mg Q6H PRN IV PUSH 12/19/16 20:15 (Ambien) 5 mg HS PRN PO 12/19/16 20:15 (Heparin Inj) 5,000 units Q12H SQ 12/19/16 21:00 12/25/16 09:22 Miscellaneous Information 1 Q361D XX 12/19/16 20:15 (Chlorhexidine 2% Cloth) Taper DAILY@04 TOP 12/20/16 04:00 12/16/17 03:59 12/25/16 03:56 (Chlorhexidine 2% Cloth) 3 pack UNSCH PRN TOP 12/19/16 20:15 (Shelby-Colace) 1 tab BID PO 12/19/16 21:00 12/24/16 22:02 (Milk Of Magnesia Liq) 30 ml Q12H PRN PO 12/19/16 20:15 (Senokot) 17.2 mg Q12H PRN PO 12/19/16 20:15 12/22/16 09:39 (Dulcolax Supp) 10 mg DAILY PRN RECTAL 12/19/16 20:15 (Lactulose Liq) 30 ml DAILY PRN PO 12/19/16 20:15 12/22/16 09:37 (Persantine) 75 mg BID PO 12/20/16 09:00 12/25/16 09:22 (Apresoline Inj) 20 mg Q4H PRN IV 12/20/16 00:15 12/20/16 00:22 Sodium Chloride 1,000 ml @ 0 mls/hr Q0M PRN OTHER 12/20/16 10:04 Sodium Chloride 1,000 ml @ 200 mls/hr Q5H PRN IV 12/20/16 10:04 Sodium Chloride 1,000 ml @ 0 mls/hr Q0M PRN OTHER 12/20/16 10:04 (Mannitol Inj) 12.5 gm UNSCH PRN IV 12/20/16 10:15 Albumin Human 100 ml @ 60 mls/hr UNSCH PRN IV 12/20/16 10:15 (NS Flush) 5 ml UNSCH PRN IV FLUSH 12/20/16 10:15 (Heparin Inj) UNSCH PRN .XX 12/20/16 10:15 (Gentamicin (Dialysis) Inj) 20 mg UNSCH PRN OTHER 12/20/16 10:15 (Zofran Inj) 4 mg UNSCH PRN IV PUSH 12/20/16 10:15 (Tylenol) 650 mg UNSCH PRN PO 12/20/16 10:15 (Benadryl) 25 mg UNSCH PRN PO 12/20/16 10:15 (Nitrostat Sl) 0.4 mg UNSCH PRN SL 12/20/16 10:15 (Catapres) 0.1 mg UNSCH PRN PO 12/20/16 10:15 (Epogen Inj) 5,000 units UNSCH PRN IV PUSH 12/20/16 10:15 12/24/16 17:32 (Gelfoam 12 Mm/7 Mm Top) 1 foam UNSCH PRN TOP 12/20/16 10:15 (Peridex 0.12% Liq) 15 ml BID@08,20 MT 12/21/16 08:00 12/25/16 09:23 Propofol 100 ml @ 1.62 mls/hr TITRATE PRN IV 12/21/16 08:00 (Duoneb Neb) 1 ampule Q6HR NEB PRN NEB 12/21/16 08:00 (Protonix Inj) 40 mg Q24H IV PUSH 12/21/16 09:00 12/25/16 09:22 (D50w (Vial) Inj) 50 ml UNSCH PRN IV PUSH 12/21/16 08:15 12/23/16 22:56 (Glucagon Inj) 1 mg UNSCH PRN OTHER 12/21/16 08:15 (NovoLIN R SUPPLEMENTAL SCALE) 1 Q4H SQ 12/21/16 09:00 Piperacillin Sod/ Tazobactam Sod 50 ml @ 100 mls/hr Q8H IV 12/21/16 10:00 12/25/16 09:22 Azithromycin 500 mg/Sodium Chloride 250 ml @ 250 mls/hr Q24H IV 12/21/16 09:00 12/25/16 09:21 Fentanyl Citrate 250 ml @ 5 mls/hr TITRATE PRN IV 12/21/16 10:00 12/24/16 10:04 (SoluCORTEF INJ) 100 mg Q8H IV PUSH 12/21/16 13:00 12/25/16 06:09 Phenylephrine HCl 40 mg/Dextrose 500 ml @ 30 mls/hr TITRATE PRN IV 12/21/16 12:45 12/25/16 10:20 (Brethine Inj) 1 mg UNSCH PRN SQ 12/21/16 12:45 Norepinephrine Bitartrate 250 ml @ 7.5 mls/hr TITRATE PRN IV 12/21/16 18:30 12/25/16 10:20 Vasopressin 40 units/Dextrose 100 ml @ 6 mls/hr [id number] IV 12/21/16 18:30 12/24/16 08:23 (Colace Liq) 100 mg Q12HR PO 12/22/16 09:15 12/25/16 09:20 (Senna Liq) 8.8 mg DAILY PO 12/22/16 09:15 12/23/16 09:27 Lines A line Past Medical History ESRD on HD Ascites Hypertension CVA Duodenitis Past Surgical History Left carotid endarectomy Fistula left arm Multiple thoracentesis and paracentesis Allergies: Coded Allergies: *MDRO Multi-Drug Resistant Organism (Verified Adverse Reaction, Unknown, 01/29/15) MRSA PCR Screen positive 01/25/15. Objective . Vital Signs Date Time Temp Pulse Resp B/P (MAP) Pulse Ox O2 Delivery O2 Flow Rate FiO2 12/25/16 11:00 67 12/25/16 11:00 67 23 167/55 (92) 93 12/25/16 10:20 64 152/51 12/25/16 10:20 64 152/50 12/25/16 10:00 63 26 139/43 (75) 100 12/25/16 10:00 63 12/25/16 09:58 100 35 12/25/16 09:00 66 12/25/16 09:00 66 26 153/45 (81) 100 12/25/16 08:00 62 12/25/16 08:00 35 12/25/16 08:00 98.3 62 26 125/41 (69) 100 12/25/16 07:44 100 35 12/25/16 06:00 65 12/25/16 06:00 65 26 138/44 (75) 100 12/25/16 04:06 100 35 12/25/16 04:00 67 12/25/16 04:00 98.7 67 26 143/44 (77) 100 12/25/16 04:00 35 12/25/16 03:56 67 115/40 12/25/16 02:00 64 12/25/16 02:00 64 26 164/51 (88) 100 12/25/16 00:05 100 35 12/25/16 00:00 35 12/25/16 00:00 67 12/25/16 00:00 99.3 67 26 133/43 (73) 100 12/24/16 22:01 66 151/36 12/24/16 22:00 66 12/24/16 22:00 66 26 147/42 (77) 100 12/24/16 20:29 99 35 12/24/16 20:10 66 139/39 12/24/16 20:00 69 12/24/16 20:00 98.8 69 28 161/43 (82) 99 12/24/16 20:00 35 12/24/16 18:30 74 143/32 12/24/16 18:00 74 12/24/16 17:21 76 193/49 12/24/16 17:21 76 193/49 12/24/16 16:26 72 140/33 12/24/16 16:00 94 12/24/16 16:00 98.3 72 18 140/35 (70) 94 12/24/16 16:00 35 12/24/16 14:50 92 35 12/24/16 14:00 98.3 72 26 143/31 99 12/24/16 14:00 94 12/24/16 13:45 98.1 63 26 177/38 98 . Laboratory Tests Test 12/24/16 04:33 12/24/16 08:00 12/24/16 17:10 12/25/16 04:45 White Blood Count 4.4 TH/MM3 4.3 TH/MM3 5.5 TH/MM3 Red Blood Count 1.90 MIL/MM3 1.98 MIL/MM3 3.07 MIL/MM3 Hemoglobin 6.7 GM/DL 6.9 GM/DL 11.6 GM/DL 10.3 GM/DL Hematocrit 19.5 % 20.5 % 33.3 % 28.9 % Mean Corpuscular Volume 102.4 FL 103.5 FL 94.1 FL Mean Corpuscular Hemoglobin 35.4 PG 34.7 PG 33.6 PG Mean Corpuscular Hemoglobin Concent 34.6 % 33.5 % 35.7 % Red Cell Distribution Width 14.7 % 15.2 % 18.3 % Platelet Count 80 TH/MM3 85 TH/MM3 60 TH/MM3 Mean Platelet Volume 11.2 FL 10.8 FL 10.9 FL Neutrophils (%) (Auto) 81.0 % 88.4 % Lymphocytes (%) (Auto) 11.8 % 5.6 % Monocytes (%) (Auto) 4.9 % 4.3 % Eosinophils (%) (Auto) 2.1 % 1.4 % Basophils (%) (Auto) 0.2 % 0.3 % Neutrophils # (Auto) 3.5 TH/MM3 4.8 TH/MM3 Lymphocytes # (Auto) 0.5 TH/MM3 0.3 TH/MM3 Monocytes # (Auto) 0.2 TH/MM3 0.2 TH/MM3 Eosinophils # (Auto) 0.1 TH/MM3 0.1 TH/MM3 Basophils # (Auto) 0.0 TH/MM3 0.0 TH/MM3 CBC Comment AUTO DIFF AUTO DIFF AUTO DIFF Differential Total Cells Counted 100 100 100 Neutrophils % (Manual) 44 % 43 % 56 % Band Neutrophils % 16 % 18 % 27 % Lymphocytes % 13 % 10 % 7 % Monocytes % 13 % 12 % 9 % Neutrophils # (Manual) 3.3 TH/MM3 3.4 TH/MM3 4.6 TH/MM3 Metamyelocytes 14 % 17 % 1 % Nucleated Red Blood Cells 1 /100 WBC 3 /100 WBC 3 /100 WBC Differential Comment FINAL DIFF MANUAL FINAL DIFF MANUAL FINAL DIFF MANUAL Platelet Estimate LOW LOW LOW Platelet Morphology Comment ENLARGED ENLARGED ENLARGED Ovalocytes 1+ 1+ Acanthocytes OCC OCC Joss Cells 1+ 1+ Toxic Granulation 1+ Target Cells 1+ Laboratory Tests Test 12/23/16 16:25 12/24/16 04:33 12/24/16 08:00 12/24/16 08:55 Lactic Acid Level 3.8 mmol/L 3.4 mmol/L Blood Urea Nitrogen 50 MG/DL 52 MG/DL Creatinine 5.42 MG/DL 5.49 MG/DL Random Glucose 140 MG/DL 155 MG/DL Total Protein 5.7 GM/DL 5.8 GM/DL Calcium Level 6.8 MG/DL 7.0 MG/DL Sodium Level 122 MEQ/L 121 MEQ/L Potassium Level 4.7 MEQ/L 4.7 MEQ/L Chloride Level 86 MEQ/L 84 MEQ/L Carbon Dioxide Level 23.0 MEQ/L 23.0 MEQ/L Anion Gap 13 MEQ/L 14 MEQ/L Estimat Glomerular Filtration Rate 12 ML/MIN 12 ML/MIN Protein Corrected Calcium 7.5 MG/DL 7.7 MG/DL Test 12/25/16 04:45 Blood Urea Nitrogen 33 MG/DL Creatinine 3.98 MG/DL Random Glucose 126 MG/DL Calcium Level 7.5 MG/DL Sodium Level 127 MEQ/L Potassium Level 3.7 MEQ/L Chloride Level 89 MEQ/L Carbon Dioxide Level 25.3 MEQ/L Anion Gap 13 MEQ/L Estimat Glomerular Filtration Rate 17 ML/MIN Imaging Chest X-Ray 12/24/16 0000 Signed Impressions: Service Date/Time: Saturday, December 24, 2016 08:06 - CONCLUSION: 1. Unchanged bilateral subpulmonic pneumothoraces despite chest tubes. Nic Brown Jr., MD Chest X-Ray 12/23/161999 Signed Impressions: Service Date/Time: Friday, December 23, 2016 19:57 - CONCLUSION: The right chest tube is not visualized possibly withdrawn and the size of the pneumothoraces bilaterally have not significantly changed. There appears to be less consolidation right lung base otherwise not significantly changed. K. Emerson Galo MD Chest X-Ray 12/23/16 0000 Signed Impressions: Service Date/Time: Friday, December 23, 2016 12:24 - CONCLUSION: 1. The right thoracostomy tube has been removed. 2. Remaining left thoracostomy tube. 3. Unchanged subpulmonic pneumothoraces bilaterally. 4. Tiny effusions. 5. Cardiomegaly. Nic Brown Jr., MD Chest X-Ray 12/23/16 Signed Impressions: Service Date/Time: Friday, December 23, 2016 10:22 - CONCLUSION: 1. Some improvement in the consolidation of the right lung particularly involving the upper lobe. 2. Bilateral subpulmonic pneumothoraces are stable. Nic Brown Jr., MD Abdomen X-Ray 12/23/16 Signed Impressions: Service Date/Time: Friday, December 23, 2016 10:28 - CONCLUSION: Some improvement in the distention of the small bowel compared to the prior study. Nic Brown Jr., MD Abdomen X-Ray 12/22/16 Signed Impressions: Service Date/Time: Thursday, December 22, 2016 09:42 - CONCLUSION: There is one loop of small bowel in the midline hypogastric region which is dilated out of proportion to the other loops of small bowel and the colon. This is nonspecific and could represent a localized ileus or an early small bowel obstruction. Nic Cha MD Last Impressions Chest X-Ray 12/21/16 0432 Signed Impressions: Service Date/Time: Wednesday, December 21, 2016 04:38 - CONCLUSION: 1. New consolidative opacity in the right lung most characteristic of pneumonia. 2. Stable appearance of the bibasilar pneumothoraces. Daniel Cowan MD Chest CT 12/20/16 0000 Signed Impressions: Service Date/Time: Tuesday, December 20, 2016 16:26 - CONCLUSION: 1. Moderate right and small left hydropneumothorax with small caliber chest tubes present bilaterally, not significant changed from prior chest radiograph. Dependent consolidation and atelectasis of both lungs. No pneumomediastinum or subcutaneous air. Germán Vences MD Physical Exam GENERAL: Patient is a thin, well-developed male, eyes open, not following, no focusing SKIN: Warm and dry. No generalized rash, no ecchymoses and no evidence of embolic lesions. HEAD: Atraumatic. Normocephalic. No temporal wasting, or tenderness. EYES: Pale conjunctiva. No petechia or hemorrhage. Pupils equal, round and reactive to light. No scleral icterus. No injection or drainage. EARS, NOSE AND THROAT: Nose without bleeding or purulent nasal discharge. ET in mouth NECK: Trachea midline. Supple and not tender, no meningeal signs CARDIOVASCULAR: Regular rate and rhythm. No murmurs, rubs or gallops heard RESPIRATORY: Decreased BS both bases. King CT in pace. ABDOMEN: Distended abdomen, seems more distended, bowel sounds present and hypoactive. No reaction to deep palpation. EXTREMITIES: No clubbing, cyanosis, or edema. No joint effusion. Warm. HD access L arm looks ok NEUROLOGICAL: Not responding PSYCHIATRIC: Unable to assess LINE: Lines with no evidence of infection Assessment & Plan Remarks IMPRESSION Recurrent pleural effusion, and ascites Respiratory failure Klebsiella PNA Shock, on pressors ESRD on HD Abdominal distension, ileus RECOMMENDATION Continue Zosyn Give 7 days of Zithromax Wean pressors as tolerated Monitor progress Follow garry D/W RN Spoke with Dr Denisha Olson covering for ks 12/26 Dr Carlson covering the weekend Paula Mayes MD Dec 25, 2016 12:07
--- NOTE | 2016-12-25 17:49 | HHI.NPPN ---
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 Patient now presents with increasing shortness of breath noted to have bilateral pleural effusions which appear to be loculated. Patient missed his dialysis session yesterday. Moderate hyperkalemia on presentation. Now status post bilateral pigtail catheter placement left and right pleural cavity. Pneumothorax bilaterally postprocedure. Patient seen during his dialysis session. Appears to be lethargic and nonverbal at this time. Interval History Pressors being weaned. Currently only on Forrest. present during interview. (Emily Lunsford) Review of Systems General General Remarks Unable to obtain d/t clinical status (Emily Lunsford) Objective Data Data Vital Signs Date Time Temp Pulse Resp B/P (MAP) Pulse Ox O2 Delivery O2 Flow Rate FiO2 12/25/16 17:00 72 27 175/58 (97) 100 12/25/16 17:00 72 12/25/16 16:49 72 196/60 12/25/16 16:15 65 99/38 12/25/16 16:00 35 12/25/16 16:00 98.8 68 29 104/43 (63) 100 12/25/16 16:00 68 12/25/16 15:15 70 162/54 12/25/16 15:00 70 26 168/55 (92) 100 12/25/16 14:10 66 154/46 12/25/16 14:00 67 27 156/48 (84) 97 12/25/16 14:00 67 12/25/16 13:45 63 154/46 12/25/16 13:00 64 27 151/46 (81) 100 12/25/16 13:00 64 12/25/16 12:00 97.4 66 26 148/48 (81) 58 12/25/16 12:00 35 12/25/16 12:00 66 12/25/16 11:00 67 12/25/16 11:00 67 23 167/55 (92) 93 12/25/16 10:45 67 188/56 12/25/16 10:20 64 152/51 12/25/16 10:20 64 152/50 12/25/16 10:00 63 26 139/43 (75) 100 12/25/16 10:00 63 12/25/16 09:58 100 35 12/25/16 09:00 66 12/25/16 09:00 66 26 153/45 (81) 100 12/25/16 08:00 62 12/25/16 08:00 35 12/25/16 08:00 98.3 62 26 125/41 (69) 100 12/25/16 07:44 100 35 12/25/16 06:00 65 12/25/16 06:00 65 26 138/44 (75) 100 12/25/16 04:06 100 35 12/25/16 04:00 67 12/25/16 04:00 98.7 67 26 143/44 (77) 100 12/25/16 04:00 35 12/25/16 03:56 67 115/40 12/25/16 02:00 64 12/25/16 02:00 64 26 164/51 (88) 100 12/25/16 00:05 100 35 12/25/16 00:00 35 12/25/16 00:00 67 12/25/16 00:00 99.3 67 26 133/43 (73) 100 12/24/16 22:01 66 151/36 12/24/16 22:00 66 12/24/16 22:00 66 26 147/42 (77) 100 12/24/16 20:29 99 35 12/24/16 20:10 66 139/39 12/24/16 20:00 69 12/24/16 20:00 98.8 69 28 161/43 (82) 99 12/24/16 20:00 35 12/24/16 18:30 74 143/32 12/24/16 18:00 74 (Emily Lunsford) -: 12/25/16 0445 12/25/16 0445 Imaging Last Impressions Chest X-Ray 12/24/16 0000 Signed Impressions: Service Date/Time: Saturday, December 24, 2016 08:06 - CONCLUSION: 1. Unchanged bilateral subpulmonic pneumothoraces despite chest tubes. Nic Brown Jr., MD Abdomen X-Ray 12/23/16 0000 Signed Impressions: Service Date/Time: Friday, December 23, 2016 10:28 - CONCLUSION: Some improvement in the distention of the small bowel compared to the prior study. Nic Brown Jr., MD Chest CT 12/20/16 0000 Signed Impressions: Service Date/Time: Tuesday, December 20, 2016 16:26 - CONCLUSION: 1. Moderate right and small left hydropneumothorax with small caliber chest tubes present bilaterally, not significant changed from prior chest radiograph. Dependent consolidation and atelectasis of both lungs. No pneumomediastinum or subcutaneous air. Germán Vences MD Medication Review Current Medications Medications (Trade) Dose Ordered Sig/Bill Route Start Time Stop Time Status Last Admin (Dulcolax Ec) 10 mg DAILY PRN PO 12/19/16 20:00 (Drisdol) 50,000 units Q7D PO 12/20/16 09:00 12/24/16 08:20 (Xalatan 0.005% Opth Soln) 1 drop HS EACH EYE 12/19/16 21:00 12/24/16 21:00 (Pravachol) 20 mg HS PO 12/19/16 21:00 12/24/16 22:02 (Loniten) 2.5 mg DAILY PO 12/20/16 09:00 12/25/16 09:22 (Procardia Xl) 30 mg BID PRN PO 12/19/16 20:00 12/20/16 00:23 (Ultram) 50 mg Q4H PRN PO 12/19/16 20:00 12/20/16 15:50 (Ecotrin Ec) 81 mg DAILY PO 12/20/16 09:00 12/25/16 09:22 (Nephrocaps) 1 cap DAILY PO 12/20/16 09:00 12/25/16 09:22 (Oscal) 1,000 mg DAILY PO 12/20/16 09:00 12/25/16 09:22 (Coreg) 12.5 mg BID PO 12/19/16 21:00 Future Hold 12/20/16 20:56 (Cosopt 2-0.5% Opth Soln) 1 drop BID EACH EYE 12/19/16 21:00 12/25/16 09:23 (NS Flush) 2 ml UNSCH PRN IV FLUSH 12/19/16 20:15 12/24/16 22:02 (NS Flush) 2 ml BID IV FLUSH 12/19/16 21:00 12/25/16 09:23 (Tylenol) 650 mg Q6H PRN PO 12/19/16 20:15 (Zofran Inj) 4 mg Q6H PRN IV PUSH 12/19/16 20:15 (Ambien) 5 mg HS PRN PO 12/19/16 20:15 (Heparin Inj) 5,000 units Q12H SQ 12/19/16 21:00 12/25/16 09:22 Miscellaneous Information 1 Q361D XX 12/19/16 20:15 (Chlorhexidine 2% Cloth) Taper DAILY@04 TOP 12/20/16 04:00 12/16/17 03:59 12/25/16 03:56 (Chlorhexidine 2% Cloth) 3 pack UNSCH PRN TOP 12/19/16 20:15 (Shelby-Colace) 1 tab BID PO 12/19/16 21:00 12/24/16 22:02 (Milk Of Magnesia Liq) 30 ml Q12H PRN PO 12/19/16 20:15 (Senokot) 17.2 mg Q12H PRN PO 12/19/16 20:15 12/22/16 09:39 (Dulcolax Supp) 10 mg DAILY PRN RECTAL 12/19/16 20:15 (Lactulose Liq) 30 ml DAILY PRN PO 12/19/16 20:15 12/22/16 09:37 (Persantine) 75 mg BID PO 12/20/16 09:00 12/25/16 09:22 (Apresoline Inj) 20 mg Q4H PRN IV 12/20/16 00:15 12/20/16 00:22 Sodium Chloride 1,000 ml @ 0 mls/hr Q0M PRN OTHER 12/20/16 10:04 Sodium Chloride 1,000 ml @ 200 mls/hr Q5H PRN IV 12/20/16 10:04 Sodium Chloride 1,000 ml @ 0 mls/hr Q0M PRN OTHER 12/20/16 10:04 (Mannitol Inj) 12.5 gm UNSCH PRN IV 12/20/16 10:15 Albumin Human 100 ml @ 60 mls/hr UNSCH PRN IV 12/20/16 10:15 (NS Flush) 5 ml UNSCH PRN IV FLUSH 12/20/16 10:15 (Heparin Inj) UNSCH PRN .XX 12/20/16 10:15 (Gentamicin (Dialysis) Inj) 20 mg UNSCH PRN OTHER 12/20/16 10:15 (Zofran Inj) 4 mg UNSCH PRN IV PUSH 12/20/16 10:15 (Tylenol) 650 mg UNSCH PRN PO 12/20/16 10:15 (Benadryl) 25 mg UNSCH PRN PO 12/20/16 10:15 (Nitrostat Sl) 0.4 mg UNSCH PRN SL 12/20/16 10:15 (Catapres) 0.1 mg UNSCH PRN PO 12/20/16 10:15 (Epogen Inj) 5,000 units UNSCH PRN IV PUSH 12/20/16 10:15 12/24/16 17:32 (Gelfoam 12 Mm/7 Mm Top) 1 foam UNSCH PRN TOP 12/20/16 10:15 (Peridex 0.12% Liq) 15 ml BID@08,20 MT 12/21/16 08:00 12/25/16 09:23 Propofol 100 ml @ 1.62 mls/hr TITRATE PRN IV 12/21/16 08:00 (Duoneb Neb) 1 ampule Q6HR NEB PRN NEB 12/21/16 08:00 (Protonix Inj) 40 mg Q24H IV PUSH 12/21/16 09:00 12/25/16 09:22 (D50w (Vial) Inj) 50 ml UNSCH PRN IV PUSH 12/21/16 08:15 12/23/16 22:56 (Glucagon Inj) 1 mg UNSCH PRN OTHER 12/21/16 08:15 (NovoLIN R SUPPLEMENTAL SCALE) 1 Q4H SQ 12/21/16 09:00 Piperacillin Sod/ Tazobactam Sod 50 ml @ 100 mls/hr Q8H IV 12/21/16 10:00 12/25/16 17:22 Azithromycin 500 mg/Sodium Chloride 250 ml @ 250 mls/hr Q24H IV 12/21/16 09:00 12/27/16 23:00 12/25/16 09:21 Fentanyl Citrate 250 ml @ 5 mls/hr TITRATE PRN IV 12/21/16 10:00 12/24/16 10:04 (SoluCORTEF INJ) 100 mg Q8H IV PUSH 12/21/16 13:00 12/25/16 13:00 Phenylephrine HCl 40 mg/Dextrose 500 ml @ 30 mls/hr TITRATE PRN IV 12/21/16 12:45 12/25/16 16:49 (Brethine Inj) 1 mg UNSCH PRN SQ 12/21/16 12:45 Norepinephrine Bitartrate 250 ml @ 7.5 mls/hr TITRATE PRN IV 12/21/16 18:30 12/25/16 10:20 Vasopressin 40 units/Dextrose 100 ml @ 6 mls/hr [id number] IV 12/21/16 18:30 12/24/16 08:23 (Colace Liq) 100 mg Q12HR PO 12/22/16 09:15 12/25/16 09:20 (Senna Liq) 8.8 mg DAILY PO 12/22/16 09:15 12/23/16 09:27 (Emily Lunsford) Physical Exam General Appearance: No Acute Distress, Malnourished (Emily Lunsford) Eyes Eye Remarks Eyes open and blinks when spoken to (Emily Lunsford) Pulmonary Resp Exam: No Distress, Diminished Breath Sounds Resp Remarks bilat chest tubes present draining serosanguineous fluid (Emily Lunsford) Cardiology CV Exam: Regular, Normal Sinus Rhythm (Emily Lunsford) Gastrointestinal/Abdomen GI Exam: Soft (Emily Lunsford) Integumentary Skin Exam: Warm (Emily Lunsford) Extremeties Extremities Exam: No Edema, Moderate Edema (generalized BUE & BLE) (Emily Lunsford) Neurologic Neuro Exam: Sedated (Emily Lunsford) VTE Prophylaxis Device: SCDs (Emily Lunsford) Assessment/Plan Problem List: (1) ESRD (end stage renal disease) on dialysis ICD Codes: N18.6 - End stage renal failure on dialysis; Z99.2 - Dependence on renal dialysis Status: Chronic Plan: Pressors being weaned. Family goals remain aggressive. Palliative notes reviewed. HD tomorrow. Has significant edema. UF of 3L tomorrow with consideration for extra treatment on Thursday if needed and can tolerate. Prognosis still guarded to poor. Medications should be adjusted for the patient's estimated end stage renal disease if clinically indicated. Gadolinium contraindicated. (2) Hyperkalemia ICD Codes: E87.5 - Hyperkalemia Plan: Resolved with dialysis (3) Failure to thrive in adult ICD Codes: R62.7 - Adult failure to thrive Plan: Making long-term prognosis poor even if he should survive this admission. (4) Non-compliance with renal dialysis ICD Codes: Z91.15 - Patient's noncompliance with renal dialysis Plan: I do not believe that we can improve patient's compliance given previous attempts but will continue education. (5) HTN (hypertension) ICD Codes: I10 - Hypertension Status: Chronic Plan: By hx. Hypotensive currently on inotropic support (6) Anemia of renal disease ICD Codes: D63.1 - Anemia in chronic kidney disease (Emily Lunsford) Plan The exam, history, and the medical decision-making described in the above note were completed with the assistance of the PA-C. I reviewed and agree with the findings presented. (Izabela Thompson MD) Emily Lunsford Dec 25, 2016 17:49 Izabela Thompson MD Dec 26, 2016 09:42
[2016-12-25] MEDS: LATANOPROST 0.005% OPHT SOLN 2.5 ML BTL EACH EYE SCH ×2 (21:00)
[2016-12-25] MEDS: PRAVASTATIN SOD 20 MG TAB PO SCH ×2 (21:08)
[2016-12-26] VITALS (22 sets, daily range): BP systolic 105–203; BP diastolic 37–64; PULSE 64–81; RESP 13–31; TEMP 96.8–99; O2SAT 95–100
[2016-12-26] MEDS: INSULIN NovoLIN REGULAR SUPPLEMENTAL SCALE SQ SCH ×12 (01:00→20:09)
[2016-12-26] MEDS: PHENYLEPHRINE INJ 40 MG in DEXTROSE 5% IN WATE 500 ML INJ 496 ML IV PRN ×8 (01:10→17:29)
[2016-12-26] MEDS: PIPERACIL-TAZO 2.25 GM PREMIX 50 ML IV SCH ×6 (03:19→17:29)
[2016-12-26] MEDS: CHLORHEXIDINE GLUCONATE 2 % 1 PACK (2 CLOTHS) TOP SCH ×4 (03:19→21:21)
[2016-12-26] MEDS: HYDROCORTISONE SOD SUCCINATE 100 MG VIAL IV PUSH SCH ×6 (05:15→20:52)
[2016-12-26 07:01] LABS: AUTOMATED NEUTROPHIL # 9.3 TH/MM3 (1.8-7.7); BASOPHIL % 0.2 % (0.0-2.0); EOSINOPHIL % 0.3 % (0.0-4.0); HEMATOCRIT 30.7 % (39.0-51.0); HEMOGLOBIN 10.6 GM/DL (13.0-17.0); LYMPH % 3.8 % (9.0-44.0); LYMPHOCYTE # 0.4 TH/MM3 (1.0-4.8); MEAN CELL VOLUME 94.2 FL (80.0-100.0); MEAN CORPUSCULAR HEMOGLOBIN 32.6 PG (27.0-34.0); MEAN CORPUSCULAR HGB CONC 34.6 % (32.0-36.0); MEAN PLATELET VOLUME 10.3 FL (7.0-11.0); MONOCYTE # 0.2 TH/MM3 (0-0.9); NEUT % 93.7 % (16.0-70.0); PLATELET COUNT 57 TH/MM3 (150-450); RED BLOOD COUNT 3.26 MIL/MM3 (4.50-5.90); RED CELL DISTRIBUTION WIDTH 17.7 % (11.6-17.2)
[2016-12-26 07:15] LABS: BICARBONATE 25.2 MEQ/L (21.0-32.0); CREATININE 4.58 MG/DL (0.60-1.30)
[2016-12-26 08:34] LABS: BANDS 43 % (0-6); LYMPHOCYTES 4 % (9-44); METAMYELOCYTES 1 % (0-1); MONOCYTES 3 % (0-8); MYELOCYTES 1 % (0-0); NEUTROPHIL # MANUAL DIFF 9.3 TH/MM3 (1.8-7.7); POLYS (SEG NEUTROPHILS) 48 % (16-70)
[2016-12-26 08:36] LABS: TOXIC GRANULATION 1+ (NORMAL); TOXIC VACUOLATION PRESENT (NONE SEEN)
[2016-12-26] MEDS: SODIUM CHLORIDE 0.9% FLUSH 10 ML FLUSH IV FLUSH SCH ×4 (09:00→20:52)
[2016-12-26] MEDS: AZITHROMYCIN INJ 500 MG in SODIUM CHLOR 0.9% 250 ML INJ 250 ML IV SCH ×4 (09:00)
--- NOTE | 2016-12-26 09:05 | HHI.CCPN ---
Subjective Remarks/Hospital Course 86-year-old very pleasant male presents complaining of shortness of breath. Patient states that the symptoms started last night. He has history recurrent pleural effusion status post thoracentesis in the past. Patient is scheduled to have bilateral thoracentesis done by interventional radiologist. Patient denies any headache. Patient denies any chest pain. Patient denies abdominal pain. Patient denies any focal weakness or numbness of extremity. 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 Thompson. Patient also has history of hypertension, hyperlipidemia, CVA and anemia. In the emergency department the chest x-ray revealed large pleural effusion on the right and a large pneumothorax on the left. Emergent chest tubes were placed bilaterally with partial resolution of pneumothorax on the left and drainage of 700 cc of hemorrhagic fluid from the right side however bilateral residual bibasal pneumothoraces. After procedures patient's respiration is significantly improved as well as his oxygenation. 12/21 Patient required increase O2 overnight wa son BIPAP with 100% FIO2. CXR this morning showed consolidative opacity right lung and stable bibasilar pneumothoraces. Due to resp distress and patient was intubated and placed on mechanical ventilation. 12/22 Patient is intubated and sedated with Fentanyl drip. On Neosyn 100 mics, Levophed 9 mics and vasopressin. Afebrile. 12/23 Patient remains intubated and sedated. On multiple pressors ( Levophed 4 mics, Neosyn 106 mics, Vasopressin).s/p HD yesterday with removal 700ml. 12/24 Patient remains intubated and sedated. On Levophed 6 mics, Neosyn 130 mics , vasopressin 0.04. [address] was placed yesterday on right side for right subpulmonic PTX however it was dislodged last night and 20FR CT was placed. 12/25 Patient remains intubated and sedated. s/p HD yesterday with removal 3.5L and transfusion 2units PRBC. Remains on Neosyn, Levophed down 2 mics, off Vasopressin. 12/26 Patient is sedated and intubated. Off Levophed, Neosyn down 66 mics. Afebrile. Objective Vital Signs Date Time Temp Pulse Resp B/P (MAP) Pulse Ox O2 Delivery O2 Flow Rate FiO2 12/26/16 07:38 100 35 12/26/16 06:00 70 10/27/17 04:00 99.0 26 112/41 (64) Intake and Output 12/26/16 12/26/16 12/27/16 08:00 16:00 00:00 Intake Total 560 ml Output Total 60 ml Balance 500 ml Result Diagram: 12/26/16 0500 12/26/16 0500 Other Results Laboratory Tests Test 12/26/16 05:00 White Blood Count 10.0 TH/MM3 Red Blood Count 3.26 MIL/MM3 Hemoglobin 10.6 GM/DL Hematocrit 30.7 % Mean Corpuscular Volume 94.2 FL Mean Corpuscular Hemoglobin 32.6 PG Mean Corpuscular Hemoglobin Concent 34.6 % Red Cell Distribution Width 17.7 % Platelet Count 57 TH/MM3 Mean Platelet Volume 10.3 FL Neutrophils (%) (Auto) 93.7 % Lymphocytes (%) (Auto) 3.8 % Monocytes (%) (Auto) 2.0 % Eosinophils (%) (Auto) 0.3 % Basophils (%) (Auto) 0.2 % Neutrophils # (Auto) 9.3 TH/MM3 Lymphocytes # (Auto) 0.4 TH/MM3 Monocytes # (Auto) 0.2 TH/MM3 Eosinophils # (Auto) 0.0 TH/MM3 Basophils # (Auto) 0.0 TH/MM3 CBC Comment AUTO DIFF Differential Total Cells Counted 100 Neutrophils % (Manual) 48 % Band Neutrophils % 43 % Lymphocytes % 4 % Monocytes % 3 % Neutrophils # (Manual) 9.3 TH/MM3 Metamyelocytes 1 % Myelocytes 1 % Differential Comment FINAL DIFF MANUAL Toxic Granulation 1+ Toxic Vacuolation PRESENT Platelet Estimate LOW Platelet Morphology Comment NORMAL Red Cell Morphology Comment NORMAL Blood Urea Nitrogen 44 MG/DL Creatinine 4.58 MG/DL Random Glucose 99 MG/DL Calcium Level 8.0 MG/DL Sodium Level 122 MEQ/L Potassium Level 3.8 MEQ/L Chloride Level 84 MEQ/L Carbon Dioxide Level 25.2 MEQ/L Anion Gap 13 MEQ/L Estimat Glomerular Filtration Rate 15 ML/MIN Imaging Last Impressions Chest X-Ray 12/24/16 0000 Signed Impressions: Service Date/Time: Saturday, December 24, 2016 08:06 - CONCLUSION: 1. Unchanged bilateral subpulmonic pneumothoraces despite chest tubes. Nic Brown Jr., MD Abdomen X-Ray 12/23/16 0000 Signed Impressions: Service Date/Time: Friday, December 23, 2016 10:28 - CONCLUSION: Some improvement in the distention of the small bowel compared to the prior study. Nic Brown Jr., MD Chest CT 12/20/16 0000 Signed Impressions: Service Date/Time: Tuesday, December 20, 2016 16:26 - CONCLUSION: 1. Moderate right and small left hydropneumothorax with small caliber chest tubes present bilaterally, not significant changed from prior chest radiograph. Dependent consolidation and atelectasis of both lungs. No pneumomediastinum or subcutaneous air. Germán Vences MD Objective Remarks GENERAL: Patient is 86 yo intubated and sedated SKIN: Warm and dry. HEAD: Normocephalic. EYES: No scleral icterus. No injection or drainage. NECK: Supple, trachea midline. No JVD or lymphadenopathy. Orally intubated CARDIOVASCULAR: Regular rate and rhythm without murmurs, gallops, or rubs. Right CT 20FR on right and Left pigtail cathter on left. RESPIRATORY: Breath sounds equal bilaterally. No accessory muscle use. GASTROINTESTINAL: Firm, distended, hypoactive BS MUSCULOSKELETAL: No cyanosis, or edema. Neuro: sedated A/P Assessment and Plan 1)VDRF 2)Right sided pneumonia 3)Bibasilar hydroPTX 5)ESRD 6)HTN 7)Macrocytic Anemia Plan Neuro: On fentanyl infusion for sedation. Monitor neuro status. Daily sedation vacation when appropriate Check CT brain r/o acute process Pulm: Continue with vent support keep sat >92% Bronchodilators, ICU vent bundle. B/L pigtail catheters placed on 12/[address] placed on right 12/23 ( Dislodged) 20FR CT placed night of 12/[address] drainage. CTS is following- Dr. Jara, patient is poor operative candidate. CXR today showed stable b/l bibasilar pneumothoraces despite b/l chest tubes. Patient is a poor operative candidate and would require thoracotomy and decortication with no assurance that the lungs would re-expand due to the chronicity of this process. CV: Wean off Nesoyn, Monitor HR and BP keep MAP>65mmHg On stress dose steroids- HC 100mg Q8 Lactic aid is trending down : Monitor renal function, avoid nephrotoxins s/p HD 10/25 with removal 3.5L GI: On Protonix 40mg daily for GI prophylaxis OGT to LIWS on bowel regimen Colace, Senna KUB today showed ileus vs obstruction will chect CT abd/pelvis wo contrast. KUB abdomen 12/23: Some improvement in the distention of the small bowel compared to the prior study. KUB abdomen: 12/22: Localized ileus vs early SBO. ID: Continue abx per ID ( Zosyn, Azithromycin)monitor for signs of infections ( Fever, WBC) sputum cx 12/21: Kleb pneumonia, recheck sputum cx BC, fluid cx from 12/19:NGTD Heme: Monitor CBC, s/p transfusion 2units PRBC 12/24 Endo: SSI with accuchecks GI prophylaxis- Protonix 40mg daily DVT prophylaxis- SCD. Heparin SQ Palliative care is following Patient is critically ill with resp failure, pneumonia, septic shock, anemia requiring blood transfusion and ESRD on HD. Discussed with patient's and updated her on his condition. CCT 35 mins Aurea Lovell MD Dec 26, 2016 09:05
[2016-12-26] MEDS: CALCIUM CARBONATE 1.25 GM (CA 500 MG) TAB PO SCH ×2 (09:33)
[2016-12-26] MEDS: ASPIRIN EC 81 MG TABEC PO SCH ×2 (09:33)
[2016-12-26] MEDS: DOCUSATE SODIUM 50 MG/SENNA 8.6 MG TAB PO SCH ×4 (09:33→20:51)
[2016-12-26] MEDS: VITAMIN B CMPLX/VITC/FOLIC AC CAP PO SCH ×2 (09:34)
[2016-12-26] MEDS: DOCUSATE SODIUM 100 MG/10 ML UDC PO SCH ×4 (09:34→20:51)
[2016-12-26] MEDS: DORZOLAMIDE/TIMOLOL OPTH SOLN 10 ML BTL EACH EYE SCH ×4 (09:34→20:52)
[2016-12-26] MEDS: SENNOSIDES SYRUP 8.8 MG/5 ML CUP PO SCH ×2 (09:34)
[2016-12-26] MEDS: DIPYRIDAMOLE 25 MG TAB PO SCH ×4 (09:34→20:51)
[2016-12-26] MEDS: MINOXIDIL 2.5 MG TAB PO SCH ×2 (09:34)
[2016-12-26] MEDS: PANTOPRAZOLE SODIUM 40 MG VIAL IV PUSH SCH ×2 (09:38)
[2016-12-26] MEDS: HEPARIN SODIUM - SQ 10,000 UNITS/ML VIAL SQ SCH ×4 (09:38→21:01)
[2016-12-26] MEDS: CHLORHEXIDINE 0.12% (ORAL KIT) 15 ML CUP MT SCH ×4 (09:40→20:00)
--- NOTE | 2016-12-26 09:41 | RADRPT ---
EXAM DATE/TIME: 12/26/2016 09:02 [facility] COMPARISON: ABDOMEN KUB ONLY, December 22, 2016, 9:42. ABDOMEN KUB ONLY, December 23, 2016, 10:28. INDICATIONS : Distention, concern for ileus. MEDICAL HISTORY : Renal insufficiency. Stroke. Hypertension. pneumothorax, VDRF SURGICAL HISTORY : None. ENCOUNTER: Initial ACUITY: 1 day PAIN SCORE: Non-responsive. LOCATION: Bilateral abdomen. FINDINGS: There is an NGT in the stomach. There is stable prominent loop of small bowel in the midabdomen. Air is seen throughout the colon which appears normal in caliber. No gross free air or pneumatosis. No ab normal calcifications. Right femoral catheter in place. CONCLUSION: 1. Stable focal small bowel distention in the midabdomen consistent with focal ileus versus partial s mall bowel obstruction. 2. No significant interval change. Luisito Forrest MD on December 26, 2016 at 9:36 Board Certified Radiologist. This report was verified electronically.
--- NOTE | 2016-12-26 09:43 | RADRPT ---
EXAM DATE/TIME: 12/26/2016 09:10 [facility] COMPARISON: CHEST SINGLE AP, December 24, 2016, 8:06. INDICATIONS : Shortness of breath. MEDICAL HISTORY : Renal insufficiency. Stroke. Hypertension. pneumothorax, VDRF SURGICAL HISTORY : None. ENCOUNTER: Initial ACUITY: 1 day PAIN SCORE: Non-responsive. LOCATION: Bilateral chest FINDINGS: ETT and NGT are stable. There are bilateral chest tubes in stable position with stable bilateral subp ulmonic pneumothoraces. Associated airspace disease in the lower lobes bilaterally likely reflecting compressive atelectasis. Cardiomediastinal contours are unchanged. Remainder of exam is stable. CONCLUSION: 1. Stable tubes and lines. 2. Stable bilateral subpulmonic pneumothoraces despite presence of chest tubes. 3. No significant interval change. Luisito Forrest MD on December 26, 2016 at 9:39 Board Certified Radiologist. This report was verified electronically.
--- NOTE | 2016-12-26 10:44 | HHI.IDPN ---
Subjective Subjective Remarks ID [email or web address] for is an 86-year-old male, initially presented to the hospital on December 19, for a scheduled bilateral thoracenteses. He has had problem with recurrent pleural effusion, as well as ascites, and has had multiple procedures done to drain the fluid. He was scheduled to have thoracentesis on October 19, but he went into respiratory distress, and ended up getting admitted. He was found to have a pneumothorax on the left and a large pleural effusion on the right. He had placement of bilateral chest tube, but there was only partial reexpansion of the lungs. There was no mention that he was having any cough or congestion, or fever or chills. This morning he had progressive respiratory distress, and required intubation. He is afebrile. He is on the vent. He is also hypotensive, and requiring 3 pressors. He is on levo fed, Forrest-Synephrine, and vasopressin. Cardiothoracic surgery has been consulted to evaluate the patient due to nonreactive expansion of the lung. Patient has end-stage renal disease, and gets hemodialysis. He had hemodialysis yesterday. Infectious disease consultation has been requested to evaluate the patient for possible pneumonia and shock. Overnight events reviewed. D/W RN Temps ok Pressor requirements down from 3 to 1. On the vent FIO2 35%, PEEP 7. Secretions minimal white to kim. Tube feeds on hold. 500 cc gastric residual. UO minimal. Still has 2 CTs. Antibiotics Zithromax IV Zosyn IV I attest that I obtained, updated or reviewed the home and current medications. Current Medications Medications (Trade) Dose Ordered Sig/Bill Route Start Time Stop Time Status Last Admin (Dulcolax Ec) 10 mg DAILY PRN PO 12/19/16 20:00 (Drisdol) 50,000 units Q7D PO 12/20/16 09:00 12/24/16 08:20 (Xalatan 0.005% Opth Soln) 1 drop HS EACH EYE 12/19/16 21:00 12/24/16 21:00 (Pravachol) 20 mg HS PO 12/19/16 21:00 12/24/16 22:02 (Loniten) 2.5 mg DAILY PO 12/20/16 09:00 12/25/16 09:22 (Procardia Xl) 30 mg BID PRN PO 12/19/16 20:00 12/20/16 00:23 (Ultram) 50 mg Q4H PRN PO 12/19/16 20:00 12/20/16 15:50 (Ecotrin Ec) 81 mg DAILY PO 12/20/16 09:00 12/25/16 09:22 (Nephrocaps) 1 cap DAILY PO 12/20/16 09:00 12/25/16 09:22 (Oscal) 1,000 mg DAILY PO 12/20/16 09:00 12/25/16 09:22 (Coreg) 12.5 mg BID PO 12/19/16 21:00 Future Hold 12/20/16 20:56 (Cosopt 2-0.5% Opth Soln) 1 drop BID EACH EYE 12/19/16 21:00 12/25/16 09:23 (NS Flush) 2 ml UNSCH PRN IV FLUSH 12/19/16 20:15 12/24/16 22:02 (NS Flush) 2 ml BID IV FLUSH 12/19/16 21:00 12/25/16 09:23 (Tylenol) 650 mg Q6H PRN PO 12/19/16 20:15 (Zofran Inj) 4 mg Q6H PRN IV PUSH 12/19/16 20:15 (Ambien) 5 mg HS PRN PO 12/19/16 20:15 (Heparin Inj) 5,000 units Q12H SQ 12/19/16 21:00 12/25/16 09:22 Miscellaneous Information 1 Q361D XX 12/19/16 20:15 (Chlorhexidine 2% Cloth) Taper DAILY@04 TOP 12/20/16 04:00 12/16/17 03:59 12/25/16 03:56 (Chlorhexidine 2% Cloth) 3 pack UNSCH PRN TOP 12/19/16 20:15 (Shelby-Colace) 1 tab BID PO 12/19/16 21:00 12/24/16 22:02 (Milk Of Magnesia Liq) 30 ml Q12H PRN PO 12/19/16 20:15 (Senokot) 17.2 mg Q12H PRN PO 12/19/16 20:15 12/22/16 09:39 (Dulcolax Supp) 10 mg DAILY PRN RECTAL 12/19/16 20:15 (Lactulose Liq) 30 ml DAILY PRN PO 12/19/16 20:15 12/22/16 09:37 (Persantine) 75 mg BID PO 12/20/16 09:00 12/25/16 09:22 (Apresoline Inj) 20 mg Q4H PRN IV 12/20/16 00:15 12/20/16 00:22 Sodium Chloride 1,000 ml @ 0 mls/hr Q0M PRN OTHER 12/20/16 10:04 Sodium Chloride 1,000 ml @ 200 mls/hr Q5H PRN IV 12/20/16 10:04 Sodium Chloride 1,000 ml @ 0 mls/hr Q0M PRN OTHER 12/20/16 10:04 (Mannitol Inj) 12.5 gm UNSCH PRN IV 12/20/16 10:15 Albumin Human 100 ml @ 60 mls/hr UNSCH PRN IV 12/20/16 10:15 (NS Flush) 5 ml UNSCH PRN IV FLUSH 12/20/16 10:15 (Heparin Inj) UNSCH PRN .XX 12/20/16 10:15 (Gentamicin (Dialysis) Inj) 20 mg UNSCH PRN OTHER 12/20/16 10:15 (Zofran Inj) 4 mg UNSCH PRN IV PUSH 12/20/16 10:15 (Tylenol) 650 mg UNSCH PRN PO 12/20/16 10:15 (Benadryl) 25 mg UNSCH PRN PO 12/20/16 10:15 (Nitrostat Sl) 0.4 mg UNSCH PRN SL 12/20/16 10:15 (Catapres) 0.1 mg UNSCH PRN PO 12/20/16 10:15 (Epogen Inj) 5,000 units UNSCH PRN IV PUSH 12/20/16 10:15 12/24/16 17:32 (Gelfoam 12 Mm/7 Mm Top) 1 foam UNSCH PRN TOP 12/20/16 10:15 (Peridex 0.12% Liq) 15 ml BID@08,20 MT 12/21/16 08:00 12/25/16 09:23 Propofol 100 ml @ 1.62 mls/hr TITRATE PRN IV 12/21/16 08:00 (Duoneb Neb) 1 ampule Q6HR NEB PRN NEB 12/21/16 08:00 (Protonix Inj) 40 mg Q24H IV PUSH 12/21/16 09:00 12/25/16 09:22 (D50w (Vial) Inj) 50 ml UNSCH PRN IV PUSH 12/21/16 08:15 12/23/16 22:56 (Glucagon Inj) 1 mg UNSCH PRN OTHER 12/21/16 08:15 (NovoLIN R SUPPLEMENTAL SCALE) 1 Q4H SQ 12/21/16 09:00 Piperacillin Sod/ Tazobactam Sod 50 ml @ 100 mls/hr Q8H IV 12/21/16 10:00 12/25/16 09:22 Azithromycin 500 mg/Sodium Chloride 250 ml @ 250 mls/hr Q24H IV 12/21/16 09:00 12/25/16 09:21 Fentanyl Citrate 250 ml @ 5 mls/hr TITRATE PRN IV 12/21/16 10:00 12/24/16 10:04 (SoluCORTEF INJ) 100 mg Q8H IV PUSH 12/21/16 13:00 12/25/16 06:09 Phenylephrine HCl 40 mg/Dextrose 500 ml @ 30 mls/hr TITRATE PRN IV 12/21/16 12:45 12/25/16 10:20 (Brethine Inj) 1 mg UNSCH PRN SQ 12/21/16 12:45 Norepinephrine Bitartrate 250 ml @ 7.5 mls/hr TITRATE PRN IV 12/21/16 18:30 12/25/16 10:20 Vasopressin 40 units/Dextrose 100 ml @ 6 mls/hr [id number] IV 12/21/16 18:30 12/24/16 08:23 (Colace Liq) 100 mg Q12HR PO 12/22/16 09:15 12/25/16 09:20 (Senna Liq) 8.8 mg DAILY PO 12/22/16 09:15 12/23/16 09:27 Lines R femoral central line A line Past Medical History ESRD on HD Ascites Hypertension CVA Duodenitis Past Surgical History Left carotid endarectomy Fistula left arm Multiple thoracentesis and paracentesis Allergies: Coded Allergies: *MDRO Multi-Drug Resistant Organism (Verified Adverse Reaction, Unknown, 01/29/15) MRSA PCR Screen positive 01/25/15. Objective . Vital Signs Date Time Temp Pulse Resp B/P (MAP) Pulse Ox O2 Delivery O2 Flow Rate FiO2 12/26/16 07:38 100 35 12/26/16 06:00 70 12/26/16 04:06 100 35 12/26/16 04:00 99.0 64 26 112/41 (64) 100 12/26/16 04:00 64 12/26/16 04:00 35 12/26/16 02:00 75 12/26/16 01:10 77 12/26/16 00:00 69 12/26/16 00:00 98.9 69 27 144/54 (84) 100 12/26/16 00:00 35 12/25/16 23:42 100 35 12/25/16 22:00 75 12/25/16 22:00 75 18 166/59 (94) 100 12/25/16 20:00 99.4 66 26 118/43 (68) 12/25/16 20:00 66 12/25/16 20:00 35 12/25/16 19:53 100 35 12/25/16 18:06 66 100/37 12/25/16 18:00 66 12/25/16 17:00 72 27 175/58 (97) 100 12/25/16 17:00 72 12/25/16 16:49 72 196/60 12/25/16 16:15 65 99/38 12/25/16 16:00 35 12/25/16 16:00 98.8 68 29 104/43 (63) 100 12/25/16 16:00 68 12/25/16 15:15 70 162/54 12/25/16 15:12 100 35 12/25/16 15:00 70 26 168/55 (92) 100 12/25/16 14:10 66 154/46 12/25/16 14:00 67 27 156/48 (84) 97 12/25/16 14:00 67 12/25/16 13:45 63 154/46 12/25/16 13:00 64 27 151/46 (81) 100 12/25/16 13:00 64 12/25/16 12:00 97.4 66 26 148/48 (81) 58 12/25/16 12:00 35 12/25/16 12:00 66 12/25/16 11:00 67 12/25/16 11:00 67 23 167/55 (92) 93 12/25/16 10:45 67 188/56 . Laboratory Tests Test 12/24/16 17:10 12/25/16 04:45 12/26/16 05:00 Hemoglobin 11.6 GM/DL 10.3 GM/DL 10.6 GM/DL Hematocrit 33.3 % 28.9 % 30.7 % White Blood Count 5.5 TH/MM3 10.0 TH/MM3 Red Blood Count 3.07 MIL/MM3 3.26 MIL/MM3 Mean Corpuscular Volume 94.1 FL 94.2 FL Mean Corpuscular Hemoglobin 33.6 PG 32.6 PG Mean Corpuscular Hemoglobin Concent 35.7 % 34.6 % Red Cell Distribution Width 18.3 % 17.7 % Platelet Count 60 TH/MM3 57 TH/MM3 Mean Platelet Volume 10.9 FL 10.3 FL Neutrophils (%) (Auto) 88.4 % 93.7 % Lymphocytes (%) (Auto) 5.6 % 3.8 % Monocytes (%) (Auto) 4.3 % 2.0 % Eosinophils (%) (Auto) 1.4 % 0.3 % Basophils (%) (Auto) 0.3 % 0.2 % Neutrophils # (Auto) 4.8 TH/MM3 9.3 TH/MM3 Lymphocytes # (Auto) 0.3 TH/MM3 0.4 TH/MM3 Monocytes # (Auto) 0.2 TH/MM3 0.2 TH/MM3 Eosinophils # (Auto) 0.1 TH/MM3 0.0 TH/MM3 Basophils # (Auto) 0.0 TH/MM3 0.0 TH/MM3 CBC Comment AUTO DIFF AUTO DIFF Differential Total Cells Counted 100 100 Neutrophils % (Manual) 56 % 48 % Band Neutrophils % 27 % 43 % Lymphocytes % 7 % 4 % Monocytes % 9 % 3 % Neutrophils # (Manual) 4.6 TH/MM3 9.3 TH/MM3 Metamyelocytes 1 % 1 % Nucleated Red Blood Cells 3 /100 WBC Differential Comment FINAL DIFF MANUAL FINAL DIFF MANUAL Toxic Granulation 1+ 1+ Platelet Estimate LOW LOW Platelet Morphology Comment ENLARGED NORMAL Target Cells 1+ [facility] [place] Cells 1+ Myelocytes 1 % Toxic Vacuolation PRESENT Red Cell Morphology Comment NORMAL Laboratory Tests Test 12/25/16 04:45 12/26/16 05:00 Blood Urea Nitrogen 33 MG/DL 44 MG/DL Creatinine 3.98 MG/DL 4.58 MG/DL Random Glucose 126 MG/DL 99 MG/DL Calcium Level 7.5 MG/DL 8.0 MG/DL Sodium Level 127 MEQ/L 122 MEQ/L Potassium Level 3.7 MEQ/L 3.8 MEQ/L Chloride Level 89 MEQ/L 84 MEQ/L Carbon Dioxide Level 25.3 MEQ/L 25.2 MEQ/L Anion Gap 13 MEQ/L 13 MEQ/L Estimat Glomerular Filtration Rate 17 ML/MIN 15 ML/MIN Imaging Chest X-Ray 12/24/16 Signed Impressions: Service Date/Time: Saturday, December 24, 2016 08:06 - CONCLUSION: 1. Unchanged bilateral subpulmonic pneumothoraces despite chest tubes. Nic Brown Jr., MD Chest X-Ray 12/23/161999 Signed Impressions: Service Date/Time: Friday, December 23, 2016 19:57 - CONCLUSION: The right chest tube is not visualized possibly withdrawn and the size of the pneumothoraces bilaterally have not significantly changed. There appears to be less consolidation right lung base otherwise not significantly changed. Candy Galo MD Chest X-Ray 12/23/16 Signed Impressions: Service Date/Time: Friday, December 23, 2016 12:24 - CONCLUSION: 1. The right thoracostomy tube has been removed. 2. Remaining left thoracostomy tube. 3. Unchanged subpulmonic pneumothoraces bilaterally. 4. Tiny effusions. 5. Cardiomegaly. Nic Brown Jr., MD Chest X-Ray 12/23/16 Signed Impressions: Service Date/Time: Friday, December 23, 2016 10:22 - CONCLUSION: 1. Some improvement in the consolidation of the right lung particularly involving the upper lobe. 2. Bilateral subpulmonic pneumothoraces are stable. Nic Brown Jr., MD Abdomen X-Ray 12/23/16 Signed Impressions: Service Date/Time: Friday, December 23, 2016 10:28 - CONCLUSION: Some improvement in the distention of the small bowel compared to the prior study. Nic Brown Jr., MD Abdomen X-Ray 12/22/16 Signed Impressions: Service Date/Time: Thursday, December 22, 2016 09:42 - CONCLUSION: There is one loop of small bowel in the midline hypogastric region which is dilated out of proportion to the other loops of small bowel and the colon. This is nonspecific and could represent a localized ileus or an early small bowel obstruction. Nic Cha MD Last Impressions Chest X-Ray 12/21/16 0432 Signed Impressions: Service Date/Time: Wednesday, December 21, 2016 04:38 - CONCLUSION: 1. New consolidative opacity in the right lung most characteristic of pneumonia. 2. Stable appearance of the bibasilar pneumothoraces. Daniel Cowan MD Chest CT 12/20/16 0000 Signed Impressions: Service Date/Time: Tuesday, December 20, 2016 16:26 - CONCLUSION: 1. Moderate right and small left hydropneumothorax with small caliber chest tubes present bilaterally, not significant changed from prior chest radiograph. Dependent consolidation and atelectasis of both lungs. No pneumomediastinum or subcutaneous air. Germán Vences MD Physical Exam GENERAL: Patient is a thin, well-developed male, eyes open, not following, no focusing SKIN: Warm and dry. No generalized rash, no ecchymoses and no evidence of embolic lesions. HEAD: Atraumatic. Normocephalic. No temporal wasting, or tenderness. EYES: Pale conjunctiva. No petechia or hemorrhage. Pupils equal, round and reactive to light. No scleral icterus. No injection or drainage. EARS, NOSE AND THROAT: Nose without bleeding or purulent nasal discharge. ET in mouth NECK: Trachea midline. Supple and not tender, no meningeal signs CARDIOVASCULAR: Regular rate and rhythm. No murmurs, rubs or gallops heard RESPIRATORY: Decreased BS both bases. [place] CT in pace. ABDOMEN: Distended abdomen, seems more distended, bowel sounds present and hypoactive. No reaction to deep palpation. EXTREMITIES: No clubbing, cyanosis, or edema. No joint effusion. Warm. HD access L arm looks ok NEUROLOGICAL: Not responding PSYCHIATRIC: Unable to assess LINE: Has groin central line and [place] R radial. Lines with no evidence of infection Assessment & Plan Remarks IMPRESSION Recurrent pleural effusion, and ascites Respiratory failure Klebsiella PNA Shock, on pressors ESRD on HD Abdominal distension, ileus RECOMMENDATION Continue Zosyn IV Continue Zithromax IV (has ileus) CT brain per [facility] CT A/P (ileus, ? ascites). If pt has ascites consider paracentesis for diagnostic and therapeutic reasons. Monitor progress Follow lexy D/W RN Spoke with Dr Medina covering the weekend. Malinda Olson MD Dec 26, 2016 10:44
--- NOTE | 2016-12-26 10:55 | HHI.NPPN ---
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 Patient now presents with increasing shortness of breath noted to have bilateral pleural effusions which appear to be loculated. Patient missed his dialysis session yesterday. Moderate hyperkalemia on presentation. Now status post bilateral pigtail catheter placement left and right pleural cavity. Pneumothorax bilaterally postprocedure. Patient seen during his dialysis session. Appears to be lethargic and nonverbal at this time. Interval History Patient opens eyes to verbal stimuli. Review of Systems General General Remarks Unable to obtain d/t clinical status Objective Data Data Vital Signs Date Time Temp Pulse Resp B/P (MAP) Pulse Ox O2 Delivery O2 Flow Rate FiO2 12/26/16 07:38 100 35 12/26/16 06:00 70 12/26/16 04:06 100 35 12/26/16 04:00 99.0 64 26 112/41 (64) 100 12/26/16 04:00 64 12/26/16 04:00 35 12/26/16 02:00 75 12/26/16 01:10 77 12/26/16 00:00 69 12/26/16 00:00 98.9 69 27 144/54 (84) 100 12/26/16 00:00 35 12/25/16 23:42 100 35 12/25/16 22:00 75 12/25/16 22:00 75 18 166/59 (94) 100 12/25/16 20:00 99.4 66 26 118/43 (68) 12/25/16 20:00 66 12/25/16 20:00 35 12/25/16 19:53 100 35 12/25/16 18:06 66 100/37 12/25/16 18:00 66 12/25/16 17:00 72 27 175/58 (97) 100 12/25/16 17:00 72 12/25/16 16:49 72 196/60 12/25/16 16:15 65 99/38 12/25/16 16:00 35 12/25/16 16:00 98.8 68 29 104/43 (63) 100 12/25/16 16:00 68 12/25/16 15:15 70 162/54 12/25/16 15:12 100 35 12/25/16 15:00 70 26 168/55 (92) 100 12/25/16 14:10 66 154/46 12/25/16 14:00 67 27 156/48 (84) 97 12/25/16 14:00 67 12/25/16 13:45 63 154/46 12/25/16 13:00 64 27 151/46 (81) 100 12/25/16 13:00 64 12/25/16 12:00 97.4 66 26 148/48 (81) 58 12/25/16 12:00 35 12/25/16 12:00 66 12/25/16 11:00 67 12/25/16 11:00 67 23 167/55 (92) 93 -: 12/26/16 0500 12/26/16 0500 Physical Exam General Appearance: No Acute Distress, Malnourished Pulmonary Resp Exam: No Distress, Diminished Breath Sounds Cardiology CV Exam: Regular, Normal Sinus Rhythm Gastrointestinal/Abdomen GI Exam: Soft Integumentary Skin Exam: Warm Extremeties Extremities Exam: No Edema, Moderate Edema (generalized BUE & BLE) Neurologic Neuro Exam: Sedated VTE Prophylaxis Device: SCDs Assessment/Plan Discussed Condition With: Spouse Problem List: (1) ESRD (end stage renal disease) on dialysis ICD Codes: N18.6 - End stage renal failure on dialysis; Z99.2 - Dependence on renal dialysis Status: Chronic Plan: Remains on inotropic support. Family goals remain aggressive. Palliative notes reviewed. HD tomorrow. Has significant edema. UF of 3L tomorrow with consideration for extra treatment on Thursday if needed and can tolerate. If no significant clinical improvement over the next few days I recommended to the patient's that she consider hospice for comfort care. Patient has multiple pre-existing comorbidities end-stage renal disease, severe diffuse atherosclerotic disease, pre-existing failure to thrive, advanced age as well as acute comorbidities including shock syndrome, respiratory insufficiency, sepsis. Prognosis for recovery very poor and even if he does recover from this acute episode his quality of life which was limited previously will be diminished further. Medications should be adjusted for the patient's estimated end stage renal disease if clinically indicated. Gadolinium contraindicated. (2) Hyperkalemia ICD Codes: E87.5 - Hyperkalemia Plan: Resolved with dialysis (3) Failure to thrive in adult ICD Codes: R62.7 - Adult failure to thrive Plan: Making long-term prognosis poor even if he should survive this admission. (4) Non-compliance with renal dialysis ICD Codes: Z91.15 - Patient's noncompliance with renal dialysis Plan: I do not believe that we can improve patient's compliance given previous attempts but will continue education. (5) HTN (hypertension) ICD Codes: I10 - Hypertension Status: Chronic Plan: By hx. Hypotensive currently on inotropic support (6) Anemia of renal disease ICD Codes: D63.1 - Anemia in chronic kidney disease Plan The exam, history, and the medical decision-making described in the above note were completed with the assistance of the LEON. I reviewed and agree with the findings presented. Izabela Thompson MD Dec 26, 2016 10:55
--- NOTE | 2016-12-26 11:29 | PD.WCN.NOT ---
Wound Consult Description: Consult for NEW evolving skin tears on buttocks and scrotum, very concerned per DR Freitas Communicated with: Dr Zena Villarreal, MARQUITA Recommendation: Calazime skin protectant BID and PRN for moisture to scrotum and buttocks Reposition patient every 2 hours and PRN for comfort to offload sacral pressure points as tolerated Use 1 ultrasorb underneath patient for absorption of moisture (2 staggered) Patient is noted on a Veronica mattress. Continue to reposition per protocol. Additional Information: Attempted to see patient on [facility] [place] ~1030. MARQUITA Villarreal states that they are taking patient down for STAT CT. Spoke with Dr Freitas who was walking out of room regarding patient wounds and expectations of family. *Late entry* Patient seen with MARQUITA Villarreal. Patient positioned to his left side for assessment. Sacral skin tear measures ~10cm x 6cm x <0.1cm of 100% dry red non granulation tissue without drainage, jagged wound margins and unremarkable periwound indicating moisture etiology. Scrotum is denuded with partial thickness skin loss. MARQUITA Villarreal states that she applied skin prep to all areas. Patient is noted on 1 ultrasorb and positioned to his right side prior to leaving patient room. Aaliyah Aguillon [facility] Dec 26, 2016 11:29
--- NOTE | 2016-12-26 11:29 | PD.WCN.NOT ---
Wound Consult Description: Consult for NEW evolving skin tears on buttocks and scrotum, very concerned per DR Freitas Communicated with: Dr Zena Villarreal, MARQUITA Recommendation: Calazime skin protectant BID and PRN for moisture to scrotum and buttocks Reposition patient every 2 hours and PRN for comfort to offload sacral pressure points as tolerated Use 1 ultrasorb underneath patient for absorption of moisture (2 staggered) Patient is noted on a Veronica mattress. Continue to reposition per protocol. Additional Information: Attempted to see patient on [facility] [place] ~1030. MARQUITA Villarreal states that they are taking patient down for STAT CT. Spoke with Dr Freitas who was walking out of room regarding patient wounds and expectations of family. *Late entry* Patient seen with MARQUITA Villarreal. Patient positioned to his left side for assessment. Sacral skin tear measures ~10cm x 6cm x <0.1cm of 100% dry red non granulation tissue without drainage, jagged wound margins and unremarkable periwound indicating moisture etiology. Scrotum is denuded with partial thickness skin loss. MARQUITA Villarreal states that she applied skin prep to all areas. Patient is noted on 1 ultrasorb and positioned to his right side prior to leaving patient room. [facility]illon [facility] Dec 26, 2016 11:29
--- NOTE | 2016-12-26 11:29 | PD.WCN.NOT ---
Wound Consult Description: Consult for NEW evolving skin tears on buttocks and scrotum, very concerned per DR Freitas Communicated with: Dr Zena Villarreal, MARQUITA Recommendation: Calazime skin protectant BID and PRN for moisture to scrotum and buttocks Reposition patient every 2 hours and PRN for comfort to offload sacral pressure points as tolerated Use 1 ultrasorb underneath patient for absorption of moisture (2 staggered) Patient is noted on a Veronica mattress. Continue to reposition per protocol. Additional Information: Attempted to see patient on [facility] [place] ~1030. MARQUITA Villarreal states that they are taking patient down for STAT CT. Spoke with Dr Freitas who was walking out of room regarding patient wounds and expectations of family. *Late entry* Patient seen with MARQUITA Villarreal. Patient positioned to his left side for assessment. Sacral skin tear measures ~10cm x 6cm x <0.1cm of 100% dry red non granulation tissue without drainage, jagged wound margins and unremarkable periwound indicating moisture etiology. Scrotum is denuded with partial thickness skin loss. MARQUITA Villarreal states that she applied skin prep to all areas. Patient is noted on 1 ultrasorb and positioned to his right side prior to leaving patient room. [facility] Aguillon [facility] Dec 26, 2016 11:29
--- NOTE | 2016-12-26 11:42 | RADRPT ---
EXAM DATE/TIME: 12/26/2016 11:03 [facility] COMPARISON: CT BRAIN W/O CONTRAST, August 08, 2014, 6:29. INDICATIONS : Altered mental status. RADIATION DOSE: 56.35 CTDIvol (mGy) MEDICAL HISTORY : Stroke. Hypertension. Renal failure, chronic. SURGICAL HISTORY : None. ENCOUNTER: Initial ACUITY: 1 day PAIN SCALE: Non-responsive LOCATION: cranial TECHNIQUE: Multiple contiguous axial images were obtained of the head. Using automated exposure control and adj ustment of the mA and/or kV according to patient size, radiation dose was kept as low as reasonably a chievable to obtain optimal diagnostic quality images. DICOM format image data is available electro nically for review and comparison. FINDINGS: CEREBRUM: Focal areas of encephalomalacia in the high right parietal convexity and para-midline posteriorly in the right parietal lobe. Old lacunar type infarct in the left coronal radiata. Periventricular areas of diminished attenuation are characteristic of moderately severe small vessel ischemic demyelination . No acute intracranial hemorrhage or midline shift. Ventricles are normal in size. POSTERIOR FOSSA: A linear infarct in the right cerebral hemisphere. Nothing acute. EXTRACRANIAL: The visualized portion of the orbits is intact. Air-fluid level in the left maxillary antra could rep resent acute sinusitis. SKULL: The calvaria is intact. No evidence of skull fracture. CONCLUSION: 1. Chronic changes with encephalomalacia in the high right and posterior medial parietal convexity. 2. Old lacunar type infarct in the left sargent radiata. Moderately severe periventricular small vesse l ischemic demyelination. 3. Old linear infarct in the right cerebellar hemisphere. 4. Possible acute sinusitis in the left maxillary antra. 5. No acute intracranial process Koby Duncan MD on December 26, 2016 at 11:36 Board Certified Radiologist. This report was verified electronically.
--- NOTE | 2016-12-26 11:44 | RADRPT ---
EXAM DATE/TIME: 12/26/2016 11:06 [facility] COMPARISON: No previous studies available for comparison. INDICATIONS : Decrease in bowel sounds; evaluate for obstruction. ORAL CONTRAST: No oral contrast ingested. RADIATION DOSE: 7.5 CTDIvol (mGy) MEDICAL HISTORY : Stroke. Renal failure, chronic. Hypertension. SURGICAL HISTORY : TURP. ENCOUNTER: Initial ACUITY: 1 day PAIN SCALE: Non-responsive LOCATION: upper quadrant TECHNIQUE: Volumetric scanning of the abdomen and pelvis was performed. Using automated exposure control and ad justment of the mA and/or kV according to patient size, radiation dose was kept as low as reasonably achievable to obtain optimal diagnostic quality images. DICOM format image data is available electro [facility] for review and comparison. FINDINGS: There are bilateral hydropneumothoraces, measuring in excess of 11 cm the right side with chest drain age tube in place. The hydropneumothorax on the left side measures 9.7 cm. There is significant col lapse of the visualized portion of the right lower lung. Significant amount of ascites throughout the abdomen. No dilated loops of small or large bowel. The re is a large cyst exophytic from the upper pole of the left kidney which measures in excess of 7 cm. Right parapelvic cyst measures 2.4 cm. No evidence of hydronephrosis. Calcification in the wall n ondistended abdominal aorta. Moderate distention of the urinary bladder. Moderate degenerative camara ges in the lumbar spine. CONCLUSION: 1. Bilateral large hydropneumothoraces. Chest drainage tube on the right side is included in the fie ld-of-view of the skin and is projected in the lower medial right chest. 2. Significant ascites diffuse throughout the abdomen and pelvis were 3. Bilateral renal cysts Nic Cha MD on December 26, 2016 at 11:39 Board Certified Radiologist. This report was verified electronically.
[2016-12-26] MEDS: VASOPRESSIN 40 U/D5W 100 ML Shock/septic shock, do NOT titrate until taper off IV SCH ×4 (13:19)
--- NOTE | 2016-12-26 15:12 | HHI.HCPN ---
Reason for visit a. To assist with evaluation and management of symptoms including: pain; dyspnea; encephalopathy b. To assist medical decision maker(s) with: better understanding of current medical conditions; weighing benefits/burdens of medical treatment options; making medical treatment decisions. . Subjective/Interval History Pressors slowly weaning down , otherwise no clinical change. Was felt stable enough to send for imaging today * CT abdomen / pelvis shows the hydropneumothoraces bilaterally; significant ascites; renal cysts * Head CT shows chronic encephalomalacia; old linear infarct, possible acute sinusitis left maxila, no acute intracranial process. * CXR shows no significant change. Patient remains critically ill sedated, intubated, mechanically ventilated, unresponsive in the MICU. Case discussed with Dr. Lovell after CT results cam back. . . . Family/friend interactions Spoke with at bedside for 10 minutes prior to patient going to CT. . Advance Directives Durable Power of Sole Stainer: Copy in medical record Advance Directive Specifics Date completed: DPOA for health care completed 10/05/2012 . Health Care Surrogate(s): Pio Lerner is designated as the health care DPOA. . Documented care wishes: No written documentation of health care preferences/wishes/goals. . Objective Vital Signs Date Time Temp Pulse Resp B/P (MAP) Pulse Ox O2 Delivery O2 Flow Rate FiO2 12/26/16 14:00 77 12/26/16 14:00 77 31 203/64 (110) 100 12/26/16 12:00 79 19 171/59 (96) 12/26/16 12:00 96.8 12/26/16 12:00 79 12/26/16 11:35 98 35 12/26/16 11:29 66 12/26/16 11:29 66 26 12/26/16 11:04 80 12/26/16 11:04 80 13 12/26/16 10:50 100 100 12/26/16 10:00 69 28 132/46 (74) 100 12/26/16 10:00 69 12/26/16 08:02 71 26 144/50 (81) 95 12/26/16 08:02 71 12/26/16 08:00 35 12/26/16 08:00 67 26 140/46 (77) 100 12/26/16 08:00 67 12/26/16 07:38 100 35 12/26/16 06:00 70 12/26/16 04:06 100 35 12/26/16 04:00 99.0 64 26 112/41 (64) 100 12/26/16 04:00 64 12/26/16 04:00 35 12/26/16 02:00 75 12/26/16 01:10 77 12/26/16 00:00 69 12/26/16 00:00 98.9 69 27 144/54 (84) 100 12/26/16 00:00 35 12/25/16 23:42 100 35 12/25/16 22:00 75 12/25/16 22:00 75 18 166/59 (94) 100 12/25/16 20:00 99.4 66 26 118/43 (68) 12/25/16 20:00 66 12/25/16 20:00 35 12/25/16 19:53 100 35 12/25/16 18:06 66 100/37 12/25/16 18:00 66 12/25/16 17:00 72 27 175/58 (97) 100 12/25/16 17:00 72 12/25/16 16:49 72 196/60 12/25/16 16:15 65 99/38 12/25/16 16:00 35 12/25/16 16:00 98.8 68 29 104/43 (63) 100 12/25/16 16:00 68 12/25/16 15:15 70 162/54 12/25/16 15:12 100 35 12/25/16 15:00 70 26 168/55 (92) 100 Intake & Output 12/26/16 12/26/16 07:00 19:00 Intake Total 560 ml Output Total 60 ml Balance 500 ml IV Total 500 ml Tube Irrigant 60 ml Output Urine Total 0 ml Chest Tube Drainage Total 60 ml # Bowel Movements 1 . Physical Exam CONSTITUTIONAL/GENERAL: This is a thin, frail appearing male, sedated, intubated , mechanically ventilated in the MICU. TUBES/LINES/DRAINS: ET tube ; OG tube; dialysis fistula LUE; bilateral soft wrist restraints; bilateral chest catheters; peripheral IV; arterial line right radial artery; right femoral central line. SKIN: No jaundice, rashes. Skin tears on edematous scrotum. Buttock skin tear not evaluated. Skin temperature appropriate except for feet which are cool and mottled. EYES: Eyes open but he does not track. Pupils equal and round. Unable to evaluate EOMs. No scleral icterus. No injection or drainage. Fundi not examined. ENT: Unable to evaluate hearing. Nose without bleeding or purulent drainage. Throat without visible erythema, exudates, masses, or lesions though difficult to assess due to intubations. NECK: Trachea midline. CARDIOVASCULAR: Regular rate and rhythm without murmurs, gallops, or rubs. No JVD. RESPIRATORY/CHEST: Symmetric, unlabored respirations. Breath sounds diminished at both bases. No wheezes. GASTROINTESTINAL: Abdomen distended and very taught. No hepato-splenomegaly, or palpable masses. No guarding. Bowel sounds hypoactive. GENITOURINARY: Unable to feel for bladder distension given overall abdominal distension.. Prominent scrotal edema. MUSCULOSKELETAL: Extremities without clubbing, cyanosis. Feet are cool and mottled. LYMPHATICS: Not examined NEUROLOGICAL: Sedated. No spontaneous movements noted. Unable to follow commands. PSYCHIATRIC: Unable to assess due to level of responsiveness . Diagnostic Tests Laboratory Laboratory Tests Test 12/23/16 15:45 12/23/16 16:25 12/24/16 04:33 12/24/16 08:00 Blood Gas Puncture Site ART LINE Blood Gas Patient Temperature 98.6 Blood Gas HCO3 22 mmol/L (22-26) Blood Gas Base Excess -3.7 mmol/L (-2-2) Blood Gas Oxygen Saturation 96 % (90-100) Arterial Blood pH 7.31 (7.380-7.420) Arterial Blood Partial Pressure CO2 45 mmHg (38-42) Arterial Blood Partial Pressure O2 134 mmHg (61-120) Arterial Blood Oxygen Content 10.3 Vol % (12.0-20.0) Arterial Blood Carboxyhemoglobin 1.2 % (0-4) Arterial Blood Methemoglobin 1.3 % (0-2) Blood Gas Hemoglobin 7.4 G/DL (12.0-16.0) Oxygen Delivery Device VENTILATOR Blood Gas Ventilator Setting PC/AC RATE 26 Blood Gas Inspired Oxygen 35 % Lactic Acid Level 3.8 mmol/L (0.4-2.0) White Blood Count 4.4 TH/MM3 (4.0-11.0) 4.3 TH/MM3 (4.0-11.0) Red Blood Count 1.90 MIL/MM3 (4.50-5.90) 1.98 MIL/MM3 (4.50-5.90) Hemoglobin 6.7 GM/DL (13.0-17.0) 6.9 GM/DL (13.0-17.0) Hematocrit 19.5 % (39.0-51.0) 20.5 % (39.0-51.0) Mean Corpuscular Volume 102.4 FL (80.0-100.0) 103.5 FL (80.0-100.0) Mean Corpuscular Hemoglobin 35.4 PG (27.0-34.0) 34.7 PG (27.0-34.0) Mean Corpuscular Hemoglobin Concent 34.6 % (32.0-36.0) 33.5 % (32.0-36.0) Red Cell Distribution Width 14.7 % (11.6-17.2) 15.2 % (11.6-17.2) Platelet Count 80 TH/MM3 (150-450) 85 TH/MM3 (150-450) Mean Platelet Volume 11.2 FL (7.0-11.0) 10.8 FL (7.0-11.0) Neutrophils (%) (Auto) 81.0 % (16.0-70.0) Lymphocytes (%) (Auto) 11.8 % (9.0-44.0) Monocytes (%) (Auto) 4.9 % (0.0-8.0) Eosinophils (%) (Auto) 2.1 % (0.0-4.0) Basophils (%) (Auto) 0.2 % (0.0-2.0) Neutrophils # (Auto) 3.5 TH/MM3 (1.8-7.7) Lymphocytes # (Auto) 0.5 TH/MM3 (1.0-4.8) Monocytes # (Auto) 0.2 TH/MM3 (0-0.9) Eosinophils # (Auto) 0.1 TH/MM3 (0-0.4) Basophils # (Auto) 0.0 TH/MM3 (0-0.2) CBC Comment AUTO DIFF AUTO DIFF Differential Total Cells Counted 100 100 Neutrophils % (Manual) 44 % (16-70) 43 % (16-70) Band Neutrophils % 16 % (0-6) 18 % (0-6) Lymphocytes % 13 % (9-44) 10 % (9-44) Monocytes % 13 % (0-8) 12 % (0-8) Neutrophils # (Manual) 3.3 TH/MM3 (1.8-7.7) 3.4 TH/MM3 (1.8-7.7) Metamyelocytes 14 % (0-1) 17 % (0-1) Nucleated Red Blood Cells 1 /100 WBC (0-0) 3 /100 WBC (0-0) Differential Comment FINAL DIFF MANUAL FINAL DIFF MANUAL Platelet Estimate LOW (NORMAL) LOW (NORMAL) Platelet Morphology Comment ENLARGED (NORMAL) ENLARGED (NORMAL) Ovalocytes 1+ (NORMAL) 1+ (NORMAL) Acanthocytes OCC (NORMAL) OCC (NORMAL) Blood Urea Nitrogen 50 MG/DL (7-18) 52 MG/DL (7-18) Creatinine 5.42 MG/DL (0.60-1.30) 5.49 MG/DL (0.60-1.30) Random Glucose 140 MG/DL (74-106) 155 MG/DL (74-106) Total Protein 5.7 GM/DL (6.4-8.2) 5.8 GM/DL (6.4-8.2) Calcium Level 6.8 MG/DL (8.5-10.1) 7.0 MG/DL (8.5-10.1) Sodium Level 122 MEQ/L (136-145) 121 MEQ/L (136-145) Potassium Level 4.7 MEQ/L (3.5-5.1) 4.7 MEQ/L (3.5-5.1) Chloride Level 86 MEQ/L (98-107) 84 MEQ/L (98-107) Carbon Dioxide Level 23.0 MEQ/L (21.0-32.0) 23.0 MEQ/L (21.0-32.0) Anion Gap 13 MEQ/L (5-15) 14 MEQ/L (5-15) Estimat Glomerular Filtration Rate 12 ML/MIN (>89) 12 ML/MIN (>89) Protein Corrected Calcium 7.5 MG/DL (8.5-10.1) 7.7 MG/DL (8.5-10.1) Random Vancomycin Level 10.9 COMMENT Joss Cells 1+ (NORMAL) Test 12/24/16 08:55 12/24/16 17:10 12/25/16 04:45 12/26/16 05:00 Lactic Acid Level 3.4 mmol/L (0.4-2.0) Hemoglobin 11.6 GM/DL (13.0-17.0) 10.3 GM/DL (13.0-17.0) 10.6 GM/DL (13.0-17.0) Hematocrit 33.3 % (39.0-51.0) 28.9 % (39.0-51.0) 30.7 % (39.0-51.0) White Blood Count 5.5 TH/MM3 (4.0-11.0) 10.0 TH/MM3 (4.0-11.0) Red Blood Count 3.07 MIL/MM3 (4.50-5.90) 3.26 MIL/MM3 (4.50-5.90) Mean Corpuscular Volume 94.1 FL (80.0-100.0) 94.2 FL (80.0-100.0) Mean Corpuscular Hemoglobin 33.6 PG (27.0-34.0) 32.6 PG (27.0-34.0) Mean Corpuscular Hemoglobin Concent 35.7 % (32.0-36.0) 34.6 % (32.0-36.0) Red Cell Distribution Width 18.3 % (11.6-17.2) 17.7 % (11.6-17.2) Platelet Count 60 TH/MM3 (150-450) 57 TH/MM3 (150-450) Mean Platelet Volume 10.9 FL (7.0-11.0) 10.3 FL (7.0-11.0) Neutrophils (%) (Auto) 88.4 % (16.0-70.0) 93.7 % (16.0-70.0) Lymphocytes (%) (Auto) 5.6 % (9.0-44.0) 3.8 % (9.0-44.0) Monocytes (%) (Auto) 4.3 % (0.0-8.0) 2.0 % (0.0-8.0) Eosinophils (%) (Auto) 1.4 % (0.0-4.0) 0.3 % (0.0-4.0) Basophils (%) (Auto) 0.3 % (0.0-2.0) 0.2 % (0.0-2.0) Neutrophils # (Auto) 4.8 TH/MM3 (1.8-7.7) 9.3 TH/MM3 (1.8-7.7) Lymphocytes # (Auto) 0.3 TH/MM3 (1.0-4.8) 0.4 TH/MM3 (1.0-4.8) Monocytes # (Auto) 0.2 TH/MM3 (0-0.9) 0.2 TH/MM3 (0-0.9) Eosinophils # (Auto) 0.1 TH/MM3 (0-0.4) 0.0 TH/MM3 (0-0.4) Basophils # (Auto) 0.0 TH/MM3 (0-0.2) 0.0 TH/MM3 (0-0.2) CBC Comment AUTO DIFF AUTO DIFF Differential Total Cells Counted 100 100 Neutrophils % (Manual) 56 % (16-70) 48 % (16-70) Band Neutrophils % 27 % (0-6) 43 % (0-6) Lymphocytes % 7 % (9-44) 4 % (9-44) Monocytes % 9 % (0-8) 3 % (0-8) Neutrophils # (Manual) 4.6 TH/MM3 (1.8-7.7) 9.3 TH/MM3 (1.8-7.7) Metamyelocytes 1 % (0-1) 1 % (0-1) Nucleated Red Blood Cells 3 /100 WBC (0-0) Differential Comment FINAL DIFF MANUAL FINAL DIFF MANUAL Toxic Granulation 1+ (NORMAL) 1+ (NORMAL) Platelet Estimate LOW (NORMAL) LOW (NORMAL) Platelet Morphology Comment ENLARGED (NORMAL) NORMAL (NORMAL) Target Cells 1+ (NORMAL) [employer] Cells 1+ (NORMAL) Blood Urea Nitrogen 33 MG/DL (7-18) 44 MG/DL (7-18) Creatinine 3.98 MG/DL (0.60-1.30) 4.58 MG/DL (0.60-1.30) Random Glucose 126 MG/DL (74-106) 99 MG/DL (74-106) Calcium Level 7.5 MG/DL (8.5-10.1) 8.0 MG/DL (8.5-10.1) Sodium Level 127 MEQ/L (136-145) 122 MEQ/L (136-145) Potassium Level 3.7 MEQ/L (3.5-5.1) 3.8 MEQ/L (3.5-5.1) Chloride Level 89 MEQ/L (98-107) 84 MEQ/L (98-107) Carbon Dioxide Level 25.3 MEQ/L (21.0-32.0) 25.2 MEQ/L (21.0-32.0) Anion Gap 13 MEQ/L (5-15) 13 MEQ/L (5-15) Estimat Glomerular Filtration Rate 17 ML/MIN (>89) 15 ML/MIN (>89) Myelocytes 1 % (0-0) Toxic Vacuolation PRESENT (NONE SEEN) Red Cell Morphology Comment NORMAL (NORMAL) Test 12/26/16 09:24 12/26/16 12:12 Blood Gas Puncture Site ART LINE Blood Gas Patient Temperature 98.6 Blood Gas HCO3 24 mmol/L (22-26) Blood Gas Base Excess -0.2 mmol/L (-2-2) Blood Gas Oxygen Saturation 96 % (90-100) Arterial Blood pH 7.39 (7.380-7.420) Arterial Blood Partial Pressure CO2 41 mmHg (38-42) Arterial Blood Partial Pressure O2 140 mmHg (61-120) Arterial Blood Oxygen Content 14.6 Vol % (12.0-20.0) Arterial Blood Carboxyhemoglobin 0.9 % (0-4) Arterial Blood Methemoglobin 1.4 % (0-2) Blood Gas Hemoglobin 10.6 G/DL (12.0-16.0) Oxygen Delivery Device VENTILATOR Blood Gas Ventilator Setting PC/AC Blood Gas Inspired Oxygen 35 % Lactic Acid Level 1.2 mmol/L (0.4-2.0) . Result Diagram: 12/26/16 0500 12/26/16 0500 Microbiology Microbiology Date/Time Source Procedure Growth Status 12/19/16 19:10 Blood Peripheral Aerobic Blood Culture - Final NO GROWTH IN 5 DAYS Complete 12/19/16 19:10 Blood Peripheral Anaerobic Blood Culture - Final NO GROWTH IN 5 DAYS Complete 12/19/16 20:35 Fluid Pleural Fluid Gram Stain - Final Complete 12/19/16 20:35 Fluid Pleural Fluid Body Fluid Culture - Final NO GROWTH IN 72 HRS.--AEROBICALLY OR ... Complete 12/21/16 10:24 Sputum Endotracheal Gram Stain - Final Complete 12/21/16 10:24 Sputum Culture - Final Klebsiella Pneumoniae Complete . Imaging Last Impressions Head CT 12/26/16 0000 Signed Impressions: Service Date/Time: Monday, December 26, 2016 11:03 - CONCLUSION: 1. Chronic changes with encephalomalacia in the high right and posterior medial parietal convexity. 2. Old lacunar type infarct in the left sargent radiata. Moderately severe periventricular small vessel ischemic demyelination. 3. Old linear infarct in the right cerebellar hemisphere. 4. Possible acute sinusitis in the left maxillary antra. 5. No acute intracranial process Koby Duncan MD Chest X-Ray 12/26/16 0000 Signed Impressions: Service Date/Time: Monday, December 26, 2016 09:10 - CONCLUSION: 1. Stable tubes and lines. 2. Stable bilateral subpulmonic pneumothoraces despite presence of chest tubes. 3. No significant interval change. Luisito Forrest MD Abdomen/Pelvis CT 12/26/16 0000 Signed Impressions: Service Date/Time: Monday, December 26, 2016 11:06 - CONCLUSION: 1. Bilateral large hydropneumothoraces. Chest drainage tube on the right side is included in the [id number] of the skin and is projected in the lower medial right chest. 2. Significant ascites diffuse throughout the abdomen and pelvis were 3. Bilateral renal cysts Nic Cha MD Abdomen X-Ray 12/26/16 0000 Signed Impressions: Service Date/Time: Monday, December 26, 2016 09:02 - CONCLUSION: 1. Stable focal small bowel distention in the midabdomen consistent with focal ileus versus partial small bowel obstruction. 2. No significant interval change. Luisito Forrest MD Chest CT 12/20/16 0000 Signed Impressions: Service Date/Time: Tuesday, December 20, 2016 16:26 - CONCLUSION: 1. Moderate right and small left hydropneumothorax with small caliber chest tubes present bilaterally, not significant changed from prior chest radiograph. Dependent consolidation and atelectasis of both lungs. No pneumomediastinum or subcutaneous air. Germán Vences MD . Procedures * Biltateral chest tube placement * Intubation/mechanical ventilation * Arterial line placement . Assessment and Plan Disease Oriented Problem List: (1) Loculated pleural effusion Comment: Pulmonology and cardi-thoracic surgery do not feel there is a workable solution to this problem given the patient's overall functional capacity. . (2) Pneumothorax Comment: Lungs unable to re-expand in spite of chest tubes.. As chest tubes are not working and he is not a candidate for surgery, this will likely be a chronic problem making it very hard to wean patient from went and if vent weaning is possible there is a very high likelihood or recurrence/worsening of problem. . (3) ESRD (end stage renal disease) on dialysis Comment: Normally on dialysis M, W, F. . (4) Peripheral vascular disease (5) Anemia Comment: Probably multi-factorial. On top of anemia from his renal disease, he may have acute blood loss anemia from uncertain source. Has received 2 units of PRBCs. . (6) Stroke Comment: Had two strokes in 2012. Now with significant left sided weakness. . (7) Osteoarthritis (8) Hypertension Comment: Now HYPOTENSIVE requiring pressor support. . (9) Glaucoma Symptom Scale: (1) Pain 0-10 Scale: Unable to quantify Comment: Has history of back pain and arthritis pain with use of PRN tramadol at home. Other sources of pain now include prolonged bedbound status; orotracheal and orogastric intubations; restraints; vascular access lines; etc. Patient is unable to locate, quantify, qualify pain. Currently has orders for a fentanyl drip and for tramadol. . (2) Dyspnea 0-10 Scale: Unable to quantify Comment: Dyspnea due to pneumothorax and recurrent pleural effusions. Now being managed on vent. . (3) Encephalopathy 0-10 Scale: Unable to quantify Comment: Patient continues on sedation. Will need to evaluate clinically off sedation to see if there is any significant cognitive loss. . Pertinent Non-Medical Issues Psychosocial: Supported by of over 30 years. Patient has 8 biological children and 5 step-children. Spiritual: Spiritism Legal: DPOA for health care scanned into EMR. Ethical issues impacting care: Patient is incapacitated and is not likely to regain capacity. . Important Contacts * Pio Lerner (spouse; DPOA for health care) [phone] . 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 Cardiothoracic surgery does not believe patient could tolerate the procedure necessary to repair this. In addition to his kidney disease and incurable lung disease, patient now has hemodynamic instability requiring pressors. Critical care and pulmonology feel he has an end stage condition. In my clinical opinion, patient has an overall end stage condition. I don't believe there is a reasonable probability of patient regaining capacity. Patient would be an appropriate hospice candidate at such time that his health care surrogate decides to forego further aggressive care and transition to comfort care. . Code Status: Full Code Plan == Code Status: FULL CODE. (who is the DPOA for [facility] care) feels obligated to allow one more attempted resuscitation. She feels the patient opted to go on life support on his own. She understands his dire circumstances and poor prognosis and risks of preforming CPR on him in his fragile position. She is also reluctant to change code status or consider compassionate withdrawal of life support because of the expected anger coming from the patient 's children. == Decision making: Patient is incapacitated to make his own health care decisions. At this point, probability of the patient being able to regain capacity to make his own health care decisions is remote. While incapacitated, his Pio Lerner, is the [facility] DPOA. == Goals of medical treatment: has spoken 12/24 with nephrology and pulmonology. clearly understands that patient will likely during this hospitalization. She understands that his pneumothoraces are not re-expanding, that he is not a candidate to surgically correct these , and that therefore getting the patient off the vent may be impossible. She understands that he appears to be bleeding and that we don't know where from. She understands that extermination inspector pressor use may be causing lack of blood flow to some organs and to extremities. She understands she is the health are surrogate and can make decisions on her own. She tells me she would like to make him "no code" at this point. HOWEVER -- she also tells me that the patient has 8 children and 5 step children. She is the stepmother and in the past the children have been very angry with her. She feels if she would make him "no code" they would be furious that she did not try and fight hard enough to keep him alive. For these reasons, she is unable, at this time to change his code status. She clearly understands the trauma he will go through if "coded." == Symptoms * Pain: Has history of back pain and arthritis pain with use of PRN tramadol at home. Other sources of pain now include prolonged bedbound status; orotracheal and orogastric intubations; restraints; vascular access lines; etc. He has abdominal distension of unkwown etiology (imaging suggests this is mostly ascited) -- unclear if this might be causing abdominal pain. Also with skin tears on buttocks and scrotum which may be painful. Currently has orders for a fentanyl drip and for tramadol. No further recommendations at this time. * Dyspnea: Dyspnea is secondary to his chronic / recurrent pleural effusions and pneumothoraces. Currently managed by chest tubes and ventilator. Opiates would help for treating dyspnea if needed. Currently has orders for a fentanyl drip and for tramadol. No further recommendations at this time. * Encephalopathy: Unclear at this time to what extent patient is minimally responsive due to sedation vs to underlying illness. CT imaging of the head shows no significant abnormalities. EEG pending. == Skin tears on buttocks and edematous scrotum: Dialysis will be the main method of taking off excess fluid which is also challenging because of hypotension. Wound care consultation has been placed and recommnedations are on chart. Skin breakdown probably exacerbated by pressors which are most likely further reducing blood flow to skin. == Cool / mottled feet: This is probably a pressor effect as well. Patient is at risk of ischemic injury to extremities. == Offered to speak with children and stepchildren by phone or in person if feels that would help. She will let me know. == Palliative care will continue to follow to assist with symptom management and to further clarify goals of medical treatment as the clinical course evolves. . Attestation To help prompt me to consider important information that might be impacting today's encounter and assessment, information from prior notes written by myself or my colleagues may have been "brought forward" into today's note. My signature on this note, however, is an attestation that I personally performed the exam, history, and/or decision-making noted today, and, unless otherwise indicated, the interactions with patient, family, and staff as well as the review of records all occurred today. I also attest that the listed assessment and stated plan reflect my best clinical judgment today based on the combination of historical information, prior notes, and today's exam/ interactions. When time spent is documented, it refers only to time spent today by the signer, or if indicated, combined time spent today by collaborating physician/nurse practitioner. Jesus Freitas MD Dec 26, 2016 15:12
[2016-12-26] MEDS: LATANOPROST 0.005% OPHT SOLN 2.5 ML BTL EACH EYE SCH ×2 (21:00)
[2016-12-26] MEDS: PRAVASTATIN SOD 20 MG TAB PO SCH ×2 (21:04)
[2016-12-26] MEDS: fentaNYL DRIP 250 ML IV PRN ×2 (21:17)
[2016-12-26] MEDS: hydrALAZINE HCL 20 MG/ML VIAL IV PRN ×2 (21:22)
[2016-12-27] VITALS (23 sets, daily range): BP systolic 76–185; BP diastolic 29–60; PULSE 65–86; RESP 25–31; TEMP 96.8–98; O2SAT 93–100
[2016-12-27] MEDS: INSULIN NovoLIN REGULAR SUPPLEMENTAL SCALE SQ SCH ×12 (01:00→21:00)
[2016-12-27] MEDS: PIPERACIL-TAZO 2.25 GM PREMIX 50 ML IV SCH ×6 (01:11→17:18)
[2016-12-27 05:06] LABS: AUTOMATED NEUTROPHIL # 11.7 TH/MM3 (1.8-7.7); BASOPHIL % 0.3 % (0.0-2.0); EOSINOPHIL % 0.1 % (0.0-4.0); HEMATOCRIT 30.4 % (39.0-51.0); HEMOGLOBIN 10.4 GM/DL (13.0-17.0); LYMPH % 3.1 % (9.0-44.0); LYMPHOCYTE # 0.4 TH/MM3 (1.0-4.8); MEAN CELL VOLUME 94.5 FL (80.0-100.0); MEAN CORPUSCULAR HEMOGLOBIN 32.4 PG (27.0-34.0); MEAN CORPUSCULAR HGB CONC 34.3 % (32.0-36.0); MEAN PLATELET VOLUME 10.3 FL (7.0-11.0); MONO % 1.3 % (0.0-8.0); MONOCYTE # 0.2 TH/MM3 (0-0.9); NEUT % 95.2 % (16.0-70.0); PLATELET COUNT 58 TH/MM3 (150-450); RED BLOOD COUNT 3.22 MIL/MM3 (4.50-5.90); RED CELL DISTRIBUTION WIDTH 16.9 % (11.6-17.2); WHITE BLOOD COUNT 12.3 TH/MM3 (4.0-11.0)
[2016-12-27 05:28] LABS: BICARBONATE 25.2 MEQ/L (21.0-32.0); CALCIUM 8.1 MG/DL (8.5-10.1); CREATININE 4.1 MG/DL (0.60-1.30)
[2016-12-27] MEDS: HYDROCORTISONE SOD SUCCINATE 100 MG VIAL IV PUSH SCH ×6 (05:36→21:23)
[2016-12-27] MEDS: RESP: ALBUTEROL 2.5 MG/IPRATROPIUM 0.5 MG NEB (PRN) NEB ×4 (07:29→20:34)
[2016-12-27] MEDS: VASOPRESSIN 40 U/D5W 100 ML Shock/septic shock, do NOT titrate until taper off IV SCH ×4 (07:50)
[2016-12-27 08:05] LABS: BANDS 25 % (0-6); CORRECTED NUCLEATED RBC 1 /100 WBC (0-0); LYMPHOCYTES 6 % (9-44); MONOCYTES 2 % (0-8); NEUTROPHIL # MANUAL DIFF 11.3 TH/MM3 (1.8-7.7); NUCLEATED RED BLOOD CELL 1 (0-0); POLYS (SEG NEUTROPHILS) 67 % (16-70)
[2016-12-27 08:06] LABS: TOXIC GRANULATION 2+ (NORMAL)
[2016-12-27] MEDS: SENNOSIDES SYRUP 8.8 MG/5 ML CUP PO SCH ×2 (08:48)
[2016-12-27] MEDS: CHLORHEXIDINE 0.12% (ORAL KIT) 15 ML CUP MT SCH ×4 (08:48→21:30)
[2016-12-27] MEDS: DORZOLAMIDE/TIMOLOL OPTH SOLN 10 ML BTL EACH EYE SCH ×4 (08:48→21:21)
[2016-12-27] MEDS: ASPIRIN EC 81 MG TABEC PO SCH ×2 (08:49)
[2016-12-27] MEDS: HEPARIN SODIUM - SQ 10,000 UNITS/ML VIAL SQ SCH ×4 (08:50→21:23)
[2016-12-27] MEDS: VITAMIN B CMPLX/VITC/FOLIC AC CAP PO SCH ×2 (08:50)
[2016-12-27] MEDS: DOCUSATE SODIUM 50 MG/SENNA 8.6 MG TAB PO SCH ×4 (08:50→21:23)
[2016-12-27] MEDS: DIPYRIDAMOLE 25 MG TAB PO SCH ×4 (08:50→21:38)
[2016-12-27] MEDS: CALCIUM CARBONATE 1.25 GM (CA 500 MG) TAB PO SCH ×2 (08:50)
[2016-12-27] MEDS: DOCUSATE SODIUM 100 MG/10 ML UDC PO SCH ×4 (08:50→21:23)
[2016-12-27] MEDS: SODIUM CHLORIDE 0.9% FLUSH 10 ML FLUSH IV FLUSH SCH ×4 (08:50→21:22)
[2016-12-27] MEDS: PANTOPRAZOLE SODIUM 40 MG VIAL IV PUSH SCH ×2 (08:51)
[2016-12-27] MEDS: AZITHROMYCIN INJ 500 MG in SODIUM CHLOR 0.9% 250 ML INJ 250 ML IV SCH ×4 (08:52)
[2016-12-27] MEDS: MINOXIDIL 2.5 MG TAB PO SCH ×2 (08:53)
--- NOTE | 2016-12-27 12:50 | HHI.NPPN ---
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 Patient now presents with increasing shortness of breath noted to have bilateral pleural effusions which appear to be loculated. Patient missed his dialysis session yesterday. Moderate hyperkalemia on presentation. Now status post bilateral pigtail catheter placement left and right pleural cavity. Pneumothorax bilaterally postprocedure. Patient seen during his dialysis session. Appears to be lethargic and nonverbal at this time. Interval History Overall, remains unchanged. Still on Forrest Blinking eyes to questions, but remains intubated. (Emily Lunsford) Review of Systems General General Remarks Unable to obtain d/t clinical status (Emily Lunsford) Objective Data Data 12/27/16 12/28/16 19:00 07:00 Intake Total 300 ml Balance 300 ml IV Total 300 ml Vital Signs Date Time Temp Pulse Resp B/P (MAP) Pulse Ox O2 Delivery O2 Flow Rate FiO2 12/27/16 12:00 35 12/27/16 12:00 97.6 67 26 104/35 (58) 100 12/27/16 12:00 67 12/27/16 11:55 67 97/32 12/27/16 11:10 99 35 12/27/16 11:00 68 26 104/37 (59) 100 12/27/16 10:00 76 26 166/58 (94) 98 12/27/16 10:00 76 12/27/16 09:00 69 25 108/40 (62) 98 12/27/16 08:42 71 93/35 12/27/16 08:00 35 12/27/16 08:00 97.5 72 26 145/45 (78) 100 12/27/16 08:00 72 12/27/16 07:31 94 35 12/27/16 06:00 69 12/27/16 04:10 98 35 12/27/16 04:00 35 12/27/16 04:00 69 12/27/16 04:00 96.8 69 26 90/31 (50) 93 12/27/16 02:00 71 12/27/16 01:06 100 35 12/27/16 00:00 97.5 75 27 113/38 (63) 99 12/27/16 00:00 97.5 80 31 185/59 (101) 12/27/16 00:00 75 12/27/16 00:00 35 12/26/16 22:05 96 35 12/26/16 22:00 81 12/26/16 20:00 80 12/26/16 20:00 35 12/26/16 20:00 97.9 80 31 185/59 (101) 12/26/16 19:18 95 35 12/26/16 18:00 75 12/26/16 17:29 80 185/56 12/26/16 17:15 81 185/57 12/26/16 17:06 99 35 12/26/16 16:00 73 26 122/39 (66) 12/26/16 16:00 35 12/26/16 16:00 73 12/26/16 14:00 77 12/26/16 14:00 35 12/26/16 14:00 77 31 203/64 (110) 100 (Emily Lunsford) -: 12/27/16 0432 12/27/16 0432 Imaging Last Impressions Head CT 12/26/16 0000 Signed Impressions: Service Date/Time: Monday, December 26, 2016 11:03 - CONCLUSION: 1. Chronic changes with encephalomalacia in the high right and posterior medial parietal convexity. 2. Old lacunar type infarct in the left sargent radiata. Moderately severe periventricular small vessel ischemic demyelination. 3. Old linear infarct in the right cerebellar hemisphere. 4. Possible acute sinusitis in the left maxillary antra. 5. No acute intracranial process Koby Duncan MD Chest X-Ray 12/26/16 0000 Signed Impressions: Service Date/Time: Monday, December 26, 2016 09:10 - CONCLUSION: 1. Stable tubes and lines. 2. Stable bilateral subpulmonic pneumothoraces despite presence of chest tubes. 3. No significant interval change. Luisito Forrest MD Abdomen/Pelvis CT 12/26/16 0000 Signed Impressions: Service Date/Time: Monday, December 26, 2016 11:06 - CONCLUSION: 1. Bilateral large hydropneumothoraces. Chest drainage tube on the right side is included in the [id number] of the skin and is projected in the lower medial right chest. 2. Significant ascites diffuse throughout the abdomen and pelvis were 3. Bilateral renal cysts Nic Cha MD Abdomen X-Ray 12/26/16 0000 Signed Impressions: Service Date/Time: Monday, December 26, 2016 09:02 - CONCLUSION: 1. Stable focal small bowel distention in the midabdomen consistent with focal ileus versus partial small bowel obstruction. 2. No significant interval change. Luisito Forrest MD Chest CT 12/20/16 0000 Signed Impressions: Service Date/Time: Tuesday, December 20, 2016 16:26 - CONCLUSION: 1. Moderate right and small left hydropneumothorax with small caliber chest tubes present bilaterally, not significant changed from prior chest radiograph. Dependent consolidation and atelectasis of both lungs. No pneumomediastinum or subcutaneous air. Germán Vences MD Medication Review Current Medications Medications (Trade) Dose Ordered Sig/Bill Route Start Time Stop Time Status Last Admin (Dulcolax Ec) 10 mg DAILY PRN PO 12/19/16 20:00 (Xalatan 0.005% Opth Soln) 1 drop HS EACH EYE 12/19/16 21:00 12/25/16 21:00 (Pravachol) 20 mg HS PO 12/19/16 21:00 12/26/16 21:04 (Loniten) 2.5 mg DAILY PO 12/20/16 09:00 12/26/16 09:34 (Procardia Xl) 30 mg BID PRN PO 12/19/16 20:00 12/20/16 00:23 (Ultram) 50 mg Q4H PRN PO 12/19/16 20:00 12/20/16 15:50 (Ecotrin Ec) 81 mg DAILY PO 12/20/16 09:00 12/27/16 08:49 (Nephrocaps) 1 cap DAILY PO 12/20/16 09:00 12/27/16 08:50 (Oscal) 1,000 mg DAILY PO 12/20/16 09:00 12/27/16 08:50 (Coreg) 12.5 mg BID PO 12/19/16 21:00 Future Hold 12/20/16 20:56 (Cosopt 2-0.5% Opth Soln) 1 drop BID EACH EYE 12/19/16 21:00 12/27/16 08:48 (NS Flush) 2 ml UNSCH PRN IV FLUSH 12/19/16 20:15 12/24/16 22:02 (NS Flush) 2 ml BID IV FLUSH 12/19/16 21:00 12/27/16 08:50 (Tylenol) 650 mg Q6H PRN PO 12/19/16 20:15 (Zofran Inj) 4 mg Q6H PRN IV PUSH 12/19/16 20:15 (Ambien) 5 mg HS PRN PO 12/19/16 20:15 (Heparin Inj) 5,000 units Q12H SQ 12/19/16 21:00 12/27/16 08:50 Miscellaneous Information 1 Q361D XX 12/19/16 20:15 (Chlorhexidine 2% Cloth) Taper DAILY@04 TOP 12/20/16 04:00 12/16/17 03:59 12/26/16 21:21 (Chlorhexidine 2% Cloth) 3 pack UNSCH PRN TOP 12/19/16 20:15 (Shelby-Colace) 1 tab BID PO 12/19/16 21:00 12/27/16 08:50 (Milk Of Magnesia Liq) 30 ml Q12H PRN PO 12/19/16 20:15 (Senokot) 17.2 mg Q12H PRN PO 12/19/16 20:15 12/22/16 09:39 (Dulcolax Supp) 10 mg DAILY PRN RECTAL 12/19/16 20:15 (Lactulose Liq) 30 ml DAILY PRN PO 12/19/16 20:15 12/22/16 09:37 (Persantine) 75 mg BID PO 12/20/16 09:00 12/27/16 08:50 (Apresoline Inj) 20 mg Q4H PRN IV 12/20/16 00:15 12/26/16 21:22 Sodium Chloride 1,000 ml @ 0 mls/hr Q0M PRN OTHER 12/20/16 10:04 Sodium Chloride 1,000 ml @ 200 mls/hr Q5H PRN IV 12/20/16 10:04 Sodium Chloride 1,000 ml @ 0 mls/hr Q0M PRN OTHER 12/20/16 10:04 (Mannitol Inj) 12.5 gm UNSCH PRN IV 12/20/16 10:15 Albumin Human 100 ml @ 60 mls/hr UNSCH PRN IV 12/20/16 10:15 (NS Flush) 5 ml UNSCH PRN IV FLUSH 12/20/16 10:15 (Heparin Inj) UNSCH PRN .XX 12/20/16 10:15 (Gentamicin (Dialysis) Inj) 20 mg UNSCH PRN OTHER 12/20/16 10:15 (Zofran Inj) 4 mg UNSCH PRN IV PUSH 12/20/16 10:15 (Tylenol) 650 mg UNSCH PRN PO 12/20/16 10:15 (Benadryl) 25 mg UNSCH PRN PO 12/20/16 10:15 (Nitrostat Sl) 0.4 mg UNSCH PRN SL 12/20/16 10:15 (Catapres) 0.1 mg UNSCH PRN PO 12/20/16 10:15 (Epogen Inj) 5,000 units UNSCH PRN IV PUSH 12/20/16 10:15 12/24/16 17:32 (Gelfoam 12 Mm/7 Mm Top) 1 foam UNSCH PRN TOP 12/20/16 10:15 (Peridex 0.12% Liq) 15 ml BID@08,20 MT 12/21/16 08:00 12/27/16 08:48 Propofol 100 ml @ 1.62 mls/hr TITRATE PRN IV 12/21/16 08:00 (Duoneb Neb) 1 ampule Q6HR NEB PRN NEB 12/21/16 08:00 12/27/16 07:29 (Protonix Inj) 40 mg Q24H IV PUSH 12/21/16 09:00 12/27/16 08:51 (D50w (Vial) Inj) 50 ml UNSCH PRN IV PUSH 12/21/16 08:15 12/23/16 22:56 (Glucagon Inj) 1 mg UNSCH PRN OTHER 12/21/16 08:15 (NovoLIN R SUPPLEMENTAL SCALE) 1 Q4H SQ 12/21/16 09:00 Piperacillin Sod/ Tazobactam Sod 50 ml @ 100 mls/hr Q8H IV 12/21/16 10:00 12/27/16 10:14 Azithromycin 500 mg/Sodium Chloride 250 ml @ 250 mls/hr Q24H IV 12/21/16 09:00 12/27/16 23:00 12/27/16 08:52 Fentanyl Citrate 250 ml @ 5 mls/hr TITRATE PRN IV 12/21/16 10:00 12/26/16 21:17 (SoluCORTEF INJ) 100 mg Q8H IV PUSH 12/21/16 13:00 12/27/16 12:41 Phenylephrine HCl 40 mg/Dextrose 500 ml @ 30 mls/hr TITRATE PRN IV 12/21/16 12:45 12/26/16 17:29 (Brethine Inj) 1 mg UNSCH PRN SQ 12/21/16 12:45 Norepinephrine Bitartrate 250 ml @ 7.5 mls/hr TITRATE PRN IV 12/21/16 18:30 12/25/16 10:20 Vasopressin 40 units/Dextrose 100 ml @ 6 mls/hr [id number] IV 12/21/16 18:30 12/24/16 08:23 (Colace Liq) 100 mg Q12HR PO 12/22/16 09:15 12/27/16 08:50 (Senna Liq) 8.8 mg DAILY PO 12/22/16 09:15 12/27/16 08:48 (Drisdol) 50,000 units Q7D PO 12/31/16 09:00 (Emily Lunsford) Physical Exam General Appearance: No Acute Distress, Malnourished (Emily Lunsford) Eyes Eye Remarks Eyes open and blinks when spoken to (Emily Lunsford) Pulmonary Resp Exam: No Distress, Diminished Breath Sounds Resp Remarks bilat chest tubes present draining serosanguineous fluid (Emily Lunsford) Cardiology CV Exam: Regular, Normal Sinus Rhythm (Emily Lunsford) Gastrointestinal/Abdomen GI Exam: Soft (Emily Lunsford) Integumentary Skin Exam: Warm (Emily Lunsford) Extremeties Extremities Exam: Moderate Edema (generalized in extremities and hips) (Emily Lunsford) Neurologic Neuro Exam: Sedated (Emily Lunsford) VTE Prophylaxis Device: SCDs (Emily Lunsford) Assessment/Plan Discussed Condition With: Spouse Problem List: (1) ESRD (end stage renal disease) on dialysis ICD Codes: N18.6 - End stage renal failure on dialysis; Z99.2 - Dependence on renal dialysis Status: Chronic Plan: Remains on inotropic support. Family goals remain aggressive. Palliative notes reviewed. Will have another HD today given his edema, then resume MWF. Spoke to HD RN If no significant clinical improvement over the next few days I recommended to the patient's that she consider hospice for comfort care. Patient has multiple pre-existing comorbidities end-stage renal disease, severe diffuse atherosclerotic disease, pre-existing failure to thrive, advanced age as well as acute comorbidities including shock syndrome, respiratory insufficiency, sepsis. Prognosis for recovery very poor and even if he does recover from this acute episode his quality of life which was limited previously will be diminished further. Medications should be adjusted for the patient's estimated end stage renal disease if clinically indicated. Gadolinium contraindicated. (2) Hyperkalemia ICD Codes: E87.5 - Hyperkalemia Plan: Resolved with dialysis (3) Failure to thrive in adult ICD Codes: R62.7 - Adult failure to thrive Plan: Making long-term prognosis poor even if he should survive this admission. (4) Non-compliance with renal dialysis ICD Codes: Z91.15 - Patient's noncompliance with renal dialysis Plan: I do not believe that we can improve patient's compliance given previous attempts but will continue education. (5) HTN (hypertension) ICD Codes: I10 - Hypertension Status: Chronic Plan: By hx. Hypotensive currently on inotropic support (6) Anemia of renal disease ICD Codes: D63.1 - Anemia in chronic kidney disease (Emily Lunsford) Plan The exam, history, and the medical decision-making described in the above note were completed with the assistance of the PA-C. I reviewed and agree with the findings presented. I attest that I had a [id number] encounter with the patient on the same day, and personally performed and documented my assessment and findings in the medical record. (Izabela Thompson MD) Emily Lunsford Dec 27, 2016 12:50 Izabela Thompson MD Dec 27, 2016 15:25
[2016-12-27] MEDS: ALBUMIN 25% INJ 100 ML IV PRN ×2 (14:00)
[2016-12-27] MEDS ORDERED: PHENYLEPHRINE HCL 10 MG/ML VIAL ONE ×2 (14:29)
[2016-12-27] MEDS: PHENYLEPHRINE INJ 40 MG in DEXTROSE 5% IN WATE 500 ML INJ 496 ML IV PRN ×4 (14:30)
[2016-12-27] MEDS: SODIUM CHLOR 0.9% 1000 ML INJ 1,000 ML OTHER PRN ×2 (16:07)
--- NOTE | 2016-12-27 16:31 | HHI.CCPN ---
Subjective Remarks/Hospital Course 86-year-old very pleasant male presents complaining of shortness of breath. Patient states that the symptoms started last night. He has history recurrent pleural effusion status post thoracentesis in the past. Patient is scheduled to have bilateral thoracentesis done by interventional radiologist. Patient denies any headache. Patient denies any chest pain. Patient denies abdominal pain. Patient denies any focal weakness or numbness of extremity. 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 Patient also has history of hypertension, hyperlipidemia, CVA and anemia. In the emergency department the chest x-ray revealed large pleural effusion on the right and a large pneumothorax on the left. Emergent chest tubes were placed bilaterally with partial resolution of pneumothorax on the left and drainage of 700 cc of hemorrhagic fluid from the right side however bilateral residual bibasal pneumothoraces. After procedures patient's respiration is significantly improved as well as his oxygenation. 12/21 Patient required increase O2 overnight wa son BIPAP with 100% FIO2. CXR this morning showed consolidative opacity right lung and stable bibasilar pneumothoraces. Due to resp distress and patient was intubated and placed on mechanical ventilation. 12/22 Patient is intubated and sedated with Fentanyl drip. On Neosyn 100 mics, Levophed 9 mics and vasopressin. Afebrile. 12/23 Patient remains intubated and sedated. On multiple pressors ( Levophed 4 mics, Neosyn 106 mics, Vasopressin).s/p HD yesterday with removal 700ml. 12/24 Patient remains intubated and sedated. On Levophed 6 mics, Neosyn 130 mics , vasopressin 0.04. [address] was placed yesterday on right side for right subpulmonic PTX however it was dislodged last night and 20FR CT was placed. 12/25 Patient remains intubated and sedated. s/p HD yesterday with removal 3.5L and transfusion 2units PRBC. Remains on Neosyn, Levophed down 2 mics, off Vasopressin. 12/26 Patient is sedated and intubated. Off Levophed, Neosyn down 66 mics. Afebrile. Subjective: 12/27 HD today resulted in 2.5 Kg removal, unable to reach target of 3 kg due to hypotension. Still on some neosynephrine 20-40 mcg/min. Afebrile. Objective Vital Signs Date Time Temp Pulse Resp B/P (MAP) Pulse Ox O2 Delivery O2 Flow Rate FiO2 12/27/16 16:03 100 35 12/27/16 14:30 76 144/48 12/27/16 12:00 97.6 26 Intake and Output 12/27/16 12/27/16 12/28/16 08:00 16:00 00:00 Intake Total 50 ml 800 ml Output Total 300 ml Balance -250 ml 800 ml Result Diagram: 12/27/16 0432 12/27/16 0432 Imaging Last Impressions Chest X-Ray 12/24/16 0000 Signed Impressions: Service Date/Time: Saturday, December 24, 2016 08:06 - CONCLUSION: 1. Unchanged bilateral subpulmonic pneumothoraces despite chest tubes. Nic rBown Jr., MD Abdomen X-Ray 12/23/16 0000 Signed Impressions: Service Date/Time: Friday, December 23, 2016 10:28 - CONCLUSION: Some improvement in the distention of the small bowel compared to the prior study. Nic Brown Jr., MD Chest CT 12/20/16 0000 Signed Impressions: Service Date/Time: Tuesday, December 20, 2016 16:26 - CONCLUSION: 1. Moderate right and small left hydropneumothorax with small caliber chest tubes present bilaterally, not significant changed from prior chest radiograph. Dependent consolidation and atelectasis of both lungs. No pneumomediastinum or subcutaneous air. Germán Vences MD Objective Remarks GENERAL: Patient is 86 yo intubated. Sedation on hold. SKIN: Warm and dry. HEAD: Normocephalic. EYES: pinpoint and sluggishly reactive pupils bilaterally. No scleral icterus. No injection or drainage. NECK: Supple, trachea midline. No JVD or lymphadenopathy. Orally intubated CARDIOVASCULAR: Regular rate and rhythm without murmurs, gallops, or rubs. Right CT 20FR on right and Left pigtail cathter on left, both to suction with 1 + air leak. RESPIRATORY: Breath sounds equal bilaterally. No accessory muscle use. GASTROINTESTINAL: firm, distended, hypoactive bowel sounds MUSCULOSKELETAL: No cyanosis. 1-2+ edema of all extremities VASC: R femoral CVL in place with dressing c/d/i. L arm fistula accessed. NEURO: Eyes open and looks at ceiling. Follows commands by squeezing with hands bilaterally. A/P Assessment and Plan 1)Acute respiratory failure 2)Right sided pneumonia 3)Bibasilar hydroPTX 5)ESRD 6)HTN 7)Macrocytic Anemia Plan Neuro: Fentanyl infusion on standby. Daily sedation vacation when appropriate CT brain - no acute intracerebral process. Encephalomalacia, right parietal. Old lacunar infarct Denis radiata. Pulm: Continue with vent support keep sat >92% Bronchodilators, ICU vent bundle. B/L pigtail catheters placed on 12/[address] placed on right 12/23 ( Dislodged) 20FR CT placed night of 12/[address] drainage. CTS is following- Dr. Jara, patient is poor operative candidate. CXR today showed stable b/l bibasilar pneumothoraces despite b/l chest tubes. Patient is a poor operative candidate and would require thoracotomy and decortication with no assurance that the lungs would re-expand due to the chronicity of this process. On PCV. CV: Wean off Neosynephrine as tolerated. , Monitor HR and BP keep MAP>65mmHg On stress dose steroids- HC 100mg Q8 Lactic acid cleared. : ESRD Monitor renal function, avoid nephrotoxins IHD per nephrology GI: On Protonix 40mg daily for GI prophylaxis OGT to LIWS on bowel regimen Colace, Senna KUB today showed ileus vs obstruction . KUB abdomen 12/23: Some improvement in the distention of the small bowel compared to the prior study. KUB abdomen: 12/22: Localized ileus vs early SBO. CT abd/pelvis 12/26 - ascites but no dilated bowel. Will attempt trickle tube feeds. Consider paracentesis as may temporarily help with ileus, however will not change overall very poor prognosis. ID: Continue abx per ID ( Zosyn, Azithromycin)monitor for signs of infections ( Fever, WBC) sputum cx 12/21: Kleb pneumonia, recheck sputum cx BC, fluid cx from 12/19:NGTD Heme: Monitor CBC, s/p transfusion 2units PRBC 12/24 Endo: SSI with accuchecks GI prophylaxis- Protonix 40mg daily DVT prophylaxis- SCD. Heparin SQ Palliative care is following. hesitant to change code status without approval from multiple children and stepchildren. Reviewed nephrology notes as well, hospice recommended. Level 3 Chrissie Fraser MD Dec 27, 2016 16:31
[2016-12-27] MEDS: LATANOPROST 0.005% OPHT SOLN 2.5 ML BTL EACH EYE SCH ×2 (21:22)
[2016-12-27] MEDS: PRAVASTATIN SOD 20 MG TAB PO SCH ×2 (21:23)
[2016-12-28] VITALS (23 sets, daily range): BP systolic 125–193; BP diastolic 43–59; PULSE 65–92; RESP 17–28; TEMP 97.6–98.9; O2SAT 98–100
[2016-12-28] MEDS: VASOPRESSIN 40 U/D5W 100 ML Shock/septic shock, do NOT titrate until taper off IV SCH ×4 (00:30)
[2016-12-28] MEDS: INSULIN NovoLIN REGULAR SUPPLEMENTAL SCALE SQ SCH ×12 (01:00→21:00)
[2016-12-28] MEDS: CHLORHEXIDINE GLUCONATE 2 % 1 PACK (2 CLOTHS) TOP SCH ×2 (01:37)
[2016-12-28] MEDS: PIPERACIL-TAZO 2.25 GM PREMIX 50 ML IV SCH ×6 (01:45→18:00)
[2016-12-28] MEDS: RESP: ALBUTEROL 2.5 MG/IPRATROPIUM 0.5 MG NEB (PRN) NEB ×6 (03:43→20:17)
[2016-12-28] MEDS: HYDROCORTISONE SOD SUCCINATE 100 MG VIAL IV PUSH SCH ×4 (05:37→13:00)
[2016-12-28 06:24] LABS: HEMATOCRIT 27.2 % (39.0-51.0); HEMOGLOBIN 9.2 GM/DL (13.0-17.0); MEAN CELL VOLUME 94.6 FL (80.0-100.0); MEAN CORPUSCULAR HEMOGLOBIN 32.1 PG (27.0-34.0); MEAN CORPUSCULAR HGB CONC 33.9 % (32.0-36.0); MEAN PLATELET VOLUME 11.1 FL (7.0-11.0); PLATELET COUNT 59 TH/MM3 (150-450); RED BLOOD COUNT 2.88 MIL/MM3 (4.50-5.90); RED CELL DISTRIBUTION WIDTH 16.5 % (11.6-17.2); WHITE BLOOD COUNT 13.2 TH/MM3 (4.0-11.0)
[2016-12-28 06:53] LABS: ALBUMIN 2.1 GM/DL (3.4-5.0); BICARBONATE 25.6 MEQ/L (21.0-32.0); CALCIUM 8.2 MG/DL (8.5-10.1); CREATININE 3.63 MG/DL (0.60-1.30); PHOSPHORUS 2.2 MG/DL (2.5-4.9)
--- NOTE | 2016-12-28 08:38 | RADRPT ---
EXAM DATE/TIME: 12/28/2016 07:07 [facility] COMPARISON: CHEST SINGLE AP, December 26, 2016, 9:10. INDICATIONS : ET tube placement. MEDICAL HISTORY : Renal insufficiency. Stroke. Hypertension. pneumothorax, VDRF SURGICAL HISTORY : None. ENCOUNTER: Initial ACUITY: 1 day PAIN SCORE: Non-responsive. LOCATION: Bilateral chest FINDINGS: The endotracheal tube has its tip approximately 3 cm above the agnes. There are persistent moderate -sized pneumothoraces within the bases bilaterally which are unchanged in size. Bibasilar atelectasi s and/or consolidations are also noted. The heart is stable. A nasogastric tube has its tip in the proximal stomach and its side port in the distal esophagus. Bilateral chest tubes are stable. CONCLUSION: 1. Persistent moderate-sized bibasilar pneumothoraces despite chest tubes in place. 2. Bibasilar consolidations consistent with atelectasis and/or pneumonia. 3. Cardiomegaly. 4. Endotracheal tube in good position 3 cm above the agnes. Eliecer Kingston MD on December 28, 2016 at 8:31 Board Certified Radiologist. This report was verified electronically.
[2016-12-28] MEDS: ASPIRIN EC 81 MG TABEC PO SCH ×2 (08:58)
[2016-12-28] MEDS: DORZOLAMIDE/TIMOLOL OPTH SOLN 10 ML BTL EACH EYE SCH ×4 (08:59→21:53)
[2016-12-28] MEDS: PANTOPRAZOLE SODIUM 40 MG VIAL IV PUSH SCH ×2 (08:59)
[2016-12-28] MEDS: DOCUSATE SODIUM 50 MG/SENNA 8.6 MG TAB PO SCH ×4 (08:59→21:51)
[2016-12-28] MEDS: DOCUSATE SODIUM 100 MG/10 ML UDC PO SCH ×4 (09:00→21:51)
[2016-12-28] MEDS: SENNOSIDES SYRUP 8.8 MG/5 ML CUP PO SCH ×2 (09:00)
[2016-12-28] MEDS: DIPYRIDAMOLE 25 MG TAB PO SCH ×4 (09:01→21:51)
[2016-12-28] MEDS: CALCIUM CARBONATE 1.25 GM (CA 500 MG) TAB PO SCH ×2 (09:01)
[2016-12-28] MEDS: VITAMIN B CMPLX/VITC/FOLIC AC CAP PO SCH ×2 (09:02)
[2016-12-28] MEDS: HEPARIN SODIUM - SQ 10,000 UNITS/ML VIAL SQ SCH ×4 (09:03→21:52)
[2016-12-28] MEDS: CHLORHEXIDINE 0.12% (ORAL KIT) 15 ML CUP MT SCH ×4 (09:11→21:51)
[2016-12-28] MEDS: SODIUM CHLORIDE 0.9% FLUSH 10 ML FLUSH IV FLUSH SCH ×4 (09:11→21:00)
[2016-12-28] MEDS ORDERED: POTASSIUM CHLOR 10 MEQ PREMIX 100 ML IV ONE ×2 (09:45)
[2016-12-28] MEDS: PHENYLEPHRINE INJ 40 MG in DEXTROSE 5% IN WATE 500 ML INJ 496 ML IV PRN ×4 (14:27)
--- NOTE | 2016-12-28 15:35 | HHI.NPPN ---
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 Patient now presents with increasing shortness of breath noted to have bilateral pleural effusions which appear to be loculated. Patient missed his dialysis session yesterday. Moderate hyperkalemia on presentation. Now status post bilateral pigtail catheter placement left and right pleural cavity. Pneumothorax bilaterally postprocedure. Patient seen during his dialysis session. Appears to be lethargic and nonverbal at this time. Interval History Patient still not responding to verbal questions, and. ET tube in place. Review of Systems General General Remarks Unable to obtain d/t clinical status Objective Data Data 12/28/16 12/29/16 19:00 07:00 Intake Total 200 ml Balance 200 ml IV Total 200 ml Vital Signs Date Time Temp Pulse Resp B/P (MAP) Pulse Ox O2 Delivery O2 Flow Rate FiO2 12/28/16 15:04 100 35 12/28/16 14:27 71 120/44 12/28/16 14:00 74 12/28/16 13:07 72 153/49 12/28/16 12:00 98.4 67 26 151/47 (81) 100 12/28/16 12:00 35 12/28/16 12:00 67 12/28/16 11:49 99 35 12/28/16 11:00 68 26 130/43 (72) 100 12/28/16 10:00 70 12/28/16 10:00 70 26 143/46 (78) 100 12/28/16 09:00 82 26 125/46 (72) 99 12/28/16 08:00 35 12/28/16 08:00 99 35 12/28/16 08:00 72 12/28/16 08:00 72 139/44 (75) 12/28/16 08:00 98.9 72 26 139/44 (75) 99 12/28/16 06:00 72 12/28/16 06:00 35 12/28/16 04:10 99 35 12/28/16 04:00 97.8 12/28/16 04:00 35 12/28/16 04:00 97.8 83 17 193/59 (103) 100 12/28/16 04:00 83 12/28/16 02:00 92 12/28/16 01:53 100 35 12/28/16 00:00 35 12/28/16 00:00 92 12/28/16 00:00 98.8 79 27 147/51 (83) 99 12/27/16 22:06 98 35 12/27/16 22:00 77 12/27/16 20:28 98 35 12/27/16 20:00 78 136/60 (85) 12/27/16 20:00 77 12/27/16 20:00 35 12/27/16 20:00 98.0 77 26 150/50 (83) 98 12/27/16 18:00 86 12/27/16 16:39 77 177/58 12/27/16 16:03 100 35 12/27/16 16:00 35 12/27/16 16:00 98.0 75 26 117/40 (65) 100 12/27/16 16:00 75 -: 12/28/16 0545 12/28/16 0545 Physical Exam General Appearance: No Acute Distress, Malnourished Pulmonary Resp Exam: No Distress, Diminished Breath Sounds Cardiology CV Exam: Regular, Normal Sinus Rhythm Gastrointestinal/Abdomen GI Exam: Soft Integumentary Skin Exam: Warm Extremeties Extremities Exam: Moderate Edema (generalized in extremities and hips) Neurologic Neuro Exam: Sedated VTE Prophylaxis Device: SCDs Assessment/Plan Discussed Condition With: Spouse Problem List: (1) ESRD (end stage renal disease) on dialysis ICD Codes: N18.6 - End stage renal failure on dialysis; Z99.2 - Dependence on renal dialysis Status: Chronic Plan: Remains on inotropic support. Family goals remain aggressive. Palliative notes reviewed. Will have another HD TOMORROW THEN MWF. I recommended to the patient's that she consider hospice for comfort care. Patient has multiple pre-existing comorbidities end-stage renal disease, severe diffuse atherosclerotic disease, pre-existing failure to thrive, advanced age as well as acute comorbidities including shock syndrome, respiratory insufficiency, sepsis. Prognosis for recovery very poor and even if he does recover from this acute episode his quality of life which was limited previously will be diminished further. Medications should be adjusted for the patient's estimated end stage renal disease if clinically indicated. Gadolinium contraindicated. (2) Failure to thrive in adult ICD Codes: R62.7 - Adult failure to thrive Plan: Making long-term prognosis poor even if he should survive this admission. (3) Non-compliance with renal dialysis ICD Codes: Z91.15 - Patient's noncompliance with renal dialysis Plan: I do not believe that we can improve patient's compliance given previous attempts but will continue education. (4) HTN (hypertension) ICD Codes: I10 - Hypertension Status: Chronic Plan: By hx. Hypotensive currently on inotropic support (5) Anemia of renal disease ICD Codes: D63.1 - Anemia in chronic kidney disease Izabela Thompson MD Dec 28, 2016 15:35
[2016-12-28] MEDS: PRAVASTATIN SOD 20 MG TAB PO SCH ×2 (21:51)
[2016-12-28] MEDS: METOCLOPRAMIDE HCL 10 MG/2 ML VIAL IV PUSH SCH ×2 (21:52)
[2016-12-28] MEDS: LATANOPROST 0.005% OPHT SOLN 2.5 ML BTL EACH EYE SCH ×2 (21:53)
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
[2016-12-29] VITALS (23 sets, daily range): BP systolic 110–190; BP diastolic 41–65; PULSE 59–90; RESP 6–27; TEMP 97.8–98.3; O2SAT 90–100
[2016-12-29] MEDS: INSULIN NovoLIN REGULAR SUPPLEMENTAL SCALE SQ SCH ×12 (01:00→21:00)
[2016-12-29] MEDS: PIPERACIL-TAZO 2.25 GM PREMIX 50 ML IV SCH ×2 (03:02)
[2016-12-29] MEDS: CHLORHEXIDINE GLUCONATE 2 % 1 PACK (2 CLOTHS) TOP SCH ×2 (04:00)
--- NOTE | 2016-12-29 05:51 | RADRPT ---
EXAM DATE/TIME: 12/29/2016 03:59 [facility] COMPARISON: CHEST SINGLE AP, December 21, 2016, 12:26. CHEST SINGLE AP, December 26, 2016, 9:10. CT ABDOMEN & PEL VIS W/O CONTRAST, December 26, 2016, 11:06. CHEST SINGLE AP, December 28, 2016, 7:07. INDICATIONS : Short of breath. MEDICAL HISTORY : Renal insufficiency. Stroke. Hypertension. pneumothorax, VDRF SURGICAL HISTORY : Chest tube. ENCOUNTER: Subsequent ACUITY: 1 week PAIN SCORE: 0/10 LOCATION: Bilateral chest FINDINGS: Endotracheal tube is stable with tip 6-7 cm above the agnes. Nasogastric tube descends into the stom ach. Bilateral thoracostomy tubes are unchanged in position with bilateral basilar pneumothoraces als o stable. Consolidative change in the right infrahilar region is unchanged. Cardiac contours are stab le. CONCLUSION: No significant interval change Beto Lane MD on December 29, 2016 at 5:46 Board Certified Radiologist. This report was verified electronically.
[2016-12-29] MEDS: HYDROCORTISONE SOD SUCCINATE 100 MG VIAL IV PUSH SCH ×8 (06:23→18:00)
[2016-12-29] MEDS: METOCLOPRAMIDE HCL 10 MG/2 ML VIAL IV PUSH SCH ×6 (06:25→21:37)
[2016-12-29] MEDS: EPOETIN ALFA 10,000 UNITS/ML VIAL IV PUSH PRN ×2 (08:52)
[2016-12-29] MEDS: DOCUSATE SODIUM 50 MG/SENNA 8.6 MG TAB PO SCH ×4 (09:00→21:37)
[2016-12-29] MEDS: SENNOSIDES SYRUP 8.8 MG/5 ML CUP PO SCH ×2 (09:00)
[2016-12-29] MEDS: DOCUSATE SODIUM 100 MG/10 ML UDC PO SCH ×4 (09:00→21:36)
[2016-12-29] MEDS: ALBUMIN 25% INJ 100 ML IV PRN ×2 (09:10)
[2016-12-29] MEDS: CHLORHEXIDINE 0.12% (ORAL KIT) 15 ML CUP MT SCH ×4 (09:34→21:39)
[2016-12-29] MEDS: DORZOLAMIDE/TIMOLOL OPTH SOLN 10 ML BTL EACH EYE SCH ×4 (09:36→21:37)
[2016-12-29] MEDS: PANTOPRAZOLE SODIUM 40 MG VIAL IV PUSH SCH ×2 (09:39)
[2016-12-29] MEDS: HEPARIN SODIUM - SQ 10,000 UNITS/ML VIAL SQ SCH ×4 (09:40→21:36)
[2016-12-29] MEDS: SODIUM CHLORIDE 0.9% FLUSH 10 ML FLUSH IV FLUSH SCH ×4 (09:51→21:38)
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
--- NOTE | 2016-12-29 11:51 | HHI.NPPN ---
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 Patient now presents with increasing shortness of breath noted to have bilateral pleural effusions which appear to be loculated. Patient missed his dialysis session yesterday. Moderate hyperkalemia on presentation. Now status post bilateral pigtail catheter placement left and right pleural cavity. Pneumothorax bilaterally postprocedure. Patient seen during his dialysis session. Appears to be lethargic and nonverbal at this time. Interval History Patient with ET tube in place still on the ventilator. Review of Systems General General Remarks Unable to obtain d/t clinical status Objective Data Data 12/29/16 12/30/16 19:00 07:00 Intake Total 200 ml Output Total 2500 ml Balance -2300 ml IV Total 200 ml Hemodialysis 2500 ml Vital Signs Date Time Temp Pulse Resp B/P (MAP) Pulse Ox O2 Delivery O2 Flow Rate FiO2 12/29/16 08:00 59 142/45 (77) 12/29/16 07:31 100 35 12/29/16 06:00 90 12/29/16 04:09 100 35 12/29/16 04:00 35 12/29/16 04:00 98.1 90 26 190/65 (106) 98 12/29/16 04:00 90 12/29/16 02:00 88 12/29/16 01:42 100 35 12/29/16 00:00 90 12/29/16 00:00 97.8 67 26 110/58 (75) 98 12/29/16 00:00 35 12/28/16 22:48 99 35 12/28/16 22:00 70 12/28/16 20:12 100 35 12/28/16 20:00 170/48 (88) 12/28/16 20:00 67 12/28/16 20:00 35 12/28/16 20:00 35 12/28/16 20:00 98.3 65 26 170/48 (88) 98 12/28/16 18:00 70 25 149/49 (82) 100 12/28/16 18:00 70 12/28/16 17:00 70 26 134/45 (74) 100 12/28/16 16:00 67 12/28/16 16:00 97.6 67 26 126/43 (70) 100 12/28/16 16:00 35 12/28/16 15:04 100 35 12/28/16 15:00 72 28 125/45 (71) 100 12/28/16 14:27 71 120/44 12/28/16 14:00 74 12/28/16 14:00 74 27 126/46 (72) 100 12/28/16 13:07 72 153/49 12/28/16 13:00 73 27 139/50 (79) 100 12/28/16 12:00 98.4 67 26 151/47 (81) 100 12/28/16 12:00 35 12/28/16 12:00 67 -: 12/28/16 0545 12/28/16 0545 Physical Exam General Appearance: No Acute Distress, Malnourished Pulmonary Resp Exam: No Distress, Diminished Breath Sounds Cardiology CV Exam: Regular, Normal Sinus Rhythm Gastrointestinal/Abdomen GI Exam: Soft Integumentary Skin Exam: Warm Extremeties Extremities Exam: Moderate Edema (generalized in extremities and hips) Neurologic Neuro Exam: Sedated VTE Prophylaxis Device: SCDs Assessment/Plan Problem List: (1) ESRD (end stage renal disease) on dialysis ICD Codes: N18.6 - End stage renal failure on dialysis; Z99.2 - Dependence on renal dialysis Status: Chronic Plan: Hemodialysis today as ordered then Thursday as tolerated. I recommended to the patient's that she consider hospice for comfort care. Noted family dynamics at play here but in my opinion hospice would be in the best interest of the patient at this point in time.Patient has multiple pre- existing comorbidities end-stage renal disease, severe diffuse atherosclerotic disease, pre-existing failure to thrive, advanced age as well as acute comorbidities including shock syndrome, respiratory insufficiency, sepsis. Prognosis for recovery very poor and even if he does recover from this acute episode his quality of life which was limited previously will be diminished further. Medications should be adjusted for the patient's estimated end stage renal disease if clinically indicated. Gadolinium contraindicated. (2) Failure to thrive in adult ICD Codes: R62.7 - Adult failure to thrive Plan: Making long-term prognosis poor even if he should survive this admission. (3) Non-compliance with renal dialysis ICD Codes: Z91.15 - Patient's noncompliance with renal dialysis Plan: I do not believe that we can improve patient's compliance given previous attempts but will continue education. (4) HTN (hypertension) ICD Codes: I10 - Hypertension Status: Chronic Plan: By hx. Hypotensive currently on inotropic support (5) Anemia of renal disease ICD Codes: D63.1 - Anemia in chronic kidney disease Izabela Thompson MD Dec 29, 2016 11:51
[2016-12-29] MEDS: VITAMIN B CMPLX/VITC/FOLIC AC CAP PO SCH ×2 (12:43)
[2016-12-29] MEDS: CALCIUM CARBONATE 1.25 GM (CA 500 MG) TAB PO SCH ×2 (12:43)
[2016-12-29] MEDS: DIPYRIDAMOLE 25 MG TAB PO SCH ×4 (12:44→21:37)
[2016-12-29] MEDS: ASPIRIN EC 81 MG TABEC PO SCH ×2 (12:44)
[2016-12-29] MEDS: cefTRIAXone INJ 1,000 MG in SODIUM CHLORIDE 0.9% INJ 100 ML IV SCH ×4 (12:46)
[2016-12-29] MEDS: SODIUM CHLORIDE 0.9% FLUSH 10 ML FLUSH IV FLUSH PRN ×2 (12:46)
--- NOTE | 2016-12-29 14:24 | HHI.IDPN ---
Subjective Subjective Remarks is an 86-year-old male, initially presented to the hospital on December 19, for a scheduled bilateral thoracenteses. He has had problem with recurrent pleural effusion, as well as ascites, and has had multiple procedures done to drain the fluid. He was scheduled to have thoracentesis on October 19, but he went into respiratory distress, and ended up getting admitted. He was found to have a pneumothorax on the left and a large pleural effusion on the right. He had placement of bilateral chest tube, but there was only partial reexpansion of the lungs. There was no mention that he was having any cough or congestion, or fever or chills. This morning he had progressive respiratory distress, and required intubation. He is afebrile. He is on the vent. He is also hypotensive, and requiring 3 pressors. He is on levo fed, Forrest-Synephrine, and vasopressin. Cardiothoracic surgery has been consulted to evaluate the patient due to nonreactive expansion of the lung. Patient has end-stage renal disease, and gets hemodialysis. He had hemodialysis yesterday. Infectious disease consultation has been requested to evaluate the patient for possible pneumonia and shock. Notes reviewed Temps ok Remains on neosynephrine Not tolerating CPAP UO minimal. Still has 2 CTs. Had HD today Platelets decreasing Antibiotics Rocephin I attest that I obtained, updated or reviewed the home and current medications. Current Medications Medications (Trade) Dose Ordered Sig/Bill Route Start Time Stop Time Status Last Admin (Dulcolax Ec) 10 mg DAILY PRN PO 12/19/16 20:00 (Xalatan 0.005% Opth Soln) 1 drop HS EACH EYE 12/19/16 21:00 12/28/16 21:53 (Pravachol) 20 mg HS PO 12/19/16 21:00 12/28/16 21:51 (Ecotrin Ec) 81 mg DAILY PO 12/20/16 09:00 12/29/16 12:44 (Nephrocaps) 1 cap DAILY PO 12/20/16 09:00 12/29/16 12:43 (Oscal) 1,000 mg DAILY PO 12/20/16 09:00 12/29/16 12:43 (Cosopt 2-0.5% Opth Soln) 1 drop BID EACH EYE 12/19/16 21:00 12/29/16 09:36 (NS Flush) 2 ml UNSCH PRN IV FLUSH 12/19/16 20:15 12/29/16 12:46 (NS Flush) 2 ml BID IV FLUSH 12/19/16 21:00 12/29/16 09:51 (Tylenol) 650 mg Q6H PRN PO 12/19/16 20:15 (Zofran Inj) 4 mg Q6H PRN IV PUSH 12/19/16 20:15 12/29/16 09:51 (Ambien) 5 mg HS PRN PO 12/19/16 20:15 (Heparin Inj) 5,000 units Q12H SQ 12/19/16 21:00 12/29/16 09:40 Miscellaneous Information 1 Q361D XX 12/19/16 20:15 (Chlorhexidine 2% Cloth) Taper DAILY@04 TOP 12/20/16 04:00 12/16/17 03:59 12/26/16 21:21 (Chlorhexidine 2% Cloth) 3 pack UNSCH PRN TOP 12/19/16 20:15 (Shelby-Colace) 1 tab BID PO 12/19/16 21:00 12/28/16 21:51 (Milk Of Magnesia Liq) 30 ml Q12H PRN PO 12/19/16 20:15 (Senokot) 17.2 mg Q12H PRN PO 12/19/16 20:15 12/22/16 09:39 (Dulcolax Supp) 10 mg DAILY PRN RECTAL 12/19/16 20:15 (Lactulose Liq) 30 ml DAILY PRN PO 12/19/16 20:15 12/22/16 09:37 (Persantine) 75 mg BID PO 12/20/16 09:00 12/29/16 12:44 (Apresoline Inj) 20 mg Q4H PRN IV 12/20/16 00:15 12/26/16 21:22 Sodium Chloride 1,000 ml @ 0 mls/hr Q0M PRN OTHER 12/20/16 10:04 12/27/16 16:07 Sodium Chloride 1,000 ml @ 200 mls/hr Q5H PRN IV 12/20/16 10:04 Sodium Chloride 1,000 ml @ 0 mls/hr Q0M PRN OTHER 12/20/16 10:04 (Mannitol Inj) 12.5 gm UNSCH PRN IV 12/20/16 10:15 Albumin Human 100 ml @ 60 mls/hr UNSCH PRN IV 12/20/16 10:15 12/29/16 09:10 (NS Flush) 5 ml UNSCH PRN IV FLUSH 12/20/16 10:15 (Heparin Inj) UNSCH PRN .XX 12/20/16 10:15 (Gentamicin (Dialysis) Inj) 20 mg UNSCH PRN OTHER 12/20/16 10:15 (Zofran Inj) 4 mg UNSCH PRN IV PUSH 12/20/16 10:15 (Tylenol) 650 mg UNSCH PRN PO 12/20/16 10:15 (Benadryl) 25 mg UNSCH PRN PO 12/20/16 10:15 (Nitrostat Sl) 0.4 mg UNSCH PRN SL 12/20/16 10:15 (Catapres) 0.1 mg UNSCH PRN PO 12/20/16 10:15 (Epogen Inj) 5,000 units UNSCH PRN IV PUSH 12/20/16 10:15 12/29/16 08:52 (Gelfoam 12 Mm/7 Mm Top) 1 foam UNSCH PRN TOP 12/20/16 10:15 12/29/16 08:52 (Peridex 0.12% Liq) 15 ml BID@08,20 MT 12/21/16 08:00 12/29/16 09:34 (Duoneb Neb) 1 ampule Q6HR NEB PRN NEB 12/21/16 08:00 12/28/16 20:17 (Protonix Inj) 40 mg Q24H IV PUSH 12/21/16 09:00 12/29/16 09:39 (D50w (Vial) Inj) 50 ml UNSCH PRN IV PUSH 12/21/16 08:15 12/23/16 22:56 (Glucagon Inj) 1 mg UNSCH PRN OTHER 12/21/16 08:15 (NovoLIN R SUPPLEMENTAL SCALE) 1 Q4H SQ 12/21/16 09:00 12/28/16 21:00 Fentanyl Citrate 250 ml @ 5 mls/hr TITRATE PRN IV 12/21/16 10:00 12/26/16 21:17 (Brethine Inj) 1 mg UNSCH PRN SQ 12/21/16 12:45 (Colace Liq) 100 mg Q12HR PO 12/22/16 09:15 12/28/16 21:51 (Senna Liq) 8.8 mg DAILY PO 12/22/16 09:15 12/28/16 09:00 (Drisdol) 50,000 units Q7D PO 12/31/16 09:00 Phenylephrine HCl 40 mg/Dextrose 500 ml @ 30 mls/hr TITRATE PRN IV 12/28/16 16:45 (Reglan Inj) 5 mg Q8HR IV PUSH 12/28/16 22:00 12/29/16 13:16 (SoluCORTEF INJ) 50 mg Q6HR IV PUSH 12/29/16 00:00 12/29/16 12:46 Ceftriaxone Sodium 1000 mg/ Sodium Chloride 100 ml @ 200 mls/hr Q24H IV 12/29/16 11:00 12/29/16 12:46 Lines A line Past Medical History ESRD on HD Ascites Hypertension CVA Duodenitis Past Surgical History Left carotid endarectomy Fistula left arm Multiple thoracentesis and paracentesis Allergies: Coded Allergies: *MDRO Multi-Drug Resistant Organism (Verified Adverse Reaction, Unknown, 01/29/15) MRSA PCR Screen positive 01/25/15. Objective . Vital Signs Date Time Temp Pulse Resp B/P (MAP) Pulse Ox O2 Delivery O2 Flow Rate FiO2 12/29/16 12:11 98 35 12/29/16 12:00 68 26 162/50 (87) 97 12/29/16 11:00 66 24 138/48 (78) 100 12/29/16 10:00 64 26 133/45 (74) 100 12/29/16 09:00 63 27 114/42 (66) 100 12/29/16 08:00 97.9 59 26 142/45 (77) 100 12/29/16 08:00 59 142/45 (77) 12/29/16 07:31 100 35 12/29/16 07:00 66 24 161/51 (87) 100 12/29/16 06:00 90 12/29/16 04:09 100 35 12/29/16 04:00 35 12/29/16 04:00 98.1 90 26 190/65 (106) 98 12/29/16 04:00 90 12/29/16 02:00 88 12/29/16 01:42 100 35 12/29/16 00:00 90 12/29/16 00:00 97.8 67 26 110/58 (75) 98 12/29/16 00:00 35 12/28/16 22:48 99 35 12/28/16 22:00 70 12/28/16 20:12 100 35 12/28/16 20:00 170/48 (88) 12/28/16 20:00 67 12/28/16 20:00 35 12/28/16 20:00 35 12/28/16 20:00 98.3 65 26 170/48 (88) 98 12/28/16 18:00 70 25 149/49 (82) 100 12/28/16 18:00 70 12/28/16 17:00 70 26 134/45 (74) 100 12/28/16 16:00 67 12/28/16 16:00 97.6 67 26 126/43 (70) 100 12/28/16 16:00 35 12/28/16 15:04 100 35 12/28/16 15:00 72 28 125/45 (71) 100 12/28/16 14:27 71 120/44 12/29/16 12/29/16 12/30/16 15:00 23:00 07:00 Intake Total 200 ml Output Total 2500 ml Balance -2300 ml IV Total 200 ml Hemodialysis 2500 ml . Laboratory Tests Test 12/28/16 05:45 White Blood Count 13.2 TH/MM3 Red Blood Count 2.88 MIL/MM3 Hemoglobin 9.2 GM/DL Hematocrit 27.2 % Mean Corpuscular Volume 94.6 FL Mean Corpuscular Hemoglobin 32.1 PG Mean Corpuscular Hemoglobin Concent 33.9 % Red Cell Distribution Width 16.5 % Platelet Count 59 TH/MM3 Mean Platelet Volume 11.1 FL Laboratory Tests Test 12/28/16 05:45 Blood Urea Nitrogen 42 MG/DL Creatinine 3.63 MG/DL Random Glucose 145 MG/DL Albumin 2.1 GM/DL Calcium Level 8.2 MG/DL Phosphorus Level 2.2 MG/DL Sodium Level 134 MEQ/L Potassium Level 3.0 MEQ/L Chloride Level 95 MEQ/L Carbon Dioxide Level 25.6 MEQ/L Anion Gap 13 MEQ/L Estimat Glomerular Filtration Rate 19 ML/MIN Imaging Chest X-Ray 12/29/16 0600 Signed Impressions: Service Date/Time: Thursday, December 29, 2016 03:59 - CONCLUSION: No significant interval change Beto Lane MD Chest X-Ray 12/28/16 0000 Signed Impressions: Service Date/Time: Wednesday, December 28, 2016 07:07 - CONCLUSION: 1. Persistent moderate-sized bibasilar pneumothoraces despite chest tubes in place. 2. Bibasilar consolidations consistent with atelectasis and/or pneumonia. 3. Cardiomegaly. 4. Endotracheal tube in good position 3 cm above the agnes. Eliecer Kingston MD Chest X-Ray 12/24/16 0000 Signed Impressions: Service Date/Time: Saturday, December 24, 2016 08:06 - CONCLUSION: 1. Unchanged bilateral subpulmonic pneumothoraces despite chest tubes. Nic Brown Jr., MD Chest X-Ray 12/23/161999 Signed Impressions: Service Date/Time: Friday, December 23, 2016 19:57 - CONCLUSION: The right chest tube is not visualized possibly withdrawn and the size of the pneumothoraces bilaterally have not significantly changed. There appears to be less consolidation right lung base otherwise not significantly changed. Candy Galo MD Chest X-Ray 12/23/16 Signed Impressions: Service Date/Time: Friday, December 23, 2016 12:24 - CONCLUSION: 1. The right thoracostomy tube has been removed. 2. Remaining left thoracostomy tube. 3. Unchanged subpulmonic pneumothoraces bilaterally. 4. Tiny effusions. 5. Cardiomegaly. Nic Brown Jr., MD Chest X-Ray 12/23/16 0000 Signed Impressions: Service Date/Time: Friday, December 23, 2016 10:22 - CONCLUSION: 1. Some improvement in the consolidation of the right lung particularly involving the upper lobe. 2. Bilateral subpulmonic pneumothoraces are stable. Nic Brown Jr., MD Abdomen X-Ray 12/23/16 0000 Signed Impressions: Service Date/Time: Friday, December 23, 2016 10:28 - CONCLUSION: Some improvement in the distention of the small bowel compared to the prior study. Nic Brown Jr., MD Abdomen X-Ray 12/22/16 0000 Signed Impressions: Service Date/Time: Thursday, December 22, 2016 09:42 - CONCLUSION: There is one loop of small bowel in the midline hypogastric region which is dilated out of proportion to the other loops of small bowel and the colon. This is nonspecific and could represent a localized ileus or an early small bowel obstruction. Nic Cha MD Last Impressions Chest X-Ray 12/21/16 0432 Signed Impressions: Service Date/Time: Wednesday, December 21, 2016 04:38 - CONCLUSION: 1. New consolidative opacity in the right lung most characteristic of pneumonia. 2. Stable appearance of the bibasilar pneumothoraces. Daniel Cowan MD Chest CT 12/20/16 0000 Signed Impressions: Service Date/Time: Tuesday, December 20, 2016 16:26 - CONCLUSION: 1. Moderate right and small left hydropneumothorax with small caliber chest tubes present bilaterally, not significant changed from prior chest radiograph. Dependent consolidation and atelectasis of both lungs. No pneumomediastinum or subcutaneous air. Germán Vences MD Physical Exam GENERAL: Patient is a thin, well-developed male, on the vent, not in distress SKIN: Warm and dry. No generalized rash, no ecchymoses and no evidence of embolic lesions. HEAD: Atraumatic. Normocephalic. No temporal wasting, or tenderness. EYES: Pale conjunctiva. No petechia or hemorrhage. Pupils equal, round and reactive to light. No scleral icterus. No injection or drainage. EARS, NOSE AND THROAT: Nose without bleeding or purulent nasal discharge. ET in mouth NECK: Trachea midline. Supple and not tender, no meningeal signs CARDIOVASCULAR: Regular rate and rhythm. No murmurs, rubs or gallops heard RESPIRATORY: Decreased BS both bases. King CT in pace. ABDOMEN: Distended abdomen, seems more distended, bowel sounds present and hypoactive. No reaction to deep palpation. EXTREMITIES: No clubbing, cyanosis, or edema. No joint effusion. Warm. HD access L arm looks ok NEUROLOGICAL: Not responding PSYCHIATRIC: Unable to assess LINE: Lines with no evidence of infection Assessment & Plan Remarks IMPRESSION Recurrent pleural effusion, and ascites Respiratory failure Klebsiella PNA Shock, on pressors ESRD on HD Abdominal distension, ileus Thrombocytopenia RECOMMENDATION Now on Rocephin Check DIC screen He is not improving, remains on pressors, not tolerating weaning Monitor progress Follow Paula Adams MD Dec 29, 2016 14:24
--- NOTE | 2016-12-29 14:58 | HHI.HCPN ---
Reason for visit a. To assist with evaluation and management of symptoms including: pain; dyspnea; encephalopathy b. To assist medical decision maker(s) with: better understanding of current medical conditions; weighing benefits/burdens of medical treatment options; making medical treatment decisions. . Subjective/Interval History Pt continue to remain in critical condition. Pt remains on pressors and not tolerating CPAP. 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 Prognosis is poor given multiple pre existing condition, ES renal disease, advance age, shock, sepsis. Chest x ray unchanged. Pt remains a poor operativve candidate and would require thracotomy and decortication with no assurance lungs would re-expand due to chronicity. feels pt is able to answer some of theses questions about medical decisions. She did say she is the DPOA. Pt on my visit is able to nod and shake his head some what. He seems appropriate when I ask if he was in [place], she shook his head no. When I ask him if he was in [place], he nodded his head yes. I was able to tell pt he is not in a good situation, and I do not think we can get him off these machines. I told him his lungs are not rexpanding, and there is not much that can be done. I told him the trach and peg will not change that. He nodded yes. I ask him if for another week- approximately 14 days of intubation, we cannot wean if off the ventilator, is it okay for your to take the tubes out, and let you be with god. He states yes. I ask him if he needs his heart to be shock, during that time he nodded yes. I ask him if he needs to be shock/ cpr/ acls mutiple times he shook his head for no. I ask him if just once, he stated yes. said that it was something he had said to her before. /Pt goals of care is reviewed: Full Code/ aggressive care for 1 more week. If pt codes, she would want just code just once. If pt is not able to wean off the vent for 1 more week, is supportive of decision to extubate and transition to comfort measures only, compassionate terminal withdraw. is thankful for visit, and grateful that the question was address to her. She states it confirms her decision . . Family/friend interactions see above. 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 Health Care Surrogate(s): Pio Remi Lerner is designated as the health care DPOA. . Documented care wishes: No written documentation of health care preferences/wishes/goals. . Objective Vital Signs Date Time Temp Pulse Resp B/P (MAP) Pulse Ox O2 Delivery O2 Flow Rate FiO2 12/29/16 12:11 98 35 12/29/16 12:00 68 26 162/50 (87) 97 12/29/16 11:00 66 24 138/48 (78) 100 12/29/16 10:00 64 26 133/45 (74) 100 12/29/16 09:00 63 27 114/42 (66) 100 12/29/16 08:00 97.9 59 26 142/45 (77) 100 12/29/16 08:00 59 142/45 (77) 12/29/16 07:31 100 35 12/29/16 07:00 66 24 161/51 (87) 100 12/29/16 06:00 90 12/29/16 04:09 100 35 12/29/16 04:00 35 12/29/16 04:00 98.1 90 26 190/65 (106) 98 12/29/16 04:00 90 12/29/16 02:00 88 12/29/16 01:42 100 35 12/29/16 00:00 90 12/29/16 00:00 97.8 67 26 110/58 (75) 98 12/29/16 00:00 35 12/28/16 22:48 99 35 12/28/16 22:00 70 12/28/16 20:12 100 35 12/28/16 20:00 170/48 (88) 12/28/16 20:00 67 12/28/16 20:00 35 12/28/16 20:00 35 12/28/16 20:00 98.3 65 26 170/48 (88) 98 12/28/16 18:00 70 25 149/49 (82) 100 12/28/16 18:00 70 12/28/16 17:00 70 26 134/45 (74) 100 12/28/16 16:00 67 12/28/16 16:00 97.6 67 26 126/43 (70) 100 12/28/16 16:00 35 12/28/16 15:04 100 35 12/28/16 15:00 72 28 125/45 (71) 100 Intake & Output 12/29/16 12/29/16 07:00 19:00 Intake Total 590 ml 200 ml Output Total 130 ml 2500 ml Balance 460 ml -2300 ml IV Total 590 ml 200 ml Output Urine Total 0 ml Gastric Drainage Total 100 ml Chest Tube Drainage Total 30 ml Hemodialysis 2500 ml # Bowel Movements 2 Physical Exam CONSTITUTIONAL/GENERAL: This is a thin, frail appearing male, intubated, mechanically ventilated in the MICU. TUBES/LINES/DRAINS: ET tube ; OG tube; dialysis fistula LUE; bilateral soft wrist restraints; bilateral chest catheters; peripheral IV; arterial line right radial artery; right femoral central line. SKIN: No jaundice, rashes. Skin tears on edematous scrotum. Buttock skin tear not evaluated. Skin temperature appropriate except for feet which are cool and mottled. EYES: Eyes open but he does not track. Pupils equal and round. Unable to evaluate EOMs. No scleral icterus. No injection or drainage. Fundi not examined. ENT: Unable to evaluate hearing. Nose without bleeding or purulent drainage. Throat without visible erythema, exudates, masses, or lesions though difficult to assess due to intubations. NECK: Trachea midline. CARDIOVASCULAR: Regular rate and rhythm without murmurs, gallops, or rubs. No JVD. RESPIRATORY/CHEST: Symmetric, unlabored respirations. Breath sounds diminished at both bases. No wheezes. GASTROINTESTINAL: Abdomen distended and very taught. No hepato-splenomegaly, or palpable masses. No guarding. Bowel sounds hypoactive. GENITOURINARY: Unable to feel for bladder distension given overall abdominal distension.. Prominent scrotal edema. MUSCULOSKELETAL: Extremities without clubbing, cyanosis. Feet are cool and mottled. LYMPHATICS: Not examined NEUROLOGICAL:Follow some commands, and able to nod head for yes, and shook head for no. . Diagnostic Tests Laboratory Laboratory Tests Test 12/27/16 04:32 12/28/16 05:45 White Blood Count 12.3 TH/MM3 (4.0-11.0) 13.2 TH/MM3 (4.0-11.0) Red Blood Count 3.22 MIL/MM3 (4.50-5.90) 2.88 MIL/MM3 (4.50-5.90) Hemoglobin 10.4 GM/DL (13.0-17.0) 9.2 GM/DL (13.0-17.0) Hematocrit 30.4 % (39.0-51.0) 27.2 % (39.0-51.0) Mean Corpuscular Volume 94.5 FL (80.0-100.0) 94.6 FL (80.0-100.0) Mean Corpuscular Hemoglobin 32.4 PG (27.0-34.0) 32.1 PG (27.0-34.0) Mean Corpuscular Hemoglobin Concent 34.3 % (32.0-36.0) 33.9 % (32.0-36.0) Red Cell Distribution Width 16.9 % (11.6-17.2) 16.5 % (11.6-17.2) Platelet Count 58 TH/MM3 (150-450) 59 TH/MM3 (150-450) Mean Platelet Volume 10.3 FL (7.0-11.0) 11.1 FL (7.0-11.0) Neutrophils (%) (Auto) 95.2 % (16.0-70.0) Lymphocytes (%) (Auto) 3.1 % (9.0-44.0) Monocytes (%) (Auto) 1.3 % (0.0-8.0) Eosinophils (%) (Auto) 0.1 % (0.0-4.0) Basophils (%) (Auto) 0.3 % (0.0-2.0) Neutrophils # (Auto) 11.7 TH/MM3 (1.8-7.7) Lymphocytes # (Auto) 0.4 TH/MM3 (1.0-4.8) Monocytes # (Auto) 0.2 TH/MM3 (0-0.9) Eosinophils # (Auto) 0.0 TH/MM3 (0-0.4) Basophils # (Auto) 0.0 TH/MM3 (0-0.2) CBC Comment AUTO DIFF Differential Total Cells Counted 100 Neutrophils % (Manual) 67 % (16-70) Band Neutrophils % 25 % (0-6) Lymphocytes % 6 % (9-44) Monocytes % 2 % (0-8) Neutrophils # (Manual) 11.3 TH/MM3 (1.8-7.7) Nucleated Red Blood Cells 1 /100 WBC (0-0) Differential Comment FINAL DIFF MANUAL Toxic Granulation 2+ (NORMAL) Platelet Estimate LOW (NORMAL) Platelet Morphology Comment ENLARGED (NORMAL) Blood Urea Nitrogen 44 MG/DL (7-18) 42 MG/DL (7-18) Creatinine 4.10 MG/DL (0.60-1.30) 3.63 MG/DL (0.60-1.30) Random Glucose 103 MG/DL (74-106) 145 MG/DL (74-106) Calcium Level 8.1 MG/DL (8.5-10.1) 8.2 MG/DL (8.5-10.1) Sodium Level 129 MEQ/L (136-145) 134 MEQ/L (136-145) Potassium Level 3.5 MEQ/L (3.5-5.1) 3.0 MEQ/L (3.5-5.1) Chloride Level 90 MEQ/L (98-107) 95 MEQ/L (98-107) Carbon Dioxide Level 25.2 MEQ/L (21.0-32.0) 25.6 MEQ/L (21.0-32.0) Anion Gap 14 MEQ/L (5-15) 13 MEQ/L (5-15) Estimat Glomerular Filtration Rate 17 ML/MIN (>89) 19 ML/MIN (>89) Albumin 2.1 GM/DL (3.4-5.0) Phosphorus Level 2.2 MG/DL (2.5-4.9) Result Diagram: 12/28/16 0545 12/28/1645 Procedures * Biltateral chest tube placement * Intubation/mechanical ventilation * Arterial line placement . Assessment and Plan Disease Oriented Problem List: (1) Loculated pleural effusion Comment: Pulmonology and cardi-thoracic surgery do not feel there is a workable solution to this problem given the patient's overall functional capacity. . (2) Pneumothorax Comment: Lungs unable to re-expand in spite of chest tubes.. As chest tubes are not working and he is not a candidate for surgery, this will likely be a chronic problem making it very hard to wean patient from went and if vent weaning is possible there is a very high likelihood or recurrence/worsening of problem. . (3) ESRD (end stage renal disease) on dialysis Comment: Normally on dialysis M, W, F. . (4) Peripheral vascular disease (5) Anemia Comment: Probably multi-factorial. On top of anemia from his renal disease, he may have acute blood loss anemia from uncertain source. Has received 2 units of PRBCs. . (6) Stroke Comment: Had two strokes in 2013. Now with significant left sided weakness. . (7) Osteoarthritis (8) Hypertension Comment: Now HYPOTENSIVE requiring pressor support. . (9) Glaucoma Symptom Scale: (1) Pain 0-10 Scale: Unable to quantify Comment: Has history of back pain and arthritis pain with use of PRN tramadol at home. Other sources of pain now include prolonged bedbound status; orotracheal and orogastric intubations; restraints; vascular access lines; etc. Patient is unable to locate, quantify, qualify pain. Currently has orders for a fentanyl drip and for tramadol. . (2) Dyspnea 0-10 Scale: Unable to quantify Comment: Dyspnea due to pneumothorax and recurrent pleural effusions. Now being managed on vent. . (3) Encephalopathy 0-10 Scale: Unable to quantify Comment: Patient continues on sedation. Will need to evaluate clinically off sedation to see if there is any significant cognitive loss. . Pertinent Non-Medical Issues Psychosocial: Supported by of over 30 years. Patient has 8 biological children and 5 step-children. Spiritual: Alevism Legal: DPOA for health care scanned into EMR. . Important Contacts * Pio Lerner (spouse; DPOA for health care) [phone] . 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 Cardiothoracic surgery does not believe patient could tolerate the procedure necessary to repair this. In addition to his kidney disease and incurable lung disease, patient now has hemodynamic instability requiring pressors. Critical care and pulmonology feel he has an end stage condition. In my clinical opinion, patient has an overall end stage condition. I don't believe there is a reasonable probability of patient regaining capacity. Patient would be an appropriate hospice candidate at such time that his health care surrogate decides to forego further aggressive care and transition to comfort care. . Code Status: Full Code Plan == Code Status: FULL CODE. (who is the DPOA for health care) feels obligated to allow one more attempted resuscitation for one more week. == Decision making: Mentation flutuates but today he clearly can nod yes to no appropriately. I feel at the very least pt for today can participate in some of the medical decision making, but I recommend joint medical decision making with . Pt alone could not make medical decision indepedently. == Goals of medical treatment: Complex family dynamic, but today on my conversation, I ask to focus on patient and what he wants. I was able to review goals of care with patient and at the bedside. /Pt goals of care is reviewed: Full Code/ aggressive care for 1 more week. If pt codes, she and pt would want just to code just once. If pt is not able to wean off the vent for 1 more week, is supportive of decision to extubate and transition to comfort measures only, with compassionate withdraw of life support. is thankful for visit, and grateful that the question was address to patient, with her present. She states it confirms/ reaffirms her decision to give him one more week. She understands peg and trach would not change is prognosis. == Symptoms * Pain: Has history of back pain and arthritis pain with use of PRN tramadol at home. Other sources of pain now include prolonged bedbound status; orotracheal and orogastric intubations; restraints; vascular access lines; etc. He has abdominal distension of unkwown etiology (imaging suggests this is mostly ascited) -- unclear if this might be causing abdominal pain. Also with skin tears on buttocks and scrotum which may be painful. Currently has orders for a fentanyl drip and for tramadol. No further recommendations at this time. * Dyspnea: Dyspnea is secondary to his chronic / recurrent pleural effusions and pneumothoraces. Currently managed by chest tubes and ventilator. Opiates would help for treating dyspnea if needed. Currently has orders for a fentanyl drip and for tramadol. No further recommendations at this time. * Encephalopathy: He follows some commands, and has insight, nod and shook head appropriately. == Skin tears on buttocks and edematous scrotum: Dialysis will be the main method of taking off excess fluid which is also challenging because of hypotension. Wound care consultation has been placed and recommnedations are on chart. Skin breakdown probably exacerbated by pressors which are most likely further reducing blood flow to skin. == Cool / mottled feet: This is probably a pressor effect as well. Patient is at risk of ischemic injury to extremities. == Palliative care will continue to follow to assist with symptom management and to further clarify goals of medical treatment as the clinical course evolves. . Time Spent Total Floor Time (mins): 65 (Discussion with attendingChart reviewReview goals of care with pt and at bedside.) Face to Face Time (mins): 30 (Examination.Review of goals of care with pt and at bedside.) >50% Counseling/Coord of Care: Yes Attestation To help prompt me to consider important information that might be impacting today's encounter and assessment, information from prior notes written by myself or my colleagues may have been "brought forward" into today's note. My signature on this note, however, is an attestation that I personally performed the exam, history, and/or decision-making noted today, and, unless otherwise indicated, the interactions with patient, family, and staff as well as the review of records all occurred today. I also attest that the listed assessment and stated plan reflect my best clinical judgment today based on the combination of historical information, prior notes, and today's exam/ interactions. When time spent is documented, it refers only to time spent today by the signer, or if indicated, combined time spent today by collaborating physician/nurse practitioner. Sanya Lou MD Dec 29, 2016 14:58
[2016-12-29 21:06] LABS: D-DIMER 4.25 MG/L FEU (0.00-0.50)
[2016-12-29] MEDS: PRAVASTATIN SOD 20 MG TAB PO SCH ×2 (21:37)
[2016-12-29] MEDS: LATANOPROST 0.005% OPHT SOLN 2.5 ML BTL EACH EYE SCH ×2 (21:38)
[2016-12-30] VITALS (24 sets, daily range): BP systolic 95–171; BP diastolic 37–76; PULSE 59–95; RESP 14–27; TEMP 98.1–99.7; O2SAT 94–100
[2016-12-30] MEDS: INSULIN NovoLIN REGULAR SUPPLEMENTAL SCALE SQ SCH ×12 (01:00→21:00)
[2016-12-30] MEDS: HYDROCORTISONE SOD SUCCINATE 100 MG VIAL IV PUSH SCH ×8 (01:22→18:05)
[2016-12-30] MEDS: CHLORHEXIDINE GLUCONATE 2 % 1 PACK (2 CLOTHS) TOP SCH ×2 (04:00)
[2016-12-30] MEDS: METOCLOPRAMIDE HCL 10 MG/2 ML VIAL IV PUSH SCH ×6 (05:25→22:00)
[2016-12-30] MEDS: SENNOSIDES SYRUP 8.8 MG/5 ML CUP PO SCH ×2 (09:00)
[2016-12-30] MEDS: DOCUSATE SODIUM 50 MG/SENNA 8.6 MG TAB PO SCH ×4 (09:00→21:00)
[2016-12-30] MEDS: DORZOLAMIDE/TIMOLOL OPTH SOLN 10 ML BTL EACH EYE SCH ×4 (09:24→21:00)
[2016-12-30] MEDS: HEPARIN SODIUM - SQ 10,000 UNITS/ML VIAL SQ SCH ×4 (09:25→21:00)
[2016-12-30] MEDS: PANTOPRAZOLE SODIUM 40 MG VIAL IV PUSH SCH ×2 (09:25)
[2016-12-30] MEDS: DOCUSATE SODIUM 100 MG/10 ML UDC PO SCH ×4 (09:25→21:00)
[2016-12-30] MEDS: ASPIRIN EC 81 MG TABEC PO SCH ×2 (09:25)
[2016-12-30] MEDS: VITAMIN B CMPLX/VITC/FOLIC AC CAP PO SCH ×2 (09:26)
[2016-12-30] MEDS: CALCIUM CARBONATE 1.25 GM (CA 500 MG) TAB PO SCH ×2 (09:26)
[2016-12-30] MEDS: DIPYRIDAMOLE 25 MG TAB PO SCH ×4 (09:26→21:00)
[2016-12-30] MEDS: SODIUM CHLORIDE 0.9% FLUSH 10 ML FLUSH IV FLUSH SCH ×4 (09:27→21:00)
[2016-12-30] MEDS: CHLORHEXIDINE 0.12% (ORAL KIT) 15 ML CUP MT SCH ×4 (09:27→20:00)
--- NOTE | 2016-12-30 10:09 | RADRPT ---
EXAM DATE/TIME: 12/30/2016 09:41 [facility] COMPARISON: CHEST SINGLE AP, December 26, 2016, 9:10. CHEST SINGLE AP, December 28, 2016, 7:07. CHEST SINGLE AP, December 29, 2016, 3:59. INDICATIONS : Short of breath. MEDICAL HISTORY : Stroke. Renal failure, chronic. Hypertension. SURGICAL HISTORY : TURP ENCOUNTER: Initial ACUITY: 1 week PAIN SCORE: Non-responsive. LOCATION: Bilateral chest FINDINGS: There are stable bibasilar pneumothoraces. Right basilar consolidation is unchanged. Bilateral ches t tubes are stable. Endotracheal tube has its tip 4 cm above the agnes. A nasogastric tube has its tip below diaphragm. Degenerative changes are noted throughout the thoracic spine. Hazy opacity is noted within the left lung base and is stable. CONCLUSION: 1. No significant change in the bibasilar pneumothoraces with chest tubes in place. 2. Stable right basilar consolidation. 3. Endotracheal tube and nasogastric tubes are stable. 4. Stable hazy opacity within the left lung base. Eliecer Kingston MD on December 30, 2016 at 9:56 Board Certified Radiologist. This report was verified electronically.
--- NOTE | 2016-12-30 10:32 | HHI.NPPN ---
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 Patient now presents with increasing shortness of breath noted to have bilateral pleural effusions which appear to be loculated. Patient missed his dialysis session yesterday. Moderate hyperkalemia on presentation. Now status post bilateral pigtail catheter placement left and right pleural cavity. Pneumothorax bilaterally postprocedure. Patient seen during his dialysis session. Appears to be lethargic and nonverbal at this time. Interval History Remains intubated at bedside (Emily Lunsford) Review of Systems General General Remarks Unable to obtain d/t clinical status (Emily Lunsford) Objective Data Data Vital Signs Date Time Temp Pulse Resp B/P (MAP) Pulse Ox O2 Delivery O2 Flow Rate FiO2 12/30/16 08:50 100 35 12/30/16 06:00 85 12/30/16 04:15 99 35 12/30/16 04:00 98.3 76 16 111/47 (68) 98 12/30/16 04:00 76 12/30/16 04:00 35 12/30/16 02:00 74 12/30/16 01:06 99 35 12/30/16 00:00 98.1 92 14 171/76 (107) 98 12/30/16 00:00 83 12/30/16 00:00 35 12/29/16 22:05 100 35 12/29/16 20:00 88 150/44 (79) 12/29/16 20:00 35 12/29/16 20:00 88 12/29/16 20:00 98.0 88 14 150/44 (79) 97 12/29/16 19:20 98 35 12/29/16 18:00 78 15 135/46 (75) 99 12/29/16 17:00 75 6 138/46 (76) 91 12/29/16 16:00 98.2 78 27 138/41 (73) 100 12/29/16 15:00 75 21 147/42 (77) 90 12/29/16 14:00 76 22 151/44 (79) 100 12/29/16 13:00 98.3 78 22 146/44 (78) 100 12/29/16 12:11 98 35 12/29/16 12:00 68 26 162/50 (87) 97 12/29/16 11:00 66 24 138/48 (78) 100 (Emily Lunsford) -: 12/28/16 0545 12/28/16 0545 Imaging Last Impressions Chest X-Ray 12/29/16 0600 Signed Impressions: Service Date/Time: Thursday, December 29, 2016 03:59 - CONCLUSION: No significant interval change Bteo Lane MD Head CT 12/26/16 0000 Signed Impressions: Service Date/Time: Monday, December 26, 2016 11:03 - CONCLUSION: 1. Chronic changes with encephalomalacia in the high right and posterior medial parietal convexity. 2. Old lacunar type infarct in the left sargent radiata. Moderately severe periventricular small vessel ischemic demyelination. 3. Old linear infarct in the right cerebellar hemisphere. 4. Possible acute sinusitis in the left maxillary antra. 5. No acute intracranial process Koby Duncan MD Abdomen/Pelvis CT 12/26/16 0000 Signed Impressions: Service Date/Time: Monday, December 26, 2016 11:06 - CONCLUSION: 1. Bilateral large hydropneumothoraces. Chest drainage tube on the right side is included in the [id number] of the skin and is projected in the lower medial right chest. 2. Significant ascites diffuse throughout the abdomen and pelvis were 3. Bilateral renal cysts Nic Cha MD Abdomen X-Ray 12/26/16 0000 Signed Impressions: Service Date/Time: Monday, December 26, 2016 09:02 - CONCLUSION: 1. Stable focal small bowel distention in the midabdomen consistent with focal ileus versus partial small bowel obstruction. 2. No significant interval change. Luisito Forrest MD Chest CT 12/20/16 0000 Signed Impressions: Service Date/Time: Tuesday, December 20, 2016 16:26 - CONCLUSION: 1. Moderate right and small left hydropneumothorax with small caliber chest tubes present bilaterally, not significant changed from prior chest radiograph. Dependent consolidation and atelectasis of both lungs. No pneumomediastinum or subcutaneous air. Germán Vences MD Medication Review Current Medications Medications (Trade) Dose Ordered Sig/Bill Route Start Time Stop Time Status Last Admin (Dulcolax Ec) 10 mg DAILY PRN PO 12/19/16 20:00 (Xalatan 0.005% Opth Soln) 1 drop HS EACH EYE 12/19/16 21:00 12/29/16 21:38 (Pravachol) 20 mg HS PO 12/19/16 21:00 12/29/16 21:37 (Ecotrin Ec) 81 mg DAILY PO 12/20/16 09:00 12/30/16 09:25 (Nephrocaps) 1 cap DAILY PO 12/20/16 09:00 12/30/16 09:26 (Oscal) 1,000 mg DAILY PO 12/20/16 09:00 12/30/16 09:26 (Cosopt 2-0.5% Opth Soln) 1 drop BID EACH EYE 12/19/16 21:00 12/30/16 09:24 (NS Flush) 2 ml UNSCH PRN IV FLUSH 12/19/16 20:15 12/29/16 12:46 (NS Flush) 2 ml BID IV FLUSH 12/19/16 21:00 12/30/16 09:27 (Tylenol) 650 mg Q6H PRN PO 12/19/16 20:15 (Zofran Inj) 4 mg Q6H PRN IV PUSH 12/19/16 20:15 12/29/16 09:51 (Ambien) 5 mg HS PRN PO 12/19/16 20:15 (Heparin Inj) 5,000 units Q12H SQ 12/19/16 21:00 12/30/16 09:25 Miscellaneous Information 1 Q361D XX 12/19/16 20:15 (Chlorhexidine 2% Cloth) Taper DAILY@04 TOP 12/20/16 04:00 12/16/17 03:59 12/30/16 04:00 (Chlorhexidine 2% Cloth) 3 pack UNSCH PRN TOP 12/19/16 20:15 (Shelby-Colace) 1 tab BID PO 12/19/16 21:00 12/29/16 21:37 (Milk Of Magnesia Liq) 30 ml Q12H PRN PO 12/19/16 20:15 (Senokot) 17.2 mg Q12H PRN PO 12/19/16 20:15 12/22/16 09:39 (Dulcolax Supp) 10 mg DAILY PRN RECTAL 12/19/16 20:15 (Lactulose Liq) 30 ml DAILY PRN PO 12/19/16 20:15 12/22/16 09:37 (Persantine) 75 mg BID PO 12/20/16 09:00 12/30/16 09:26 (Apresoline Inj) 20 mg Q4H PRN IV 12/20/16 00:15 12/26/16 21:22 Sodium Chloride 1,000 ml @ 0 mls/hr Q0M PRN OTHER 12/20/16 10:04 12/27/16 16:07 Sodium Chloride 1,000 ml @ 200 mls/hr Q5H PRN IV 12/20/16 10:04 Sodium Chloride 1,000 ml @ 0 mls/hr Q0M PRN OTHER 12/20/16 10:04 (Mannitol Inj) 12.5 gm UNSCH PRN IV 12/20/16 10:15 Albumin Human 100 ml @ 60 mls/hr UNSCH PRN IV 12/20/16 10:15 12/29/16 09:10 (NS Flush) 5 ml UNSCH PRN IV FLUSH 12/20/16 10:15 (Heparin Inj) UNSCH PRN .XX 12/20/16 10:15 (Gentamicin (Dialysis) Inj) 20 mg UNSCH PRN OTHER 12/20/16 10:15 (Zofran Inj) 4 mg UNSCH PRN IV PUSH 12/20/16 10:15 (Tylenol) 650 mg UNSCH PRN PO 12/20/16 10:15 (Benadryl) 25 mg UNSCH PRN PO 12/20/16 10:15 (Nitrostat Sl) 0.4 mg UNSCH PRN SL 12/20/16 10:15 (Catapres) 0.1 mg UNSCH PRN PO 12/20/16 10:15 (Epogen Inj) 5,000 units UNSCH PRN IV PUSH 12/20/16 10:15 12/29/16 08:52 (Gelfoam 12 Mm/7 Mm Top) 1 foam UNSCH PRN TOP 12/20/16 10:15 12/29/16 08:52 (Peridex 0.12% Liq) 15 ml BID@08,20 MT 12/21/16 08:00 12/30/16 09:27 (Duoneb Neb) 1 ampule Q6HR NEB PRN NEB 12/21/16 08:00 12/28/16 20:17 (Protonix Inj) 40 mg Q24H IV PUSH 12/21/16 09:00 12/30/16 09:25 (D50w (Vial) Inj) 50 ml UNSCH PRN IV PUSH 12/21/16 08:15 12/23/16 22:56 (Glucagon Inj) 1 mg UNSCH PRN OTHER 12/21/16 08:15 (NovoLIN R SUPPLEMENTAL SCALE) 1 Q4H SQ 12/21/16 09:00 12/30/16 09:00 Fentanyl Citrate 250 ml @ 5 mls/hr TITRATE PRN IV 12/21/16 10:00 12/26/16 21:17 (Brethine Inj) 1 mg UNSCH PRN SQ 12/21/16 12:45 (Colace Liq) 100 mg Q12HR PO 12/22/16 09:15 12/30/16 09:25 (Senna Liq) 8.8 mg DAILY PO 12/22/16 09:15 12/28/16 09:00 (Drisdol) 50,000 units Q7D PO 12/31/16 09:00 Phenylephrine HCl 40 mg/Dextrose 500 ml @ 30 mls/hr TITRATE PRN IV 12/28/16 16:45 (Reglan Inj) 5 mg Q8HR IV PUSH 12/28/16 22:00 12/30/16 05:25 (SoluCORTEF INJ) 50 mg Q6HR IV PUSH 12/29/16 00:00 12/30/16 05:25 Ceftriaxone Sodium 1000 mg/ Sodium Chloride 100 ml @ 200 mls/hr Q24H IV 12/29/16 11:00 12/29/16 12:46 (Emily Lunsford) Physical Exam General Appearance: No Acute Distress, Malnourished (Emily Lunsford) Eyes Eye Remarks Eyes open and blinks when spoken to (Emily Lunsford) Pulmonary Resp Exam: No Distress, Diminished Breath Sounds Resp Remarks bilat chest tubes present draining serosanguineous fluid (Emily Lunsford) Cardiology CV Exam: Regular, Normal Sinus Rhythm (Emily Lunsford) Gastrointestinal/Abdomen GI Exam: Soft (Emily Lnusford) Integumentary Skin Exam: Warm (Emily Lunsford) Extremeties Extremities Exam: Moderate Edema (generalized in extremities and hips) (Emily Lunsford) Neurologic Neuro Exam: Sedated (Emily Lunsford) VTE Prophylaxis Device: SCDs (Emily Lunsford) Assessment/Plan Problem List: (1) ESRD (end stage renal disease) on dialysis ICD Codes: N18.6 - End stage renal failure on dialysis; Z99.2 - Dependence on renal dialysis Status: Chronic Plan: Continue HD MWF Reviewed palliative note. wants aggressive care for the next week, If no improvement in clinical status would then be agreeable to transfer to comfort care. She has been counseled extensively about his prognosis. Hospice would be appropriate Medications should be adjusted for the patient's estimated end stage renal disease if clinically indicated. Gadolinium contraindicated. (2) Failure to thrive in adult ICD Codes: R62.7 - Adult failure to thrive Plan: Making long-term prognosis poor even if he should survive this admission. (3) Non-compliance with renal dialysis ICD Codes: Z91.15 - Patient's noncompliance with renal dialysis Plan: I do not believe that we can improve patient's compliance given previous attempts but will continue education. (4) HTN (hypertension) ICD Codes: I10 - Hypertension Status: Chronic Plan: By hx. Hypotensive currently on inotropic support (5) Anemia of renal disease ICD Codes: D63.1 - Anemia in chronic kidney disease (Emily Lunsford) Plan The exam, history, and the medical decision-making described in the above note were completed with the assistance of the PA-C. I reviewed and agree with the findings presented. (Izabela Thompson MD) Emily Lunsford Dec 30, 2016 10:32 Izabela Thompson MD Dec 31, 2016 17:55
--- NOTE | 2016-12-30 11:42 | HHI.HCPN ---
Reason for visit a. To assist with evaluation and management of symptoms including: pain; dyspnea b. To assist medical decision maker(s) with: better understanding of current medical conditions; weighing benefits/burdens of medical treatment options; making medical treatment decisions. . Subjective/Interval History Pt remains intubated, able to nod and shake head. Endorse tubes are uncomfortable. at bedside, pt not able to tolerate cpap, chest x ray did not show improvement. Pt's goals of care remains the same, one week of aggressive care, and if not able to wean off the vent transition to comfort. . Family/friend interactions at bedside. Advance Directives Durable Power of Licensed Investment Sales Assistant: Copy in medical record Advance Directive Specifics Date completed: DPOA for health care completed 10/05/2012 . Health Care Surrogate(s): Pio Lerner is designated as the health care DPOA. . Documented care wishes: No written documentation of health care preferences/wishes/goals. . Objective Vital Signs Date Time Temp Pulse Resp B/P (MAP) Pulse Ox O2 Delivery O2 Flow Rate FiO2 12/30/16 08:50 100 35 12/30/16 06:00 85 12/30/16 04:15 99 35 12/30/16 04:00 98.3 76 16 111/47 (68) 98 12/30/16 04:00 76 12/30/16 04:00 35 12/30/16 02:00 74 12/30/16 01:06 99 35 12/30/16 00:00 98.1 92 14 171/76 (107) 98 12/30/16 00:00 83 12/30/16 00:00 35 12/29/16 22:05 100 35 12/29/16 20:00 88 150/44 (79) 12/29/16 20:00 35 12/29/16 20:00 88 12/29/16 20:00 98.0 88 14 150/44 (79) 97 12/29/16 19:20 98 35 12/29/16 18:00 78 15 135/46 (75) 99 12/29/16 17:00 75 6 138/46 (76) 91 12/29/16 16:00 98.2 78 27 138/41 (73) 100 12/29/16 15:00 75 21 147/42 (77) 90 12/29/16 14:00 76 22 151/44 (79) 100 12/29/16 13:00 98.3 78 22 146/44 (78) 100 12/29/16 12:11 98 35 12/29/16 12:00 68 26 162/50 (87) 97 Intake & Output 12/30/16 12/30/16 07:00 19:00 Intake Total 303 ml Output Total 80 ml Balance 223 ml Tube Feeding 203 ml Other 100 ml Output Urine Total 0 ml Chest Tube Drainage Total 80 ml # Bowel Movements 1 Physical Exam CONSTITUTIONAL/GENERAL: This is a thin, frail appearing male, intubated, mechanically ventilated in the MICU. TUBES/LINES/DRAINS: ET tube ; OG tube; dialysis fistula LUE; bilateral soft wrist restraints; bilateral chest catheters; peripheral IV; arterial line right radial artery; right femoral central line. SKIN: No jaundice, rashes. Skin tears on edematous scrotum. Buttock skin tear not evaluated. Skin temperature appropriate except for feet which are cool and mottled. EYES: Eyes open but he does not track. Pupils equal and round. Unable to evaluate EOMs. No scleral icterus. No injection or drainage. Fundi not examined. ENT: Unable to evaluate hearing. Nose without bleeding or purulent drainage. Throat without visible erythema, exudates, masses, or lesions though difficult to assess due to intubations. NECK: Trachea midline. CARDIOVASCULAR: Regular rate and rhythm without murmurs, gallops, or rubs. No JVD. RESPIRATORY/CHEST: Symmetric, unlabored respirations. Breath sounds diminished at both bases. No wheezes. GASTROINTESTINAL: Abdomen distended and very taught. No hepato-splenomegaly, or palpable masses. No guarding. Bowel sounds hypoactive. GENITOURINARY: Unable to feel for bladder distension given overall abdominal distension.. Prominent scrotal edema. MUSCULOSKELETAL: Extremities without clubbing, cyanosis. Feet are cool and mottled. LYMPHATICS: Not examined NEUROLOGICAL:Follow some commands, and able to nod head for yes, and shook head for no. . Diagnostic Tests Laboratory Laboratory Tests Test 12/28/16 05:45 12/29/16 20:06 White Blood Count 13.2 TH/MM3 (4.0-11.0) Red Blood Count 2.88 MIL/MM3 (4.50-5.90) Hemoglobin 9.2 GM/DL (13.0-17.0) Hematocrit 27.2 % (39.0-51.0) Mean Corpuscular Volume 94.6 FL (80.0-100.0) Mean Corpuscular Hemoglobin 32.1 PG (27.0-34.0) Mean Corpuscular Hemoglobin Concent 33.9 % (32.0-36.0) Red Cell Distribution Width 16.5 % (11.6-17.2) Platelet Count 59 TH/MM3 (150-450) Mean Platelet Volume 11.1 FL (7.0-11.0) Blood Urea Nitrogen 42 MG/DL (7-18) Creatinine 3.63 MG/DL (0.60-1.30) Random Glucose 145 MG/DL (74-106) Albumin 2.1 GM/DL (3.4-5.0) Calcium Level 8.2 MG/DL (8.5-10.1) Phosphorus Level 2.2 MG/DL (2.5-4.9) Sodium Level 134 MEQ/L (136-145) Potassium Level 3.0 MEQ/L (3.5-5.1) Chloride Level 95 MEQ/L (98-107) Carbon Dioxide Level 25.6 MEQ/L (21.0-32.0) Anion Gap 13 MEQ/L (5-15) Estimat Glomerular Filtration Rate 19 ML/MIN (>89) Fibrinogen 383 mg/dL (227-377) D-Dimer Quantitative (PE/DVT) 4.25 MG/L FEU (0.00-0.50) Result Diagram: 12/28/16 0545 12/28/16 0545 Procedures * Biltateral chest tube placement * Intubation/mechanical ventilation * Arterial line placement . Assessment and Plan Disease Oriented Problem List: (1) Loculated pleural effusion Comment: Pulmonology and cardi-thoracic surgery do not feel there is a workable solution to this problem given the patient's overall functional capacity. . (2) Pneumothorax Comment: Lungs unable to re-expand in spite of chest tubes.. As chest tubes are not working and he is not a candidate for surgery, this will likely be a chronic problem making it very hard to wean patient from went and if vent weaning is possible there is a very high likelihood or recurrence/worsening of problem. . (3) ESRD (end stage renal disease) on dialysis Comment: Normally on dialysis M, W, F. . (4) Peripheral vascular disease (5) Anemia Comment: Probably multi-factorial. On top of anemia from his renal disease, he may have acute blood loss anemia from uncertain source. Has received 2 units of PRBCs. . (6) Stroke Comment: Had two strokes in 2013. Now with significant left sided weakness. . (7) Osteoarthritis (8) Hypertension Comment: Now HYPOTENSIVE requiring pressor support. . (9) Glaucoma Symptom Scale: (1) Pain 0-10 Scale: Unable to quantify Comment: Has history of back pain and arthritis pain with use of PRN tramadol at home. Other sources of pain now include prolonged bedbound status; orotracheal and orogastric intubations; restraints; vascular access lines; etc. Patient is unable to locate, quantify, qualify pain. Currently has orders for a fentanyl drip and for tramadol. . (2) Dyspnea 0-10 Scale: Unable to quantify Comment: Dyspnea due to pneumothorax and recurrent pleural effusions. Now being managed on vent. . (3) Encephalopathy 0-10 Scale: Unable to quantify Comment: Patient continues on sedation. Will need to evaluate clinically off sedation to see if there is any significant cognitive loss. . Pertinent Non-Medical Issues Psychosocial: Supported by of over 30 years. Patient has 8 biological children and 5 step-children. Spiritual: [employer] Legal: DPOA for health care scanned into EMR. Ethical issues impacting care: Patient is incapacitated and is not likely to regain capacity. . Important Contacts * Pio Lerner (spouse; DPOA for health care) [phone] . 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 Cardiothoracic surgery does not believe patient could tolerate the procedure necessary to repair this. In addition to his kidney disease and incurable lung disease, patient now has hemodynamic instability requiring pressors. Critical care and pulmonology feel he has an end stage condition. In my clinical opinion, patient has an overall end stage condition. I don't believe there is a reasonable probability of patient regaining capacity. Patient would be an appropriate hospice candidate at such time that his health care surrogate decides to forego further aggressive care and transition to comfort care. . Code Status: Full Code Plan == Code Status: FULL CODE. (who is the DPOA for health care) feels obligated to allow one more attempted resuscitation for one more week. == Decision making: Mentation flutuates, but he remains able can nod yes to no appropriately. At the very least pt for today can participate medical decisions, but pt alone does not have capacity to make medical decisions. Joint decision making with . == Health care decision maker: . == Goals of medical treatment: /Pt goals of care is reviewed: Full Code/ aggressive care for 1 more week. If pt codes, she and pt would want just to code just once. If pt is not able to wean off the vent for 1 more week, is supportive of decision to extubate and transition to comfort measures only, with compassionate withdraw of life support. is thankful for visit, and grateful that the question was address to patient, with her present. She states it confirms/ reaffirms her decision to give him one more week. She understands peg and trach would not change is prognosis. == Symptoms * Pain: Has history of back pain and arthritis pain with use of PRN tramadol at home. Other sources of pain now include prolonged bedbound status; orotracheal and orogastric intubations; restraints; vascular access lines; etc. He has abdominal distension of unkwown etiology (imaging suggests this is mostly ascited) -- unclear if this might be causing abdominal pain. Also with skin tears on buttocks and scrotum which may be painful. Currently has orders for a fentanyl drip and for tramadol. No further recommendations at this time. * Dyspnea: Dyspnea is secondary to his chronic / recurrent pleural effusions and pneumothoraces. Currently managed by chest tubes and ventilator. Opiates would help for treating dyspnea if needed. Currently has orders for a fentanyl drip and for tramadol. No further recommendations at this time. == Skin tears on buttocks and edematous scrotum: Dialysis will be the main method of taking off excess fluid which is also challenging because of hypotension. Wound care consultation has been placed and recommnedations are on chart. Skin breakdown probably exacerbated by pressors which are most likely further reducing blood flow to skin. == Cool / mottled feet: This is probably a pressor effect as well. Patient is at risk of ischemic injury to extremities. == Palliative care will continue to follow to assist with symptom management and to further clarify goals of medical treatment as the clinical course evolves. . Attestation To help prompt me to consider important information that might be impacting today's encounter and assessment, information from prior notes written by myself or my colleagues may have been "brought forward" into today's note. My signature on this note, however, is an attestation that I personally performed the exam, history, and/or decision-making noted today, and, unless otherwise indicated, the interactions with patient, family, and staff as well as the review of records all occurred today. I also attest that the listed assessment and stated plan reflect my best clinical judgment today based on the combination of historical information, prior notes, and today's exam/ interactions. When time spent is documented, it refers only to time spent today by the signer, or if indicated, combined time spent today by collaborating physician/nurse practitioner. Sanya Lou MD Dec 30, 2016 11:42
[2016-12-30] MEDS: cefTRIAXone INJ 1,000 MG in SODIUM CHLORIDE 0.9% INJ 100 ML IV SCH ×4 (11:54)
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
[2016-12-30] MEDS: RESP: ALBUTEROL 2.5 MG/IPRATROPIUM 0.5 MG NEB (PRN) NEB ×2 (19:25)
[2016-12-30] MEDS: PRAVASTATIN SOD 20 MG TAB PO SCH ×2 (21:00)
[2016-12-30] MEDS: LATANOPROST 0.005% OPHT SOLN 2.5 ML BTL EACH EYE SCH ×2 (21:00)
[2016-12-31] VITALS (18 sets, daily range): BP systolic 85–163; BP diastolic 49–65; PULSE 78–102; RESP 16–28; TEMP 98.3–98.8; O2SAT 74–98
[2016-12-31] MEDS: INSULIN NovoLIN REGULAR SUPPLEMENTAL SCALE SQ SCH ×12 (00:10→21:00)
[2016-12-31] MEDS: HYDROCORTISONE SOD SUCCINATE 100 MG VIAL IV PUSH SCH ×8 (00:10→18:45)
[2016-12-31] MEDS: CHLORHEXIDINE GLUCONATE 2 % 1 PACK (2 CLOTHS) TOP SCH ×2 (04:00)
[2016-12-31] MEDS: METOCLOPRAMIDE HCL 10 MG/2 ML VIAL IV PUSH SCH ×6 (05:16→21:19)
[2016-12-31 06:57] LABS: AUTOMATED NEUTROPHIL # 7.2 TH/MM3 (1.8-7.7); BASOPHIL % 0.1 % (0.0-2.0); HEMATOCRIT 22.9 % (39.0-51.0); HEMOGLOBIN 7.9 GM/DL (13.0-17.0); LYMPH % 6.8 % (9.0-44.0); LYMPHOCYTE # 0.5 TH/MM3 (1.0-4.8); MEAN CELL VOLUME 96.7 FL (80.0-100.0); MEAN CORPUSCULAR HEMOGLOBIN 33.4 PG (27.0-34.0); MEAN CORPUSCULAR HGB CONC 34.6 % (32.0-36.0); MONO % 3.2 % (0.0-8.0); MONOCYTE # 0.3 TH/MM3 (0-0.9); NEUT % 89.9 % (16.0-70.0); PLATELET COUNT 83 TH/MM3 (150-450); RED BLOOD COUNT 2.37 MIL/MM3 (4.50-5.90); RED CELL DISTRIBUTION WIDTH 16.3 % (11.6-17.2)
[2016-12-31 07:05] LABS: INTERNATIONAL NORMALIZED RATIO 1.2 RATIO; PROTHROMBIN TIME - PATIENT 13.3 SEC (9.8-11.6)
[2016-12-31 07:22] LABS: ALBUMIN 2.2 GM/DL (3.4-5.0); BICARBONATE 26.2 MEQ/L (21.0-32.0); CALCIUM 8.4 MG/DL (8.5-10.1); CREATININE 4.77 MG/DL (0.60-1.30); MAGNESIUM 2.1 MG/DL (1.5-2.5); PHOSPHORUS 2.9 MG/DL (2.5-4.9)
[2016-12-31 08:32] LABS: BANDS 9 % (0-6); LYMPHOCYTES 7 % (9-44); MONOCYTES 1 % (0-8); NEUTROPHIL # MANUAL DIFF 7.3 TH/MM3 (1.8-7.7); PLASMA CELLS 1 % (0-0); POLYS (SEG NEUTROPHILS) 82 % (16-70); TOXIC GRANULATION 1+ (NORMAL)
[2016-12-31] MEDS ORDERED: POTASSIUM CHLOR 20 MEQ PREMIX 100 ML IV ONE ×2 (08:45)
[2016-12-31] MEDS ORDERED: ERGOCALCIFEROL (VIT D2) 50,000 UNIT CAP PO SCH ×2 (09:00)
[2016-12-31] MEDS: DOCUSATE SODIUM 100 MG/10 ML UDC PO SCH ×4 (09:00→21:15)
[2016-12-31] MEDS: ASPIRIN EC 81 MG TABEC PO SCH ×2 (09:00)
[2016-12-31] MEDS: DOCUSATE SODIUM 50 MG/SENNA 8.6 MG TAB PO SCH ×4 (09:00→21:15)
[2016-12-31] MEDS: SENNOSIDES SYRUP 8.8 MG/5 ML CUP PO SCH ×2 (09:00)
[2016-12-31] MEDS: CHLORHEXIDINE 0.12% (ORAL KIT) 15 ML CUP MT SCH ×4 (09:53→21:21)
[2016-12-31] MEDS: DORZOLAMIDE/TIMOLOL OPTH SOLN 10 ML BTL EACH EYE SCH ×4 (09:56→21:20)
[2016-12-31] MEDS: SODIUM CHLORIDE 0.9% FLUSH 10 ML FLUSH IV FLUSH SCH ×4 (09:58→23:17)
--- NOTE | 2016-12-31 09:58 | HHI.IDPN ---
Subjective Subjective Remarks is an 86-year-old male, initially presented to the hospital on December 19, for a scheduled bilateral thoracenteses. He has had problem with recurrent pleural effusion, as well as ascites, and has had multiple procedures done to drain the fluid. He was scheduled to have thoracentesis on October 19, but he went into respiratory distress, and ended up getting admitted. He was found to have a pneumothorax on the left and a large pleural effusion on the right. He had placement of bilateral chest tube, but there was only partial reexpansion of the lungs. There was no mention that he was having any cough or congestion, or fever or chills. This morning he had progressive respiratory distress, and required intubation. He is afebrile. He is on the vent. He is also hypotensive, and requiring 3 pressors. He is on levo fed, Forrest-Synephrine, and vasopressin. Cardiothoracic surgery has been consulted to evaluate the patient due to nonreactive expansion of the lung. Patient has end-stage renal disease, and gets hemodialysis. He had hemodialysis yesterday. Infectious disease consultation has been requested to evaluate the patient for possible pneumonia and shock. Notes reviewed Temps ok BP ok Having HD On the vent CT output not a lot CXR has not changed Antibiotics Rocephin I attest that I obtained, updated or reviewed the home and current medications. Current Medications Medications (Trade) Dose Ordered Sig/Bill Route Start Time Stop Time Status Last Admin (Dulcolax Ec) 10 mg DAILY PRN PO 12/19/16 20:00 (Xalatan 0.005% Opth Soln) 1 drop HS EACH EYE 12/19/16 21:00 12/30/16 21:00 (Pravachol) 20 mg HS PO 12/19/16 21:00 12/30/16 21:00 (Ecotrin Ec) 81 mg DAILY PO 12/20/16 09:00 12/30/16 09:25 (Nephrocaps) 1 cap DAILY PO 12/20/16 09:00 12/30/16 09:26 (Oscal) 1,000 mg DAILY PO 12/20/16 09:00 12/30/16 09:26 (Cosopt 2-0.5% Opth Soln) 1 drop BID EACH EYE 12/19/16 21:00 12/30/16 21:00 (NS Flush) 2 ml UNSCH PRN IV FLUSH 12/19/16 20:15 12/29/16 12:46 (NS Flush) 2 ml BID IV FLUSH 12/19/16 21:00 12/30/16 21:00 (Tylenol) 650 mg Q6H PRN PO 12/19/16 20:15 (Zofran Inj) 4 mg Q6H PRN IV PUSH 12/19/16 20:15 12/29/16 09:51 (Ambien) 5 mg HS PRN PO 12/19/16 20:15 (Heparin Inj) 5,000 units Q12H SQ 12/19/16 21:00 12/30/16 21:00 Miscellaneous Information 1 Q361D XX 12/19/16 20:15 (Chlorhexidine 2% Cloth) Taper DAILY@04 TOP 12/20/16 04:00 12/16/17 03:59 12/31/16 04:00 (Chlorhexidine 2% Cloth) 3 pack UNSCH PRN TOP 12/19/16 20:15 (Shelby-Colace) 1 tab BID PO 12/19/16 21:00 12/29/16 21:37 (Milk Of Magnesia Liq) 30 ml Q12H PRN PO 12/19/16 20:15 (Senokot) 17.2 mg Q12H PRN PO 12/19/16 20:15 12/22/16 09:39 (Dulcolax Supp) 10 mg DAILY PRN RECTAL 12/19/16 20:15 (Lactulose Liq) 30 ml DAILY PRN PO 12/19/16 20:15 12/22/16 09:37 (Persantine) 75 mg BID PO 12/20/16 09:00 12/30/16 21:00 (Apresoline Inj) 20 mg Q4H PRN IV 12/20/16 00:15 12/26/16 21:22 Sodium Chloride 1,000 ml @ 0 mls/hr Q0M PRN OTHER 12/20/16 10:04 12/27/16 16:07 Sodium Chloride 1,000 ml @ 200 mls/hr Q5H PRN IV 12/20/16 10:04 Sodium Chloride 1,000 ml @ 0 mls/hr Q0M PRN OTHER 12/20/16 10:04 (Mannitol Inj) 12.5 gm UNSCH PRN IV 12/20/16 10:15 Albumin Human 100 ml @ 60 mls/hr UNSCH PRN IV 12/20/16 10:15 12/29/16 09:10 (NS Flush) 5 ml UNSCH PRN IV FLUSH 12/20/16 10:15 (Heparin Inj) UNSCH PRN .XX 12/20/16 10:15 (Gentamicin (Dialysis) Inj) 20 mg UNSCH PRN OTHER 12/20/16 10:15 (Zofran Inj) 4 mg UNSCH PRN IV PUSH 12/20/16 10:15 (Tylenol) 650 mg UNSCH PRN PO 12/20/16 10:15 (Benadryl) 25 mg UNSCH PRN PO 12/20/16 10:15 (Nitrostat Sl) 0.4 mg UNSCH PRN SL 12/20/16 10:15 (Catapres) 0.1 mg UNSCH PRN PO 12/20/16 10:15 (Epogen Inj) 5,000 units UNSCH PRN IV PUSH 12/20/16 10:15 12/29/16 08:52 (Gelfoam 12 Mm/7 Mm Top) 1 foam UNSCH PRN TOP 12/20/16 10:15 12/29/16 08:52 (Peridex 0.12% Liq) 15 ml BID@08,20 MT 12/21/16 08:00 12/30/16 20:00 (Duoneb Neb) 1 ampule Q6HR NEB PRN NEB 12/21/16 08:00 12/30/16 19:25 (Protonix Inj) 40 mg Q24H IV PUSH 12/21/16 09:00 12/30/16 09:25 (D50w (Vial) Inj) 50 ml UNSCH PRN IV PUSH 12/21/16 08:15 12/23/16 22:56 (Glucagon Inj) 1 mg UNSCH PRN OTHER 12/21/16 08:15 (NovoLIN R SUPPLEMENTAL SCALE) 1 Q4H SQ 12/21/16 09:00 12/30/16 14:00 Fentanyl Citrate 250 ml @ 5 mls/hr TITRATE PRN IV 12/21/16 10:00 12/26/16 21:17 (Brethine Inj) 1 mg UNSCH PRN SQ 12/21/16 12:45 (Colace Liq) 100 mg Q12HR PO 12/22/16 09:15 12/30/16 09:25 (Senna Liq) 8.8 mg DAILY PO 12/22/16 09:15 12/28/16 09:00 (Drisdol) 50,000 units Q7D PO 12/31/16 09:00 Phenylephrine HCl 40 mg/Dextrose 500 ml @ 30 mls/hr TITRATE PRN IV 12/28/16 16:45 (Reglan Inj) 5 mg Q8HR IV PUSH 12/28/16 22:00 12/31/16 05:16 (SoluCORTEF INJ) 50 mg Q6HR IV PUSH 12/29/16 00:00 12/31/16 05:15 Ceftriaxone Sodium 1000 mg/ Sodium Chloride 100 ml @ 200 mls/hr Q24H IV 12/29/16 11:00 12/30/16 11:54 Potassium Chloride 100 ml @ 33.333 mls/ hr ONCE ONCE IV 12/31/16 08:45 12/31/16 11:44 Past Medical History ESRD on HD Ascites Hypertension CVA Duodenitis Past Surgical History Left carotid endarectomy Fistula left arm Multiple thoracentesis and paracentesis Allergies: Coded Allergies: *MDRO Multi-Drug Resistant Organism (Verified Adverse Reaction, Unknown, 01/29/15) MRSA PCR Screen positive 01/25/15. Objective . Vital Signs Date Time Temp Pulse Resp B/P (MAP) Pulse Ox O2 Delivery O2 Flow Rate FiO2 12/31/16 07:37 98 35 12/31/16 06:00 78 12/31/16 04:03 96 35 12/31/16 04:00 35 12/31/16 04:00 98.3 79 18 142/50 (80) 94 12/31/16 04:00 81 12/31/16 02:00 80 12/31/16 01:02 97 35 12/31/16 00:00 98.7 86 18 160/49 (86) 98 12/31/16 00:00 87 12/31/16 00:00 35 12/30/16 22:06 98 35 12/30/16 22:00 80 12/30/16 20:00 87 12/30/16 20:00 87 95/50 (65) 12/30/16 20:00 35 12/30/16 20:00 98.8 81 18 147/51 (83) 98 12/30/16 19:02 99 35 12/30/16 17:00 69 18 142/49 (80) 98 12/30/16 16:00 35 12/30/16 16:00 99.7 89 17 114/44 (67) 96 12/30/16 15:43 100 35 12/30/16 15:00 83 15 130/45 (73) 98 12/30/16 14:00 83 14 142/49 (80) 94 12/30/16 13:37 100 35 12/30/16 13:00 79 25 132/51 (78) 100 12/30/16 12:00 99.2 74 18 100/40 (60) 98 12/30/16 12:00 35 12/30/16 11:00 82 23 111/37 (61) 99 12/30/16 10:00 84 17 126/39 (68) 100 . Laboratory Tests Test 12/31/16 05:05 White Blood Count 8.0 TH/MM3 Red Blood Count 2.37 MIL/MM3 Hemoglobin 7.9 GM/DL Hematocrit 22.9 % Mean Corpuscular Volume 96.7 FL Mean Corpuscular Hemoglobin 33.4 PG Mean Corpuscular Hemoglobin Concent 34.6 % Red Cell Distribution Width 16.3 % Platelet Count 83 TH/MM3 Mean Platelet Volume 12.0 FL Neutrophils (%) (Auto) 89.9 % Lymphocytes (%) (Auto) 6.8 % Monocytes (%) (Auto) 3.2 % Eosinophils (%) (Auto) 0.0 % Basophils (%) (Auto) 0.1 % Neutrophils # (Auto) 7.2 TH/MM3 Lymphocytes # (Auto) 0.5 TH/MM3 Monocytes # (Auto) 0.3 TH/MM3 Eosinophils # (Auto) 0.0 TH/MM3 Basophils # (Auto) 0.0 TH/MM3 CBC Comment AUTO DIFF Differential Total Cells Counted 100 Neutrophils % (Manual) 82 % Band Neutrophils % 9 % Lymphocytes % 7 % Monocytes % 1 % Neutrophils # (Manual) 7.3 TH/MM3 Differential Comment FINAL DIFF MANUAL Plasma Cells 1 % Toxic Granulation 1+ Platelet Estimate LOW Platelet Morphology Comment ENLARGED Laboratory Tests Test 12/31/16 05:15 Blood Urea Nitrogen 69 MG/DL Creatinine 4.77 MG/DL Random Glucose 136 MG/DL Albumin 2.2 GM/DL Calcium Level 8.4 MG/DL Phosphorus Level 2.9 MG/DL Magnesium Level 2.1 MG/DL Sodium Level 141 MEQ/L Potassium Level 2.6 MEQ/L Chloride Level 100 MEQ/L Carbon Dioxide Level 26.2 MEQ/L Anion Gap 15 MEQ/L Estimat Glomerular Filtration Rate 14 ML/MIN Imaging Chest X-Ray 12/29/16 0600 Signed Impressions: Service Date/Time: Thursday, December 29, 2016 03:59 - CONCLUSION: No significant interval change Beto Lane MD Chest X-Ray 12/28/16 0000 Signed Impressions: Service Date/Time: Wednesday, December 28, 2016 07:07 - CONCLUSION: 1. Persistent moderate-sized bibasilar pneumothoraces despite chest tubes in place. 2. Bibasilar consolidations consistent with atelectasis and/or pneumonia. 3. Cardiomegaly. 4. Endotracheal tube in good position 3 cm above the agnes. Eliecer Kingston MD Chest X-Ray 12/24/16 0000 Signed Impressions: Service Date/Time: Saturday, December 24, 2016 08:06 - CONCLUSION: 1. Unchanged bilateral subpulmonic pneumothoraces despite chest tubes. Nic Brown Jr., MD Chest X-Ray 12/23/161999 Signed Impressions: Service Date/Time: Friday, December 23, 2016 19:57 - CONCLUSION: The right chest tube is not visualized possibly withdrawn and the size of the pneumothoraces bilaterally have not significantly changed. There appears to be less consolidation right lung base otherwise not significantly changed. Candy Galo MD Chest X-Ray 12/23/16 Signed Impressions: Service Date/Time: Friday, December 23, 2016 12:24 - CONCLUSION: 1. The right thoracostomy tube has been removed. 2. Remaining left thoracostomy tube. 3. Unchanged subpulmonic pneumothoraces bilaterally. 4. Tiny effusions. 5. Cardiomegaly. Nic Brown Jr., MD Chest X-Ray 12/23/16 Signed Impressions: Service Date/Time: Friday, December 23, 2016 10:22 - CONCLUSION: 1. Some improvement in the consolidation of the right lung particularly involving the upper lobe. 2. Bilateral subpulmonic pneumothoraces are stable. Nic Brown Jr., MD Abdomen X-Ray 12/23/16 0000 Signed Impressions: Service Date/Time: Friday, December 23, 2016 10:28 - CONCLUSION: Some improvement in the distention of the small bowel compared to the prior study. Nic Brown Jr., MD Abdomen X-Ray 12/22/16 0000 Signed Impressions: Service Date/Time: Thursday, December 22, 2016 09:42 - CONCLUSION: There is one loop of small bowel in the midline hypogastric region which is dilated out of proportion to the other loops of small bowel and the colon. This is nonspecific and could represent a localized ileus or an early small bowel obstruction. Nic Cha MD Last Impressions Chest X-Ray 12/21/16 0432 Signed Impressions: Service Date/Time: Wednesday, December 21, 2016 04:38 - CONCLUSION: 1. New consolidative opacity in the right lung most characteristic of pneumonia. 2. Stable appearance of the bibasilar pneumothoraces. Daniel Cowan MD Chest CT 12/20/16 0000 Signed Impressions: Service Date/Time: Tuesday, December 20, 2016 16:26 - CONCLUSION: 1. Moderate right and small left hydropneumothorax with small caliber chest tubes present bilaterally, not significant changed from prior chest radiograph. Dependent consolidation and atelectasis of both lungs. No pneumomediastinum or subcutaneous air. Germán Vences MD Physical Exam GENERAL: Awake and following commands, on the vent, not in distress SKIN: Warm and dry. No generalized rash, no ecchymoses and no evidence of embolic lesions. HEAD: Atraumatic. Normocephalic. No temporal wasting, or tenderness. EYES: Pale conjunctiva. No petechia or hemorrhage. Pupils equal, round and reactive to light. No scleral icterus. No injection or drainage. EARS, NOSE AND THROAT: Nose without bleeding or purulent nasal discharge. ET in mouth NECK: Trachea midline. Supple and not tender, no meningeal signs CARDIOVASCULAR: Regular rate and rhythm. No murmurs, rubs or gallops heard RESPIRATORY: Decreased BS both bases. King CT in place. Has air leak on R ABDOMEN: Distended abdomen, seems more distended, bowel sounds present and hypoactive. No reaction to deep palpation. EXTREMITIES: No clubbing, cyanosis. Has edema hands. HD access L arm looks ok NEUROLOGICAL: Not responding PSYCHIATRIC: Unable to assess LINE: Lines with no evidence of infection Assessment & Plan Remarks IMPRESSION Recurrent pleural effusion, and ascites Respiratory failure Klebsiella PNA Shock, on pressors ESRD on HD Abdominal distension, ileus Thrombocytopenia, better RECOMMENDATION Give 7 days Rocephin Monitor progress Follow temps Weaning per CCM - not tolerating; likely will need trach if family still wants aggressive Rx D/W Paula Morse MD Dec 31, 2016 09:57
[2016-12-31] MEDS: ALBUMIN 25% INJ 100 ML IV PRN ×2 (10:30)
[2016-12-31] MEDS: EPOETIN ALFA 10,000 UNITS/ML VIAL IV PUSH PRN ×2 (12:40)
[2016-12-31] MEDS: SODIUM CHLOR 0.9% 1000 ML INJ 1,000 ML OTHER PRN ×2 (12:40)
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
[2016-12-31] MEDS: PANTOPRAZOLE SODIUM 40 MG VIAL IV PUSH SCH ×2 (15:11)
[2016-12-31] MEDS: VITAMIN B CMPLX/VITC/FOLIC AC CAP PO SCH ×2 (15:13)
[2016-12-31] MEDS: DIPYRIDAMOLE 25 MG TAB PO SCH ×4 (15:13→21:18)
[2016-12-31] MEDS: CALCIUM CARBONATE 1.25 GM (CA 500 MG) TAB PO SCH ×2 (15:14)
[2016-12-31] MEDS: HEPARIN SODIUM - SQ 10,000 UNITS/ML VIAL SQ SCH ×4 (15:15→21:19)
[2016-12-31] MEDS: DEXTROSE 10% INJ 1,000 ML IV SCH ×2 (15:19)
[2016-12-31] MEDS: DEXTROSE 50% IN WATER 50 ML VIAL(D50) IV PUSH PRN (15:21)
[2016-12-31] MEDS: RESP: ALBUTEROL 2.5 MG/IPRATROPIUM 0.5 MG NEB (SCH) NEB ×4 (17:02→20:49)
--- NOTE | 2016-12-31 17:55 | HHI.NPPN ---
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 Patient now presents with increasing shortness of breath noted to have bilateral pleural effusions which appear to be loculated. Patient missed his dialysis session yesterday. Moderate hyperkalemia on presentation. Now status post bilateral pigtail catheter placement left and right pleural cavity. Pneumothorax bilaterally postprocedure. Patient seen during his dialysis session. Appears to be lethargic and nonverbal at this time. Interval History Patient intubated nonverbal. Review of Systems General General Remarks Unable to obtain d/t clinical status Objective Data Data 12/31/16 01/01/17 19:00 07:00 Output Total 2500 ml Balance -2500 ml Hemodialysis 2500 ml Vital Signs Date Time Temp Pulse Resp B/P (MAP) Pulse Ox O2 Delivery O2 Flow Rate FiO2 12/31/16 17:03 92 35 12/31/16 12:32 92 35 12/31/16 08:00 138/50 (79) 12/31/16 07:37 98 35 12/31/16 06:00 78 12/31/16 04:03 96 35 12/31/16 04:00 35 12/31/16 04:00 98.3 79 18 142/50 (80) 94 12/31/16 04:00 81 12/31/16 02:00 80 12/31/16 01:02 97 35 12/31/16 00:00 98.7 86 18 160/49 (86) 98 12/31/16 00:00 87 12/31/16 00:00 35 12/30/16 22:06 98 35 12/30/16 22:00 80 12/30/16 20:00 87 12/30/16 20:00 87 95/50 (65) 12/30/16 20:00 35 12/30/16 20:00 98.8 81 18 147/51 (83) 98 12/30/16 19:02 99 35 -: 12/31/16 0505 12/31/16 0515 Physical Exam General Appearance: No Acute Distress, Malnourished Pulmonary Resp Exam: No Distress, Diminished Breath Sounds Cardiology CV Exam: Regular, Normal Sinus Rhythm Gastrointestinal/Abdomen GI Exam: Soft Integumentary Skin Exam: Warm Extremeties Extremities Exam: Moderate Edema (generalized in extremities and hips) Neurologic Neuro Exam: Sedated VTE Prophylaxis Device: SCDs Assessment/Plan Problem List: (1) ESRD (end stage renal disease) on dialysis ICD Codes: N18.6 - End stage renal failure on dialysis; Z99.2 - Dependence on renal dialysis Status: Chronic Plan: Continue HD MWF Reviewed palliative note. wants aggressive care for the next week, If no improvement in clinical status would then be agreeable to transfer to comfort care. Noted critical care is considering paracentesis in the hope that this may aid his respiratory function. Attempted CPAP failed today. Hemodynamic instability limiting fluid removal with dialysis somewhat. She has been counseled extensively about his prognosis. Hospice would be appropriate Medications should be adjusted for the patient's estimated end stage renal disease if clinically indicated. Gadolinium contraindicated. (2) Failure to thrive in adult ICD Codes: R62.7 - Adult failure to thrive Plan: Making long-term prognosis poor even if he should survive this admission. (3) Non-compliance with renal dialysis ICD Codes: Z91.15 - Patient's noncompliance with renal dialysis Plan: I do not believe that we can improve patient's compliance given previous attempts but will continue education. (4) HTN (hypertension) ICD Codes: I10 - Hypertension Status: Chronic Plan: By hx. Hypotensive currently on inotropic support (5) Anemia of renal disease ICD Codes: D63.1 - Anemia in chronic kidney disease Izabela Thompson MD Dec 31, 2016 17:55
[2016-12-31] MEDS: cefTRIAXone INJ 1,000 MG in SODIUM CHLORIDE 0.9% INJ 100 ML IV SCH ×4 (18:44)
[2016-12-31] MEDS: LATANOPROST 0.005% OPHT SOLN 2.5 ML BTL EACH EYE SCH ×2 (21:00)
[2016-12-31] MEDS: PRAVASTATIN SOD 20 MG TAB PO SCH ×2 (21:18)
[2017-01-01] VITALS (18 sets, daily range): BP systolic 105–149; BP diastolic 54–79; PULSE 76–99; RESP 9–26; TEMP 97.9–99.6; O2SAT 83–100
[2017-01-01] MEDS: HYDROCORTISONE SOD SUCCINATE 100 MG VIAL IV PUSH SCH ×8 (00:27→18:11)
[2017-01-01] MEDS: INSULIN NovoLIN REGULAR SUPPLEMENTAL SCALE SQ SCH ×12 (01:00→21:00)
[2017-01-01] MEDS: RESP: ALBUTEROL 2.5 MG/IPRATROPIUM 0.5 MG NEB (SCH) NEB ×8 (03:04→20:59)
[2017-01-01] MEDS: ACETAMINOPHEN 325 MG TAB PO PRN ×4 (03:49→22:25)
[2017-01-01] MEDS: CHLORHEXIDINE GLUCONATE 2 % 1 PACK (2 CLOTHS) TOP SCH ×2 (04:00)
[2017-01-01] MEDS: METOCLOPRAMIDE HCL 10 MG/2 ML VIAL IV PUSH SCH ×6 (06:18→22:25)
[2017-01-01] MEDS: DORZOLAMIDE/TIMOLOL OPTH SOLN 10 ML BTL EACH EYE SCH ×4 (07:48→22:23)
[2017-01-01] MEDS: CHLORHEXIDINE 0.12% (ORAL KIT) 15 ML CUP MT SCH ×4 (07:48→22:23)
[2017-01-01] MEDS: DOCUSATE SODIUM 100 MG/10 ML UDC PO SCH ×4 (07:49→22:26)
[2017-01-01] MEDS: SENNOSIDES SYRUP 8.8 MG/5 ML CUP PO SCH ×2 (07:49)
[2017-01-01] MEDS: DIPYRIDAMOLE 25 MG TAB PO SCH ×4 (07:49→22:25)
[2017-01-01] MEDS: PANTOPRAZOLE SODIUM 40 MG VIAL IV PUSH SCH ×2 (07:50)
[2017-01-01] MEDS: SODIUM CHLORIDE 0.9% FLUSH 10 ML FLUSH IV FLUSH SCH ×4 (07:50→22:24)
[2017-01-01] MEDS: ASPIRIN EC 81 MG TABEC PO SCH ×2 (07:51)
[2017-01-01] MEDS: DOCUSATE SODIUM 50 MG/SENNA 8.6 MG TAB PO SCH ×4 (07:51→22:26)
[2017-01-01] MEDS: VITAMIN B CMPLX/VITC/FOLIC AC CAP PO SCH ×2 (07:51)
[2017-01-01] MEDS: HEPARIN SODIUM - SQ 10,000 UNITS/ML VIAL SQ SCH ×4 (07:52→22:24)
[2017-01-01] MEDS: CALCIUM CARBONATE 1.25 GM (CA 500 MG) TAB PO SCH ×2 (08:08)
[2017-01-01] MEDS: cefTRIAXone INJ 1,000 MG in SODIUM CHLORIDE 0.9% INJ 100 ML IV SCH ×4 (11:56)
[2017-01-01] MEDS: DEXTROSE 5% IN WATE 1000ML INJ 1,000 ML IV SCH (12:00)
[2017-01-01] MEDS: DEXTROSE 10% INJ 1,000 ML IV SCH ×2 (13:33)
--- NOTE | 2017-01-01 14:52 | HHI.IDPN ---
Subjective Subjective Remarks is an 86-year-old male, initially presented to the hospital on December 19, for a scheduled bilateral thoracenteses. He has had problem with recurrent pleural effusion, as well as ascites, and has had multiple procedures done to drain the fluid. He was scheduled to have thoracentesis on October 19, but he went into respiratory distress, and ended up getting admitted. He was found to have a pneumothorax on the left and a large pleural effusion on the right. He had placement of bilateral chest tube, but there was only partial reexpansion of the lungs. There was no mention that he was having any cough or congestion, or fever or chills. This morning he had progressive respiratory distress, and required intubation. He is afebrile. He is on the vent. He is also hypotensive, and requiring 3 pressors. He is on levo fed, Forrest-Synephrine, and vasopressin. Cardiothoracic surgery has been consulted to evaluate the patient due to nonreactive expansion of the lung. Patient has end-stage renal disease, and gets hemodialysis. He had hemodialysis yesterday. Infectious disease consultation has been requested to evaluate the patient for possible pneumonia and shock. Notes reviewed D/W RN Temps ok BP ok HD done yesterday On the vent CT output not a lot CXR has not changed Not tolerating CPAP Antibiotics I attest that I obtained, updated or reviewed the home and current medications. Rocephin Current Medications Medications (Trade) Dose Ordered Sig/Bill Route Start Time Stop Time Status Last Admin (Dulcolax Ec) 10 mg DAILY PRN PO 12/19/16 20:00 (Xalatan 0.005% Opth Soln) 1 drop HS EACH EYE 12/19/16 21:00 12/30/16 21:00 (Pravachol) 20 mg HS PO 12/19/16 21:00 12/31/16 21:18 (Ecotrin Ec) 81 mg DAILY PO 12/20/16 09:00 01/01/17 07:51 (Nephrocaps) 1 cap DAILY PO 12/20/16 09:00 01/01/17 07:51 (Oscal) 1,000 mg DAILY PO 12/20/16 09:00 01/01/17 08:08 (Cosopt 2-0.5% Opth Soln) 1 drop BID EACH EYE 12/19/16 21:00 01/01/17 07:48 (NS Flush) 2 ml UNSCH PRN IV FLUSH 12/19/16 20:15 12/29/16 12:46 (NS Flush) 2 ml BID IV FLUSH 12/19/16 21:00 01/01/17 07:50 (Tylenol) 650 mg Q6H PRN PO 12/19/16 20:15 01/01/17 03:49 (Zofran Inj) 4 mg Q6H PRN IV PUSH 12/19/16 20:15 12/29/16 09:51 (Ambien) 5 mg HS PRN PO 12/19/16 20:15 (Heparin Inj) 5,000 units Q12H SQ 12/19/16 21:00 01/01/17 07:52 Miscellaneous Information 1 Q361D XX 12/19/16 20:15 (Chlorhexidine 2% Cloth) Taper DAILY@04 TOP 12/20/16 04:00 12/16/17 03:59 01/01/17 04:00 (Chlorhexidine 2% Cloth) 3 pack UNSCH PRN TOP 12/19/16 20:15 (Shelby-Colace) 1 tab BID PO 12/19/16 21:00 12/31/16 21:15 (Milk Of Magnesia Liq) 30 ml Q12H PRN PO 12/19/16 20:15 (Senokot) 17.2 mg Q12H PRN PO 12/19/16 20:15 12/22/16 09:39 (Dulcolax Supp) 10 mg DAILY PRN RECTAL 12/19/16 20:15 (Lactulose Liq) 30 ml DAILY PRN PO 12/19/16 20:15 12/22/16 09:37 (Persantine) 75 mg BID PO 12/20/16 09:00 01/01/17 07:49 (Apresoline Inj) 20 mg Q4H PRN IV 12/20/16 00:15 12/26/16 21:22 Sodium Chloride 1,000 ml @ 0 mls/hr Q0M PRN OTHER 12/20/16 10:04 12/31/16 12:40 Sodium Chloride 1,000 ml @ 200 mls/hr Q5H PRN IV 12/20/16 10:04 Sodium Chloride 1,000 ml @ 0 mls/hr Q0M PRN OTHER 12/20/16 10:04 (Mannitol Inj) 12.5 gm UNSCH PRN IV 12/20/16 10:15 Albumin Human 100 ml @ 60 mls/hr UNSCH PRN IV 12/20/16 10:15 12/31/16 10:30 (NS Flush) 5 ml UNSCH PRN IV FLUSH 12/20/16 10:15 (Heparin Inj) UNSCH PRN .XX 12/20/16 10:15 (Gentamicin (Dialysis) Inj) 20 mg UNSCH PRN OTHER 12/20/16 10:15 (Zofran Inj) 4 mg UNSCH PRN IV PUSH 12/20/16 10:15 (Tylenol) 650 mg UNSCH PRN PO 12/20/16 10:15 (Benadryl) 25 mg UNSCH PRN PO 12/20/16 10:15 (Nitrostat Sl) 0.4 mg UNSCH PRN SL 12/20/16 10:15 (Catapres) 0.1 mg UNSCH PRN PO 12/20/16 10:15 (Epogen Inj) 5,000 units UNSCH PRN IV PUSH 12/20/16 10:15 12/31/16 12:40 (Gelfoam 12 Mm/7 Mm Top) 1 foam UNSCH PRN TOP 12/20/16 10:15 12/29/16 08:52 (Peridex 0.12% Liq) 15 ml BID@08,20 MT 12/21/16 08:00 01/01/17 07:48 (Duoneb Neb) 1 ampule Q6HR NEB PRN NEB 12/21/16 08:00 12/30/16 19:25 (Protonix Inj) 40 mg Q24H IV PUSH 12/21/16 09:00 01/01/17 07:50 (D50w (Vial) Inj) 50 ml UNSCH PRN IV PUSH 12/21/16 08:15 12/31/16 15:21 (Glucagon Inj) 1 mg UNSCH PRN OTHER 12/21/16 08:15 (NovoLIN R SUPPLEMENTAL SCALE) 1 Q4H SQ 12/21/16 09:00 12/30/16 14:00 Fentanyl Citrate 250 ml @ 5 mls/hr TITRATE PRN IV 12/21/16 10:00 12/26/16 21:17 (Brethine Inj) 1 mg UNSCH PRN SQ 12/21/16 12:45 (Colace Liq) 100 mg Q12HR PO 12/22/16 09:15 01/01/17 07:49 (Senna Liq) 8.8 mg DAILY PO 12/22/16 09:15 01/01/17 07:49 (Drisdol) 50,000 units Q7D PO 12/31/16 09:00 12/31/16 15:12 Phenylephrine HCl 40 mg/Dextrose 500 ml @ 30 mls/hr TITRATE PRN IV 12/28/16 16:45 (Reglan Inj) 5 mg Q8HR IV PUSH 12/28/16 22:00 01/01/17 13:34 (SoluCORTEF INJ) 50 mg Q6HR IV PUSH 12/29/16 00:00 01/01/17 11:56 Ceftriaxone Sodium 1000 mg/ Sodium Chloride 100 ml @ 200 mls/hr Q24H IV 12/29/16 11:00 01/04/17 23:00 01/01/17 11:56 (Duoneb Neb) 1 ampule Q6HR NEB NEB 12/31/16 16:00 01/01/17 09:13 Dextrose 1,000 ml @ 42 mls/hr [id number] IV 12/31/16 14:30 12/31/16 15:19 Dextrose 1,000 ml @ 50 mls/hr Q20H IV 01/01/17 12:00 01/01/17 12:00 Past Medical History ESRD on HD Ascites Hypertension CVA Duodenitis Past Surgical History Left carotid endarectomy Fistula left arm Multiple thoracentesis and paracentesis Allergies: Coded Allergies: *MDRO Multi-Drug Resistant Organism (Verified Adverse Reaction, Unknown, 01/29/15) MRSA PCR Screen positive 01/25/15. Objective . Vital Signs Date Time Temp Pulse Resp B/P (MAP) Pulse Ox O2 Delivery O2 Flow Rate FiO2 01/01/17 14:00 78 01/01/17 12:00 98.6 76 20 146/54 (84) 01/01/17 12:00 76 01/01/17 12:00 35 01/01/17 11:23 100 35 01/01/17 10:00 83 01/01/17 08:13 100 35 01/01/17 08:00 81 01/01/17 08:00 99.6 81 15 116/64 (81) 100 01/01/17 08:00 35 01/01/17 06:00 85 01/01/17 04:10 100 35 01/01/17 04:00 99.5 99 26 149/79 (102) 83 01/01/17 04:00 99 01/01/17 04:00 35 01/01/17 02:00 95 01/01/17 01:03 100 35 01/01/17 00:00 98.4 89 19 114/54 (74) 01/01/17 00:00 35 01/01/17 00:00 89 12/31/16 22:00 89 12/31/16 20:52 92 35 12/31/16 20:00 98.5 85 16 114/53 (73) 74 12/31/16 20:00 85 12/31/16 20:00 35 12/31/16 18:00 94 12/31/16 17:03 92 35 12/31/16 16:00 35 12/31/16 16:00 100 12/31/16 16:00 98.4 100 21 163/65 (97) 01/01/17 01/01/17 01/02/17 15:00 23:00 07:00 Intake Total 58 ml Balance 58 ml IV Total 58 ml . Laboratory Tests Test 12/31/16 05:05 White Blood Count 8.0 TH/MM3 Red Blood Count 2.37 MIL/MM3 Hemoglobin 7.9 GM/DL Hematocrit 22.9 % Mean Corpuscular Volume 96.7 FL Mean Corpuscular Hemoglobin 33.4 PG Mean Corpuscular Hemoglobin Concent 34.6 % Red Cell Distribution Width 16.3 % Platelet Count 83 TH/MM3 Mean Platelet Volume 12.0 FL Neutrophils (%) (Auto) 89.9 % Lymphocytes (%) (Auto) 6.8 % Monocytes (%) (Auto) 3.2 % Eosinophils (%) (Auto) 0.0 % Basophils (%) (Auto) 0.1 % Neutrophils # (Auto) 7.2 TH/MM3 Lymphocytes # (Auto) 0.5 TH/MM3 Monocytes # (Auto) 0.3 TH/MM3 Eosinophils # (Auto) 0.0 TH/MM3 Basophils # (Auto) 0.0 TH/MM3 CBC Comment AUTO DIFF Differential Total Cells Counted 100 Neutrophils % (Manual) 82 % Band Neutrophils % 9 % Lymphocytes % 7 % Monocytes % 1 % Neutrophils # (Manual) 7.3 TH/MM3 Differential Comment FINAL DIFF MANUAL Plasma Cells 1 % Toxic Granulation 1+ Platelet Estimate LOW Platelet Morphology Comment ENLARGED Laboratory Tests Test 12/31/16 05:15 Blood Urea Nitrogen 69 MG/DL Creatinine 4.77 MG/DL Random Glucose 136 MG/DL Albumin 2.2 GM/DL Calcium Level 8.4 MG/DL Phosphorus Level 2.9 MG/DL Magnesium Level 2.1 MG/DL Sodium Level 141 MEQ/L Potassium Level 2.6 MEQ/L Chloride Level 100 MEQ/L Carbon Dioxide Level 26.2 MEQ/L Anion Gap 15 MEQ/L Estimat Glomerular Filtration Rate 14 ML/MIN Imaging Chest X-Ray 12/29/16 0600 Signed Impressions: Service Date/Time: Thursday, December 29, 2016 03:59 - CONCLUSION: No significant interval change Beto Lane MD Chest X-Ray 12/28/16 0000 Signed Impressions: Service Date/Time: Wednesday, December 28, 2016 07:07 - CONCLUSION: 1. Persistent moderate-sized bibasilar pneumothoraces despite chest tubes in place. 2. Bibasilar consolidations consistent with atelectasis and/or pneumonia. 3. Cardiomegaly. 4. Endotracheal tube in good position 3 cm above the agnes. Eliecer Kingston MD Chest X-Ray 12/24/16 0000 Signed Impressions: Service Date/Time: Saturday, December 24, 2016 08:06 - CONCLUSION: 1. Unchanged bilateral subpulmonic pneumothoraces despite chest tubes. Nic Brown Jr., MD Chest X-Ray 12/23/161999 Signed Impressions: Service Date/Time: Friday, December 23, 2016 19:57 - CONCLUSION: The right chest tube is not visualized possibly withdrawn and the size of the pneumothoraces bilaterally have not significantly changed. There appears to be less consolidation right lung base otherwise not significantly changed. Candy Galo MD Chest X-Ray 12/23/16 0000 Signed Impressions: Service Date/Time: Friday, December 23, 2016 12:24 - CONCLUSION: 1. The right thoracostomy tube has been removed. 2. Remaining left thoracostomy tube. 3. Unchanged subpulmonic pneumothoraces bilaterally. 4. Tiny effusions. 5. Cardiomegaly. Nic Brown Jr., MD Chest X-Ray 12/23/16 0000 Signed Impressions: Service Date/Time: Friday, December 23, 2016 10:22 - CONCLUSION: 1. Some improvement in the consolidation of the right lung particularly involving the upper lobe. 2. Bilateral subpulmonic pneumothoraces are stable. Nic Brown Jr., MD Abdomen X-Ray 12/23/16 0000 Signed Impressions: Service Date/Time: Friday, December 23, 2016 10:28 - CONCLUSION: Some improvement in the distention of the small bowel compared to the prior study. Nic Brown Jr., MD Abdomen X-Ray 12/22/16 0000 Signed Impressions: Service Date/Time: Thursday, December 22, 2016 09:42 - CONCLUSION: There is one loop of small bowel in the midline hypogastric region which is dilated out of proportion to the other loops of small bowel and the colon. This is nonspecific and could represent a localized ileus or an early small bowel obstruction. Nic Cha MD Last Impressions Chest X-Ray 12/21/16 0432 Signed Impressions: Service Date/Time: Wednesday, December 21, 2016 04:38 - CONCLUSION: 1. New consolidative opacity in the right lung most characteristic of pneumonia. 2. Stable appearance of the bibasilar pneumothoraces. Daniel Cowan MD Chest CT 12/20/16 0000 Signed Impressions: Service Date/Time: Tuesday, December 20, 2016 16:26 - CONCLUSION: 1. Moderate right and small left hydropneumothorax with small caliber chest tubes present bilaterally, not significant changed from prior chest radiograph. Dependent consolidation and atelectasis of both lungs. No pneumomediastinum or subcutaneous air. Germán Vences MD Physical Exam GENERAL: Patient is a thin, well-developed male, on the vent, not in distress SKIN: Warm and dry. No generalized rash, no ecchymoses and no evidence of embolic lesions. HEAD: Atraumatic. Normocephalic. No temporal wasting, or tenderness. EYES: Pale conjunctiva. No petechia or hemorrhage. Pupils equal, round and reactive to light. No scleral icterus. No injection or drainage. EARS, NOSE AND THROAT: Nose without bleeding or purulent nasal discharge. ET in mouth NECK: Trachea midline. Supple and not tender, no meningeal signs CARDIOVASCULAR: Regular rate and rhythm. No murmurs, rubs or gallops heard RESPIRATORY: Decreased BS both bases. King CT in pace. ABDOMEN: Distended abdomen, seems more distended, bowel sounds present and hypoactive. No reaction to deep palpation. EXTREMITIES: No clubbing, cyanosis, or edema. No joint effusion. Warm. HD access L arm looks ok NEUROLOGICAL: Not responding PSYCHIATRIC: Unable to assess LINE: Lines with no evidence of infection Assessment & Plan Remarks IMPRESSION Recurrent pleural effusion, and ascites Respiratory failure Klebsiella PNA Shock, on pressors ESRD on HD Abdominal distension, ileus Thrombocytopenia, better RECOMMENDATION Give 7 days Rocephin - end date ordered in [employer] Monitor progress Follow temps Weaning per CCM - not tolerating; likely will need trach if family still wants aggressive Rx D/W Paula Morse MD Jan 01, 2017 14:52
--- NOTE | 2017-01-01 15:20 | PD.WCN.NOT ---
Wound Consult Description: Consult received for pressure ulcer to sacral/ scrotum area. Patient seen on Doctor would like patient to be seen again Communicated with: MARQUITA Angela and Doctor Pérez Recommendation: Calazime skin protectant BID and PRN for moisture to scrotum and buttocks Reposition patient every 2 hours and PRN for comfort to offload sacral pressure points as tolerated Use 1 ultrasorb underneath patient for absorption of moisture (2 staggered) Patient is noted on a Veronica mattress. If patient condition improves, recommend low airloss with alternating pressure mattress Additional Information: Patient seen on 5th floor [facility] for evaluation of pressure ulcer to sacral / scrotum area.Patient seen for skin tears on sacral area last time that were assessed as moisture related. Patient seen today with MARQUITA Angela [facility] and turned with maximum assistance to R side to reveal barrier cream in place . Cleansed some barrier cream off with soap and water to reveal unstageable wound with mixed etiology of moisture, and pressure. Scrotal wound is assessed as full thickness wound that appears to be the result of severe incontinence associated dermatitis. Wound measures ~10cm x ~12cm x eschar. Wound presents with ~30% pink tissue surrounding ~70%thin black eschar. Periwound is denuded and noted with blanchable erythema.Wound drainage is minimal and sero-sanguinous without odor. Wound margins are uneven and poorly defined. Dignisheild in place and leaking, MARQUITA Angela is flushing to clear tube, has checked placement and balloon inflation.Cleansed patient of stool, and pat dry. Applied thick layer of Calazime barrier cream over sacral, buttock, perineal, scrotal and groin areas, and left open to air. Patient seen with multiple deep tissue injuries to upper and medial back largest measures 8cm x 5 cm on L scapula. other deep tissue injuries are seen on L posterior 1st and 4th ribs, thoracic spine, R posterior 4th rib area and L posterior hip. Sprayed deep tissue injuries with skin prep and left open to air.Due to periwound condition and leaking dignisheild do not recommend covering wound at this time. Recommendations are noted above. When patient is more stable, recommend alternating pressure bed with low airloss. Maren Nye [facility] Jan 01, 2017 15:20
--- NOTE | 2017-01-01 15:20 | PD.WCN.NOT ---
Wound Consult Description: Consult received for pressure ulcer to sacral/ scrotum area. Patient seen on Doctor would like patient to be seen again Communicated with: MARQUITA Angela and Doctor Pérez Recommendation: Calazime skin protectant BID and PRN for moisture to scrotum and buttocks Reposition patient every 2 hours and PRN for comfort to offload sacral pressure points as tolerated Use 1 ultrasorb underneath patient for absorption of moisture (2 staggered) Patient is noted on a Veronica mattress. If patient condition improves, recommend low airloss with alternating pressure mattress Additional Information: Patient seen on 5th floor [facility] for evaluation of pressure ulcer to sacral / scrotum area.Patient seen for skin tears on sacral area last time that were assessed as moisture related. Patient seen today with MARQUITA Angela [facility] and turned with maximum assistance to R side to reveal barrier cream in place . Cleansed some barrier cream off with soap and water to reveal unstageable wound with mixed etiology of moisture, and pressure. Scrotal wound is assessed as full thickness wound that appears to be the result of severe incontinence associated dermatitis. Wound measures ~10cm x ~12cm x eschar. Wound presents with ~30% pink tissue surrounding ~70%thin black eschar. Periwound is denuded and noted with blanchable erythema.Wound drainage is minimal and sero-sanguinous without odor. Wound margins are uneven and poorly defined. Dignisheild in place and leaking, MARQUITA Angela is flushing to clear tube, has checked placement and balloon inflation.Cleansed patient of stool, and pat dry. Applied thick layer of Calazime barrier cream over sacral, buttock, perineal, scrotal and groin areas, and left open to air. Patient seen with multiple deep tissue injuries to upper and medial back largest measures 8cm x 5 cm on L scapula. other deep tissue injuries are seen on L posterior 1st and 4th ribs, thoracic spine, R posterior 4th rib area and L posterior hip. Sprayed deep tissue injuries with skin prep and left open to air.Due to periwound condition and leaking dignisheild do not recommend covering wound at this time. Recommendations are noted above. When patient is more stable, recommend alternating pressure bed with low airloss. Maren Nye [facility] Jan 01, 2017 15:20
--- NOTE | 2017-01-01 15:20 | PD.WCN.NOT ---
Wound Consult Description: Consult received for pressure ulcer to sacral/ scrotum area. Patient seen on Doctor would like patient to be seen again Communicated with: MARQUITA Angela and Doctor Pérez Recommendation: Calazime skin protectant BID and PRN for moisture to scrotum and buttocks Reposition patient every 2 hours and PRN for comfort to offload sacral pressure points as tolerated Use 1 ultrasorb underneath patient for absorption of moisture (2 staggered) Patient is noted on a Veronica mattress. If patient condition improves, recommend low airloss with alternating pressure mattress Additional Information: Patient seen on 5th floor [facility] for evaluation of pressure ulcer to sacral / scrotum area.Patient seen for skin tears on sacral area last time that were assessed as moisture related. Patient seen today with MARQUITA Angela [facility] and turned with maximum assistance to R side to reveal barrier cream in place . Cleansed some barrier cream off with soap and water to reveal unstageable wound with mixed etiology of moisture, and pressure. Scrotal wound is assessed as full thickness wound that appears to be the result of severe incontinence associated dermatitis. Wound measures ~10cm x ~12cm x eschar. Wound presents with ~30% pink tissue surrounding ~70%thin black eschar. Periwound is denuded and noted with blanchable erythema.Wound drainage is minimal and sero-sanguinous without odor. Wound margins are uneven and poorly defined. Dignisheild in place and leaking, MARQUITA Angela is flushing to clear tube, has checked placement and balloon inflation.Cleansed patient of stool, and pat dry. Applied thick layer of Calazime barrier cream over sacral, buttock, perineal, scrotal and groin areas, and left open to air. Patient seen with multiple deep tissue injuries to upper and medial back largest measures 8cm x 5 cm on L scapula. other deep tissue injuries are seen on L posterior 1st and 4th ribs, thoracic spine, R posterior 4th rib area and L posterior hip. Sprayed deep tissue injuries with skin prep and left open to air.Due to periwound condition and leaking dignisheild do not recommend covering wound at this time. Recommendations are noted above. When patient is more stable, recommend alternating pressure bed with low airloss. Maren Nye [facility] Jan 01, 2017 15:20
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
--- NOTE | 2017-01-01 17:04 | HHI.NPPN ---
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 Patient now presents with increasing shortness of breath noted to have bilateral pleural effusions which appear to be loculated. Patient missed his dialysis session yesterday. Moderate hyperkalemia on presentation. Now status post bilateral pigtail catheter placement left and right pleural cavity. Pneumothorax bilaterally postprocedure. Patient seen during his dialysis session. Appears to be lethargic and nonverbal at this time. Interval History Remains unchanged. reports they are planning terminal extubation on Thursday. (Emily Lunsford) Review of Systems General General Remarks Unable to obtain d/t clinical status (Emily Lunsford) Objective Data Data 01/01/17 01/02/17 19:00 07:00 Intake Total 58 ml Balance 58 ml IV Total 58 ml Vital Signs Date Time Temp Pulse Resp B/P (MAP) Pulse Ox O2 Delivery O2 Flow Rate FiO2 01/01/17 16:00 78 01/01/17 15:06 92 35 01/01/17 14:00 78 01/01/17 12:00 98.6 76 20 146/54 (84) 01/01/17 12:00 76 01/01/17 12:00 35 01/01/17 11:23 100 35 01/01/17 10:00 83 01/01/17 08:13 100 35 01/01/17 08:00 81 01/01/17 08:00 99.6 81 15 116/64 (81) 100 01/01/17 08:00 35 01/01/17 06:00 85 01/01/17 04:10 100 35 01/01/17 04:00 99.5 99 26 149/79 (102) 83 01/01/17 04:00 99 01/01/17 04:00 35 01/01/17 02:00 95 01/01/17 01:03 100 35 01/01/17 00:00 98.4 89 19 114/54 (74) 01/01/17 00:00 35 01/01/17 00:00 89 12/31/16 22:00 89 12/31/16 20:52 92 35 12/31/16 20:00 98.5 85 16 114/53 (73) 74 12/31/16 20:00 85 12/31/16 20:00 35 12/31/16 18:00 94 12/31/16 17:03 92 35 (Emily Lunsford) -: 12/31/16 0505 12/31/16 0515 Imaging Last Impressions Chest X-Ray 12/30/16 0000 Signed Impressions: Service Date/Time: Friday, December 30, 2016 09:41 - CONCLUSION: 1. No significant change in the bibasilar pneumothoraces with chest tubes in place. 2. Stable right basilar consolidation. 3. Endotracheal tube and nasogastric tubes are stable. 4. Stable hazy opacity within the left lung base. Eliecer Kingston MD Head CT 12/26/16 0000 Signed Impressions: Service Date/Time: Monday, December 26, 2016 11:03 - CONCLUSION: 1. Chronic changes with encephalomalacia in the high right and posterior medial parietal convexity. 2. Old lacunar type infarct in the left sargent radiata. Moderately severe periventricular small vessel ischemic demyelination. 3. Old linear infarct in the right cerebellar hemisphere. 4. Possible acute sinusitis in the left maxillary antra. 5. No acute intracranial process Koby Duncan MD Abdomen/Pelvis CT 12/26/16 0000 Signed Impressions: Service Date/Time: Monday, December 26, 2016 11:06 - CONCLUSION: 1. Bilateral large hydropneumothoraces. Chest drainage tube on the right side is included in the [id number] of the skin and is projected in the lower medial right chest. 2. Significant ascites diffuse throughout the abdomen and pelvis were 3. Bilateral renal cysts Nic Cha MD Abdomen X-Ray 12/26/16 0000 Signed Impressions: Service Date/Time: Monday, December 26, 2016 09:02 - CONCLUSION: 1. Stable focal small bowel distention in the midabdomen consistent with focal ileus versus partial small bowel obstruction. 2. No significant interval change. Luisito Forrest MD Chest CT 12/20/16 0000 Signed Impressions: Service Date/Time: Tuesday, December 20, 2016 16:26 - CONCLUSION: 1. Moderate right and small left hydropneumothorax with small caliber chest tubes present bilaterally, not significant changed from prior chest radiograph. Dependent consolidation and atelectasis of both lungs. No pneumomediastinum or subcutaneous air. Germán Vences MD Additional Information 01/01/17 01/01/17 01/02/17 15:00 23:00 07:00 Intake Total 58 ml Balance 58 ml IV Total 58 ml Medication Review Current Medications Medications (Trade) Dose Ordered Sig/Bill Route Start Time Stop Time Status Last Admin (Dulcolax Ec) 10 mg DAILY PRN PO 12/19/16 20:00 (Xalatan 0.005% Opth Soln) 1 drop HS EACH EYE 12/19/16 21:00 12/30/16 21:00 (Pravachol) 20 mg HS PO 12/19/16 21:00 12/31/16 21:18 (Ecotrin Ec) 81 mg DAILY PO 12/20/16 09:00 01/01/17 07:51 (Nephrocaps) 1 cap DAILY PO 12/20/16 09:00 01/01/17 07:51 (Oscal) 1,000 mg DAILY PO 12/20/16 09:00 01/01/17 08:08 (Cosopt 2-0.5% Opth Soln) 1 drop BID EACH EYE 12/19/16 21:00 01/01/17 07:48 (NS Flush) 2 ml UNSCH PRN IV FLUSH 12/19/16 20:15 12/29/16 12:46 (NS Flush) 2 ml BID IV FLUSH 12/19/16 21:00 01/01/17 07:50 (Tylenol) 650 mg Q6H PRN PO 12/19/16 20:15 01/01/17 03:49 (Zofran Inj) 4 mg Q6H PRN IV PUSH 12/19/16 20:15 12/29/16 09:51 (Ambien) 5 mg HS PRN PO 12/19/16 20:15 (Heparin Inj) 5,000 units Q12H SQ 12/19/16 21:00 01/01/17 07:52 Miscellaneous Information 1 Q361D XX 12/19/16 20:15 (Chlorhexidine 2% Cloth) Taper DAILY@04 TOP 12/20/16 04:00 12/16/17 03:59 01/01/17 04:00 (Chlorhexidine 2% Cloth) 3 pack UNSCH PRN TOP 12/19/16 20:15 (Shelby-Colace) 1 tab BID PO 12/19/16 21:00 12/31/16 21:15 (Milk Of Magnesia Liq) 30 ml Q12H PRN PO 12/19/16 20:15 (Senokot) 17.2 mg Q12H PRN PO 12/19/16 20:15 12/22/16 09:39 (Dulcolax Supp) 10 mg DAILY PRN RECTAL 12/19/16 20:15 (Lactulose Liq) 30 ml DAILY PRN PO 12/19/16 20:15 12/22/16 09:37 (Persantine) 75 mg BID PO 12/20/16 09:00 01/01/17 07:49 (Apresoline Inj) 20 mg Q4H PRN IV 12/20/16 00:15 12/26/16 21:22 Sodium Chloride 1,000 ml @ 0 mls/hr Q0M PRN OTHER 12/20/16 10:04 12/31/16 12:40 Sodium Chloride 1,000 ml @ 200 mls/hr Q5H PRN IV 12/20/16 10:04 Sodium Chloride 1,000 ml @ 0 mls/hr Q0M PRN OTHER 12/20/16 10:04 (Mannitol Inj) 12.5 gm UNSCH PRN IV 12/20/16 10:15 Albumin Human 100 ml @ 60 mls/hr UNSCH PRN IV 12/20/16 10:15 12/31/16 10:30 (NS Flush) 5 ml UNSCH PRN IV FLUSH 12/20/16 10:15 (Heparin Inj) UNSCH PRN .XX 12/20/16 10:15 (Gentamicin (Dialysis) Inj) 20 mg UNSCH PRN OTHER 12/20/16 10:15 (Zofran Inj) 4 mg UNSCH PRN IV PUSH 12/20/16 10:15 (Tylenol) 650 mg UNSCH PRN PO 12/20/16 10:15 (Benadryl) 25 mg UNSCH PRN PO 12/20/16 10:15 (Nitrostat Sl) 0.4 mg UNSCH PRN SL 12/20/16 10:15 (Catapres) 0.1 mg UNSCH PRN PO 12/20/16 10:15 (Epogen Inj) 5,000 units UNSCH PRN IV PUSH 12/20/16 10:15 12/31/16 12:40 (Gelfoam 12 Mm/7 Mm Top) 1 foam UNSCH PRN TOP 12/20/16 10:15 12/29/16 08:52 (Peridex 0.12% Liq) 15 ml BID@08,20 MT 12/21/16 08:00 01/01/17 07:48 (Duoneb Neb) 1 ampule Q6HR NEB PRN NEB 12/21/16 08:00 12/30/16 19:25 (Protonix Inj) 40 mg Q24H IV PUSH 12/21/16 09:00 01/01/17 07:50 (D50w (Vial) Inj) 50 ml UNSCH PRN IV PUSH 12/21/16 08:15 12/31/16 15:21 (Glucagon Inj) 1 mg UNSCH PRN OTHER 12/21/16 08:15 (NovoLIN R SUPPLEMENTAL SCALE) 1 Q4H SQ 12/21/16 09:00 12/30/16 14:00 Fentanyl Citrate 250 ml @ 5 mls/hr TITRATE PRN IV 12/21/16 10:00 12/26/16 21:17 (Brethine Inj) 1 mg UNSCH PRN SQ 12/21/16 12:45 (Colace Liq) 100 mg Q12HR PO 12/22/16 09:15 01/01/17 07:49 (Senna Liq) 8.8 mg DAILY PO 12/22/16 09:15 01/01/17 07:49 (Drisdol) 50,000 units Q7D PO 12/31/16 09:00 12/31/16 15:12 Phenylephrine HCl 40 mg/Dextrose 500 ml @ 30 mls/hr TITRATE PRN IV 12/28/16 16:45 (Reglan Inj) 5 mg Q8HR IV PUSH 12/28/16 22:00 01/01/17 13:34 (SoluCORTEF INJ) 50 mg Q6HR IV PUSH 12/29/16 00:00 01/01/17 11:56 Ceftriaxone Sodium 1000 mg/ Sodium Chloride 100 ml @ 200 mls/hr Q24H IV 12/29/16 11:00 01/04/17 23:00 01/01/17 11:56 (Patricia Orozco) 1 ampule Q6HR NEB NEB 12/31/16 16:00 01/01/17 15:05 Dextrose 1,000 ml @ 42 mls/hr [id number] IV 12/31/16 14:30 12/31/16 15:19 Dextrose 1,000 ml @ 50 mls/hr Q20H IV 01/01/17 12:00 01/01/17 12:00 (Emily Lunsford) Physical Exam General Appearance: No Acute Distress, Malnourished (Emily Lunsford) Eyes Eye Remarks Eyes open and blinks when spoken to (Emily Lunsford) Pulmonary Resp Exam: No Distress, Diminished Breath Sounds Resp Remarks bilat chest tubes present draining serosanguineous fluid (Emily Lunsford) Cardiology CV Exam: Regular, Normal Sinus Rhythm (Emily Lunsford) Gastrointestinal/Abdomen GI Exam: Soft (Emily Lunsford) Integumentary Skin Exam: Warm (Emily Lunsford) Extremeties Extremities Exam: Moderate Edema (generalized in extremities and hips) (Emily Lunsford) Neurologic Neuro Exam: Sedated (Emily Lunsford) VTE Prophylaxis Device: SCDs (Emily Lunsford) Assessment/Plan Problem List: (1) ESRD (end stage renal disease) on dialysis ICD Codes: N18.6 - End stage renal failure on dialysis; Z99.2 - Dependence on renal dialysis Status: Chronic Plan: Continue HD MWF states she plan on terminal extubation on Thursday and is requesting that 01/02/17 tentatively be final HD. Will continue to follow. Medications should be adjusted for the patient's estimated end stage renal disease if clinically indicated. Gadolinium contraindicated. (2) Failure to thrive in adult ICD Codes: R62.7 - Adult failure to thrive Status: Chronic Plan: Making long-term prognosis poor even if he should survive this admission. (3) Non-compliance with renal dialysis ICD Codes: Z91.15 - Patient's noncompliance with renal dialysis Plan: I do not believe that we can improve patient's compliance given previous attempts but will continue education. (4) HTN (hypertension) ICD Codes: I10 - Hypertension Status: Chronic Plan: By hx. Hypotensive currently on inotropic support (5) Anemia of renal disease ICD Codes: D63.1 - Anemia in chronic kidney disease (Emily Lunsford) Plan The exam, history, and the medical decision-making described in the above note were completed with the assistance of the PA-C. I reviewed and agree with the findings presented. (Izabela Thompson MD) Emily Lunsford Jan 01, 2017 17:04 Izabela Thompson MD Jan 02, 2017 12:43
[2017-01-01] MEDS: LATANOPROST 0.005% OPHT SOLN 2.5 ML BTL EACH EYE SCH ×2 (22:23)
[2017-01-01] MEDS: PRAVASTATIN SOD 20 MG TAB PO SCH ×2 (22:26)
[2017-01-02] VITALS (17 sets, daily range): BP systolic 101–158; BP diastolic 57–79; PULSE 77–117; RESP 3–18; TEMP 98.1–99; O2SAT 1–100
[2017-01-02] MEDS: INSULIN NovoLIN REGULAR SUPPLEMENTAL SCALE SQ SCH ×10 (00:49→20:00)
[2017-01-02] MEDS: HYDROCORTISONE SOD SUCCINATE 100 MG VIAL IV PUSH SCH ×10 (00:49→23:49)
[2017-01-02] MEDS ORDERED: EPINEPHrine (1:1000) INJ 2 MG in DEXTROSE 5% IN WATER INJ 250 ML IV PRN ×4 (02:00)
[2017-01-02] MEDS: RESP: ALBUTEROL 2.5 MG/IPRATROPIUM 0.5 MG NEB (SCH) NEB ×8 (03:10→20:35)
[2017-01-02] MEDS: CHLORHEXIDINE GLUCONATE 2 % 1 PACK (2 CLOTHS) TOP SCH ×2 (04:00)
[2017-01-02] MEDS: METOCLOPRAMIDE HCL 10 MG/2 ML VIAL IV PUSH SCH ×6 (06:14→21:19)
[2017-01-02] MEDS: DEXTROSE 5% IN WATE 1000ML INJ 1,000 ML IV SCH (06:14)
[2017-01-02 06:27] LABS: ALBUMIN 2.2 GM/DL (3.4-5.0); BICARBONATE 24.5 MEQ/L (21.0-32.0); CALCIUM 7.7 MG/DL (8.5-10.1); CREATININE 4.8 MG/DL (0.60-1.30); PHOSPHORUS 2.5 MG/DL (2.5-4.9)
[2017-01-02] MEDS: CALCIUM CARBONATE 1.25 GM (CA 500 MG) TAB PO SCH ×2 (07:52)
[2017-01-02] MEDS: ASPIRIN EC 81 MG TABEC PO SCH ×2 (07:52)
[2017-01-02] MEDS: SENNOSIDES SYRUP 8.8 MG/5 ML CUP PO SCH ×2 (07:52)
[2017-01-02] MEDS: VITAMIN B CMPLX/VITC/FOLIC AC CAP PO SCH ×2 (07:53)
[2017-01-02] MEDS: HEPARIN SODIUM - SQ 10,000 UNITS/ML VIAL SQ SCH ×4 (07:53→21:19)
[2017-01-02] MEDS: PANTOPRAZOLE SODIUM 40 MG VIAL IV PUSH SCH ×2 (07:53)
[2017-01-02] MEDS: DOCUSATE SODIUM 100 MG/10 ML UDC PO SCH ×4 (07:53→21:18)
[2017-01-02] MEDS: DOCUSATE SODIUM 50 MG/SENNA 8.6 MG TAB PO SCH ×4 (07:54→21:00)
[2017-01-02] MEDS: SODIUM CHLORIDE 0.9% FLUSH 10 ML FLUSH IV FLUSH SCH ×4 (07:54→21:18)
[2017-01-02] MEDS: DIPYRIDAMOLE 25 MG TAB PO SCH ×4 (08:04→21:19)
[2017-01-02] MEDS: CHLORHEXIDINE 0.12% (ORAL KIT) 15 ML CUP MT SCH ×4 (08:05→21:17)
[2017-01-02] MEDS: DORZOLAMIDE/TIMOLOL OPTH SOLN 10 ML BTL EACH EYE SCH ×4 (08:30→21:18)
[2017-01-02] MEDS ORDERED: MIDAZOLAM HCL 5 MG/5 ML VIAL IV PUSH ONE ×2 (11:45)
[2017-01-02] MEDS: fentaNYL DRIP 250 ML IV PRN ×2 (12:29)
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
--- NOTE | 2017-01-02 12:43 | HHI.NPPN ---
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 Patient now presents with increasing shortness of breath noted to have bilateral pleural effusions which appear to be loculated. Patient missed his dialysis session yesterday. Moderate hyperkalemia on presentation. Now status post bilateral pigtail catheter placement left and right pleural cavity. Pneumothorax bilaterally postprocedure. Patient seen during his dialysis session. Appears to be lethargic and nonverbal at this time. Interval History Patient remains ventilatory dependent. No response to simple questions at this time. Inotropic agents discontinued however. Review of Systems General General Remarks Unable to obtain d/t clinical status Objective Data Data Vital Signs Date Time Temp Pulse Resp B/P (MAP) Pulse Ox O2 Delivery O2 Flow Rate FiO2 01/02/17 12:00 98.6 103 11 113/57 (75) 100 01/02/17 12:00 103 01/02/17 10:00 84 01/02/17 08:05 100 35 01/02/17 08:00 77 01/02/17 08:00 98.6 77 3 101/59 (73) 100 01/02/17 06:00 81 01/02/17 04:23 100 35 01/02/17 04:00 78 01/02/17 04:00 35 01/02/17 04:00 98.8 78 18 115/58 (77) 100 01/02/17 02:00 77 01/02/17 00:10 100 35 01/02/17 00:00 35 01/02/17 00:00 83 01/02/17 00:00 99.0 83 18 123/67 (85) 100 01/01/17 22:00 80 01/01/17 20:55 94 35 01/01/17 20:00 78 01/01/17 20:00 35 01/01/17 20:00 97.9 78 19 110/56 (74) 100 01/01/17 18:00 76 01/01/17 16:00 78 01/01/17 16:00 35 01/01/17 16:00 99.0 78 9 105/58 (74) 98 01/01/17 15:06 92 35 01/01/17 14:00 78 -: 12/31/16 0505 01/02/17 0454 Physical Exam General Appearance: No Acute Distress, Malnourished Pulmonary Resp Exam: No Distress, Diminished Breath Sounds Cardiology CV Exam: Regular, Normal Sinus Rhythm Gastrointestinal/Abdomen GI Exam: Soft Integumentary Skin Exam: Warm Extremeties Extremities Exam: Moderate Edema (generalized in extremities and hips) VTE Prophylaxis Device: SCDs Assessment/Plan Problem List: (1) ESRD (end stage renal disease) on dialysis ICD Codes: N18.6 - End stage renal failure on dialysis; Z99.2 - Dependence on renal dialysis Status: Chronic Plan: Patient was seen during dialysis today. Tolerating treatment. Patient still the ET tube in place and ventilatory dependent. states she plan on terminal extubation on Thursday and is requesting that 01/02/17 tentatively be final HD. Comfort care appropriate in this situation. Will continue to follow. Medications should be adjusted for the patient's estimated end stage renal disease if clinically indicated. Gadolinium contraindicated. (2) Failure to thrive in adult ICD Codes: R62.7 - Adult failure to thrive Status: Chronic Plan: Making long-term prognosis poor even if he should survive this admission. (3) Non-compliance with renal dialysis ICD Codes: Z91.15 - Patient's noncompliance with renal dialysis Plan: I do not believe that we can improve patient's compliance given previous attempts but will continue education. (4) HTN (hypertension) ICD Codes: I10 - Hypertension Status: Chronic Plan: By hx. Hypotensive currently on inotropic support (5) Anemia of renal disease ICD Codes: D63.1 - Anemia in chronic kidney disease Izabela Thompson MD Jan 02, 2017 12:42
[2017-01-02] MEDS: cefTRIAXone INJ 1,000 MG in SODIUM CHLORIDE 0.9% INJ 100 ML IV SCH ×4 (13:07)
--- NOTE | 2017-01-02 14:28 | HHI.IDPN ---
Subjective Subjective Remarks is an 86-year-old male, initially presented to the hospital on December 19, for a scheduled bilateral thoracenteses. He has had problem with recurrent pleural effusion, as well as ascites, and has had multiple procedures done to drain the fluid. He was scheduled to have thoracentesis on October 19, but he went into respiratory distress, and ended up getting admitted. He was found to have a pneumothorax on the left and a large pleural effusion on the right. He had placement of bilateral chest tube, but there was only partial reexpansion of the lungs. There was no mention that he was having any cough or congestion, or fever or chills. This morning he had progressive respiratory distress, and required intubation. He is afebrile. He is on the vent. He is also hypotensive, and requiring 3 pressors. He is on levo fed, Forrest-Synephrine, and vasopressin. Cardiothoracic surgery has been consulted to evaluate the patient due to nonreactive expansion of the lung. Patient has end-stage renal disease, and gets hemodialysis. He had hemodialysis yesterday. Infectious disease consultation has been requested to evaluate the patient for possible pneumonia and shock. Notes reviewed Temps ok Remains veny dependent CT output not a lot CXR has not changed Not tolerating weaning Antibiotics I attest that I obtained, updated or reviewed the home and current medications. Rocephin Current Medications Medications (Trade) Dose Ordered Sig/Bill Route Start Time Stop Time Status Last Admin (Dulcolax Ec) 10 mg DAILY PRN PO 12/19/16 20:00 (Xalatan 0.005% Opth Soln) 1 drop HS EACH EYE 12/19/16 21:00 01/01/17 22:23 (Pravachol) 20 mg HS PO 12/19/16 21:00 01/01/17 22:26 (Ecotrin Ec) 81 mg DAILY PO 12/20/16 09:00 01/02/17 07:52 (Nephrocaps) 1 cap DAILY PO 12/20/16 09:00 01/02/17 07:53 (Oscal) 1,000 mg DAILY PO 12/20/16 09:00 01/02/17 07:52 (Cosopt 2-0.5% Opth Soln) 1 drop BID EACH EYE 12/19/16 21:00 01/02/17 08:30 (NS Flush) 2 ml UNSCH PRN IV FLUSH 12/19/16 20:15 12/29/16 12:46 (NS Flush) 2 ml BID IV FLUSH 12/19/16 21:00 01/02/17 07:54 (Tylenol) 650 mg Q6H PRN PO 12/19/16 20:15 01/01/17 22:25 (Zofran Inj) 4 mg Q6H PRN IV PUSH 12/19/16 20:15 12/29/16 09:51 (Ambien) 5 mg HS PRN PO 12/19/16 20:15 (Heparin Inj) 5,000 units Q12H SQ 12/19/16 21:00 01/02/17 07:53 Miscellaneous Information 1 Q361D XX 12/19/16 20:15 (Chlorhexidine 2% Cloth) Taper DAILY@04 TOP 12/20/16 04:00 12/16/17 03:59 01/02/17 04:00 (Chlorhexidine 2% Cloth) 3 pack UNSCH PRN TOP 12/19/16 20:15 (Shelby-Colace) 1 tab BID PO 12/19/16 21:00 01/01/17 22:26 (Milk Of Magnesia Liq) 30 ml Q12H PRN PO 12/19/16 20:15 (Senokot) 17.2 mg Q12H PRN PO 12/19/16 20:15 12/22/16 09:39 (Dulcolax Supp) 10 mg DAILY PRN RECTAL 12/19/16 20:15 (Lactulose Liq) 30 ml DAILY PRN PO 12/19/16 20:15 12/22/16 09:37 (Persantine) 75 mg BID PO 12/20/16 09:00 01/02/17 08:04 (Apresoline Inj) 20 mg Q4H PRN IV 12/20/16 00:15 12/26/16 21:22 Sodium Chloride 1,000 ml @ 0 mls/hr Q0M PRN OTHER 12/20/16 10:04 12/31/16 12:40 Sodium Chloride 1,000 ml @ 200 mls/hr Q5H PRN IV 12/20/16 10:04 Sodium Chloride 1,000 ml @ 0 mls/hr Q0M PRN OTHER 12/20/16 10:04 (Mannitol Inj) 12.5 gm UNSCH PRN IV 12/20/16 10:15 Albumin Human 100 ml @ 60 mls/hr UNSCH PRN IV 12/20/16 10:15 12/31/16 10:30 (NS Flush) 5 ml UNSCH PRN IV FLUSH 12/20/16 10:15 (Heparin Inj) UNSCH PRN .XX 12/20/16 10:15 (Gentamicin (Dialysis) Inj) 20 mg UNSCH PRN OTHER 12/20/16 10:15 (Zofran Inj) 4 mg UNSCH PRN IV PUSH 12/20/16 10:15 (Tylenol) 650 mg UNSCH PRN PO 12/20/16 10:15 (Benadryl) 25 mg UNSCH PRN PO 12/20/16 10:15 (Nitrostat Sl) 0.4 mg UNSCH PRN SL 12/20/16 10:15 (Catapres) 0.1 mg UNSCH PRN PO 12/20/16 10:15 (Epogen Inj) 5,000 units UNSCH PRN IV PUSH 12/20/16 10:15 12/31/16 12:40 (Gelfoam 12 Mm/7 Mm Top) 1 foam UNSCH PRN TOP 12/20/16 10:15 12/29/16 08:52 (Peridex 0.12% Liq) 15 ml BID@08,20 MT 12/21/16 08:00 01/02/17 08:05 (Duoneb Neb) 1 ampule Q6HR NEB PRN NEB 12/21/16 08:00 12/30/16 19:25 (Protonix Inj) 40 mg Q24H IV PUSH 12/21/16 09:00 01/02/17 07:53 (D50w (Vial) Inj) 50 ml UNSCH PRN IV PUSH 12/21/16 08:15 12/31/16 15:21 (Glucagon Inj) 1 mg UNSCH PRN OTHER 12/21/16 08:15 Fentanyl Citrate 250 ml @ 5 mls/hr TITRATE PRN IV 12/21/16 10:00 01/02/17 12:29 (Brethine Inj) 1 mg UNSCH PRN SQ 12/21/16 12:45 (Colace Liq) 100 mg Q12HR PO 12/22/16 09:15 01/02/17 07:53 (Senna Liq) 8.8 mg DAILY PO 12/22/16 09:15 01/02/17 07:52 (Drisdol) 50,000 units Q7D PO 12/31/16 09:00 12/31/16 15:12 Phenylephrine HCl 40 mg/Dextrose 500 ml @ 30 mls/hr TITRATE PRN IV 12/28/16 16:45 (Reglan Inj) 5 mg Q8HR IV PUSH 12/28/16 22:00 01/02/17 13:08 (SoluCORTEF INJ) 50 mg Q6HR IV PUSH 12/29/16 00:00 01/02/17 13:07 Ceftriaxone Sodium 1000 mg/ Sodium Chloride 100 ml @ 200 mls/hr Q24H IV 12/29/16 11:00 01/04/17 23:00 01/02/17 13:07 (Duoneb Neb) 1 ampule Q6HR NEB NEB 12/31/16 16:00 01/02/17 08:04 Dextrose 1,000 ml @ 42 mls/hr [id number] IV 12/31/16 14:30 12/31/16 15:19 Dextrose 1,000 ml @ 50 mls/hr Q20H IV 01/01/17 12:00 01/02/17 06:14 (NovoLIN R SUPPLEMENTAL SCALE) 1 BID@0800,2000 SQ 01/02/17 20:00 Past Medical History ESRD on HD Ascites Hypertension CVA Duodenitis Past Surgical History Left carotid endarectomy Fistula left arm Multiple thoracentesis and paracentesis Allergies: Coded Allergies: *MDRO Multi-Drug Resistant Organism (Verified Adverse Reaction, Unknown, 01/29/15) MRSA PCR Screen positive 01/25/15. Objective . Vital Signs Date Time Temp Pulse Resp B/P (MAP) Pulse Ox O2 Delivery O2 Flow Rate FiO2 01/02/17 14:00 99 01/02/17 13:57 1 80 01/02/17 12:00 98.6 103 11 113/57 (75) 100 01/02/17 12:00 80 01/02/17 12:00 103 01/02/17 10:00 84 01/02/17 08:05 100 35 01/02/17 08:00 77 01/02/17 08:00 80 01/02/17 08:00 98.6 77 3 101/59 (73) 100 01/02/17 06:00 81 01/02/17 04:23 100 35 01/02/17 04:00 78 01/02/17 04:00 35 01/02/17 04:00 98.8 78 18 115/58 (77) 100 01/02/17 02:00 77 01/02/17 00:10 100 35 01/02/17 00:00 35 01/02/17 00:00 83 01/02/17 00:00 99.0 83 18 123/67 (85) 100 01/01/17 22:00 80 01/01/17 20:55 94 35 01/01/17 20:00 78 01/01/17 20:00 35 01/01/17 20:00 97.9 78 19 110/56 (74) 100 01/01/17 18:00 76 01/01/17 16:00 78 01/01/17 16:00 35 01/01/17 16:00 99.0 78 9 105/58 (74) 98 01/01/17 15:06 92 35 01/02/17 01/02/17 01/03/17 15:00 23:00 07:00 Output Total 1500 ml Balance -1500 ml Hemodialysis 1500 ml . Laboratory Tests Test 01/01/17 17:42 01/02/17 04:54 Potassium Level 3.1 MEQ/L 2.7 MEQ/L Blood Urea Nitrogen 63 MG/DL Creatinine 4.80 MG/DL Random Glucose 166 MG/DL Albumin 2.2 GM/DL Calcium Level 7.7 MG/DL Phosphorus Level 2.5 MG/DL Sodium Level 138 MEQ/L Chloride Level 98 MEQ/L Carbon Dioxide Level 24.5 MEQ/L Anion Gap 16 MEQ/L Estimat Glomerular Filtration Rate 14 ML/MIN Imaging Chest X-Ray 12/29/16 0600 Signed Impressions: Service Date/Time: Thursday, December 29, 2016 03:59 - CONCLUSION: No significant interval change Beto Lane MD Chest X-Ray 12/28/16 0000 Signed Impressions: Service Date/Time: Wednesday, December 28, 2016 07:07 - CONCLUSION: 1. Persistent moderate-sized bibasilar pneumothoraces despite chest tubes in place. 2. Bibasilar consolidations consistent with atelectasis and/or pneumonia. 3. Cardiomegaly. 4. Endotracheal tube in good position 3 cm above the agnes. Eliecer Kingston MD Chest X-Ray 12/24/16 Signed Impressions: Service Date/Time: Saturday, December 24, 2016 08:06 - CONCLUSION: 1. Unchanged bilateral subpulmonic pneumothoraces despite chest tubes. Nic Brown Jr., MD Chest X-Ray 12/23/161999 Signed Impressions: Service Date/Time: Friday, December 23, 2016 19:57 - CONCLUSION: The right chest tube is not visualized possibly withdrawn and the size of the pneumothoraces bilaterally have not significantly changed. There appears to be less consolidation right lung base otherwise not significantly changed. Candy Galo MD Chest X-Ray 12/23/16 Signed Impressions: Service Date/Time: Friday, December 23, 2016 12:24 - CONCLUSION: 1. The right thoracostomy tube has been removed. 2. Remaining left thoracostomy tube. 3. Unchanged subpulmonic pneumothoraces bilaterally. 4. Tiny effusions. 5. Cardiomegaly. Nic Brown Jr., MD Chest X-Ray 12/23/16 Signed Impressions: Service Date/Time: Friday, December 23, 2016 10:22 - CONCLUSION: 1. Some improvement in the consolidation of the right lung particularly involving the upper lobe. 2. Bilateral subpulmonic pneumothoraces are stable. Nic Brown Jr., MD Abdomen X-Ray 12/23/16 Signed Impressions: Service Date/Time: Friday, December 23, 2016 10:28 - CONCLUSION: Some improvement in the distention of the small bowel compared to the prior study. Nic Brown Jr., MD Abdomen X-Ray 12/22/16 Signed Impressions: Service Date/Time: Thursday, December 22, 2016 09:42 - CONCLUSION: There is one loop of small bowel in the midline hypogastric region which is dilated out of proportion to the other loops of small bowel and the colon. This is nonspecific and could represent a localized ileus or an early small bowel obstruction. Nic Cha MD Last Impressions Chest X-Ray 12/21/16 0432 Signed Impressions: Service Date/Time: Wednesday, December 21, 2016 04:38 - CONCLUSION: 1. New consolidative opacity in the right lung most characteristic of pneumonia. 2. Stable appearance of the bibasilar pneumothoraces. Daniel Cowan MD Chest CT 12/20/16 0000 Signed Impressions: Service Date/Time: Tuesday, December 20, 2016 16:26 - CONCLUSION: 1. Moderate right and small left hydropneumothorax with small caliber chest tubes present bilaterally, not significant changed from prior chest radiograph. Dependent consolidation and atelectasis of both lungs. No pneumomediastinum or subcutaneous air. Germán Vences MD Physical Exam GENERAL: on the vent, not in distress SKIN: Warm and dry. No generalized rash HEAD: Atraumatic. Normocephalic. No temporal wasting, or tenderness. EYES: Pale conjunctiva. No petechia or hemorrhage. No scleral icterus. No injection or drainage. EARS, NOSE AND THROAT: Nose without bleeding or purulent nasal discharge. ET in mouth NECK: Trachea midline. Supple and not tender, no meningeal signs CARDIOVASCULAR: Regular rate and rhythm. No murmurs, rubs or gallops heard RESPIRATORY: Decreased BS both bases. King CT in pace. ABDOMEN: Distended abdomen, seems more distended, bowel sounds present and hypoactive. No reaction to deep palpation. EXTREMITIES: No clubbing, cyanosis, or edema. No joint effusion. Warm. HD access L arm looks ok NEUROLOGICAL: Not responding PSYCHIATRIC: Unable to assess LINE: Lines with no evidence of infection Assessment & Plan Remarks IMPRESSION Recurrent pleural effusion, and ascites Respiratory failure Klebsiella PNA Shock, on pressors ESRD on HD Abdominal distension, ileus Thrombocytopenia, better RECOMMENDATION Give 7 days Rocephin - end date ordered in [facility] Monitor progress Follow temps Weaning per CCM - not tolerating; likely will need trach if family still wants aggressive Rx Palliative medicine following Paula Mayes MD Jan 02, 2017 14:28
--- NOTE | 2017-01-02 14:47 | HHI.HCPN ---
Reason for visit a. To assist with evaluation and management of symptoms including: dyspnea , pain b. To assist medical decision maker(s) with: better understanding of current medical conditions; weighing benefits/burdens of medical treatment options; making medical treatment decisions. . Subjective/Interval History He continues to be mechanically ventilated. Pt underwent dialysis, is less arousable for me today. Open eyes briefly, no grimacing or moaning. Family/friend interactions not at bedside today, but underwent dialysis today. Left message with pt's voicemail. Advance Directives Durable Power of Single Pointed Operator: Copy in medical record Advance Directive Specifics Date completed: DPOA for health care completed 10/05/2012 . Health Care Surrogate(s): Pio Lerner is designated as the health care DPOA. . Documented care wishes: No written documentation of health care preferences/wishes/goals. . Objective Vital Signs Date Time Temp Pulse Resp B/P (MAP) Pulse Ox O2 Delivery O2 Flow Rate FiO2 01/02/17 14:00 99 01/02/17 13:57 1 80 01/02/17 12:00 98.6 103 11 113/57 (75) 100 01/02/17 12:00 80 01/02/17 12:00 103 01/02/17 10:00 84 01/02/17 08:05 100 35 01/02/17 08:00 77 01/02/17 08:00 80 01/02/17 08:00 98.6 77 3 101/59 (73) 100 01/02/17 06:00 81 01/02/17 04:23 100 35 01/02/17 04:00 78 01/02/17 04:00 35 01/02/17 04:00 98.8 78 18 115/58 (77) 100 01/02/17 02:00 77 01/02/17 00:10 100 35 01/02/17 00:00 35 01/02/17 00:00 83 01/02/17 00:00 99.0 83 18 123/67 (85) 100 01/01/17 22:00 80 01/01/17 20:55 94 35 01/01/17 20:00 78 01/01/17 20:00 35 01/01/17 20:00 97.9 78 19 110/56 (74) 100 01/01/17 18:00 76 01/01/17 16:00 78 01/01/17 16:00 35 01/01/17 16:00 99.0 78 9 105/58 (74) 98 01/01/17 15:06 92 35 Intake & Output 01/02/17 01/02/17 07:00 19:00 Intake Total 1258 ml Output Total 300 ml 1500 ml Balance 958 ml -1500 ml IV Total 1000 ml Tube Feeding 198 ml Other 60 ml Output Urine Total 0 ml Stool Total 300 ml Chest Tube Drainage Total 0 ml Hemodialysis 1500 ml Physical Exam CONSTITUTIONAL/GENERAL: This is a thin, frail appearing male, intubated, mechanically ventilated in the MICU. TUBES/LINES/DRAINS: ET tube ; OG tube; dialysis fistula LUE; bilateral soft wrist restraints; bilateral chest catheters; peripheral IV; arterial line right radial artery; right femoral central line. SKIN: No jaundice, rashes. Skin tears on edematous scrotum. Buttock skin tear not evaluated. Skin temperature appropriate except for feet which are cool and mottled. EYES: Eyes open but he does not track. Pupils equal and round. Unable to evaluate EOMs. No scleral icterus. No injection or drainage. Fundi not examined. ENT: Unable to evaluate hearing. Nose without bleeding or purulent drainage. Throat without visible erythema, exudates, masses, or lesions though difficult to assess due to intubations. NECK: Trachea midline. CARDIOVASCULAR: Regular rate and rhythm without murmurs, gallops, or rubs. No JVD. RESPIRATORY/CHEST: Symmetric, unlabored respirations. Breath sounds diminished at both bases. No wheezes. GASTROINTESTINAL: Abdomen distended and very taught. No hepato-splenomegaly, or palpable masses. No guarding. Bowel sounds hypoactive. GENITOURINARY: Unable to feel for bladder distension given overall abdominal distension.. Prominent scrotal edema. MUSCULOSKELETAL: Extremities without clubbing, cyanosis. Feet are cool and mottled. LYMPHATICS: Not examined NEUROLOGICAL:More lethargic today. . Diagnostic Tests Laboratory Laboratory Tests Test 12/31/16 05:05 12/31/16 05:15 01/01/17 10:42 01/01/17 17:42 White Blood Count 8.0 TH/MM3 (4.0-11.0) Red Blood Count 2.37 MIL/MM3 (4.50-5.90) Hemoglobin 7.9 GM/DL (13.0-17.0) Hematocrit 22.9 % (39.0-51.0) Mean Corpuscular Volume 96.7 FL (80.0-100.0) Mean Corpuscular Hemoglobin 33.4 PG (27.0-34.0) Mean Corpuscular Hemoglobin Concent 34.6 % (32.0-36.0) Red Cell Distribution Width 16.3 % (11.6-17.2) Platelet Count 83 TH/MM3 (150-450) Mean Platelet Volume 12.0 FL (7.0-11.0) Neutrophils (%) (Auto) 89.9 % (16.0-70.0) Lymphocytes (%) (Auto) 6.8 % (9.0-44.0) Monocytes (%) (Auto) 3.2 % (0.0-8.0) Eosinophils (%) (Auto) 0.0 % (0.0-4.0) Basophils (%) (Auto) 0.1 % (0.0-2.0) Neutrophils # (Auto) 7.2 TH/MM3 (1.8-7.7) Lymphocytes # (Auto) 0.5 TH/MM3 (1.0-4.8) Monocytes # (Auto) 0.3 TH/MM3 (0-0.9) Eosinophils # (Auto) 0.0 TH/MM3 (0-0.4) Basophils # (Auto) 0.0 TH/MM3 (0-0.2) CBC Comment AUTO DIFF Differential Total Cells Counted 100 Neutrophils % (Manual) 82 % (16-70) Band Neutrophils % 9 % (0-6) Lymphocytes % 7 % (9-44) Monocytes % 1 % (0-8) Neutrophils # (Manual) 7.3 TH/MM3 (1.8-7.7) Differential Comment FINAL DIFF MANUAL Plasma Cells 1 % (0-0) Toxic Granulation 1+ (NORMAL) Platelet Estimate LOW (NORMAL) Platelet Morphology Comment ENLARGED (NORMAL) Prothrombin Time 13.3 SEC (9.8-11.6) Prothromb Time International Ratio 1.2 RATIO Activated Partial Thromboplast Time 81.5 SEC (24.3-30.1) Blood Urea Nitrogen 69 MG/DL (7-18) Creatinine 4.77 MG/DL (0.60-1.30) Random Glucose 136 MG/DL (74-106) Albumin 2.2 GM/DL (3.4-5.0) Calcium Level 8.4 MG/DL (8.5-10.1) Phosphorus Level 2.9 MG/DL (2.5-4.9) Magnesium Level 2.1 MG/DL (1.5-2.5) Sodium Level 141 MEQ/L (136-145) Potassium Level 2.6 MEQ/L (3.5-5.1) 3.1 MEQ/L (3.5-5.1) Chloride Level 100 MEQ/L (98-107) Carbon Dioxide Level 26.2 MEQ/L (21.0-32.0) Anion Gap 15 MEQ/L (5-15) Estimat Glomerular Filtration Rate 14 ML/MIN (>89) Blood Gas Puncture Site RT RADIAL Blood Gas Patient Temperature 98.6 Blood Gas HCO3 26 mmol/L (22-26) Blood Gas Base Excess 2.4 mmol/L (-2-2) Blood Gas Oxygen Saturation 96 % (90-100) Arterial Blood pH 7.46 (7.380-7.420) Arterial Blood Partial Pressure CO2 37 mmHg (38-42) Arterial Blood Partial Pressure O2 132 mmHg (61-120) Arterial Blood Oxygen Content 12.6 Vol % (12.0-20.0) Arterial Blood Carboxyhemoglobin 0.9 % (0-4) Arterial Blood Methemoglobin 1.3 % (0-2) Blood Gas Hemoglobin 9.1 G/DL (12.0-16.0) Oxygen Delivery Device VENTILATOR Blood Gas Ventilator Setting [id number]/IP35/[id number] Blood Gas Inspired Oxygen 35 % Test 01/02/17 04:54 Blood Urea Nitrogen 63 MG/DL (7-18) Creatinine 4.80 MG/DL (0.60-1.30) Random Glucose 166 MG/DL (74-106) Albumin 2.2 GM/DL (3.4-5.0) Calcium Level 7.7 MG/DL (8.5-10.1) Phosphorus Level 2.5 MG/DL (2.5-4.9) Sodium Level 138 MEQ/L (136-145) Potassium Level 2.7 MEQ/L (3.5-5.1) Chloride Level 98 MEQ/L (98-107) Carbon Dioxide Level 24.5 MEQ/L (21.0-32.0) Anion Gap 16 MEQ/L (5-15) Estimat Glomerular Filtration Rate 14 ML/MIN (>89) Result Diagram: 12/31/16 0505 01/02/17 0454 Procedures * Biltateral chest tube placement * Intubation/mechanical ventilation * Arterial line placement . Assessment and Plan Disease Oriented Problem List: (1) Loculated pleural effusion Comment: Pulmonology and cardi-thoracic surgery do not feel there is a workable solution to this problem given the patient's overall functional capacity. . (2) Pneumothorax Comment: Lungs unable to re-expand in spite of chest tubes.. As chest tubes are not working and he is not a candidate for surgery, this will likely be a chronic problem making it very hard to wean patient from went and if vent weaning is possible there is a very high likelihood or recurrence/worsening of problem. . (3) ESRD (end stage renal disease) on dialysis Comment: Normally on dialysis M, W, F. . (4) Peripheral vascular disease (5) Anemia Comment: Probably multi-factorial. On top of anemia from his renal disease, he may have acute blood loss anemia from uncertain source. Has received 2 units of PRBCs. . (6) Stroke Comment: Had two strokes in 2013. Now with significant left sided weakness. . (7) Osteoarthritis (8) Hypertension Comment: Now HYPOTENSIVE requiring pressor support. . (9) Glaucoma Symptom Scale: (1) Pain 0-10 Scale: Unable to quantify Comment: Has history of back pain and arthritis pain with use of PRN tramadol at home. Other sources of pain now include prolonged bedbound status; orotracheal and orogastric intubations; restraints; vascular access lines; etc. Patient is unable to locate, quantify, qualify pain. Currently has orders for a fentanyl drip and for tramadol. . (2) Dyspnea 0-10 Scale: Unable to quantify Comment: Dyspnea due to pneumothorax and recurrent pleural effusions. Now being managed on vent. . (3) Encephalopathy 0-10 Scale: Unable to quantify Comment: Patient continues on sedation. Will need to evaluate clinically off sedation to see if there is any significant cognitive loss. . Pertinent Non-Medical Issues Psychosocial: Supported by of over 30 years. Patient has 8 biological children and 5 step-children. Spiritual: Nondenominational Legal: DPOA for health care scanned into EMR. . Important Contacts * Pio Lerner (spouse; DPOA for health care) [phone] . 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 Cardiothoracic surgery does not believe patient could tolerate the procedure necessary to repair this. In addition to his kidney disease and incurable lung disease, patient now has hemodynamic instability requiring pressors. Critical care and pulmonology feel he has an end stage condition. In my clinical opinion, patient has an overall end stage condition. I don't believe there is a reasonable probability of patient regaining capacity. Patient would be an appropriate hospice candidate at such time that his health care surrogate decides to forego further aggressive care and transition to comfort care. . Code Status: Full Code Plan == Code Status: FULL CODE. (who is the DPOA for health care) feels obligated to allow one more attempted resuscitation for one more week. == Decision making: Mentation flutuates, but he remains able can nod yes to no appropriately. At the very least pt for today can participate medical decisions, but pt alone does not have capacity to make medical decisions. Joint decision making with . == Health care decision maker: . == Goals of medical treatment: /Pt goals of care is reviewed: Full Code/ aggressive care until Thursday. If pt codes, she and pt would want just to code just once. If pt is not able to wean off the vent for 1 more week, is supportive of decision to extubate and transition to comfort measures only, with compassionate withdraw of life support. == Symptoms * Pain: Has history of back pain and arthritis pain with use of PRN tramadol at home. Other sources of pain now include prolonged bedbound status; orotracheal and orogastric intubations; restraints; vascular access lines; etc. He has abdominal distension of unkwown etiology (imaging suggests this is mostly ascited) -- unclear if this might be causing abdominal pain. Also with skin tears on buttocks and scrotum which may be painful. Currently has orders for a fentanyl drip and for tramadol. No further recommendations at this time, and he is more lethargic today. * Dyspnea: Dyspnea is secondary to his chronic / recurrent pleural effusions and pneumothoraces. Currently managed by chest tubes and ventilator. Opiates would help for treating dyspnea if needed. Currently has orders for a fentanyl drip and for tramadol. No further recommendations at this time. == Skin tears on buttocks and edematous scrotum: Dialysis will be the main method of taking off excess fluid which is also challenging because of hypotension. Wound care consultation has been placed and recommnedations are on chart. Skin breakdown probably exacerbated by pressors which are most likely further reducing blood flow to skin. == Palliative care will continue to follow to assist with symptom management and to further clarify goals of medical treatment as the clinical course evolves. . Attestation To help prompt me to consider important information that might be impacting today's encounter and assessment, information from prior notes written by myself or my colleagues may have been "brought forward" into today's note. My signature on this note, however, is an attestation that I personally performed the exam, history, and/or decision-making noted today, and, unless otherwise indicated, the interactions with patient, family, and staff as well as the review of records all occurred today. I also attest that the listed assessment and stated plan reflect my best clinical judgment today based on the combination of historical information, prior notes, and today's exam/ interactions. When time spent is documented, it refers only to time spent today by the signer, or if indicated, combined time spent today by collaborating physician/nurse practitioner. Sanya Lou MD Jan 02, 2017 14:47
[2017-01-02] MEDS: LATANOPROST 0.005% OPHT SOLN 2.5 ML BTL EACH EYE SCH ×2 (21:18)
[2017-01-02] MEDS: PRAVASTATIN SOD 20 MG TAB PO SCH ×2 (21:19)
[2017-01-03] VITALS (19 sets, daily range): BP systolic 85–156; BP diastolic 47–76; PULSE 75–110; RESP 18–20; TEMP 98.2–98.6; O2SAT 0–100
--- NOTE | 2017-01-03 03:16 | RADRPT ---
EXAM DATE/TIME: 01/03/2017 02:25 [facility] COMPARISON: CHEST SINGLE AP, December 30, 2016, 9:41. INDICATIONS : Shortness of breath, possible pulmonary disease. MEDICAL HISTORY : Stroke. Renal failure, chronic. Hypertension. SURGICAL HISTORY : TURP ENCOUNTER: Subsequent ACUITY: 2 weeks PAIN SCORE: Non-responsive. LOCATION: Bilateral chest FINDINGS: Single AP view of the chest. Endotracheal tube and nasogastric tube remain in place. Right-sided ches t tube and left-sided pigtail catheter remain in place. Bilateral pneumothoraces unchanged. Bilateral lower lung opacity right greater than left unchanged. Cardiomediastinal silhouette unchanged. CONCLUSION: No significant change. Persistent bilateral pneumothoraces right greater than left. Bilateral chest t ubes remain in place. Be Yousif MD on January 03, 2017 at 3:12 Board Certified Radiologist. This report was verified electronically.
[2017-01-03] MEDS: RESP: ALBUTEROL 2.5 MG/IPRATROPIUM 0.5 MG NEB (SCH) NEB ×8 (03:33→19:31)
[2017-01-03] MEDS: CHLORHEXIDINE GLUCONATE 2 % 1 PACK (2 CLOTHS) TOP SCH ×2 (03:39)
[2017-01-03] MEDS: DEXTROSE 5% IN WATE 1000ML INJ 1,000 ML IV SCH ×2 (03:39→21:40)
[2017-01-03] MEDS: METOCLOPRAMIDE HCL 10 MG/2 ML VIAL IV PUSH SCH ×6 (06:12→21:34)
[2017-01-03] MEDS: HYDROCORTISONE SOD SUCCINATE 100 MG VIAL IV PUSH SCH ×6 (06:12→18:42)
[2017-01-03 06:31] LABS: AUTOMATED NEUTROPHIL # 2.4 TH/MM3 (1.8-7.7); BASOPHIL % 0.3 % (0.0-2.0); HEMATOCRIT 23.7 % (39.0-51.0); HEMOGLOBIN 8.1 GM/DL (13.0-17.0); LYMPH % 17.1 % (9.0-44.0); LYMPHOCYTE # 0.5 TH/MM3 (1.0-4.8); MEAN CELL VOLUME 97.8 FL (80.0-100.0); MEAN CORPUSCULAR HEMOGLOBIN 33.3 PG (27.0-34.0); MEAN CORPUSCULAR HGB CONC 34.1 % (32.0-36.0); MEAN PLATELET VOLUME 12.1 FL (7.0-11.0); MONO % 4.4 % (0.0-8.0); MONOCYTE # 0.1 TH/MM3 (0-0.9); NEUT % 78.2 % (16.0-70.0); PLATELET COUNT 136 TH/MM3 (150-450); RED BLOOD COUNT 2.43 MIL/MM3 (4.50-5.90); RED CELL DISTRIBUTION WIDTH 17.2 % (11.6-17.2)
[2017-01-03 06:46] LABS: ALBUMIN 2.2 GM/DL (3.4-5.0); ALKALINE PHOSPHATASE 93 U/L (45-117); ALT (GPT) 98 U/L (12-78); AST (GOT) 43 U/L (15-37); BICARBONATE 29.1 MEQ/L (21.0-32.0); BLOOD UREA NITROGEN 45 MG/DL (7-18); CHLORIDE 93 MEQ/L (98-107); CREATININE 3.76 MG/DL (0.60-1.30); GLOMERULAR FILTRATION RATE 19 ML/MIN (>89); GLUCOSE,RANDOM 152 MG/DL (74-106); SODIUM (NA) 133 MEQ/L (136-145); TOTAL BILIRUBIN ADULT 0.4 MG/DL (0.2-1.0); TOTAL PROTEIN 5.7 GM/DL (6.4-8.2)
[2017-01-03] MEDS: INSULIN NovoLIN REGULAR SUPPLEMENTAL SCALE SQ SCH ×4 (08:00→20:00)
[2017-01-03] MEDS: PHENYLEPHRINE INJ 40 MG in DEXTROSE 5% IN WATE 500 ML INJ 496 ML IV PRN ×4 (08:04)
[2017-01-03 09:24] LABS: BANDS 29 % (0-6); DOHLE BODIES PRESENT (NONE SEEN); LYMPHOCYTES 17 % (9-44); METAMYELOCYTES 2 % (0-1); MONOCYTES 10 % (0-8); NEUTROPHIL # MANUAL DIFF 2.2 TH/MM3 (1.8-7.7); POLYS (SEG NEUTROPHILS) 42 % (16-70); TOXIC GRANULATION 2+ (NORMAL); TOXIC VACUOLATION PRESENT (NONE SEEN)
[2017-01-03 09:25] LABS: ACANTHOCYTES OCC (NORMAL); OVALOCYTES 1+ (NORMAL)
[2017-01-03] MEDS: DOCUSATE SODIUM 50 MG/SENNA 8.6 MG TAB PO SCH ×4 (09:36→21:33)
[2017-01-03] MEDS: ASPIRIN EC 81 MG TABEC PO SCH ×2 (09:36)
[2017-01-03] MEDS: VITAMIN B CMPLX/VITC/FOLIC AC CAP PO SCH ×2 (09:36)
[2017-01-03] MEDS: DIPYRIDAMOLE 25 MG TAB PO SCH ×4 (09:37→21:33)
[2017-01-03] MEDS: SENNOSIDES SYRUP 8.8 MG/5 ML CUP PO SCH ×2 (09:37)
[2017-01-03] MEDS: HEPARIN SODIUM - SQ 10,000 UNITS/ML VIAL SQ SCH ×4 (09:37→21:37)
[2017-01-03] MEDS: DOCUSATE SODIUM 100 MG/10 ML UDC PO SCH ×4 (09:37→21:33)
[2017-01-03] MEDS: SODIUM CHLORIDE 0.9% FLUSH 10 ML FLUSH IV FLUSH SCH ×4 (09:38→21:34)
[2017-01-03] MEDS: PANTOPRAZOLE SODIUM 40 MG VIAL IV PUSH SCH ×2 (09:38)
[2017-01-03] MEDS: CHLORHEXIDINE 0.12% (ORAL KIT) 15 ML CUP MT SCH ×4 (09:39→21:51)
[2017-01-03] MEDS: CALCIUM CARBONATE 1.25 GM (CA 500 MG) TAB PO SCH ×2 (09:44)
[2017-01-03] MEDS: DORZOLAMIDE/TIMOLOL OPTH SOLN 10 ML BTL EACH EYE SCH ×4 (09:45→21:34)
[2017-01-03] MEDS: cefTRIAXone INJ 1,000 MG in SODIUM CHLORIDE 0.9% INJ 100 ML IV SCH ×4 (11:41)
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
--- NOTE | 2017-01-03 14:02 | HHI.NPPN ---
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 Patient now presents with increasing shortness of breath noted to have bilateral pleural effusions which appear to be loculated. Patient missed his dialysis session yesterday. Moderate hyperkalemia on presentation. Now status post bilateral pigtail catheter placement left and right pleural cavity. Pneumothorax bilaterally postprocedure. Patient seen during his dialysis session. Appears to be lethargic and nonverbal at this time. Interval History Patient unresponsive to questions. Remains on ventilatory support. Inotropic agent resumed secondary to hypotension. Review of Systems General General Remarks Unable to obtain d/t clinical status Objective Data Data Vital Signs Date Time Temp Pulse Resp B/P (MAP) Pulse Ox O2 Delivery O2 Flow Rate FiO2 01/03/17 12:45 100 65 01/03/17 09:31 100 70 01/03/17 08:04 73 85/47 01/03/17 07:13 100 75 01/03/17 06:00 95 01/03/17 04:04 100 70 01/03/17 04:00 80 01/03/17 04:00 98.2 94 18 131/65 (87) 100 01/03/17 04:00 94 01/03/17 02:00 108 01/03/17 01:18 100 70 01/03/17 00:00 98.4 108 18 130/76 (94) 100 01/03/17 00:00 108 01/03/17 00:00 80 01/02/17 22:00 113 01/02/17 20:35 100 80 01/02/17 20:00 80 01/02/17 20:00 117 01/02/17 20:00 98.1 117 18 135/65 (88) 100 01/02/17 18:00 85 01/02/17 16:00 98.4 95 18 158/79 (105) 76 01/02/17 16:00 80 01/02/17 16:00 95 -: 01/03/17 0435 01/03/17 0435 Physical Exam General Appearance: No Acute Distress, Malnourished Pulmonary Resp Exam: No Distress, Diminished Breath Sounds Cardiology CV Exam: Regular, Normal Sinus Rhythm Gastrointestinal/Abdomen GI Exam: Soft Integumentary Skin Exam: Warm Extremeties Extremities Exam: Moderate Edema (generalized in extremities and hips) VTE Prophylaxis Device: SCDs Assessment/Plan Problem List: (1) ESRD (end stage renal disease) on dialysis ICD Codes: N18.6 - End stage renal failure on dialysis; Z99.2 - Dependence on renal dialysis Status: Chronic Plan: Patient still the ET tube in place and ventilatory dependent. states she plan on terminal extubation on Thursday and yesterday was to be the final dialysis session per 's wishes. Comfort care appropriate in this situation. At this point in time patient will be seen when necessary. Please recall if needed. Medications should be adjusted for the patient's estimated end stage renal disease if clinically indicated. Gadolinium contraindicated. (2) Failure to thrive in adult ICD Codes: R62.7 - Adult failure to thrive Status: Chronic Plan: Making long-term prognosis poor even if he should survive this admission. (3) Non-compliance with renal dialysis ICD Codes: Z91.15 - Patient's noncompliance with renal dialysis Plan: I do not believe that we can improve patient's compliance given previous attempts but will continue education. (4) HTN (hypertension) ICD Codes: I10 - Hypertension Status: Chronic Plan: By hx. Hypotensive currently on inotropic support (5) Anemia of renal disease ICD Codes: D63.1 - Anemia in chronic kidney disease Plan The exam, history, and the medical decision-making described in the above note were completed with the assistance of the LEON. I reviewed and agree with the findings presented. Izabela Thompson MD Jan 03, 2017 14:02
[2017-01-03] MEDS ORDERED: POTASSIUM CHLOR 10 MEQ PREMIX 100 ML IV ONE ×2 (15:00)
[2017-01-03] MEDS ORDERED: AMIODARONE INJ 150 MG in DEXTROSE 5% IN WATER 100ML INJ 100 ML IV ONE ×4 (17:07)
[2017-01-03] MEDS ORDERED: DILTIAZEM HCL 25 MG/5 ML VIAL IV ONE ×2 (17:15)
[2017-01-03] MEDS ORDERED: AMIODARONE INJ 900 MG in D5W 500 ML (EXCEL BAG) 482 ML IV PRN ×4 (17:17)
[2017-01-03] MEDS ORDERED: AMIODARONE INJ 450 MG in DEXTROSE 5% IN WATE(EXCEL) INJ 250 ML IV PRN ×4 (17:30)
[2017-01-03] MEDS ORDERED: AMIODARONE INJ 450 MG in DEXTROSE 5% IN WATE(EXCEL) INJ 241 ML IV PRN ×4 (17:30)
--- NOTE | 2017-01-03 18:43 | HHI.HCPN ---
Call from , Pio Lerner, as I had left her a message earlier in the day because there was a voicemail from her looking to speak to Dr. Lou. She indicates she did not have any questions, but was returning his call. I advised he was just checking in with her. His note indicates patient was more lethargic which Mrs. Lerner confirms. The patient is "sleepy" today per 's report. She tells me she plans to transition to comfort on Thursday. I advised her I will meet with her on Thursday and that she can call my cell number if she has any additional questions or concerns in the meantime. She voices appreciation. Shala Pierre Jan 03, 2017 18:43
[2017-01-03] MEDS: PRAVASTATIN SOD 20 MG TAB PO SCH ×2 (21:33)
[2017-01-03] MEDS: LATANOPROST 0.005% OPHT SOLN 2.5 ML BTL EACH EYE SCH ×2 (21:34)
[2017-01-04] VITALS (19 sets, daily range): BP systolic 87–122; BP diastolic 46–60; PULSE 85–105; RESP 6–27; TEMP 97.9–98.4; O2SAT 95–100
[2017-01-04] MEDS: HYDROCORTISONE SOD SUCCINATE 100 MG VIAL IV PUSH SCH ×8 (00:16→18:13)
[2017-01-04] MEDS: RESP: ALBUTEROL 2.5 MG/IPRATROPIUM 0.5 MG NEB (SCH) NEB ×8 (04:00→23:28)
[2017-01-04] MEDS: CHLORHEXIDINE GLUCONATE 2 % 1 PACK (2 CLOTHS) TOP SCH ×2 (04:00)
[2017-01-04] MEDS: METOCLOPRAMIDE HCL 10 MG/2 ML VIAL IV PUSH SCH ×6 (05:25→21:40)
[2017-01-04] MEDS: INSULIN NovoLIN REGULAR SUPPLEMENTAL SCALE SQ SCH ×4 (08:00→20:00)
[2017-01-04] MEDS: SENNOSIDES SYRUP 8.8 MG/5 ML CUP PO SCH ×2 (09:09)
[2017-01-04] MEDS: VITAMIN B CMPLX/VITC/FOLIC AC CAP PO SCH ×2 (09:09)
[2017-01-04] MEDS: CALCIUM CARBONATE 1.25 GM (CA 500 MG) TAB PO SCH ×2 (09:09)
[2017-01-04] MEDS: DOCUSATE SODIUM 50 MG/SENNA 8.6 MG TAB PO SCH ×4 (09:09→21:00)
[2017-01-04] MEDS: DIPYRIDAMOLE 25 MG TAB PO SCH ×4 (09:09→21:39)
[2017-01-04] MEDS: PANTOPRAZOLE SODIUM 40 MG VIAL IV PUSH SCH ×2 (09:09)
[2017-01-04] MEDS: DORZOLAMIDE/TIMOLOL OPTH SOLN 10 ML BTL EACH EYE SCH ×4 (09:10→21:38)
[2017-01-04] MEDS: HEPARIN SODIUM - SQ 10,000 UNITS/ML VIAL SQ SCH ×4 (09:10→21:40)
[2017-01-04] MEDS: CHLORHEXIDINE 0.12% (ORAL KIT) 15 ML CUP MT SCH ×4 (09:10→20:00)
[2017-01-04] MEDS: DOCUSATE SODIUM 100 MG/10 ML UDC PO SCH ×4 (09:10→21:39)
[2017-01-04] MEDS: ASPIRIN EC 81 MG TABEC PO SCH ×2 (09:10)
[2017-01-04] MEDS: SODIUM CHLORIDE 0.9% FLUSH 10 ML FLUSH IV FLUSH SCH ×4 (09:13→21:39)
[2017-01-04] MEDS: PHENYLEPHRINE INJ 40 MG in DEXTROSE 5% IN WATE 500 ML INJ 496 ML IV PRN ×8 (11:33→20:00)
[2017-01-04] MEDS: cefTRIAXone INJ 1,000 MG in SODIUM CHLORIDE 0.9% INJ 100 ML IV SCH ×4 (13:51)
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
[2017-01-04] MEDS ORDERED: DILTIAZEM 125 MG/NS 100 ML IV PRN ×4 (18:00)
[2017-01-04] MEDS ORDERED: DILTIAZEM HCL 25 MG/5 ML (Bolus) IV PUSH ONE ×2 (18:00)
[2017-01-04] MEDS: LATANOPROST 0.005% OPHT SOLN 2.5 ML BTL EACH EYE SCH ×2 (21:38)
[2017-01-04] MEDS: PRAVASTATIN SOD 20 MG TAB PO SCH ×2 (21:39)
[2017-01-05] VITALS (19 sets, daily range): BP systolic 96–140; BP diastolic 40–77; PULSE 74–88; RESP 16–22; TEMP 98–99.7; O2SAT 99–100
[2017-01-05] MEDS: HYDROCORTISONE SOD SUCCINATE 100 MG VIAL IV PUSH SCH ×10 (00:41→23:32)
[2017-01-05] MEDS: PHENYLEPHRINE INJ 40 MG in DEXTROSE 5% IN WATE 500 ML INJ 496 ML IV PRN ×16 (02:42→20:57)
[2017-01-05] MEDS: CHLORHEXIDINE GLUCONATE 2 % 1 PACK (2 CLOTHS) TOP SCH ×4 (04:00→21:02)
[2017-01-05] MEDS: RESP: ALBUTEROL 2.5 MG/IPRATROPIUM 0.5 MG NEB (SCH) NEB ×8 (04:53→20:54)
--- NOTE | 2017-01-05 05:24 | RADRPT ---
EXAM DATE/TIME: 01/05/2017 04:21 [facility] COMPARISON: CHEST SINGLE AP, January 03, 2017, 2:25. INDICATIONS : Shortness of breath, possible pulmonary disease. MEDICAL HISTORY : Stroke. Renal failure, chronic. Hypertension. SURGICAL HISTORY : TURP ENCOUNTER: Subsequent ACUITY: 2 weeks PAIN SCORE: Non-responsive. LOCATION: Bilateral chest FINDINGS: The cardiac silhouette is enlarged in transverse diameter. There is left lower lobe atelectasis versu s pneumonia. There is stable loculated pneumothorax at the right base and a small pneumothorax in the left base with bilateral chest tubes CONCLUSION: 1. Stable bilateral pneumothoraces. 2. Left lower lobe atelectasis versus pneumonia. Fabien Alas MD on January 05, 2017 at 5:21 Board Certified Radiologist. This report was verified electronically.
--- NOTE | 2017-01-05 05:26 | RADRPT ---
EXAM DATE/TIME: 01/05/2017 04:28 [facility] COMPARISON: ABDOMEN KUB ONLY, December 26, 2016, 9:02. INDICATIONS : Abdominal distention. MEDICAL HISTORY : Stroke. Renal failure, chronic. Hypertension. SURGICAL HISTORY : TURP ENCOUNTER: Subsequent ACUITY: 2 weeks PAIN SCORE: Non-responsive. LOCATION: Bilateral Abdomen FINDINGS: Examination of the abdomen demonstrates gaseous distention of the colon most consistent with ileus .T here are no findings of small bowel obstruction. No free air is identified. No organomegaly is eviden t. A nasogastric tube is in place with its tip in the stomach. CONCLUSION: 1. Continued colonic ileus. There has been no significant change when compared to the prior exam. Fabien Alas MD on January 05, 2017 at 5:23 Board Certified Radiologist. This report was verified electronically.
[2017-01-05] MEDS: METOCLOPRAMIDE HCL 10 MG/2 ML VIAL IV PUSH SCH ×6 (06:12→20:59)
[2017-01-05 06:56] LABS: AUTOMATED NEUTROPHIL # 1.5 TH/MM3 (1.8-7.7); BASOPHIL % 0.3 % (0.0-2.0); EOSINOPHIL % 0.3 % (0.0-4.0); HEMATOCRIT 28.9 % (39.0-51.0); HEMOGLOBIN 9.6 GM/DL (13.0-17.0); LYMPH % 27.8 % (9.0-44.0); LYMPHOCYTE # 0.6 TH/MM3 (1.0-4.8); MEAN CELL VOLUME 97.4 FL (80.0-100.0); MEAN CORPUSCULAR HEMOGLOBIN 32.4 PG (27.0-34.0); MEAN CORPUSCULAR HGB CONC 33.3 % (32.0-36.0); MEAN PLATELET VOLUME 11.9 FL (7.0-11.0); MONO % 2.9 % (0.0-8.0); MONOCYTE # 0.1 TH/MM3 (0-0.9); NEUT % 68.7 % (16.0-70.0); PLATELET COUNT 142 TH/MM3 (150-450); RED BLOOD COUNT 2.97 MIL/MM3 (4.50-5.90); RED CELL DISTRIBUTION WIDTH 16.3 % (11.6-17.2); WHITE BLOOD COUNT 2.2 TH/MM3 (4.0-11.0)
[2017-01-05 07:53] LABS: BANDS 34 % (0-6); CORRECTED NUCLEATED RBC 2 /100 WBC (0-0); DOHLE BODIES PRESENT (NONE SEEN); LYMPHOCYTES 19 % (9-44); METAMYELOCYTES 21 % (0-1); MONOCYTES 1 % (0-8); MYELOCYTES 1 % (0-0); NEUTROPHIL # MANUAL DIFF 1.8 TH/MM3 (1.8-7.7); NUCLEATED RED BLOOD CELL 2 (0-0); POLYS (SEG NEUTROPHILS) 24 % (16-70); TOXIC GRANULATION 1+ (NORMAL); TOXIC VACUOLATION PRESENT (NONE SEEN)
[2017-01-05 07:54] LABS: ACANTHOCYTES OCC (NORMAL); OVALOCYTES 1+ (NORMAL)
[2017-01-05] MEDS: INSULIN NovoLIN REGULAR SUPPLEMENTAL SCALE SQ SCH ×4 (08:00→20:00)
[2017-01-05] MEDS: HEPARIN SODIUM - SQ 10,000 UNITS/ML VIAL SQ SCH ×4 (09:00→20:58)
[2017-01-05 09:09] LABS: ALBUMIN 1.8 GM/DL (3.4-5.0); ALKALINE PHOSPHATASE 99 U/L (45-117); ALT (GPT) 97 U/L (12-78); AST (GOT) 48 U/L (15-37); BICARBONATE 20.2 MEQ/L (21.0-32.0); BLOOD UREA NITROGEN 69 MG/DL (7-18); CALCIUM 8.1 MG/DL (8.5-10.1); CHLORIDE 87 MEQ/L (98-107); CREATININE 5.54 MG/DL (0.60-1.30); GLOMERULAR FILTRATION RATE 12 ML/MIN (>89); GLUCOSE,RANDOM 138 MG/DL (74-106); SODIUM (NA) 126 MEQ/L (136-145); TOTAL BILIRUBIN ADULT 0.7 MG/DL (0.2-1.0); TOTAL PROTEIN 6.1 GM/DL (6.4-8.2)
[2017-01-05] MEDS: VITAMIN B CMPLX/VITC/FOLIC AC CAP PO SCH ×2 (10:48)
[2017-01-05] MEDS: DOCUSATE SODIUM 50 MG/SENNA 8.6 MG TAB PO SCH ×2 (10:48)
[2017-01-05] MEDS: CALCIUM CARBONATE 1.25 GM (CA 500 MG) TAB PO SCH ×2 (10:48)
[2017-01-05] MEDS: ASPIRIN EC 81 MG TABEC PO SCH ×2 (10:48)
[2017-01-05] MEDS: PANTOPRAZOLE SODIUM 40 MG VIAL IV PUSH SCH ×2 (10:49)
[2017-01-05] MEDS: DIPYRIDAMOLE 25 MG TAB PO SCH ×4 (10:49→21:00)
[2017-01-05] MEDS: SODIUM CHLORIDE 0.9% FLUSH 10 ML FLUSH IV FLUSH SCH ×4 (10:49→20:28)
[2017-01-05] MEDS: DOCUSATE SODIUM 100 MG/10 ML UDC PO SCH ×4 (10:49→20:58)
[2017-01-05] MEDS: SENNOSIDES SYRUP 8.8 MG/5 ML CUP PO SCH ×2 (10:50)
[2017-01-05] MEDS: DORZOLAMIDE/TIMOLOL OPTH SOLN 10 ML BTL EACH EYE SCH ×4 (10:50→20:57)
[2017-01-05] MEDS: CHLORHEXIDINE 0.12% (ORAL KIT) 15 ML CUP MT SCH ×4 (10:51→19:32)
--- NOTE | 2017-01-05 11:48 | HHI.NPPN ---
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 Patient now presents with increasing shortness of breath noted to have bilateral pleural effusions which appear to be loculated. Patient missed his dialysis session yesterday. Moderate hyperkalemia on presentation. Now status post bilateral pigtail catheter placement left and right pleural cavity. Pneumothorax bilaterally postprocedure. Patient seen during his dialysis session. Appears to be lethargic and nonverbal at this time. Interval History Patient remains on pressors, ventilatory support. Family by bedside. Review of Systems General General Remarks Unable to obtain d/t clinical status Objective Data Data 01/05/17 01/06/17 19:00 07:00 Intake Total 1593 ml Balance 1593 ml IV Total 1593 ml Vital Signs Date Time Temp Pulse Resp B/P (MAP) Pulse Ox O2 Delivery O2 Flow Rate FiO2 01/05/17 11:12 100 50 01/05/17 08:22 75 116/87 01/05/17 08:02 100 50 01/05/17 06:00 80 01/05/17 04:55 99 60 01/05/17 04:00 60 01/05/17 04:00 83 01/05/17 04:00 98.9 80 18 125/77 (93) 100 01/05/17 02:42 75/37 01/05/17 02:30 100 60 01/05/17 02:00 80 01/05/17 00:00 60 01/05/17 00:00 84 01/05/17 00:00 98.6 84 18 131/61 (84) 100 01/04/17 23:28 100 60 01/04/17 22:00 93 01/04/17 20:00 93 6 108/46 (66) 100 01/04/17 20:00 93 01/04/17 20:00 93 113/51 01/04/17 20:00 60 01/04/17 18:00 90 01/04/17 17:03 91 81/52 01/04/17 16:20 91 95/37 01/04/17 16:00 87 01/04/17 16:00 98.2 87 27 94/51 (65) 01/04/17 16:00 60 01/04/17 15:51 100 60 01/04/17 14:00 88 01/04/17 12:43 96 60 01/04/17 12:00 97.9 94 21 101/60 (74) 01/04/17 12:00 94 01/04/17 12:00 60 -: 01/05/17 0615 01/05/17 0615 Medication Review Current Medications Lidocaine/ Epinephrine (Xylocaine-Epi 2%-1:100,000 Inj) 20 ml ONCE ONCE NERV BLOCK ; Start 12/19/16 at 19:45; Stop 12/19/16 at 19:46; Status DC Bisacodyl (Dulcolax Ec) 10 mg DAILY PRN PO SEVERE CONSTIPATION; Start at 20:00 Dipyridamole (Persantine) 75 mg BID PO ; Start 12/19/16 at 21:00; Stop at 10:01; Status DC Docusate Sodium (Colace) 100 mg BID PO ; Start 12/19/16 at 21:00; Stop at 21:38; Status DC Ergocalciferol (Drisdol) 50,000 units Q7D PO Last administered on 12/24/16 08 :20; Start 12/20/16 at 09:00; Stop 12/27/16 at 08:55; Status DC Latanoprost (Xalatan 0.005% Opt Soln) 1 drop HS EACH EYE Last administered on 01/04/17 21:38; Start 12/19/16 at 21:00 Pravastatin Sodium (Pravachol) 20 mg HS PO Last administered on 01/04/17 21:39 ; Start 12/19/16 at 21:00 Minoxidil (Loniten) 2.5 mg DAILY PO Last administered on 12/26/16 09:34; Start 12/20/16 at 09:00; Stop 12/28/16 at 21:51; Status DC Nifedipine (Procardia Xl) 30 mg BID PRN PO SBP> OR = 180, DBP> OR = 100 Last administered on 12/20/16 00:23; Start 12/19/16 at 20:00; Stop 12/28/16 at 21 :51; Status DC Pantoprazole Sodium (Protonix) 40 mg DAILY PO Last administered on 12/20/16 09:15; Start 12/20/16 at 09:00; Stop 12/21/16 at 08:19; Status DC Tramadol HCl (Ultram) 50 mg Q4H PRN PO PAIN SCALE 1 TO 10 Last administered on 12/20/16 15:50; Start 12/19/16 at 20:00; Stop 12/28/16 at 21:51; Status DC Aspirin (Ecotrin Ec) 81 mg DAILY PO Last administered on 01/05/17 10:48; Start 12/20/16 at 09:00 Vitamin B Complex/ Vit C/Folic Acid (Nephrocaps) 1 cap DAILY PO Last administered on 01/05/17 10:48; Start 12/20/16 at 09:00 Calcium Carbonate (Oscal) 1,000 mg DAILY PO Last administered on 01/05/17 10: 48; Start 12/20/16 at 09:00 Carvedilol (Coreg) 12.5 mg BID PO Last administered on 12/20/16 20:56; Start 12/19/16 at 21:00; Stop 12/28/16 at 21:51; Status DC Dorzolamide/ Timolol (Cosopt 2-0.5% Opt Soln) 1 drop BID EACH EYE Last administered on 01/05/17 10:50; Start 12/19/16 at 21:00 Non-Formulary Medication 1 can BID PO ; Start 12/19/16 at 21:00; Status Cancel Sodium Chloride (NS Flush) 2 ml UNSCH PRN IV FLUSH FLUSH AFTER USING IV ACCESS Last administered on 12/29/16 12:46; Start 12/19/16 at 20:15 Sodium Chloride (NS Flush) 2 ml BID IV FLUSH Last administered on 01/05/17 10: 49; Start 12/19/16 at 21:00 Acetaminophen (Tylenol) 650 mg Q6H PRN PO FEVER >101F Last administered on 01/01 22:25; Start 12/19/16 at 20:15 Ondansetron HCl (Zofran Inj) 4 mg Q6H PRN IV PUSH NAUSEA OR VOMITING Last administered on 12/29/16 09:51; Start 12/19/16 at 20:15 Zolpidem Tartrate (Ambien) 5 mg HS PRN PO INSOMNIA; Start 12/19/16 at 20:15 Albuterol/ Ipratropium (Duoneb Neb) 1 ampule Q2HR NEB PRN INH WHEEZING Last administered on 12/21/16 03:51; Start 12/19/16 at 20:15; Stop 12/21/16 at 08 :04; Status DC Heparin Sodium (Porcine) (Heparin Inj) 5,000 units Q12H SQ Last administered on 01/04/17 21:40; Start 12/19/16 at 21:00 Miscellaneous Information 1 Q361D XX ; Start 12/19/16 at 20:15 Chlorhexidine Gluconate (Chlorhexidine 2% Cloth) Taper DAILY@04 TOP Last administered on 01/02/17 04:00; Start 12/20/16 at 04:00; Stop 12/16/17 at 03: 59 Chlorhexidine Gluconate (Chlorhexidine 2% Cloth) 3 pack UNSCH PRN TOP HYGIENIC CARE; Start 12/19/16 at 20:15 Senna/Docusate Sodium (Shelby-Colace) 1 tab BID PO Last administered on 10:48; Start 12/19/16 at 21:00 Magnesium Hydroxide (Milk Of Magnesia Liq) 30 ml Q12H PRN PO Mild constipation ; Start 12/19/16 at 20:15 Sennosides (Senokot) 17.2 mg Q12H PRN PO Moderate constipation Last administered on 12/22/16 09:39; Start 12/19/16 at 20:15 Bisacodyl (Dulcolax Supp) 10 mg DAILY PRN RECTAL SEVERE CONSITIPATION/IF NPO; Start 12/19/16 at 20:15 Lactulose (Lactulose Liq) 30 ml DAILY PRN PO SEVERE CONSITIPATION Last administered on 12/22/16 09:37; Start 12/19/16 at 20:15 Dipyridamole (Persantine) 75 mg BID PO Last administered on 01/05/17 10:49; Start 12/20/16 at 09:00 Hydralazine HCl (Apresoline Inj) 20 mg Q4H PRN IV SYS BP GREATER THAN 160 MMHG Last administered on 12/26/16 21:22; Start 12/20/16 at 00:15 Sodium Bicarbonate 100 meq/Dextrose 1,100 ml @ 42 mls/hr Q24H IV Last administered on 12/21/16 03:37; Start 12/20/16 at 01:15; Stop 12/21/16 at 16 :37; Status DC Sodium Chloride 1,000 ml @ 999 mls/hr Q1H1M ONCE IV Last administered on 12/20 02:15; Start 12/20/16 at 02:15; Stop 12/20/16 at 03:31; Status DC Sodium Chloride 1,000 ml @ 0 mls/hr Q0M PRN OTHER For Prime & Rinse Back Last administered on 12/31/16 12:40; Start 12/20/16 at 10:04 Sodium Chloride 1,000 ml @ 200 mls/hr Q5H PRN IV WITH DIALYSIS; Start at 10:04 Sodium Chloride 1,000 ml @ 0 mls/hr Q0M PRN OTHER WITH DIALYSIS; Start at 10:04 Mannitol (Mannitol Inj) 12.5 gm UNSCH PRN IV WITH DIALYSIS; Start 12/20/16 at 10:15 Albumin Human 100 ml @ 60 mls/hr UNSCH PRN IV WITH DIALYSIS Last administered on 12/31/16 10:30; Start 12/20/16 at 10:15 Sodium Chloride (NS Flush) 5 ml UNSCH PRN IV FLUSH WITH DIALYSIS; Start at 10:15 Heparin Sodium (Porcine) (Heparin Inj) UNSCH PRN .XX WITH DIALYSIS; Start at 10:15 Gentamicin Sulfate (Gentamicin (Dialysis) Inj) 20 mg UNSCH PRN OTHER WITH DIALYSIS; Start 12/20/16 at 10:15 Ondansetron HCl (Zofran Inj) 4 mg UNSCH PRN IV PUSH WITH DIALYSIS; Start 12/20 at 10:15 Acetaminophen (Tylenol) 650 mg UNSCH PRN PO for headach, pain, temp > 101F; Start 12/20/16 at 10:15 Diphenhydramine HCl (Benadryl) 25 mg UNSCH PRN PO for hives/itching/anaphylaxis ; Start 12/20/16 at 10:15 Nitroglycerin (Nitrostat Sl) 0.4 mg UNSCH PRN SL CHEST PAIN; Start 12/20/16 at 10:15 Clonidine (Catapres) 0.1 mg UNSCH PRN PO for BP > 180/100 X 2 readings; Start 12/20/16 at 10:15 Epoetin German (Epogen Inj) 5,000 units UNSCH PRN IV PUSH WITH DIALYSIS Last administered on 12/31/16 12:40; Start 12/20/16 at 10:15 Gelatin (Gelfoam 12 Mm/7 Mm Top) 1 foam UNSCH PRN TOP SEE LABEL COMMENTS Last administered on 12/29/16 08:52; Start 12/20/16 at 10:15 Etomidate (Amidate Inj) 40 mg STK-MED ONCE .ROUTE ; Start 12/21/16 at 07:48; Stop 12/21/16 at 07:49; Status DC Propofol 50 ml @ As Directed STK-MED ONCE .ROUTE ; Start 12/21/16 at 07:49; Stop 12/21/16 at 07:50; Status DC Chlorhexidine Gluconate (Peridex 0.12% Liq) 15 ml BID@08,20 MT Last administered on 01/05/17 10:51; Start 12/21/16 at 08:00 Propofol 100 ml @ 1.62 mls/hr TITRATE PRN IV SEDATION; Start 12/21/16 at 08: 00; Stop 12/29/16 at 10:52; Status DC Albuterol/ Ipratropium (Duoneb Neb) 1 ampule Q6HR NEB PRN NEB SHORTNESS OF BREATH Last administered on 12/30/16 19:25; Start 12/21/16 at 08:00 Albuterol/ Ipratropium (Duoneb Neb) 1 ampule Q6HR NEB NEB Last administered on 12/25/16 09:58; Start 12/21/16 at 10:00; Stop 12/25/16 at 09:59; Status DC Pantoprazole Sodium (Protonix Inj) 40 mg Q24H IV PUSH Last administered on 01/05 10:49; Start 12/21/16 at 09:00 Dextrose (D50w (Vial) Inj) 50 ml UNSCH PRN IV PUSH HYPOGLYCEMIA-SEE COMMENTS Last administered on 12/31/16 15:21; Start 12/21/16 at 08:15 Glucagon (Glucagon Inj) 1 mg UNSCH PRN OTHER HYPOGLYCEMIA-SEE COMMENTS; Start 12/21/16 at 08:15 Insulin Human Regular (NovoLIN R SUPPLEMENTAL SCALE) 1 Q4H SQ Last administered on 12/30/16 14:00; Start 12/21/16 at 09:00; Stop 01/02/17 at 13: 37; Status DC Pharmacy Profile Note 0 ml @ 0 mls/hr UNSCH OTHER ; Start 12/21/16 at 08:15; Stop 12/24/16 at 09:34; Status DC Piperacillin Sod/ Tazobactam Sod 50 ml @ 100 mls/hr Q8H IV Last administered on 12/29/16 03:02; Start 12/21/16 at 10:00; Stop 12/29/16 at 10:52; Status DC Azithromycin 500 mg/Sodium Chloride 250 ml @ 250 mls/hr Q24H IV Last administered on 12/27/16 08:52; Start 12/21/16 at 09:00; Stop 12/27/16 at 23 :00; Status DC Fentanyl Citrate 250 ml @ 5 mls/hr TITRATE PRN IV SEDATION Last administered on 01/02/17 12:29; Start 12/21/16 at 10:00 Vancomycin HCl 1000 mg/Sodium Chloride 250 ml @ 250 mls/hr ONCE ONCE IV Last administered on 12/21/16 16:54; Start 12/21/16 at 12:00; Stop 12/21/16 at 12 :59; Status DC Hydrocortisone Sodium Succinate (SoluCORTEF INJ) 100 mg Q8H IV PUSH Last administered on 12/28/16 13:00; Start 12/21/16 at 13:00; Stop 12/28/16 at 21 :51; Status DC Vasopressin 40 units/Dextrose 100 ml @ 1.5 mls/hr Q24H IV Last administered on 12/21/16 13:00; Start 12/21/16 at 13:00; Stop 12/21/16 at 18:21; Status DC Sodium Chloride 500 ml @ 500 mls/hr BOLUS ONCE IV Last administered on 13:00; Start 12/21/16 at 12:45; Stop 12/21/16 at 13:44; Status DC Phenylephrine HCl 40 mg/Dextrose 500 ml @ 30 mls/hr TITRATE PRN IV Blood pressure management Last administered on 12/28/16 14:27; Start 12/21/16 at 12 :45; Stop 12/28/16 at 16:36; Status DC Terbutaline Sulfate (Brethine Inj) 1 mg UNSCH PRN SQ For Extravasation; Start 12/21/16 at 12:45 Lidocaine HCl (Xylocaine 1% Inj (50 ml)) 50 ml STK-MED ONCE .ROUTE ; Start at 14:29; Stop 12/21/16 at 14:30; Status DC Norepinephrine Bitartrate 250 ml @ 7.5 mls/hr TITRATE PRN IV Maintain MAP > 65 mmHg Last administered on 12/25/16 10:20; Start 12/21/16 at 18:30; Stop 12/28/16 at 14:32; Status DC Vasopressin 40 units/Dextrose 100 ml @ 6 mls/hr [id number] IV Last administered on 12/24/16 08:23; Start 12/21/16 at 18:30; Stop 12/28/16 at 14:32; Status DC Vancomycin HCl 1000 mg/Sodium Chloride 250 ml @ 250 mls/hr ONCE ONCE IV Last administered on 12/22/16 09:38; Start 12/22/16 at 10:00; Stop 12/22/16 at 10 :59; Status DC Docusate Sodium (Colace Liq) 100 mg Q12HR PO Last administered on 01/05/17 10: 49; Start 12/22/16 at 09:15 Sennosides (Senna Liq) 8.8 mg DAILY PO Last administered on 01/05/17 10:50; Start 12/22/16 at 09:15 Vancomycin HCl 1000 mg/Sodium Chloride 250 ml @ 250 mls/hr ONCE ONCE IV ; Start 12/22/16 at 13:00; Stop 12/22/16 at 13:42; Status DC Lidocaine HCl (Xylocaine 1% Inj (50 ml)) 50 ml STK-MED ONCE .ROUTE ; Start at 14:11; Stop 12/23/16 at 14:12; Status DC Lidocaine HCl (Xylocaine 1% Inj (50 ml)) 50 ml STK-MED ONCE .ROUTE Last administered on 12/23/16 22:31; Start 12/23/16 at 20:11; Stop 12/23/16 at 20 :12; Status DC Phenylephrine HCl (Neosynephrine Inj) 10 mg STK-MED ONCE .ROUTE ; Start at 10:07; Stop 12/25/16 at 10:08; Status DC Ergocalciferol (Drisdol) 50,000 units Q7D PO Last administered on 12/31/16 15: 12; Start 12/31/16 at 09:00 Phenylephrine HCl (Neosynephrine Inj) 40 mg STK-MED ONCE .ROUTE ; Start at 14:29; Stop 12/27/16 at 14:30; Status DC Potassium Chloride 100 ml @ 100 mls/hr NOW ONCE IV Last administered on 12/28 10:58; Start 12/28/16 at 09:45; Stop 12/28/16 at 10:44; Status DC Phenylephrine HCl 40 mg/Dextrose 500 ml @ 30 mls/hr TITRATE PRN IV Blood pressure management Last administered on 01/05/17 08:22; Start 12/28/16 at 16: 45 Metoclopramide HCl (Reglan Inj) 5 mg Q8HR IV PUSH Last administered on 06:12; Start 12/28/16 at 22:00 Calcium Chloride (Calcium Chloride Inj) 1 gm STK-MED ONCE IV ; Start 12/21/16 at 21:33; Stop 12/28/16 at 21:35; Status DC Epinephrine HCl (EPINEPHrine (1:10,000) INJ) 1 mg STK-MED ONCE IV ; Start 12/21 at 21:33; Stop 12/28/16 at 21:35; Status DC Epinephrine HCl (EPINEPHrine (1:1000) INJ) 30 mg STK-MED ONCE IV ; Start at 21:33; Stop 12/28/16 at 21:35; Status DC Norepinephrine Bitartrate (Levophed Inj) 4 mg STK-MED ONCE IV ; Start 12/21/16 at 21:33; Stop 12/28/16 at 21:35; Status DC Sodium Bicarbonate (Sodium Bicarbonate 8.4% Inj) 50 meq STK-MED ONCE IV ; Start 12/21/16 at 21:33; Stop 12/28/16 at 21:35; Status DC Hydrocortisone Sodium Succinate (SoluCORTEF INJ) 50 mg Q6HR IV PUSH Last administered on 01/05/17 06:11; Start 12/29/16 at 00:00 Ceftriaxone Sodium 1000 mg/ Sodium Chloride 100 ml @ 200 mls/hr Q24H IV Last administered on 01/04/17 13:51; Start 12/29/16 at 11:00; Stop 01/04/17 at 14: 33; Status DC Potassium Chloride 100 ml @ 33.333 mls/ hr ONCE ONCE IV Last administered on 12/31/16 09:56; Start 12/31/16 at 08:45; Stop 12/31/16 at 11:44; Status DC Albuterol/ Ipratropium (Duoneb Neb) 1 ampule Q6HR NEB NEB Last administered on 01/04/17 07:14; Start 12/31/16 at 16:00; Stop 01/04/17 at 14:31; Status DC Dextrose 1,000 ml @ 42 mls/hr [id number] IV Last administered on 12/31/16 15:19 ; Start 12/31/16 at 14:30; Stop 01/04/17 at 14:33; Status DC Dextrose 1,000 ml @ 50 mls/hr Q20H IV Last administered on 01/03/17 21:40; Start 01/01/17 at 12:00; Stop 01/04/17 at 14:33; Status DC Epinephrine HCl 2 mg/Dextrose 252 ml @ 22.68 mls/ hr TITRATE PRN IV Blood Pressure Management; Start 01/02/17 at 02:00; Stop 01/02/17 at 02:13; Status DC Midazolam HCl (Versed Inj) 4 mg STAT ONCE IV PUSH Last administered on 11:52; Start 01/02/17 at 11:45; Stop 01/02/17 at 11:46; Status DC Insulin Human Regular (NovoLIN R SUPPLEMENTAL SCALE) 1 BID@0800,2000 SQ ; Start 01/02/17 at 20:00 Potassium Chloride 100 ml @ 100 mls/hr BOLUS ONCE IV Last administered on 16:15; Start 01/03/17 at 15:00; Stop 01/03/17 at 15:59; Status DC Diltiazem HCl (Cardizem Inj) 15 mg ONCE ONCE IV ; Start 01/03/17 at 17:15; Stop 01/03/17 at 17:16; Status Cancel Amiodarone HCl 150 mg/Dextrose 103 ml @ 600 mls/hr Q11M ONCE IV ; Start at 17:07; Stop 01/03/17 at 17:17; Status Cancel Amiodarone HCl 900 mg/Dextrose 500 ml @ 33.33 mls/ hr Q15H1M PRN IV Per Protocol; Start 01/03/17 at 17:17; Status Cancel Amiodarone HCl 450 mg/Dextrose 259 ml @ 33.33 mls/ hr Q7H47M PRN IV Per Protocol; Start 01/03/17 at 17:30; Status Cancel Amiodarone HCl 450 mg/Dextrose 250 ml @ 33.33 mls/ hr Q7H31M PRN IV Per Protocol; Start 01/03/17 at 17:30; Status Cancel Albuterol/ Ipratropium (Duoneb Neb) 1 ampule Q6HR NEB NEB Last administered on 01/05/17t 11:10; Start 01/04/17 at 16:00 Diltiazem HCl (Cardizem Inj) 15 mg ONCE ONCE IV PUSH ; Start 01/04/17 at 18:00 ; Stop 01/04/17 at 18:01; Status Cancel Diltiazem HCl 125 mg/Sodium Chloride 125 ml @ 5 mls/hr TITRATE PRN IV Tachycardia; Start 01/04/17 at 18:00; Status Cancel Physical Exam General Appearance: No Acute Distress, Malnourished Eyes Eye Exam: Sclera White Pulmonary Resp Exam: Clear Bilaterally, No Distress, Diminished Breath Sounds Cardiology CV Exam: Regular, Normal Sinus Rhythm Gastrointestinal/Abdomen GI Exam: Soft Integumentary Skin Exam: Warm Extremeties Extremities Exam: Moderate Edema (generalized in extremities and hips) Neurologic Neuro Exam: Awake VTE Prophylaxis Device: SCDs Assessment/Plan Discussed Condition With: Spouse, Daughter Problem List: (1) ESRD (end stage renal disease) on dialysis ICD Codes: N18.6 - End stage renal failure on dialysis; Z99.2 - Dependence on renal dialysis Status: Chronic Plan: Patient still with the ET tube in place and ventilatory dependent. Family dynamics appeared to be a play. Withdrawal of care apparently was scheduled for today but daughters appear to be in disagreement indicating the patient wants to continue aggressive care per their opinion. 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 I'm very familiar with the patient's who has been at several patient care meetings with the patient in the past and from my point of view very involved in a positive way in her 's care these last several years.. I indicated to them all that despite aggressive care no significant improvement has taken place and the patient is being maintained with inotropic agents, ventilatory support and dialysis with in my opinion no significant chance of meaningful recovery or quality of life. Palliative care is involved and their help is appreciated. Uncertain if patient currently has a capacity to understand the current situation and terminal nature of his condition. Further evaluation of his capacity will take place today. Medications should be adjusted for the patient's estimated end stage renal disease if clinically indicated. Gadolinium contraindicated. (2) Failure to thrive in adult ICD Codes: R62.7 - Adult failure to thrive Status: Chronic Plan: Making long-term prognosis poor even if he should survive this admission. (3) Non-compliance with renal dialysis ICD Codes: Z91.15 - Patient's noncompliance with renal dialysis Status: Chronic Plan: I do not believe that we can improve patient's compliance given previous attempts but will continue education. (4) HTN (hypertension) ICD Codes: I10 - Hypertension Status: Chronic Plan: By hx. Hypotensive currently on inotropic support (5) Anemia of renal disease ICD Codes: D63.1 - Anemia in chronic kidney disease Plan The exam, history, and the medical decision-making described in the above note were completed with the assistance of the LEON. I reviewed and agree with the findings presented. Izabela Thompson MD Jan 05, 2017 11:48
[2017-01-05] MEDS ORDERED: POTASSIUM CHLOR 10 MEQ PREMIX 100 ML IV SCH ×2 (12:00)
--- NOTE | 2017-01-05 13:00 | HHI.HCPN ---
Reason for visit a. To assist with evaluation and management of symptoms including: dyspnea , pain b. To assist medical decision maker(s) with: better understanding of current medical conditions; weighing benefits/burdens of medical treatment options; making medical treatment decisions. . Subjective/Interval History Patient seen and examined in ICU. Dr. Pagan, Dr. Garcia, nurse and Thelma Brown LCSW present. On mech vent. Off sedation. Arousable, difficult to keep engaged in conversation. Follows some simple and complex commands. He does not seem to be able to follow more complex sentences. He nods yes/no intermittently to some questions. He falls off to sleep. Family/friend interactions Family meeting in consult room: Present (Divine GARCIA), 3 daughters (Lima , Vera and Shahla), son (), QUOC (Ian), DIL (Burner), stepdaughter and brand ambassador (Skinny) at bedside. Also present Thelma Brown LCSW. Items discussed: * Patient deemed incapacitated by Dr. Pagan and Dr. Garcia 01/05/17 - family notified. * Reviewed Pio Lerner is the legal decision maker based on [facility] Care Power of Reverberatory Furnace Operator paperwork dated 2012. * Medical update provided * Critical illness (no currently a candidate for trach), no significant clinical improvement, likely will not be able to be weaned from mech vent, requiring pressor support. * Poor prognosis * Treatment options continued aggressive care vs transition to comfort measures with withdrawal of life support * Attempted to discuss patient previously stated wishes, family disagrees about what patient would want under the circumstances. said he "does not want to live like this", children indicate "he told them he doesn't want to ." They are unable to come to any agreement. Family is very angry with one another. Photo Tech assisted in providing emotional support. * Anticipatory guidance regarding transition to comfort measures and withdrawal of life support. has not yet decided if this will be done at this time. In summary, family notified patient has been deemed incapacitated by 2 physicians and that legal decision making falls to spouse, Pio Lerner per written advanced directive. Therefore children are angry with . Children tells me patient said he wanted trach and wanted to live and says he previously stated he did not want trach and understood he would . Pio is trying to make the best decision for patient, she is not ready to make a decision at this time. I left family to continue conversation. Palliative care number provided. 3pm: Was called to room by family. Daughter, Vera (nurse) reports his neuro status changed after prayers with family. She tells me his pupils are non reactive and he is less responsive. Upon my arrival to room, patient eyes are open, pupils non reactive. Patient is not nodding yes/no to questions or following commands now. Lengthy conversation with (Pio), her daughter and his son, . Pio has decided to change to NO CODE status. She has also decided NO central line, no further escalation of care. Do not increase pressor support. Focus on comfort. No imaging for neuro changes. She is not ready to consider withdrawal of life support. . Advance Directives Durable Power of Reverberatory Furnace Operator: Copy in medical record Advance Directive Specifics Date completed: DPOA for health care completed 10/05/2012 . Health Care Surrogate(s): Pio Lerner is designated as the health care DPOA. . Documented care wishes: . Significant change in goals: NO CODE. elects no further escalation of care. No central line, do not increase pressor support. . Objective Vital Signs Date Time Temp Pulse Resp B/P (MAP) Pulse Ox O2 Delivery O2 Flow Rate FiO2 01/05/17 11:12 100 50 01/05/17 08:22 75 116/87 01/05/17 08:02 100 50 01/05/17 06:00 80 01/05/17 04:55 99 60 01/05/17 04:00 60 01/05/17 04:00 83 01/05/17 04:00 98.9 80 18 125/77 (93) 100 01/05/17 02:42 75/37 01/05/17 02:30 100 60 01/05/17 02:00 80 01/05/17 00:00 60 01/05/17 00:00 84 01/05/17 00:00 98.6 84 18 131/61 (84) 100 01/04/17 23:28 100 60 01/04/17 22:00 93 01/04/17 20:00 93 6 108/46 (66) 100 01/04/17 20:00 93 01/04/17 20:00 93 113/51 01/04/17 20:00 60 01/04/17 18:00 90 01/04/17 17:03 91 81/52 01/04/17 16:20 91 95/37 01/04/17 16:00 87 01/04/17 16:00 98.2 87 27 94/51 (65) 01/04/17 16:00 60 01/04/17 15:51 100 60 01/04/17 14:00 88 01/04/17 12:43 96 60 Intake & Output 01/05/17 01/05/17 07:00 19:00 Intake Total 1593 ml Output Total 650 ml Balance -650 ml 1593 ml IV Total 1593 ml Stool Total 300 ml Gastric Drainage Total 350 ml Physical Exam CONSTITUTIONAL/GENERAL: This is a thin, frail appearing male, intubated, mechanically ventilated in the MICU. TUBES/LINES/DRAINS: ETT, OG tube to suction, dialysis fistula LUE; bilateral soft wrist restraints; bilateral chest catheters; peripheral IV. SKIN: No jaundice, rashes. Skin tears on edematous scrotum. Buttock skin tear not evaluated. Skin temperature appropriate except for feet which are cool and mottled. EYES: Eyes open, Pupils non reactive. CARDIOVASCULAR: Regular rate and rhythm. RESPIRATORY/CHEST: Symmetric, unlabored respirations. Breath sounds diminished at both bases. GASTROINTESTINAL: Abdomen distended and very taught. No hepato-splenomegaly, or palpable masses. No guarding. Bowel sounds hypoactive. GENITOURINARY: Unable to feel for bladder distension given overall abdominal distension.. Prominent scrotal edema. MUSCULOSKELETAL: Extremities without clubbing, cyanosis. Feet are cool and mottled. NEUROLOGICAL: More lethargic today. . Diagnostic Tests Laboratory Laboratory Tests Test 01/02/17 17:31 01/03/17 04:35 01/05/17 06:15 Potassium Level 3.6 MEQ/L (3.5-5.1) 3.1 MEQ/L (3.5-5.1) 2.9 MEQ/L (3.5-5.1) White Blood Count 3.0 TH/MM3 (4.0-11.0) 2.2 TH/MM3 (4.0-11.0) Red Blood Count 2.43 MIL/MM3 (4.50-5.90) 2.97 MIL/MM3 (4.50-5.90) Hemoglobin 8.1 GM/DL (13.0-17.0) 9.6 GM/DL (13.0-17.0) Hematocrit 23.7 % (39.0-51.0) 28.9 % (39.0-51.0) Mean Corpuscular Volume 97.8 FL (80.0-100.0) 97.4 FL (80.0-100.0) Mean Corpuscular Hemoglobin 33.3 PG (27.0-34.0) 32.4 PG (27.0-34.0) Mean Corpuscular Hemoglobin Concent 34.1 % (32.0-36.0) 33.3 % (32.0-36.0) Red Cell Distribution Width 17.2 % (11.6-17.2) 16.3 % (11.6-17.2) Platelet Count 136 TH/MM3 (150-450) 142 TH/MM3 (150-450) Mean Platelet Volume 12.1 FL (7.0-11.0) 11.9 FL (7.0-11.0) Neutrophils (%) (Auto) 78.2 % (16.0-70.0) 68.7 % (16.0-70.0) Lymphocytes (%) (Auto) 17.1 % (9.0-44.0) 27.8 % (9.0-44.0) Monocytes (%) (Auto) 4.4 % (0.0-8.0) 2.9 % (0.0-8.0) Eosinophils (%) (Auto) 0.0 % (0.0-4.0) 0.3 % (0.0-4.0) Basophils (%) (Auto) 0.3 % (0.0-2.0) 0.3 % (0.0-2.0) Neutrophils # (Auto) 2.4 TH/MM3 (1.8-7.7) 1.5 TH/MM3 (1.8-7.7) Lymphocytes # (Auto) 0.5 TH/MM3 (1.0-4.8) 0.6 TH/MM3 (1.0-4.8) Monocytes # (Auto) 0.1 TH/MM3 (0-0.9) 0.1 TH/MM3 (0-0.9) Eosinophils # (Auto) 0.0 TH/MM3 (0-0.4) 0.0 TH/MM3 (0-0.4) Basophils # (Auto) 0.0 TH/MM3 (0-0.2) 0.0 TH/MM3 (0-0.2) CBC Comment AUTO DIFF AUTO DIFF Differential Total Cells Counted 100 100 Neutrophils % (Manual) 42 % (16-70) 24 % (16-70) Band Neutrophils % 29 % (0-6) 34 % (0-6) Lymphocytes % 17 % (9-44) 19 % (9-44) Monocytes % 10 % (0-8) 1 % (0-8) Neutrophils # (Manual) 2.2 TH/MM3 (1.8-7.7) 1.8 TH/MM3 (1.8-7.7) Metamyelocytes 2 % (0-1) 21 % (0-1) Differential Comment FINAL DIFF MANUAL FINAL DIFF MANUAL Toxic Granulation 2+ (NORMAL) 1+ (NORMAL) Toxic Vacuolation PRESENT (NONE SEEN) PRESENT (NONE SEEN) Dohle Bodies PRESENT (NONE SEEN) PRESENT (NONE SEEN) Platelet Estimate LOW (NORMAL) LOW (NORMAL) Platelet Morphology Comment ENLARGED (NORMAL) ENLARGED (NORMAL) Ovalocytes 1+ (NORMAL) 1+ (NORMAL) Acanthocytes OCC (NORMAL) OCC (NORMAL) Blood Urea Nitrogen 45 MG/DL (7-18) 69 MG/DL (7-18) Creatinine 3.76 MG/DL (0.60-1.30) 5.54 MG/DL (0.60-1.30) Random Glucose 152 MG/DL (74-106) 138 MG/DL (74-106) Total Protein 5.7 GM/DL (6.4-8.2) 6.1 GM/DL (6.4-8.2) Albumin 2.2 GM/DL (3.4-5.0) 1.8 GM/DL (3.4-5.0) Calcium Level 8.0 MG/DL (8.5-10.1) 8.1 MG/DL (8.5-10.1) Alkaline Phosphatase 93 U/L (45-117) 99 U/L (45-117) Aspartate Amino Transf (AST/SGOT) 43 U/L (15-37) 48 U/L (15-37) Alanine Aminotransferase (ALT/SGPT) 98 U/L (12-78) 97 U/L (12-78) Total Bilirubin 0.4 MG/DL (0.2-1.0) 0.7 MG/DL (0.2-1.0) Sodium Level 133 MEQ/L (136-145) 126 MEQ/L (136-145) Chloride Level 93 MEQ/L (98-107) 87 MEQ/L (98-107) Carbon Dioxide Level 29.1 MEQ/L (21.0-32.0) 20.2 MEQ/L (21.0-32.0) Anion Gap 11 MEQ/L (5-15) 19 MEQ/L (5-15) Estimat Glomerular Filtration Rate 19 ML/MIN (>89) 12 ML/MIN (>89) Myelocytes 1 % (0-0) Nucleated Red Blood Cells 2 /100 WBC (0-0) Atypical Lymphocytes % (0-0) Result Diagram: 01/05/1761401/05/17614 Microbiology Microbiology Date/Time Source Procedure Growth Status 12/19/16 19:10 Blood Peripheral Aerobic Blood Culture - Final NO GROWTH IN 5 DAYS Complete 12/19/16 19:10 Blood Peripheral Anaerobic Blood Culture - Final NO GROWTH IN 5 DAYS Complete 12/19/16 20:35 Fluid Pleural Fluid Gram Stain - Final Complete 12/19/16 20:35 Fluid Pleural Fluid Body Fluid Culture - Final NO GROWTH IN 72 HRS.--AEROBICALLY OR ... Complete 12/21/16 10:24 Sputum Endotracheal Gram Stain - Final Complete 12/21/16 10:24 Sputum Culture - Final Klebsiella Pneumoniae Complete Imaging Last Impressions Chest X-Ray 01/05/17599 Signed Impressions: Service Date/Time: Thursday, January 05, 2017 04:21 - CONCLUSION: 1. Stable bilateral pneumothoraces. 2. Left lower lobe atelectasis versus pneumonia. Fabien Alas MD Abdomen X-Ray 01/05/17599 Signed Impressions: Service Date/Time: Thursday, January 05, 2017 04:28 - CONCLUSION: 1. Continued colonic ileus. There has been no significant change when compared to the prior exam. Fabien Alas MD Head CT 12/26/16 0000 Signed Impressions: Service Date/Time: Monday, December 26, 2016 11:03 - CONCLUSION: 1. Chronic changes with encephalomalacia in the high right and posterior medial parietal convexity. 2. Old lacunar type infarct in the left sargent radiata. Moderately severe periventricular small vessel ischemic demyelination. 3. Old linear infarct in the right cerebellar hemisphere. 4. Possible acute sinusitis in the left maxillary antra. 5. No acute intracranial process Koby Duncan MD Abdomen/Pelvis CT 12/26/16 0000 Signed Impressions: Service Date/Time: Monday, December 26, 2016 11:06 - CONCLUSION: 1. Bilateral large hydropneumothoraces. Chest drainage tube on the right side is included in the [id number] of the skin and is projected in the lower medial right chest. 2. Significant ascites diffuse throughout the abdomen and pelvis were 3. Bilateral renal cysts Nic Cha MD Chest CT 12/20/16 0000 Signed Impressions: Service Date/Time: Tuesday, December 20, 2016 16:26 - CONCLUSION: 1. Moderate right and small left hydropneumothorax with small caliber chest tubes present bilaterally, not significant changed from prior chest radiograph. Dependent consolidation and atelectasis of both lungs. No pneumomediastinum or subcutaneous air. Germán Vences MD Procedures * Biltateral chest tube placement * Intubation/mechanical ventilation * Arterial line placement . Assessment and Plan Disease Oriented Problem List: (1) Loculated pleural effusion Comment: Pulmonology and cardi-thoracic surgery do not feel there is a workable solution to this problem given the patient's overall functional capacity. . (2) Pneumothorax Comment: Lungs unable to re-expand in spite of chest tubes.. As chest tubes are not working and he is not a candidate for surgery, this will likely be a chronic problem making it very hard to wean patient from went and if vent weaning is possible there is a very high likelihood or recurrence/worsening of problem. . (3) ESRD (end stage renal disease) on dialysis Comment: Normally on dialysis M, W, F. . (4) Peripheral vascular disease (5) Anemia Comment: Probably multi-factorial. On top of anemia from his renal disease, he may have acute blood loss anemia from uncertain source. Has received 2 units of PRBCs. . (6) Stroke Comment: Had two strokes in 2012. Now with significant left sided weakness. . (7) Osteoarthritis (8) Hypertension Comment: Now HYPOTENSIVE requiring pressor support. . (9) Glaucoma Symptom Scale: (1) Pain 0-10 Scale: Unable to quantify Comment: Has history of back pain and arthritis pain with use of PRN tramadol at home. Other sources of pain now include prolonged bedbound status; orotracheal and orogastric intubations; restraints; vascular access lines; etc. . (2) Dyspnea 0-10 Scale: Unable to quantify Comment: Dyspnea due to pneumothorax and recurrent pleural effusions. Now being managed on vent. . (3) Encephalopathy 0-10 Scale: Unable to quantify Comment: Patient continues on sedation. Will need to evaluate clinically off sedation to see if there is any significant cognitive loss. . Pertinent Non-Medical Issues Psychosocial: Supported by of over 30 years. Patient has 8 biological children and 5 step-children. Spiritual: [employer] Legal: DPOA for health care scanned into EMR. . Important Contacts * Pio Lerner (spouse; DPOA for health care) [phone] . 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 Cardiothoracic surgery does not believe patient could tolerate the procedure necessary to repair this. In addition to his kidney disease and incurable lung disease, patient now has hemodynamic instability requiring pressors. Critical care and pulmonology feel he has an end stage condition. In my clinical opinion, patient has an overall end stage condition. I don't believe there is a reasonable probability of patient regaining capacity. Patient would be an appropriate hospice candidate at such time that his health care surrogate decides to forego further aggressive care and transition to comfort care. . Code Status: No Code Plan * Decision making: Mentation has fluctuated. Deemed incapacitated by Dr. Garcia and Dr. Pagan today. Designated health care power of workers compensation defense attorney is designated as Pio Lerner. No alternate listed. * NO CODE. * 3pm: Was called to room by family (, 3 daughters, son, QUOC and brand ambassador present). Daughter, Vera (nurse) reports his neuro status changed after prayers with family. She tells me his pupils are non reactive and he is less responsive. Upon my arrival to room, patient eyes are open, pupils non reactive. Patient is not nodding yes/no to questions or following commands now. Lengthy conversation with (Pio), her daughter and his son, . Pio has decided to change to NO CODE status. She has also decided NO central line, no further escalation of care. Do not increase pressor support. Focus on comfort. No imaging for neuro changes. She is not ready to consider withdrawal of life support. Symptoms * Pain: Has history of back pain and arthritis pain with use of PRN tramadol at home. Other sources of pain now include prolonged bedbound status; orotracheal and orogastric intubations; restraints; vascular access lines; etc. He has abdominal distension of unknown etiology, Skin breakdown on buttocks and scrotum, bedbound status and prolonged hospitalization may also be contributing. Has Fentanyl drip ordered, currently off. No further recommendations at this time. * Dyspnea: Dyspnea is secondary to his chronic / recurrent pleural effusions and pneumothoraces. Currently managed by chest tubes and ventilator. No further recommendations at this time. * Palliative care number provided. I will continue to follow to assist with symptom management and to further clarify goals of medical treatment as the clinical course evolves. . Attestation To help prompt me to consider important information that might be impacting today's encounter and assessment, information from prior notes written by myself or my colleagues may have been "brought forward" into today's note. My signature on this note, however, is an attestation that I personally performed the exam, history, and/or decision-making noted today, and, unless otherwise indicated, the interactions with patient, family, and staff as well as the review of records all occurred today. I also attest that the listed assessment and stated plan reflect my best clinical judgment today based on the combination of historical information, prior notes, and today's exam/ interactions. When time spent is documented, it refers only to time spent today by the signer, or if indicated, combined time spent today by collaborating physician/nurse practitioner. Shala Pierre Jan 05, 2017 13:00
[2017-01-05] MEDS ORDERED: HYOSCYAMINE 0.5 MG/ML AMP IV PUSH PRN ×2 (14:00)
--- NOTE | 2017-01-05 16:28 | HHI.CCPN ---
Subjective Remarks/Hospital Course 86-year-old very pleasant male presents complaining of shortness of breath. Patient states that the symptoms started last night. He has history recurrent pleural effusion status post thoracentesis in the past. Patient is scheduled to have bilateral thoracentesis done by interventional radiologist. Patient denies any headache. Patient denies any chest pain. Patient denies abdominal pain. Patient denies any focal weakness or numbness of extremity. 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 Patient also has history of hypertension, hyperlipidemia, CVA and anemia. In the emergency department the chest x-ray revealed large pleural effusion on the right and a large pneumothorax on the left. Emergent chest tubes were placed bilaterally with partial resolution of pneumothorax on the left and drainage of 700 cc of hemorrhagic fluid from the right side however bilateral residual bibasal pneumothoraces. After procedures patient's respiration is significantly improved as well as his oxygenation. 12/21 Patient required increase O2 overnight wa son BIPAP with 100% FIO2. CXR this morning showed consolidative opacity right lung and stable bibasilar pneumothoraces. Due to resp distress and patient was intubated and placed on mechanical ventilation. 12/22 Patient is intubated and sedated with Fentanyl drip. On Neosyn 100 mics, Levophed 9 mics and vasopressin. Afebrile. 12/23 Patient remains intubated and sedated. On multiple pressors ( Levophed 4 mics, Neosyn 106 mics, Vasopressin).s/p HD yesterday with removal 700ml. 12/24 Patient remains intubated and sedated. On Levophed 6 mics, Neosyn 130 mics , vasopressin 0.04. [address] was placed yesterday on right side for right subpulmonic PTX however it was dislodged last night and 20FR CT was placed. 12/25 Patient remains intubated and sedated. s/p HD yesterday with removal 3.5L and transfusion 2units PRBC. Remains on Neosyn, Levophed down 2 mics, off Vasopressin. 12/26 Patient is sedated and intubated. Off Levophed, Neosyn down 66 mics. Afebrile. 12/27 HD today resulted in 2.5 Kg removal, unable to reach target of 3 kg due to hypotension. Still on some neosynephrine 20-40 mcg/min. Afebrile. 12/28 Remains on mechanical ventilation. Apneic when transitioned to CPAP. Remains on neosynephrine. Did not tolerated trickle tube feeds which are now on hold. 12/29: Getting HD today. Continues to be on Forrest-Synephrine at 10 mcg/m, not tolerating CPAP. Chest x-ray remains unchanged 12/30: No acute events, Unable to tolerate CPAP even with PS of 20 due to poor lung compliance. CXR remains unchanged and patient remains off pressors 12/31: Lung compliance remains poor, Pinsp 35. Bedside ultrasound shows moderate ascites. Paracentesis may help with improving lung compliance-at this time we're unable to do CPAP trials due to very low tidal volumes on CPAP 01/01: No change in vent setting. No clinical improvement. Abdomen is soft despite moderate ascites. I do not think paracentesis will improve lung compliance 01/02: Tachypneic today lung compliance remains very poor. Getting hemodialysis. Prognosis remains extremely poor. Start fentanyl for ventilator synchrony. FiO2 100% for hypoxia, will start weaning 01/03: No clinical improvement, we started on Forrest-Synephrine for hypotension. FiO2 had to be increased to 65%. Noncompliance remains extremely poor and 60% FiO2. 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 She is agreeable to withdrawal of life support Thursday 01/04: Clinically there is no improvement clinically Forrest-Synephrine requirement increasing. Chest x-ray from yesterday shows unexpanded lower lung bilaterally. Lung compliance remains very poor. was planning to proceed with withdrawal of life support tomorrow. Extended family including biological children at the bedside. The children unanimously tells me that their father is not ready to "give up and " and he indicated he wants tracheostomy and further supportive care. I asked the patient whether he understands what tracheostomy means and he nodded "yes". I also asked him whether he wants a tracheostomy even though that will not improve his lung and he nodded "yes". His stated that he felt pressured by the children and thus he is changing his mind. She indicates that he had previously told her he did not want to live on machines. Patient's chance of success were ventilator weaning is minimal, approximately 2 weeks with chest tubes and on the ventilator; the large right pneumothorax and medium-sized left pneumothorax hasn't reexpanded Subjective: 01/05: Patient is currently DNR status. No escalation of care. Continues with bilateral chest tubes. Increasing phenylephrine requirements currently 120 per minute peripherally. Objective Vital Signs Date Time Temp Pulse Resp B/P (MAP) Pulse Ox O2 Delivery O2 Flow Rate FiO2 01/05/17 12:00 60 01/05/17 11:12 100 01/05/17 08:22 75 116/87 01/05/17 04:00 98.9 18 Intake and Output 01/05/17 01/05/17 01/06/17 08:00 16:00 00:00 Intake Total 1593 ml Output Total 650 ml Balance 943 ml Result Diagram: 01/05/1761401/05/17614 Other Results Microbiology Date/Time Source Procedure Growth Status 12/19/16 19:10 Blood Peripheral Aerobic Blood Culture - Final NO GROWTH IN 5 DAYS Complete 12/19/16 19:10 Blood Peripheral Anaerobic Blood Culture - Final NO GROWTH IN 5 DAYS Complete 12/19/16 20:35 Fluid Pleural Fluid Gram Stain - Final Complete 12/19/16 20:35 Fluid Pleural Fluid Body Fluid Culture - Final NO GROWTH IN 72 HRS.--AEROBICALLY OR ... Complete 12/21/16 10:24 Sputum Endotracheal Gram Stain - Final Complete 12/21/16 10:24 Sputum Culture - Final Klebsiella Pneumoniae Complete Imaging Last Impressions Chest X-Ray 01/05/17 06 Signed Impressions: Service Date/Time: Thursday, January 05, 2017 04:21 - CONCLUSION: 1. Stable bilateral pneumothoraces. 2. Left lower lobe atelectasis versus pneumonia. Fabien Alas MD Abdomen X-Ray 01/05/17 0600 Signed Impressions: Service Date/Time: Thursday, January 05, 2017 04:28 - CONCLUSION: 1. Continued colonic ileus. There has been no significant change when compared to the prior exam. Fabien Alas MD Head CT 12/26/16 0000 Signed Impressions: Service Date/Time: Monday, December 26, 2016 11:03 - CONCLUSION: 1. Chronic changes with encephalomalacia in the high right and posterior medial parietal convexity. 2. Old lacunar type infarct in the left sargent radiata. Moderately severe periventricular small vessel ischemic demyelination. 3. Old linear infarct in the right cerebellar hemisphere. 4. Possible acute sinusitis in the left maxillary antra. 5. No acute intracranial process Koby Duncan MD Abdomen/Pelvis CT 12/26/16 0000 Signed Impressions: Service Date/Time: Monday, December 26, 2016 11:06 - CONCLUSION: 1. Bilateral large hydropneumothoraces. Chest drainage tube on the right side is included in the [id number] of the skin and is projected in the lower medial right chest. 2. Significant ascites diffuse throughout the abdomen and pelvis were 3. Bilateral renal cysts Nic Cha MD Chest CT 12/20/16 0000 Signed Impressions: Service Date/Time: Tuesday, December 20, 2016 16:26 - CONCLUSION: 1. Moderate right and small left hydropneumothorax with small caliber chest tubes present bilaterally, not significant changed from prior chest radiograph. Dependent consolidation and atelectasis of both lungs. No pneumomediastinum or subcutaneous air. Germán Vences MD Objective Remarks GENERAL: Patient is 86 yo intubated. Tachypneic on the vent SKIN: Warm and dry. HEAD: Normocephalic. EYES: Sluggishly reactive pupils bilaterally. No scleral icterus. No injection or drainage. NECK: Supple, trachea midline. No JVD or lymphadenopathy. Orally intubated CVS: tachyCardiac, RRR. S1, S2 no S4. RESP: Breath sounds equal bilaterally. Diminished breath sounds right lung contreras. No wheezing. Right CT 20FR on right and Left pigtail on left, both to suction with air leak. GASTROINTESTINAL:Distended, hypoactive bowel sounds. Moderate ascites MUSCULOSKELETAL: No cyanosis. 1-2+ edema of all extremities VASC: L arm fistula with thrill. NEURO: Eyes open, nods and shakes head in response to questions. Follows commands by squeezing with hands bilaterally. A/P Assessment and Plan Neuro: Acute toxic metabolic encephalopathy h/o multiple strokes, most recent with L sided weakness and foot drop. Glaucoma Fentanyl infusion currently off. For vent synchrony. Patient awake and follows commands weakly but no complex higher thoughts. Will give thumbs up with to command to right and left hand but not capable of complex thought processes CT brain - no acute intracerebral process. Encephalomalacia, right parietal. Old lacunar infarct Sargent radiata. (Ambulates with walker/wheelchair at baseline) Continue Cosopt 2/0.5 and latanoprost 0.005% to each eye Continue dipyridamole 75 mg twice a day Pulm: Acute hypoxemic respiratory failure Bilateral pneumothoraces, trapped lung Low lung compliance Recurrent right pleural effusion requiring multiple prior thoracentesis Continue with vent support with pressure control, assist control keep sat >92%, on PCV insp pressure 45 PEEP 8 and 60%. Do not tolerate CPAP even with high pressure support of 20 due to poor lung compliance Bronchodilators with albuterol/ipratropium aerosols every 4 hours with albuterol aerosols every 2 hours. Dyspnea ICU vent bundle. B/L pigtail catheters placed on 12/[address] placed on right 12/23 ( Dislodged), 20FR CT placed night of Monitor CT drainage. CTS- Dr. Jara, patient is poor operative candidate. CXR 01/03 showed stable b/l bibasilar pneumothoraces despite b/l chest tubes. Patient is a poor operative candidate and would require thoracotomy and decortication with no assurance that the lungs would re-expand due to the chronicity CV: Shock Dyslipidemia On Neosynephrine currently at 220 mg/m, Monitor HR and BP keep MAP>65mmHg On stress dose steroids- HC 50q6. No weaning of Steroids at this time due to poor lung compliance Lactic acid cleared. On pravastatin 20 mill grams daily : Hyponatremia Hypopotassemia ESRD Hemodialysis per nephrology, Dr. Thompson. No escalation care. Will not check labs in a.m. GI: Ileus Recurrent ascites Colonic ileus Elevated transaminases On lansoprazole 30 mg daily for GI prophylaxis Tolerating rube feeds, having BM On bowel regimen Colace, Senna KUB revealed clinically slipped/6. NGT to [facility] CT abd/pelvis 12/26 - ascites but no dilated bowel. Metoclopramide 5 mg IV q8 hours. Paracentesis may temporarily help with ileus, however will not change overall very poor prognosis. Has h/o recurrent ascites with serial paracentesis in the past, unclear etiology. SAAG was 0.7, inconsistent with portal hypertension. Cirrhosis workup negative for etiology. ID: Klebsiella pneumonia DC ceftriaxone 01/04/17 sputum cx 12/21: Kleb pneumoni BC, fluid cx from 12/19:NGTD Heme: Leukopenia Thrombocytopenia Anemia Monitor CBC, s/p transfusion 2units PRBC 12/24 Endo: SSI with accuchecks GI prophylaxis-lansoprazole 30 mg daily DVT prophylaxis- SCD. Heparin SQ 5000 units twice a day Palliative care is following. Per palliative care documentation DNR status instituted today 01/05.. No escalation of care including no central line placement. Level II follow-up Wesley Pagan MD Jan 05, 2017 16:28
[2017-01-05] MEDS ORDERED: RESP: ALBUTEROL 2.5 MG/3 ML NEB (PRN) NEB ×2 (16:30)
[2017-01-05] MEDS: LATANOPROST 0.005% OPHT SOLN 2.5 ML BTL EACH EYE SCH ×2 (20:58)
[2017-01-05] MEDS: PRAVASTATIN SOD 20 MG TAB PO SCH ×2 (20:58)
[2017-01-05] MEDS: ARTIFICIAL TEARS OPTH SOLN 15 ML BTL EACH EYE SCH ×2 (20:59)
[2017-01-05] MEDS: MORPHINE SULFATE 2 MG/ML INJ IV PUSH PRN ×2 (23:33)
[2017-01-06] VITALS: BP 58/38; PULSE 77; RESP 18; TEMP 98.3; O2SAT 100
[2017-01-06 02:00] VITALS: PULSE 80
[2017-01-06] MEDS: RESP: ALBUTEROL 2.5 MG/IPRATROPIUM 0.5 MG NEB (SCH) NEB ×2 (03:40)
[2017-01-06 04:00] VITALS: BP 122/60; PULSE 81; RESP 18; TEMP 98.9; O2SAT 100
[2017-01-06 04:26] VITALS: O2SAT 100
[2017-01-06 04:27] VITALS: BP 105/66
[2017-01-06] MEDS: PHENYLEPHRINE INJ 40 MG in DEXTROSE 5% IN WATE 500 ML INJ 496 ML IV PRN ×4 (04:27)
[2017-01-06] MEDS: HYDROCORTISONE SOD SUCCINATE 100 MG VIAL IV PUSH SCH ×2 (04:28)
[2017-01-06] MEDS: ARTIFICIAL TEARS OPTH SOLN 15 ML BTL EACH EYE SCH ×2 (04:28)
[2017-01-06] MEDS: METOCLOPRAMIDE HCL 10 MG/2 ML VIAL IV PUSH SCH ×2 (04:28)
[2017-01-06] MEDS: MORPHINE SULFATE 2 MG/ML INJ IV PUSH PRN ×2 (05:36)
[2017-01-06 06:00] VITALS: PULSE 100
[2017-01-06] MEDS ORDERED: LANSOPRAZOLE SOLUTAB 30 MG TAB NG SCH ×2 (09:00)
--- NOTE | 2017-01-06 09:16 | HHI.DS ---
Summary Note Date of : Jan 06, 2017 Time Of : 07 Admission Date Dec 19, 2016 at 19:57 Admitting Diagnosis Pleural Effusion, Pneumothorax, Hypoxic respiratory failure. Diagnosis at Time of : (1) Pneumothorax ICD Code: J93.9 - Pneumothorax, unspecified Diagnosis: Principal (2) Pleural effusion ICD Code: J90 - Pleural effusion, not elsewhere classified Diagnosis: Secondary (3) ESRD (end stage renal disease) on dialysis ICD Code: N18.6 - End stage renal failure on dialysis; Z99.2 - Dependence on renal dialysis Diagnosis: Principal (4) HTN (hypertension) ICD Code: I10 - Hypertension Diagnosis: Secondary (5) CVA (cerebral vascular accident) ICD Code: I63.9 - Cerebrovascular accident Procedures Chest tube placement 3 Brief History 86-year-old very pleasant male presents complaining of shortness of breath. Patient states that the symptoms started last night. He has history recurrent pleural effusion status post thoracentesis in the past. Patient is scheduled to have bilateral thoracentesis done by interventional radiologist. Patient denies any headache. Patient denies any chest pain. Patient denies abdominal pain. Patient denies any focal weakness or numbness of extremity. 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 Patient also has history of hypertension, hyperlipidemia, CVA and anemia. In the emergency department the chest x-ray revealed large pleural effusion on the right and a large pneumothorax on the left. Emergent chest tubes were placed bilaterally with partial resolution of pneumothorax on the left and drainage of 700 cc of hemorrhagic fluid from the right side however bilateral residual bibasal pneumothoraces. After procedures patient's respiration is significantly improved as well as his oxygenation. CBC/BMP: 01/05/17 0615 01/05/17 0615 Significant Findings Laboratory Tests Test 01/05/17 06:15 White Blood Count 2.2 TH/MM3 (4.0-11.0) Red Blood Count 2.97 MIL/MM3 (4.50-5.90) Hemoglobin 9.6 GM/DL (13.0-17.0) Hematocrit 28.9 % (39.0-51.0) Platelet Count 142 TH/MM3 (150-450) Mean Platelet Volume 11.9 FL (7.0-11.0) Neutrophils # (Auto) 1.5 TH/MM3 (1.8-7.7) Lymphocytes # (Auto) 0.6 TH/MM3 (1.0-4.8) Band Neutrophils % 34 % (0-6) Metamyelocytes 21 % (0-1) Myelocytes 1 % (0-0) Nucleated Red Blood Cells 2 /100 WBC (0-0) Toxic Granulation 1+ (NORMAL) Toxic Vacuolation PRESENT (NONE SEEN) Dohle Bodies PRESENT (NONE SEEN) Platelet Estimate LOW (NORMAL) Platelet Morphology Comment ENLARGED (NORMAL) Ovalocytes 1+ (NORMAL) Blood Urea Nitrogen 69 MG/DL (7-18) Creatinine 5.54 MG/DL (0.60-1.30) Random Glucose 138 MG/DL (74-106) Total Protein 6.1 GM/DL (6.4-8.2) Albumin 1.8 GM/DL (3.4-5.0) Calcium Level 8.1 MG/DL (8.5-10.1) Aspartate Amino Transf (AST/SGOT) 48 U/L (15-37) Alanine Aminotransferase (ALT/SGPT) 97 U/L (12-78) Sodium Level 126 MEQ/L (136-145) Potassium Level 2.9 MEQ/L (3.5-5.1) Chloride Level 87 MEQ/L (98-107) Carbon Dioxide Level 20.2 MEQ/L (21.0-32.0) Anion Gap 19 MEQ/L (5-15) Estimat Glomerular Filtration Rate 12 ML/MIN (>89) Imaging Last Impressions Chest X-Ray 01/05/17 06 Signed Impressions: Service Date/Time: Thursday, January 05, 2017 04:21 - CONCLUSION: 1. Stable bilateral pneumothoraces. 2. Left lower lobe atelectasis versus pneumonia. Fabien Alas MD Abdomen X-Ray 01/05/17 0600 Signed Impressions: Service Date/Time: Thursday, January 05, 2017 04:28 - CONCLUSION: 1. Continued colonic ileus. There has been no significant change when compared to the prior exam. Fabien Alas MD Head CT 12/26/16 0000 Signed Impressions: Service Date/Time: Monday, December 26, 2016 11:03 - CONCLUSION: 1. Chronic changes with encephalomalacia in the high right and posterior medial parietal convexity. 2. Old lacunar type infarct in the left sargent radiata. Moderately severe periventricular small vessel ischemic demyelination. 3. Old linear infarct in the right cerebellar hemisphere. 4. Possible acute sinusitis in the left maxillary antra. 5. No acute intracranial process Koby Duncan MD Abdomen/Pelvis CT 12/26/16 0000 Signed Impressions: Service Date/Time: Monday, December 26, 2016 11:06 - CONCLUSION: 1. Bilateral large hydropneumothoraces. Chest drainage tube on the right side is included in the [id number] of the skin and is projected in the lower medial right chest. 2. Significant ascites diffuse throughout the abdomen and pelvis were 3. Bilateral renal cysts Nic hCa MD Chest CT 12/20/16 0000 Signed Impressions: Service Date/Time: Tuesday, December 20, 2016 16:26 - CONCLUSION: 1. Moderate right and small left hydropneumothorax with small caliber chest tubes present bilaterally, not significant changed from prior chest radiograph. Dependent consolidation and atelectasis of both lungs. No pneumomediastinum or subcutaneous air. Germán Vences MD Hospital Course Neuro: Acute toxic metabolic encephalopathy h/o multiple strokes, most recent with L sided weakness and foot drop. Glaucoma Fentanyl infusion currently off. For vent synchrony. Patient awake and follows commands weakly but no complex higher thoughts. Will give thumbs up with to command to right and left hand but not capable of complex thought processes CT brain - no acute intracerebral process. Encephalomalacia, right parietal. Old lacunar infarct Sargent radiata. (Ambulates with walker/wheelchair at baseline) Continue Cosopt 2/0.5 and latanoprost 0.005% to each eye Continue dipyridamole 75 mg twice a day Pulm: Acute hypoxemic respiratory failure Bilateral pneumothoraces, trapped lung Low lung compliance Recurrent right pleural effusion requiring multiple prior thoracentesis Continue with vent support with pressure control, assist control keep sat >92%, on PCV insp pressure 45 PEEP 8 and 60%. Do not tolerate CPAP even with high pressure support of 20 due to poor lung compliance Bronchodilators with albuterol/ipratropium aerosols every 4 hours with albuterol aerosols every 2 hours. Dyspnea ICU vent bundle. B/L pigtail catheters placed on 12/[address] placed on right 12/23 ( Dislodged), 20FR CT placed night of Monitor CT drainage. CTS- Dr. Jara, patient is poor operative candidate. CXR 01/03 showed stable b/l bibasilar pneumothoraces despite b/l chest tubes. Patient is a poor operative candidate and would require thoracotomy and decortication with no assurance that the lungs would re-expand due to the chronicity CV: Shock Dyslipidemia On Neosynephrine currently at 220 mg/m, Monitor HR and BP keep MAP>65mmHg On stress dose steroids- HC 50q6. No weaning of Steroids at this time due to poor lung compliance Lactic acid cleared. On pravastatin 20 mill grams daily : Hyponatremia Hypopotassemia ESRD Hemodialysis per nephrology, Dr. Thompson. No escalation care. Will not check labs in a.m. GI: Ileus Recurrent ascites Colonic ileus Elevated transaminases On lansoprazole 30 mg daily for GI prophylaxis Tolerating rube feeds, having BM On bowel regimen Colace, Senna KUB revealed clinically slipped/6. NGT to [facility] CT abd/pelvis 12/26 - ascites but no dilated bowel. Metoclopramide 5 mg IV q8 hours. Paracentesis may temporarily help with ileus, however will not change overall very poor prognosis. Has h/o recurrent ascites with serial paracentesis in the past, unclear etiology. SAAG was 0.7, inconsistent with portal hypertension. Cirrhosis workup negative for etiology. ID: Klebsiella pneumonia DC ceftriaxone 01/04/17 sputum cx 12/21: Kleb pneumoni BC, fluid cx from 12/19:NGTD Heme: Leukopenia Thrombocytopenia Anemia Monitor CBC, s/p transfusion 2units PRBC 12/24 Endo: SSI with accuchecks GI prophylaxis-lansoprazole 30 mg daily DVT prophylaxis- SCD. Heparin SQ 5000 units twice a day Palliative care is following. Per palliative care documentation DNR status instituted today 01/05.. No escalation of care including no central line placement. Wesley Pagan MD Jan 06, 2017 09:16
== END 2017-01-06 07:10 | disposition expired | DRG 207 ==
LOC: NEPC 18:35 → NEDA 19:57 → HIME 21:50
PROVIDERS: ADMIT Internal Medicine Critical Care Medicine; ATTEND Internal Medicine Critical Care Medicine
PROC: 0W9B30Z Drainage of Left Pleural Cavity with Drainage Device, Percutaneous Approach (ICD-10-PCS; 2016-12-19)
PROC: 0W9930Z Drainage of Right Pleural Cavity with Drainage Device, Percutaneous Approach (ICD-10-PCS; 2016-12-19)
PROC: 5A1D70Z Performance of Urinary Filtration, Intermittent, Less than 6 Hours Per Day (ICD-10-PCS; 2016-12-20)
PROC: 5A1955Z Respiratory Ventilation, Greater than 96 Consecutive Hours (ICD-10-PCS; principal; 2016-12-21)
PROC: 0BH17EZ Insertion of Endotracheal Airway into Trachea, Via Natural or Artificial Opening (ICD-10-PCS; 2016-12-21)
PROC: 06HY33Z Insertion of Infusion Device into Lower Vein, Percutaneous Approach (ICD-10-PCS; 2016-12-21)
PROC: 30233N1 Transfusion of Nonautologous Red Blood Cells into Peripheral Vein, Percutaneous Approach (ICD-10-PCS; 2016-12-24)
DX: J93.83 Other pneumothorax (principal); R57.9 Shock, unspecified; J15.0 Pneumonia due to Klebsiella pneumoniae; G92 Toxic encephalopathy; Z51.5 Encounter for palliative care; J90 Pleural effusion, not elsewhere classified; R18.8 Other ascites; N18.6 End stage renal disease; I12.0 Hypertensive chronic kidney disease with stage 5 chronic kidney disease or end stage renal disease; D69.6 Thrombocytopenia, unspecified; J96.01 Acute respiratory failure with hypoxia; I69.354 Hemiplegia and hemiparesis following cerebral infarction affecting left non-dominant side; Z68.1 Body mass index [BMI] 19.9 or less, adult; K56.7 Ileus, unspecified; E87.1 Hypo-osmolality and hyponatremia; E87.5 Hyperkalemia; D63.1 Anemia in chronic kidney disease; J93.81 Chronic pneumothorax; Z91.15 Patient's noncompliance with renal dialysis; R62.7 Adult failure to thrive; K21.9 Gastro-esophageal reflux disease without esophagitis; H40.20X0 Unspecified primary angle-closure glaucoma, stage unspecified; E78.5 Hyperlipidemia, unspecified; D53.9 Nutritional anemia, unspecified; R63.4 Abnormal weight loss; I73.9 Peripheral vascular disease, unspecified; N50.89 Other specified disorders of the male genital organs; G93.89 Other specified disorders of brain; E88.09 Other disorders of plasma-protein metabolism, not elsewhere classified; E16.2 Hypoglycemia, unspecified; M21.371 Foot drop, right foot; D72.819 Decreased white blood cell count, unspecified; M19.90 Unspecified osteoarthritis, unspecified site; Z66 Do not resuscitate; Z87.891 Personal history of nicotine dependence; Z99.2 Dependence on renal dialysis
CPT/HCPCS: 31500; 32551; 36430; 36556; 36591; 36600; 36620; 70450; 71010; 71250; 74000; 74176; 76937; 80048; 80053; 80069; 80202; 82150; 82550; 82607; 82746; 82805; 82945; 82948; 83605; 83615; 83735; 83986; 84100; 84132; 84155; 84157; 84484; 85007; 85014; 85018; 85025; 85027; 85379; 85384; 85610; 85730; 86850; 86900; 86901; 86920; 87040; 87070; 87077; 87186; 87205; 87641; 88112; 88305; 89051; 90935; 93005; 94002; 94003; 94640; 94664; 96374; 96375; 99285; C9113; J0171; J0360; J0456; J0696; J1644; J1720; J2250; J2270; J2370; J2405; J2543; J2765; J3010; J3370; J3480; J7030; J7040; J7050; J7060; J7070; P9016; P9047; Q4081